=== PATIENT | male | born 1960 | race Caucasian/White ===

== ENCOUNTER 2017-10-10 16:02 | Outpatient (CLI) | payer MEDICAID ==
--- NOTE | 2017-10-11 11:36 | XRAY Report ---
CERVICAL SPINE: 10/10/2017. COMPARISON: No comparison. INDICATION: Cervicalgia. TECHNIQUE: Three views. FINDINGS: Normal alignment. No evidence of acute fracture. Prevertebral soft tissues appear unremarkable. The lateral masses are symmetric. There is moderate disk space narrowing at C4-C5. There is moderate to severe disk space narrowing at C5-C6 and C6-C7. There are moderate anterior osteophytes. There are mild to moderate degenerative changes of the lower cervical facets. IMPRESSION: MODERATE TO SEVERE CERVICAL SPONDYLOSIS. NO ACUTE FINDINGS. TD: 10/11/2017 11:34 MTDD
== END 2017-10-10 16:03 | disposition home or self-care (01) ==
LOC: DI.S 16:02
PROVIDERS: ATTEND Nurse Practitioner Family
DX: M47.892 Other spondylosis, cervical region (principal)
CPT/HCPCS: 72040

== ENCOUNTER 2021-07-31 18:04 | Outpatient (CLI) | payer MEDICAID | END 2021-07-31 18:05 | disposition critical access hospital (66) | LOC: EMS 18:04 | DX: R06.02 Shortness of breath (principal); R60.0 Localized edema; J44.9 Chronic obstructive pulmonary disease, unspecified | CPT/HCPCS: A0425; A0427; A0999 ==

== ENCOUNTER 2021-07-31 18:37 | Inpatient (IN) | payer MEDICAID ==
[2021-07-31] MEDS ORDERED: ALBUTEROL NEB 2.5 MG/3 ML INH STA (18:50)
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
[2021-07-31 19:06] LABS: BASOPHILS % (AUTO) 0.1 %; EOSINOPHILS # (AUTO) 0.1 10^3/uL (0.0-0.7); EOSINOPHILS % (AUTO) 0.5 %; HCT - HEMATOCRIT 50.8 % (42.0-52.0); HGB - HEMOGLOBIN 15.8 g/dL (14.0-18.0); LYMPHOCYTES # (AUTO) 1.1 10^3/uL (1.5-3.5); LYMPHOCYTES % (AUTO) 7.1 %; MEAN CORPUSCULAR HEMOGLOBIN 30.9 pg (27.0-31.0); MEAN CORPUSCULAR HGB CONC 31.1 g/dL (32.0-36.0); MEAN CORPUSCULAR VOLUME 99.4 fL (80.0-94.0); MEAN PLATELET VOLUME 10.8 fL (7.4-11.4); MONOCYTES # (AUTO) 1.4 10^3/uL (0.0-1.0); MONOCYTES % (AUTO) 9.4 %; NEUTROPHILS # (AUTO) 12.2 10^3/uL (1.5-6.6); NEUTROPHILS % (AUTO) 82.6 %; PLT - PLATELET COUNT 216 10^3/uL (130-450); RED BLOOD COUNT 5.11 10^6/uL (4.70-6.10); RED CELL DISTRIBUTION WIDTH 13.2 % (12.0-15.0); WHITE BLOOD COUNT 14.7 x10^3/uL (4.8-10.8)
[2021-07-31 19:08] LABS: VBG PH 7.287 (7.31-7.41)
[2021-07-31] MEDS ORDERED: NITROGLYCERIN 2% PASTE TOP STA (19:08)
[2021-07-31 19:09] LABS: VBG HCO3 34.9 mmol/L (23-28); VBG OXYGEN SATURATION 39.8 % (60-80); VBG PCO2 74.7 mmHg (41-51); VBG PO2 24.4 mmHg (25-47); VBG TOTAL CO2 37.2 mmol/L (24-29)
[2021-07-31 19:19] LABS: INR 1.2 (0.8-1.2); PT - PROTHROMBIN TIME 13.4 secs (9.9-12.6)
[2021-07-31 19:22] LABS: ALBUMIN 3.9 g/dL (3.2-5.5); ALBUMIN/GLOBULIN RATIO 1.1 (1.0-2.2); BILIRUBIN,TOTAL 1.6 mg/dL (0.2-1.0); CALCIUM 8.9 mg/dL (8.5-10.3); CREATININE 0.8 mg/dL (0.6-1.2); PHOSPHORUS 4.3 mg/dL (2.5-4.6); POTASSIUM 4.2 mmol/L (3.5-5.0); TOTAL PROTEIN 7.3 g/dL (6.7-8.2)
--- NOTE | 2021-07-31 19:28 | XRAY Report ---
PROCEDURE: Chest 1 View X-Ray INDICATIONS: dyspnea TECHNIQUE: One view of the chest was acquired. COMPARISON: None FINDINGS: Surgical changes and devices: None. Lungs and pleura: Increased pulmonary interstitial markings are present. Mild right effusion is prese nt. Mediastinum: Mediastinal contours appear normal. Heart size is enlarged. Bones and chest wall: No suspicious bony lesions. Overlying soft tissues appear unremarkable. IMPRESSION: Mild right effusion with increased vascularity most consistent with edema. Reviewed by: Serena Rey MD on 07/31/2021 7:27 PM PST Approved by: Serena Rey MD on 07/31/2021 7:27 PM PST Station ID: [id number]
[2021-07-31] MEDS ORDERED: FUROSEMIDE 40 MG/4 ML VIAL IVP STA (19:31)
[2021-07-31] MEDS ORDERED: ONDANSETRON 4 MG/2 ML VIAL IVP PRN (19:54)
[2021-07-31 20:02] LABS: B. PARAPERTUSSIS- RESP PCR PAN NOT DETECTED; B. PERTUSSIS- RESP PCR PANEL NOT DETECTED; C. PNEUMONIAE- RESP PCR PANEL NOT DETECTED; CORONAVIRUS 229E-RESP PCR NOT DETECTED; CORONAVIRUS HKU1-RESP PCR NOT DETECTED; CORONAVIRUS NL63-RESP PCR NOT DETECTED; CORONAVIRUS OC43-RESP PCR NOT DETECTED; HUMAN METAPNEUMOVIRUS NOT DETECTED; INFLUENZA A- RESP PCR PANEL NOT DETECTED; INFLUENZA B - RESP PCR PANEL NOT DETECTED; M. PNEUMONIAE- RESP PCR PANEL NOT DETECTED; PARAINFLUENZA VIRUS 1 NOT DETECTED; PARAINFLUENZA VIRUS 2 NOT DETECTED; PARAINFLUENZA VIRUS 3 NOT DETECTED; PARAINFLUENZA VIRUS 4 NOT DETECTED; RHINOVIRUS/ENTEROVIRUS NOT DETECTED; RSV- RESP PCR PANEL NOT DETECTED; SARS-CoV-2 -RESP PCR PANEL NOT DETECTED
[2021-07-31] MEDS ORDERED: FUROSEMIDE 20 MG/2 ML VIAL IVP STA (20:02)
--- NOTE | 2021-07-31 20:07 | HISTORY & PHYSICAL EXAMINATION ---
Chief Complaint - Chief Complaint Chief Complaint: dyspnea History of Present Illness - Admitted From Admitted From:: [facility] ED - History Obtained From Records Reviewed: yes History obtained from: patient - History of Present Illness HPI Comment/Other: Patient is a 61-year-old male with medical history significant for hypertension, asthma, depression, anxiety, PTSD, insomnia and presumed COPD who presented to the ED with complaint of dyspnea and anasarca. He also complained of leg pain and difficulty walking. The pain in his legs have been going on for the past 1 month. One of the renters at his house called EMS when he complained of difficulties walking. The pain is located in the plantar and dorsal aspects of his feet. However there is significant marbling/mottling in his lower extremities. The distal half of his lower extremities are dusky appearing and tender to palpation. The patient is a chronic smoker and has been smoking for about 54 years. His oxygen saturation was noted to be 85% on room air. He had 3+ lower extremity edema up to his thighs and JVD. Chest x-ray was consistent with pulmonary edema. Further work-up in the ED included a BNP which was 973. Initial troponin was 68 however the patient denied chest pain. As a result of this findings he was presented for admission for further management. He denies chest pain, abdominal pain, nausea, vomiting, fever or chills. He appears very disheveled. His toxicology was positive for cannabinoids and methamphetamine History - Past Medical History Cardiovascular: reports: Hypertension Respiratory: reports: Asthma Neuro: reports: None Endocrine/Autoimmune: reports: None GI: reports: None : reports: None HEENT: reports: None Psych: reports: Depression, Anxiety, Post traumatic stress disorder, Other (Insomnia) Musculoskeletal: reports: None Derm: reports: None MRSA Hx?: No - Past Surgical History HEENT: reports: Tonsil/Adenoidectomy Other past surgical history: Vasectomy - Family & Social History Family History Comment/Other: Patient denies any significant family history. Social History Notes: Patient smokes about 1 pack of cigarettes daily. He has been smoking for 54 years. He reports drinking a can of beer daily. He uses marijuana and methamphetamine. He reports living in his house with some renters. - POLST Patient has POLST: No POLST Status: Full Code Meds/Allgy - Home Medications Home Medications: Ambulatory Orders Medication Instructions Recorded Confirmed Albuterol Sulfate [Ventolin Hfa] 2 puffs IH QID PRN #1 hfa.aer.ad 04/01/16 Lisinopril 20 mg PO DAILY #30 tablet 04/01/16 - Allergies Allergies/Adverse Reactions: Allergies Allergy/AdvReac Type Severity Reaction Status Date / Time No Known Drug Allergies Allergy Verified 07/31/21 18:48 Review of Systems - Constitutional Constitutional: reports: Other (Dishevelled). denies: Fever, Chills - Eyes Eyes: denies: Pain, Vision loss - Ears, Nose & Throat Ears, Nose & Throat: denies: Ear pain, Sore throat - Cardiovascular Cariovascular: reports: Edema, Exertional dyspnea. denies: Irregular heart rate, Palpitations, Chest pain, Lightheadedness, Syncope - Respiratory Respiratory: reports: Wheezing, SOB at rest, SOB with exertion. denies: Cough, Sputum production - Gastrointestinal Gastrointestinal: denies: Abdominal pain, Abdominal distention, Constipation, Diarrhea, Nausea, Vomiting, Reflux/heartburn - Genitourinary Genitourinary: denies: Dysuria, Frequency, Urgency, Hematuria - Musculoskeletal Musculoskeletal: denies: Muscle pain, Back pain - Integumentary Integumentary: reports: Dryness, Other (mottling in lower extremities bilaterally. Dusky appearing lower extremities). denies: Rash, Pruritis, Lesions - Neurological Neurological: denies: General weakness, Headache, Dizziness - Psychiatric Psychiatric: denies: Depression, Anxiety - Endocrine Endocrine: denies: Polyuria, Polydypsia - Hematologic/Lymphatic Hematologic/Lymphatic: denies: Anemia, Bruising, Petechiae Prior Level of Functionality: Patient is independent of activities of daily living. Exam - Vital Signs Vital Signs: Vital Signs x48h Temp Pulse Resp BP Pulse Ox 07/31/21 19:48 111 H 22 114/95 H 97 07/31/21 19:22 126 H 24 171/132 H 99 07/31/21 19:00 119 H 28 H 97 07/31/21 18:57 124 H 29 H 87 L 07/31/21 18:48 36.1 C L 122 H 32 H 170/139 H 94 - Physical Exam General Appearance: positive: Alert, Moderate distress (respiratory), Other (Dishevelled) Eyes Bilateral: positive: PERRL, EOMI ENT: positive: No signs of dehydration Neck: positive: Trachea midline, Other (JVD noted) Respiratory: positive: Chest non-tender, Rhonchi Cardiovascular: positive: No murmur, Tachycardia Abdomen: positive: Non-tender, No organomegaly, Nml bowel sounds, No distention. negative: Guarding, Rebound Back: positive: Nml inspection Skin: positive: Warm, Dry, Other (mottling in lower extremities bilaterally. Dusky appearing lower extremities. Cat scratches on lower extremeties) Extremities: positive: Non-tender, Full ROM, Nml appearance, Pedal edema (3+) Neurologic/Psychiatric: positive: Oriented x3, Mood/affect nml Conclusion/Plan - Problem List (1) Congestive heart failure Conclusion/Plan: New onset. Patient's BNP was 973. Chest x-ray showed mild right effusion with increased vascularity most consistent with edema. Patient was given Lasix 40 mg IV x1 in the ED. An extra Lasix 20 mg IV x1 was ordered. We will continue Lasix 40 mg IV twice daily starting in the morning. Low-salt diet ordered. Metroprolol succinate 25 mg p.o. daily ordered. We will obtain a 2D echocardiogram when available. Qualifiers: Heart failure type: unspecified Heart failure chronicity: acute on chronic Qualified Code(s): I50.9 - Heart failure, unspecified (2) Elevated troponin I level Conclusion/Plan: Likely secondary to demand ischemia. Initial troponin was 68.2. Will trend x2 more. (3) COPD (chronic obstructive pulmonary disease) Conclusion/Plan: Presumed. This would need to be established with pulmonary function test. Venous pH was 7.287, PCO2 74.7. Patient smokes daily. DuoNeb, Perforomist and budesonide ordered. Supplemental oxygen as needed. (4) Respiratory failure Conclusion/Plan: Likely multifactorial secondary to CHF exacerbation and presumed COPD. Patient is on Lasix twice daily. DuoNeb breathing treatment, Perforomist and budesonide ordered. Supplemental oxygen as needed. Qualifiers: Chronicity: acute on chronic Respiratory failure complication: hypoxia and hypercapnia Qualified Code(s): J96.21 - Acute and chronic respiratory failure with hypoxia; J96.22 - Acute and chronic respiratory failure with hypercapnia (5) Hypertension Conclusion/Plan: On lisinopril 20 mg p.o. daily. Will continue. Metoprolol succinate 25 mg p.o. daily ordered to start in the morning. Qualifiers: Hypertension type: unspecified secondary hypertension Qualified Code(s): I15.9 - Secondary hypertension, unspecified (6) Peripheral vascular disease Conclusion/Plan: Suspected Will order arterial and venous dopplers of lower extremities bilaterally - Lab Results Fish Bones: 07/31/21 19:00 07/31/21 19:00 Core Measures - Anticipated LOS I expect patient to be DC'd or transferred within 96 hours.: Yes - DVT/VTE - Prophylaxis VTE/DVT Device ordered at admit?: Yes VTE/DVT Prophylaxis med ordered at admit?: Yes
[2021-07-31 20:25] LABS: MUDS CUTOFF CONCENTRATIONS CUTOFF CONC BELOW:
[2021-07-31 21:05] LABS: THC CANNABINOID SCREEN, URINE POSITIVE (NEGATIVE)
[2021-07-31 21:06] LABS: AMPHETAMINE SCREEN,URINE POSITIVE (NEGATIVE); BARBITURATE SCREEN,UR NEGATIVE (NEGATIVE); BENZODIAZEPINES SCREEN, URINE NEGATIVE (NEGATIVE); COCAINE SCREEN URINE NEGATIVE (NEGATIVE); METHADONE SCREEN, URINE NEGATIVE (NEGATIVE); METHAMPHETAMINES SCREEN, URINE POSITIVE (NEGATIVE); OPIATE SCREEN, URINE NEGATIVE (NEGATIVE); OXYCODONE SCREEN, URINE NEGATIVE (NEGATIVE); PROPOXYPHENE SCREEN, URINE NEGATIVE (NEGATIVE); TRICYCLIC ANTIDEPRESSANT,URINE NEGATIVE (NEGATIVE)
[2021-07-31] MEDS: SODIUM CHLORIDE FLUSH 0.9% 10 ML SYRINGE IVP SCH (21:49)
[2021-07-31] MEDS: ACETAMINOPHEN 325 MG TABLET PO PRN (22:29)
[2021-08-01 04:36] LABS: BASOPHILS % (AUTO) 0.1 %; EOSINOPHILS % (AUTO) 2.3 %; HCT - HEMATOCRIT 48.8 % (42.0-52.0); HGB - HEMOGLOBIN 15.5 g/dL (14.0-18.0); LYMPHOCYTES % (AUTO) 1.3 %; MEAN CORPUSCULAR HEMOGLOBIN 31.3 pg (27.0-31.0); MEAN CORPUSCULAR HGB CONC 31.8 g/dL (32.0-36.0); MEAN CORPUSCULAR VOLUME 98.4 fL (80.0-94.0); MEAN PLATELET VOLUME 10.8 fL (7.4-11.4); MONOCYTES % (AUTO) 2.6 %; NEUTROPHILS % (AUTO) 93.5 %; PLT - PLATELET COUNT 186 10^3/uL (130-450); RED BLOOD COUNT 4.96 10^6/uL (4.70-6.10); WHITE BLOOD COUNT 12.4 x10^3/uL (4.8-10.8)
[2021-08-01 04:39] LABS: CALCIUM 8.8 mg/dL (8.5-10.3); CREATININE 0.8 mg/dL (0.6-1.2); POTASSIUM 4.1 mmol/L (3.5-5.0)
[2021-08-01 04:45] LABS: ABNORMAL LYMPHS % (MANUAL) 0 %
[2021-08-01 04:57] LABS: BAND NEUTROPHILS % (MANUAL) 3 %; DIFFERENTIAL COMMENT MANUAL DIFFERENTIAL; LYMPHOCYTES # (MANUAL) 0.1 10^3/uL (1.5-3.5); LYMPHOCYTES % (MANUAL) 1 %; MONOCYTES # (MANUAL) 0.2 10^3/uL (0.0-1.0); PLATELET ESTIMATE, MANUAL NORMAL (130-450,000) (NORMAL); PLATELET MORPHOLOGY NORMAL APPEARANCE (NORMAL); RBC MORPHOLOGY (MULTIPLE) NORMAL APPEARANCE (NORMAL); WBC MORPHOLOGY (MULTIPLE) NORMAL APPEARANCE (NORMAL)
[2021-08-01] MEDS: SODIUM CHLORIDE FLUSH 0.9% 10 ML SYRINGE IVP PRN (05:29)
[2021-08-01] MEDS: SODIUM CHLORIDE FLUSH 0.9% 10 ML SYRINGE IVP SCH ×2 (05:29→18:21)
[2021-08-01] MEDS: FUROSEMIDE 40 MG/4 ML VIAL IVP SCH ×2 (05:29→14:44)
[2021-08-01] MEDS: BENZOCAINE/MENTHOL LOZENGE MM PRN (05:52)
[2021-08-01] MEDS: ACETAMINOPHEN 325 MG TABLET PO PRN ×2 (06:03→09:29)
[2021-08-01] MEDS: FORMOTEROL FUMARATE NEB 20 MCG/2 ML INH SCH ×2 (06:05→15:51)
[2021-08-01] MEDS: BUDESONIDE 0.5 MG/2 ML NEB INH SCH ×2 (06:05→15:52)
[2021-08-01] MEDS: IPRATROPIUM/ALBUTEROL 3 ML NEB INH PRN ×2 (06:05→15:52)
[2021-08-01] MEDS: METOPROLOL SUCCINATE 25 MG TABLET PO SCH (09:27)
--- NOTE | 2021-08-01 09:32 | Ultrasound Report ---
PROCEDURE: Ankle Brachial Index INDICATIONS: lower extremity pain, swelling, dusky TECHNIQUE: Ankle-brachial indices were obtained bilaterally and recorded. COMPARISONS: Correlation is made with arterial ultrasound and venous ultrasound, 08/01/2021. FINDINGS: Right ankle brachial index (ERIC): 0.8 Left ankle brachial index (ERIC): 0.9 Healing potential: Ankle pressures >55 mm Hg in non-diabetics and >80 mm Hg in diabetics are likely to achieve primary h ealing of ischemic foot ulcers. Toe pressures >30 mm Hg are likely to achieve primary healing of ischemic foot ulcers, toe or transme tatarsal amputations. IMPRESSION: Mildly reduced ankle-brachial indices, right worse than left. Reviewed by: Rob Glass MD on 08/01/2021 8:31 AM [facility] Approved by: Rob Glass MD on 08/01/2021 8:31 AM [facility] Station ID: [id number]
--- NOTE | 2021-08-01 09:39 | Ultrasound Report ---
PROCEDURE: Duplex Lwr Ext Arterial Bilat INDICATIONS: bilateral lower extremity pain, mottling, dusky TECHNIQUE: Color and pulse Doppler interrogation was performed of both lower extremity arterial systems, with im age documentation. COMPARISON: Correlation is made with the accompanying Juxtacortical brachial index study and venous ultrasound, 08/01/2021. FINDINGS: Right lower extremity: Common femoral artery: 208 cm/sec, with biphasic flow. Deep femoral artery: 182 cm/sec, with biphasic flow. Proximal superficial femoral artery: 281 cm/sec, with monophasic flow. Mid superficial femoral artery: 142 cm/sec, with monophasic flow. Distal superficial femoral artery: 142 cm/sec, with monophasic flow. Popliteal artery: 100 cm/sec, with monophasic flow. Posterior tibial artery: 79 cm/sec, with monophasic flow. Anterior tibial artery/dorsalis pedis: 104 cm/sec, with monophasic flow. Flores-scale imaging description: Atherosclerotic changes with calcification can be seen. Left lower extremity: Common femoral artery: 212 cm/sec, with biphasic flow. Deep femoral artery: 118 cm/sec, with biphasic flow. Proximal superficial femoral artery: 98 cm/sec, with biphasic flow. Mid superficial femoral artery: 228 cm/sec, with biphasic flow. Distal superficial femoral artery: 89 cm/sec, with biphasic flow. Popliteal artery: 90 cm/sec, with biphasic flow. Posterior tibial artery: 74 cm/sec, with biphasic flow. Anterior tibial artery/dorsalis pedis: 69 cm/sec, with biphasic flow. Flores-scale imaging description: Atherosclerotic calcification can be seen. IMPRESSION: Abnormal bilateral lower extremity examination. Hemodynamically significant stenosis can be seen within the right common femoral artery and the right proximal superficial femoral artery, greater than 50%. There is a borderline stenosis seen within th e right profunda femoris artery. Greater than 50% stenosis can also be seen on the left within the left common femoral artery and the left mid superficial femoral artery. Please consider interventional radiology consultation. Reviewed by: Rob Glass MD on 08/01/2021 8:38 AM [facility] Approved by: Rob Glass MD on 08/01/2021 8:38 AM [facility] Station ID: [id number]
--- NOTE | 2021-08-01 09:40 | Ultrasound Report ---
PROCEDURE: Duplex Ext Veins Bilateral INDICATIONS: Bilateral lower extremity pain and swelling. TECHNIQUE: Real-time imaging, as well as color and pulse Doppler interrogation, were performed of the deep veins of both legs from the inguinal ligament to the popliteal fossa. COMPARISON: Correlation is made with the accompanying lower extremity arterial examinations, 2. FINDINGS: The deep veins are normally compressible, and free of intraluminal thrombus. Color and pu lse Doppler demonstrate normal phasic intravascular flow. There is normal augmentation response to d istal compression maneuver. IMPRESSION: No findings of deep venous thrombosis are seen. Reviewed by: Rob Glass MD on 08/01/2021 8:39 AM [facility] Approved by: Rob Glass MD on 08/01/2021 8:39 AM [facility] Station ID: [id number]
[2021-08-01] MEDS ORDERED: LORazepam 2 MG/ML VIAL IVP PRN (11:57)
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
[2021-08-01] MEDS ORDERED: iohexoL-300 100 ML VIAL ONE (13:35)
[2021-08-01] MEDS ORDERED: IOPAMIDOL-300 50 ML VIAL ONE (13:36)
[2021-08-01] MEDS ORDERED: iohexoL-300 100 ML VIAL IVP ONE (14:08)
[2021-08-01] MEDS ORDERED: IOPAMIDOL-300 50 ML VIAL PO ONE (14:08)
--- NOTE | 2021-08-01 14:26 | CT Report ---
PROCEDURE: SOFT TISSUE NECK W INDICATIONS: Odynophagia and chronic hoarseness CONTRAST: IV CONTRAST: Isovue 300 ml: 100 PO CONTRAST: *NO PO CONTRAST TECHNIQUE: After the administration of intravenous contrast, 3.0 mm axial sections acquired from the sella to th e aortic arch. Additional oblique axial 3.0 mm sections acquired through the pharynx. 3 mm thick co kendall reformats were generated. For radiation dose reduction, the following was used: automated exp osure control, adjustment of mA and/or kV according to patient size. COMPARISON: None. FINDINGS: Image quality: Excellent. Lymph nodes: No enlarged lymph nodes seen throughout the neck. Vessels: Visualized vasculature appears patent. Neck spaces: The oropharynx, nasopharynx, and pharynx demonstrate no mucosal lesions. The trachea is narrowed at the level of the vocal cords. No distinct mass is identified. Extramucosal spaces appear unremarkable. Glands: The parotid and submandibular glands appear normal. Thyroid gland demonstrates a focus of l ow-attenuation within the left lobe measuring 6 mm. No priors are available for comparison. Miscellaneous: Visualized brain and orbits appear normal. Lung apices appear clear. Superficial so ft tissues appear normal. Bones: No suspicious bony lesions. Visualized sinuses and mastoids appear unremarkable. IMPRESSION: Narrowing of the trachea below the vocal cords without discrete mass. This could be secondary to phys iologic movement. If concern persists, direct visualization with ENT is recommended. 6 mm low-attenuation focus within the left thyroid lobe overall nonspecific but possibly related to a denoma. On a nonemergent basis, thyroid ultrasound may be obtained for further evaluation. CLINICAL RECOMMENDATION STATEMENTS: In patients <35 years with an ITN detected on CT, MRI, or extrathyroidal ultrasound, the Committee re commends further evaluation with dedicated thyroid ultrasound if the nodule is "e1 cm and has no susp icious imaging features, and if the patient has normal life expectancy. In patients "e35 years with an ITN detected on CT, MRI, or extrathyroidal ultrasound, the Committee r ecommends further evaluation with dedicated thyroid ultrasound if the nodule is "e1.5 cm and has no s uspicious imaging features, and if the patient has normal life expectancy. (ACR, 2014) Reviewed by: Serena Rey MD on 08/01/2021 2:25 PM PST Approved by: Serena Rey MD on 08/01/2021 2:25 PM [facility] Station ID: [id number]
[2021-08-01] MEDS: ASPIRIN EC 81 MG TABLET PO SCH (14:44)
[2021-08-01 17:55] LABS: MAGNESIUM 1.9 mg/dL (1.7-2.8); POTASSIUM 4.2 mmol/L (3.5-5.0)
[2021-08-01] MEDS ORDERED: traZODone 50 MG TABLET PO SCH (21:00)
[2021-08-01] MEDS: ATORVASTATIN 10 MG TABLET PO SCH (22:33)
[2021-08-02] MEDS: SODIUM CHLORIDE FLUSH 0.9% 10 ML SYRINGE IVP SCH ×4 (00:53→21:46)
[2021-08-02] MEDS: ACETAMINOPHEN 325 MG TABLET PO PRN (00:56)
[2021-08-02] MEDS: BENZOCAINE/MENTHOL LOZENGE MM PRN (01:18)
[2021-08-02] MEDS: SODIUM CHLORIDE FLUSH 0.9% 10 ML SYRINGE IVP PRN ×3 (01:18→06:59)
[2021-08-02] MEDS: IPRATROPIUM/ALBUTEROL 3 ML NEB INH PRN ×3 (01:29→16:48)
[2021-08-02] MEDS ORDERED: FUROSEMIDE 20 MG/2 ML VIAL IVP STA (01:36)
[2021-08-02 06:13] LABS: BASOPHILS % (AUTO) 0.2 %; EOSINOPHILS % (AUTO) 0.2 %; HCT - HEMATOCRIT 50.3 % (42.0-52.0); HGB - HEMOGLOBIN 15.2 g/dL (14.0-18.0); LYMPHOCYTES # (AUTO) 0.9 10^3/uL (1.5-3.5); LYMPHOCYTES % (AUTO) 5.7 %; MEAN CORPUSCULAR HGB CONC 30.2 g/dL (32.0-36.0); MEAN CORPUSCULAR VOLUME 102.4 fL (80.0-94.0); MEAN PLATELET VOLUME 11.2 fL (7.4-11.4); MONOCYTES # (AUTO) 1.5 10^3/uL (0.0-1.0); MONOCYTES % (AUTO) 9.5 %; NEUTROPHILS # (AUTO) 13.6 10^3/uL (1.5-6.6); NEUTROPHILS % (AUTO) 83.8 %; PLT - PLATELET COUNT 201 10^3/uL (130-450); RED BLOOD COUNT 4.91 10^6/uL (4.70-6.10); RED CELL DISTRIBUTION WIDTH 13.2 % (12.0-15.0); WHITE BLOOD COUNT 16.2 x10^3/uL (4.8-10.8)
[2021-08-02 06:35] LABS: CALCIUM 8.7 mg/dL (8.5-10.3); POTASSIUM 4.1 mmol/L (3.5-5.0)
[2021-08-02 06:53] LABS: CHOL/HDL RATIO 2.5 (<5.0); CHOLESTEROL 147 mg/dL; HDL CHOLESTEROL 59 mg/dL; TRIGLYCERIDES 33 mg/dL
[2021-08-02] MEDS: FUROSEMIDE 40 MG/4 ML VIAL IVP SCH (06:59)
[2021-08-02 07:27] LABS: DIFFERENTIAL COMMENT MANUAL=AUTO DIFF; PLATELET ESTIMATE, MANUAL NORMAL (130-450,000) (NORMAL); PLATELET MORPHOLOGY NORMAL APPEARANCE (NORMAL); RBC MORPHOLOGY (MULTIPLE) NORMAL APPEARANCE (NORMAL)
[2021-08-02 07:31] LABS: ABG BASE EXCESS 11.2 mmol/L (-2.0-3.0); ABG HCO3 42.9 mmol/L (22.0-26.0); ABG PH 7.28 (7.35-7.45); ALLEN TEST POSITIVE
[2021-08-02 07:37] LABS: ABG OXYGEN SATURATION 77 % (94-98); ABG PCO2 94 mmHg (34-45); ABG PO2 46 mmHg (80-100); ABG TCO2 45.8 MMOL/L (21.0-29.0)
[2021-08-02] MEDS: BUDESONIDE 0.5 MG/2 ML NEB INH SCH ×3 (07:56→19:25)
[2021-08-02] MEDS: FORMOTEROL FUMARATE NEB 20 MCG/2 ML INH SCH ×3 (07:57→19:25)
[2021-08-02] MEDS: ASPIRIN EC 81 MG TABLET PO SCH (08:21)
[2021-08-02] MEDS: LOSARTAN 50 MG TABLET PO SCH (08:21)
[2021-08-02] MEDS: METOPROLOL SUCCINATE 25 MG TABLET PO SCH (08:21)
--- NOTE | 2021-08-02 08:42 | PROVIDER PROGRESS NOTE ---
Assessment/Plan - Problem List (1) Acute respiratory failure with hypoxia and hypercapnia Assessment/Plan: He is requiring some supplemental oxygen to maintain saturations 88% or better. This morning he was somnolent and his ABG showed CO2 retention with mild respiratory acidosis. Continue with management of both his CHF and COPD. Continue with supplemental oxygen and consideration for BiPAP for ventilation. (2) Congestive heart failure Qualifiers: Heart failure type: unspecified Heart failure chronicity: acute on chronic Qualified Code(s): I50.9 - Heart failure, unspecified Assessment/Plan: I did a limited bedside 2D Echo which showed 4 chamber enlargement, depressed LV and RV function, LVEF estimated at 20%. We will continue with beta-candelaria, ARB and add spironolactone. Doses are very low because of his "soft" blood pressure. We will put holding parameters. Continue with Lasix unless his serum bicarb is a reflection of contraction alkalosis and not from his chronic CO2 retention. Follow I's and O's and daily weights Await full Echo report (Echo dept available tomorrow, Tuesday) (3) COPD (chronic obstructive pulmonary disease) Assessment/Plan: His morning ABG showed CO2 retention and mild acidosis. Will continue with his nebs scheduled and prn q4h. In the afternoon his lungs sounded more tight and O2 saturation was lower. Will transfer to the ICU, continue with nebs, add IV steroids, begin BiPAP in ICU. (4) CO2 retention Assessment/Plan: His BMP shows an elevated bicarb and this morning's ABG (was ordered due to somnolence) showed a pCO2 of 93, therefore a pH of 7.28 Likely this is from meth withdrawal; has been very somnolent the last 2 mornings, slightly more awake as the day goes on. Also with his underlying COPD, he may be a CO2 retainer. (5) Tracheal stenosis Assessment/Plan: CT of the neck showed stenosis of the trachea, right at the level of the vocal cords. This would explain his hoarseness and may also be adding to obstruction/ventilatory problems. ENT is necessary for management of this. I discussed this with the patient today, however he was quickly falling asleep, may not ernenber it. (6) Methamphetamine abuse Assessment/Plan: He has been very somnolent the last 2 mornings, nurse had to use a sternal rub and he only awoke during an ABG blood draw. Suspect he is in withdrawal phase of meth use, hypersomnolent. This is adding to his CO2 retention. His dentition and disheveled appearance are consistent with this. Shower has been ordered. SW to see for drug abuse. (7) Peripheral vascular disease Assessment/Plan: Arterial Doppler was done showing moderate to severe bilateral lower extremity atherosclerosis with stenosis. He did describe pain at rest and claudication, at admission. He has been started on statin and aspirin. All the above was reviewed with the patient today however he was somnolent and may not remember it. (8) Odynophagia Assessment/Plan: He reported a focal area in the left submandibular area that is painful when he swallows. It may also be explained by the findings of the CT scan that are causing the tracheal stenosis. ENT eval and follow-up is needed (9) History of hypertension Assessment/Plan: His blood pressure has been "soft" since admission, at 105-118 systolic. He was put on beta-candelaria which is new for him at admission for presumed systolic heart failure and also his tachycardia. His lisinopril was stopped, he was put on losartan, in case the BONNIE inhibitor was adding to a cough and his hoarseness however the losartan has not been administered because of hold parameters because blood pressure is actually low (10) Tobacco use Assessment/Plan: He turmed down a Nicotine patch and told me he had decreased his smoking down to 4 cigarettes a day. - Current Meds Current Meds: Current Medications Generic Name Dose Route Start Last Admin Trade Name Freq PRN Reason Stop Dose Admin Acetaminophen 650 mg 07/31/21 19:54 08/02/21 00:56 Acetaminophen 325 Mg Tablet PO 650 mg Q4HR PRN Administration Pain 1 to 4 Albuterol/Ipratropium 3 ml 07/31/21 20:03 08/02/21 07:59 Ipratropium/Albuterol 3 Ml Neb INH 3 ml Q4HR PRN Administration Wheezing Aspirin 81 mg 08/01/21 13:11 08/02/21 08:21 Aspirin Ec 81 Mg Tablet PO 81 mg DAILY ABENA Administration Atorvastatin Calcium 10 mg 08/01/21 21:00 08/01/21 22:33 Atorvastatin 10 Mg Tablet PO 10 mg QPM ABENA Administration Budesonide 0.5 mg 08/01/21 07:00 08/02/21 07:56 Budesonide 0.5 Mg/2 Ml Neb INH 0.5 mg RTBID ABENA Administration Formoterol Fumarate 20 mcg 08/01/21 07:00 08/02/21 07:57 Formoterol Fumarate Neb 20 Mcg/2 Ml INH 20 mcg RTBID ABENA Administration Furosemide 40 mg 08/01/21 06:00 08/02/21 06:59 Furosemide 40 Mg/4 Ml Vial IVP 40 mg BIDDIURETIC ABENA Administration Lorazepam 1 mg 08/01/21 11:57 08/02/21 01:18 Lorazepam 2 Mg/Ml Vial IVP 1 mg Q30M PRN Administration CIWA >8 Protocol Losartan Potassium 25 mg 08/02/21 09:00 08/02/21 08:21 Losartan 50 Mg Tablet PO 25 mg DAILY ABENA Administration Metoprolol Succinate 25 mg 08/01/21 09:00 08/02/21 08:21 Metoprolol Succinate 25 Mg Tablet PO 25 mg DAILY ABENA Administration Sodium Chloride 10 ml 07/31/21 19:54 08/02/21 06:59 Sodium Chloride Flush 0.9% 10 Ml Syringe IVP 10 ml PRN PRN Administration NEEDED PER PROVIDER ORDERS Sodium Chloride 10 ml 08/01/21 01:00 08/02/21 08:21 Sodium Chloride Flush 0.9% 10 Ml Syringe IVP 10 ml 0100,0900,1700 ABENA Administration Throat Lozenges 1 lozenge 08/01/21 05:37 08/02/21 01:18 Benzocaine/Menthol Lozenge MM 1 lozenge Q2HR PRN Administration Throat pain Trazodone HCl 50 mg 08/01/21 21:00 08/01/21 22:33 Trazodone 50 Mg Tablet PO 50 mg QPM ABENA Administration - Lab Result Fish Bone Diagrams: 08/02/21 05:15 08/02/21 05:15 - Additional Planning My Orders: My Active Orders 08/01/21 11:57 CIWA - AR Score Card [RC] Q4HR Straight Catheter Insertion [RC] PRN LORazepam INJ [Ativan Inj (Vial)] 1 mg IVP Q30M PRN 08/01/21 13:11 Aspirin EC [Ecotrin] 81 mg PO DAILY 08/01/21 21:00 Atorvastatin [Lipitor] 10 mg PO QPM 08/02/21 08:12 Shower [RC] PRN 08/02/21 09:00 Losartan [Cozaar] 25 mg PO DAILY Subjective - Subjective Patient Reports: Shortness of Breath, Other (Sleepy) Nursing Reports: Other (Somnolent (RN used sternal rub), ABG done and that awoke him) Objective Vital Signs: Vital Signs - 24 hr 08/01/21 08/01/21 08/01/21 15:53 15:59 20:44 Temperature 36.4 C L 36.3 C L Heart Rate 96 Heart Rate [ 94 96 Brachial] Respiratory 20 16 16 Rate Blood Pressure 116/75 101/70 [Right Brachial artery] O2 Saturation 96 95 08/01/21 08/02/21 08/02/21 23:52 01:30 04:59 Temperature 36.4 C L 36.4 C L Heart Rate 100 Heart Rate [ 95 90 Brachial] Respiratory 16 26 H 24 Rate Blood Pressure 128/83 H 104/80 [Right Brachial artery] O2 Saturation 94 97 08/02/21 08/02/21 08:00 08:13 Temperature 36.7 C Heart Rate 90 Heart Rate [ 98 Brachial] Respiratory 21 24 Rate Blood Pressure 116/86 H [Right Brachial artery] O2 Saturation 94 Oxygen O2 Source Nasal cannula Oxygen Flow Rate 2 I&O (Last 24 Hrs): Intake and Output Totals x24h 07/31/21 08/01/21 08/02/21 23:59 23:59 23:59 Intake Total 2120 Output Total 2260 3600 825 Balance -2260 -1480 -825 General: Other (Lethargic but awakens when spoken to, then falls asleep quickly) HEENT: Mucous membr. moist/pink, Other (Hoarse, cleaned (had a shower), wearing O2 per n.c.) Neck: Supple Neuro: Non Focal, Other (obtunded) Cardiovascular: Regular rate, No murmurs Respiratory: Wheezes, Other (Poor air movement, very tight, in all lung field) Abdomen: Soft Extremities: Other (trace edema of feet, Legs and feet are purple from thighs down, decr DP pulses) - Results Results: Laboratory Results WBC 16.2 x10^3/uL (4.8-10.8) H 08/02/21 05:15 RBC 4.91 10^6/uL (4.70-6.10) 08/02/21 05:15 Hgb 15.2 g/dL (14.0-18.0) 08/02/21 05:15 Hct 50.3 % (42.0-52.0) 08/02/21 05:15 MCV 102.4 fL (80.0-94.0) H 08/02/21 05:15 MCH 31.0 pg (27.0-31.0) 08/02/21 05:15 MCHC 30.2 g/dL (32.0-36.0) L 08/02/21 05:15 RDW 13.2 % (12.0-15.0) 08/02/21 05:15 Plt Count 201 10^3/uL (130-450) 08/02/21 05:15 MPV 11.2 fL (7.4-11.4) 08/02/21 05:15 Neut # (Auto) 13.6 10^3/uL (1.5-6.6) H 08/02/21 05:15 Lymph # (Auto) 0.9 10^3/uL (1.5-3.5) L 08/02/21 05:15 Riley # (Auto) 1.5 10^3/uL (0.0-1.0) H 08/02/21 05:15 Eos # (Auto) 0.0 10^3/uL (0.0-0.7) 08/02/21 05:15 Baso # (Auto) 0.0 10^3/uL (0.0-0.1) 08/02/21 05:15 Absolute Nucleated RBC 0.00 x10^3/uL 08/02/21 05:15 Total Counted 100 08/01/21 04:15 Band Neuts % (Manual) Not Reportable 08/02/21 05:15 Abnorm Lymph % (Manual) Not Reportable 08/02/21 05:15 Nucleated RBC % 0.0 /100WBC 08/02/21 05:15 Neutrophils # (Manual) Not Reportable 08/02/21 05:15 Lymphocytes # (Manual) Not Reportable 08/02/21 05:15 Monocytes # (Manual) Not Reportable 08/02/21 05:15 Eosinophils # (Manual) Not Reportable 08/02/21 05:15 Basophils # (Manual) Not Reportable 08/02/21 05:15 Differential Comment MANUAL=AUTO DIFF 08/02/21 05:15 WBC Morphology NORMAL APPEARANCE (NORMAL) 08/01/21 04:15 Platelet Estimate NORMAL (130-450,000) (NORMAL) 08/02/21 05:15 Platelet Morphology NORMAL APPEARANCE (NORMAL) 08/02/21 05:15 RBC Morph Micro Appear NORMAL APPEARANCE (NORMAL) 08/02/21 05:15 PT 13.4 secs (9.9-12.6) H 07/31/21 19:00 INR 1.2 (0.8-1.2) 07/31/21 19:00 Bld Gas Analysis Time 72708/02/21 07:20 Sample Site LEFT RADIAL 08/02/21 07:20 ABG pH 7.28 (7.35-7.45) L 08/02/21 07:20 ABG pCO2 94 mmHg (34-45) H* 08/02/21 07:20 ABG pO2 46 mmHg (80-100) L* 08/02/21 07:20 ABG HCO3 42.9 mmol/L (22.0-26.0) H 08/02/21 07:20 ABG Total CO2 45.8 MMOL/L (21.0-29.0) H* 08/02/21 07:20 ABG O2 Saturation 77 % (94-98) L* 08/02/21 07:20 ABG Base Excess 11.2 mmol/L (-2.0-3.0) H 08/02/21 07:20 Conner Test POSITIVE 08/02/21 07:20 VBG pH 7.287 (7.31-7.41) L 07/31/21 19:00 VBG pCO2 74.7 mmHg (41-51) H 07/31/21 19:00 VBG pO2 24.4 mmHg (25-47) L 07/31/21 19:00 VBG HCO3 34.9 mmol/L (23-28) H 07/31/21 19:00 VBG Total CO2 37.2 mmol/L (24-29) H 07/31/21 19:00 VBG O2 Saturation 39.8 % (60-80) L 07/31/21 19:00 VBG Base Excess 5.0 mmol/L (-2 - +2) H 07/31/21 19:00 O2 Delivery Device NASAL CANNULA 08/02/21 07:20 O2 Liters/Min 2.00 LPM 08/02/21 07:20 Sodium 140 mmol/L (135-145) 08/02/21 05:15 Potassium 4.1 mmol/L (3.5-5.0) 08/02/21 05:15 Chloride 90 mmol/L (101-111) L 08/02/21 05:15 Carbon Dioxide 40 mmol/L (21-32) H* 08/02/21 05:15 Anion Gap 10.0 (6-13) 08/02/21 05:15 BUN 30 mg/dL (6-20) H 08/02/21 05:15 Creatinine 1.0 mg/dL (0.6-1.2) 08/02/21 05:15 Estimated GFR (MDRD) 75 (>89) L 08/02/21 05:15 Glucose 105 mg/dL (70-100) H 08/02/21 05:15 Calcium 8.7 mg/dL (8.5-10.3) 08/02/21 05:15 Phosphorus 4.3 mg/dL (2.5-4.6) 07/31/21 19:00 Magnesium 2.0 mg/dL (1.7-2.8) 08/02/21 05:15 Total Bilirubin 1.6 mg/dL (0.2-1.0) H 07/31/21 19:00 AST 31 IU/L (10-42) 07/31/21 19:00 ALT 25 IU/L (10-60) 07/31/21 19:00 Alkaline Phosphatase 69 IU/L (42-121) 07/31/21 19:00 Troponin I High Sens 57.6 ng/L (2.3-19.7) H* 08/02/21 05:15 B-Natriuretic Peptide 762 pg/mL (5-100) H 08/02/21 05:15 Total Protein 7.3 g/dL (6.7-8.2) 07/31/21 19:00 Albumin 3.9 g/dL (3.2-5.5) 07/31/21 19:00 Globulin 3.4 g/dL (2.1-4.2) 07/31/21 19:00 Albumin/Globulin Ratio 1.1 (1.0-2.2) 07/31/21 19:00 Triglycerides 33 mg/dL (-149) 08/02/21 05:15 Cholesterol 147 mg/dL (-199) 08/02/21 05:15 LDL Cholesterol, Calc Not Reportable 08/02/21 05:15 VLDL Cholesterol Not Reportable 08/02/21 05:15 HDL Cholesterol 59 mg/dL (60-) L 08/02/21 05:15 LDL/HDL Ratio Not Reportable 08/02/21 05:15 Cholesterol/HDL Ratio 2.5 (<5.0) 08/02/21 05:15 Lipase 23 U/L (22-51) 07/31/21 19:00 Nasal Adenovirus (PCR) NOT DETECTED 07/31/21 19:05 Nasal B. parapertussis DNA (PCR) NOT DETECTED 07/31/21 19:05 Nasal Coronavir 229E PCR NOT DETECTED 07/31/21 19:05 Nasal Coronavir HKU1 PCR NOT DETECTED 07/31/21 19:05 Nasal Coronavir NL63 PCR NOT DETECTED 07/31/21 19:05 Nasal Coronavir OC43 PCR NOT DETECTED 07/31/21 19:05 Nasal Enterovir/Rhinovir PCR NOT DETECTED 07/31/21 19:05 Nasal Influenza B PCR NOT DETECTED 07/31/21 19:05 Nasal Influenza A PCR NOT DETECTED 07/31/21 19:05 Nasal Parainfluen 1 PCR NOT DETECTED 07/31/21 19:05 Nasal Parainfluen 2 PCR NOT DETECTED 07/31/21 19:05 Nasal Parainfluen 3 PCR NOT DETECTED 07/31/21 19:05 Nasal Parainfluen 4 PCR NOT DETECTED 07/31/21 19:05 Nasal RSV (PCR) NOT DETECTED 07/31/21 19:05 Nasal B.pertussis DNA PCR NOT DETECTED 07/31/21 19:05 Nasal C.pneumoniae (PCR) NOT DETECTED 07/31/21 19:05 Fredy Human Metapneumo PCR NOT DETECTED 07/31/21 19:05 Nasal M.pneumoniae (PCR) NOT DETECTED 07/31/21 19:05 Nasal SARS-CoV-2 (PCR) NOT DETECTED 07/31/21 19:05 Urine Opiates Screen NEGATIVE (NEGATIVE) 07/31/21 20:10 Ur Oxycodone Screen NEGATIVE (NEGATIVE) 07/31/21 20:10 Urine Methadone Screen NEGATIVE (NEGATIVE) 07/31/21 20:10 Ur Propoxyphene Screen NEGATIVE (NEGATIVE) 07/31/21 20:10 Ur Barbiturates Screen NEGATIVE (NEGATIVE) 07/31/21 20:10 Ur Tricyclics Screen NEGATIVE (NEGATIVE) 07/31/21 20:10 Ur Phencyclidine Scrn NEGATIVE (NEGATIVE) 07/31/21 20:10 Ur Amphetamine Screen POSITIVE (NEGATIVE) H 07/31/21 20:10 U Methamphetamines Scrn POSITIVE (NEGATIVE) H 07/31/21 20:10 U Benzodiazepines Scrn NEGATIVE (NEGATIVE) 07/31/21 20:10 Urine Cocaine Screen NEGATIVE (NEGATIVE) 07/31/21 20:10 U Cannabinoids Screen POSITIVE (NEGATIVE) H 07/31/21 20:10
[2021-08-02] MEDS ORDERED: lisinopriL 20 MG TABLET PO SCH (09:00)
[2021-08-02] MEDS ORDERED: FUROSEMIDE 20 MG/2 ML VIAL IVP SCH (14:00)
[2021-08-02] MEDS ORDERED: LIDOCAINE 2% URO-JET 5 ML SYRINGE UR ONE (16:29)
[2021-08-02 18:05] LABS: ABG PH 7.27 (7.35-7.45); ABG PO2 88 mmHg (80-100)
[2021-08-02 18:06] LABS: ABG BASE EXCESS 12.4 mmol/L (-2.0-3.0); ABG HCO3 44.6 mmol/L (22.0-26.0); ABG OXYGEN SATURATION 96 % (94-98)
[2021-08-02 18:09] LABS: ABG PCO2 100 mmHg (34-45); ABG TCO2 47.6 MMOL/L (21.0-29.0)
[2021-08-02] MEDS: ATORVASTATIN 10 MG TABLET PO SCH (20:40)
[2021-08-02] MEDS: methylPREDNISolone SUCCINATE 125 MG/2 ML VIAL IVP SCH (21:46)
[2021-08-03 04:42] LABS: BASOPHILS % (AUTO) 0.4 %; EOSINOPHILS % (AUTO) 0.5 %; HCT - HEMATOCRIT 52.1 % (42.0-52.0); HGB - HEMOGLOBIN 15.7 g/dL (14.0-18.0); LYMPHOCYTES % (AUTO) 1.2 %; MEAN CORPUSCULAR HEMOGLOBIN 31.5 pg (27.0-31.0); MEAN CORPUSCULAR HGB CONC 30.1 g/dL (32.0-36.0); MEAN CORPUSCULAR VOLUME 104.4 fL (80.0-94.0); MONOCYTES % (AUTO) 7.6 %; NEUTROPHILS % (AUTO) 90.1 %; PLT - PLATELET COUNT 200 10^3/uL (130-450); RED BLOOD COUNT 4.99 10^6/uL (4.70-6.10); RED CELL DISTRIBUTION WIDTH 13.1 % (12.0-15.0); WHITE BLOOD COUNT 13.2 x10^3/uL (4.8-10.8)
[2021-08-03 04:48] LABS: CALCIUM 8.6 mg/dL (8.5-10.3); CREATININE 1.2 mg/dL (0.6-1.2)
[2021-08-03 04:50] LABS: ABNORMAL LYMPHS % (MANUAL) 0 %
[2021-08-03 04:57] LABS: BAND NEUTROPHILS % (MANUAL) 14 %; EOSINOPHILS # (MANUAL) 0.1 10^3/uL (0-0.7); LYMPHOCYTES # (MANUAL) 0.3 10^3/uL (1.5-3.5); LYMPHOCYTES % (MANUAL) 2 %; METAMYELOCYTES % (MANUAL) 1 %; MONOCYTES # (MANUAL) 0.7 10^3/uL (0.0-1.0)
[2021-08-03 04:58] LABS: DIFFERENTIAL COMMENT MANUAL DIFFERENTIAL; PLATELET ESTIMATE, MANUAL NORMAL (130-450,000) (NORMAL); PLATELET MORPHOLOGY NORMAL APPEARANCE (NORMAL); RBC MORPHOLOGY (MULTIPLE) 1+ MACROCYTOSIS (NORMAL); WBC MORPHOLOGY (MULTIPLE) NORMAL APPEARANCE (NORMAL)
[2021-08-03] MEDS: methylPREDNISolone SUCCINATE 125 MG/2 ML VIAL IVP SCH ×3 (05:59→21:33)
[2021-08-03] MEDS: SODIUM CHLORIDE FLUSH 0.9% 10 ML SYRINGE IVP PRN ×2 (06:02→21:34)
[2021-08-03] MEDS: IPRATROPIUM/ALBUTEROL 3 ML NEB INH PRN (07:20)
[2021-08-03] MEDS: BUDESONIDE 0.5 MG/2 ML NEB INH SCH ×2 (07:20→19:04)
[2021-08-03] MEDS: FORMOTEROL FUMARATE NEB 20 MCG/2 ML INH SCH ×2 (07:20→19:04)
[2021-08-03] MEDS ORDERED: ROCURONIUM 50 MG/5 ML VIAL ONE ×2 (07:56→07:57)
[2021-08-03] MEDS ORDERED: SUGAMMADEX 200 MG/2 ML VIAL IVP ONE (07:56)
[2021-08-03] MEDS ORDERED: PROPOFOL 200 MG/20 ML VIAL IVP ONE ×2 (07:56)
[2021-08-03] MEDS ORDERED: PROPOFOL 1000 MG/100 ML 1,000 MG/100 ML BOTTLE IV ONE (07:57)
--- NOTE | 2021-08-03 08:16 | ANESTHESIA PROCEDURE NOTE ---
Anesthesia Intubation Template - Intubation Blade: positive: Glidescope Tube: Size-enter number (7.5), Cuffed, Marked at lips-enter cm (25) Route: Oral Placement Confirmation: End tidal CO2, Direct visualization, Bilateral breath sounds Complications: No complications
[2021-08-03] MEDS ORDERED: ePHEDrine 50 MG/ML VIAL IVP ONE (08:17)
--- NOTE | 2021-08-03 08:51 | XRAY Report ---
PROCEDURE: Chest for Line Placement INDICATIONS: Intubated on the vent TECHNIQUE: One view of the chest was acquired. COMPARISON: 07/31/2021 FINDINGS: Surgical changes and devices: Interval ET tube placement and NG tube placement, in satisfactory posit ion. Tip of NG tube proximally 6.9 cm above the will.. Lungs and pleura: Small right pleural effusion with subpulmonic component. Interstitial pulmonary marj ma. Mediastinum: Mediastinal contours appear normal. Heart size is normal. Bones and chest wall: No suspicious bony lesions. Overlying soft tissues appear unremarkable. IMPRESSION: 1. Lines and tubes in satisfactory position. 2. Congestive heart failure exacerbation. Reviewed by: Luís Rojas MD on 08/03/2021 8:50 AM PST Approved by: Luís Rojas MD on 08/03/2021 8:50 AM PST Station ID: [id number]
[2021-08-03] MEDS ORDERED: MIDAZOLAM DRIP 50 MG/50 ML 50 MG/50 ML BAG IV SCH (09:00)
[2021-08-03] MEDS: DEXMEDETOMIDINE 400 MCG in SODIUM CHLORIDE 0.9% 100ML 96 ML IV SCH ×3 (09:50→22:06)
[2021-08-03 10:23] LABS: ABG BASE EXCESS 12.6 mmol/L (-2.0-3.0); ABG HCO3 39.2 mmol/L (22.0-26.0); ABG OXYGEN SATURATION 92 % (94-98); ABG PCO2 57 mmHg (34-45); ABG PH 7.46 (7.35-7.45); ABG PO2 56 mmHg (80-100); ALLEN TEST POSITIVE
[2021-08-03 10:24] LABS: ABG MODE OF VENTILATION ASSIST/CONTROL; ABG RESPIRATORY RATE 22 b/min
[2021-08-03 10:30] LABS: ABG TCO2 40.9 MMOL/L (21.0-29.0)
[2021-08-03] MEDS: LOSARTAN 50 MG TABLET PO SCH (15:31)
[2021-08-03] MEDS: SODIUM CHLORIDE FLUSH 0.9% 10 ML SYRINGE IVP SCH ×2 (15:31→17:26)
[2021-08-03] MEDS: SPIRONOLACTONE 25 MG TABLET PO SCH (15:32)
[2021-08-03] MEDS: LEVALBUTEROL 1.25 MG/3 ML NEB INH SCH ×2 (15:32→19:05)
[2021-08-03] MEDS: NORepinephrine 8 MG in DEXTROSE 5% 250ML IV SCH (15:48)
[2021-08-03] MEDS: ASPIRIN CHEW 81 MG TABLET NG SCH (16:59)
[2021-08-03] MEDS ORDERED: ASPIRIN CHEW 81 MG TABLET ONE (17:03)
--- NOTE | 2021-08-03 18:57 | PROVIDER PROGRESS NOTE ---
Assessment/Plan - Problem List (1) Acute respiratory failure with hypoxia and hypercapnia Assessment/Plan: Yesterday's ABG showed CO2 retention with respiratory acidosis. He is now intubated on the vent. Continue with management of both his CHF and COPD. (2) Congestive heart failure Qualifiers: Heart failure type: unspecified Heart failure chronicity: acute on chronic Qualified Code(s): I50.9 - Heart failure, unspecified Assessment/Plan: I did a limited bedside 2D Echo yesterday (no Echo service is available over the weekend here) which showed 4 chamber enlargement, depressed LV and RV function, LVEF estimated at 20%. This is a new Dx for this patient. We will continue with beta-candelaria, ARB and Spironolactone. Will make them crushable, give per ng. Doses are very low because of his low blood pressure. We will use iv Levophed in ICU Continue with Lasix unless his serum bicarb is a reflection of contraction alkalosis and not from his chronic CO2 retention. Follow I's and O's and daily weights Await full Echo report (Echo dept Tech available this week, today is Tue) (3) COPD (chronic obstructive pulmonary disease) Assessment/Plan: He is now intubated on the vent Will continue with his nebs scheduled and prn q4h and continue with nebs, IV steroids (4) CO2 retention Assessment/Plan: His BMP shows an elevated bicarb and his ABGs showed a pCO2 of 93. With his underlying COPD, he may be a CO2 retainer. and also he has been very somnolent since admission possibly from Meth withdrawal. (5) Tracheal stenosis Assessment/Plan: This is a new Dx this admission. He had complained of hoarseness and odynophagia and a CT of the neck showed stenosis of the trachea, right at the level of the vocal cords. This could explain his hoarseness and may also be adding to obstruction/ventilatory problems. ENT is necessary for management of this. I discussed this with the patient yesterday, however he was quickly falling asleep, may not recall it (6) Peripheral vascular disease Assessment/Plan: This is also anw Dx this admission. He presented complaining of painful feet which were cool and purple. Arterial Doppler was done showing moderate to severe bilateral lower extremity atherosclerosis with stenosis. He was started on statin and aspirin. All the above was reviewed with the patient yesterday however he was somnolent and may not remember it. (7) Methamphetamine abuse Assessment/Plan: He has been very somnolent since admission, nurse had to use a sternal rub and he only awoke during an ABG blood draw yesterday. Suspect he was in withdrawal phase of meth use, being hypersomnolent. This is adding to his CO2 retention. His dentition and disheveled appearance are consistent with meth abuse. He presented disheveled. Shower was ordered and accomplished yesterday morning. SW to see for drug abuse. (8) Odynophagia Assessment/Plan: At admission, he reported a focal area in the left submandibular area that is painful when he swallows. Perhaps the tracheal stenosis may be causing this symptom as well. ENT eval and follow-up is needed (9) History of hypertension Assessment/Plan: His blood pressure was "soft" since admission, at 105-118 systolic. He was put on beta-candelaria which is new for him for systolic heart failure and for his tachycardia. His lisinopril was stopped, he was put on losartan, in case the BONNIE inhibitor was adding to a cough and hoarseness however the losartan had not yet been administered because of hold parameters because blood pressure is actually low (10) Tobacco use Assessment/Plan: He turmed down a Nicotine patch and told me he had decreased his smoking down to 4 cigarettes a day. - Current Meds Current Meds: Current Medications Generic Name Dose Route Start Last Admin Trade Name Freq PRN Reason Stop Dose Admin Albuterol/Ipratropium 3 ml 07/31/21 20:03 08/03/21 07:20 Ipratropium/Albuterol 3 Ml Neb INH 3 ml Q4HR PRN Administration Wheezing Aspirin 81 mg 08/03/21 16:00 08/03/21 16:59 Aspirin Chew 81 Mg Tablet NG 81 mg DAILY ABENA Administration Atorvastatin Calcium 10 mg 08/01/21 21:00 08/02/21 20:40 Atorvastatin 10 Mg Tablet PO 10 mg QPM ABENA Administration Budesonide 0.5 mg 08/01/21 07:00 08/03/21 07:20 Budesonide 0.5 Mg/2 Ml Neb INH 0.5 mg RTBID ABENA Administration Formoterol Fumarate 20 mcg 08/01/21 07:00 08/03/21 07:20 Formoterol Fumarate Neb 20 Mcg/2 Ml INH 20 mcg RTBID ABENA Administration Dexmedetomidine HCl 400 mcg/ 100 mls @ 3.675 mls/hr 08/03/21 09:00 08/03/21 17:56 Sodium Chloride IV 1.5 mcg/kg/hr .[id number] ABENA 27.563 mls/hr Administration Protocol 0.2 MCG/KG/HR Midazolam HCl 50 mg in 50 mls @ 2.94 mls/hr 08/03/21 09:00 08/03/21 13:30 Versed Drip 50 Mg/50 Ml IV 0 mg/kg/hr .[id number] ABENA 0 mls/hr Titration Protocol 0.04 MG/KG/HR Norepinephrine Bitartrate 8 mg 250 mls @ 15 mls/hr 08/03/21 16:00 08/03/21 18:31 / Dextrose IV 2 mcg/min .[id number] ABENA 3.75 mls/hr Titration Protocol 8 MCG/MIN Levalbuterol HCl 1.25 mg 08/03/21 10:00 08/03/21 15:32 Levalbuterol 1.25 Mg/3 Ml Neb INH Not Given Q6H ABENA Losartan Potassium 25 mg 08/02/21 09:00 08/03/21 15:31 Losartan 50 Mg Tablet PO Not Given DAILY ABENA Methylprednisolone Sodium Succinate 80 mg 08/02/21 22:00 08/03/21 14:05 Methylprednisolone Succinate 125 Mg/2 Ml Vial IVP 80 mg TID ABENA Administration Sodium Chloride 10 ml 07/31/21 19:54 08/03/21 06:02 Sodium Chloride Flush 0.9% 10 Ml Syringe IVP 10 ml PRN PRN Administration NEEDED PER PROVIDER ORDERS Sodium Chloride 10 ml 08/01/21 01:00 08/03/21 17:26 Sodium Chloride Flush 0.9% 10 Ml Syringe IVP 10 ml 0100,0900,1700 ABENA Administration Spironolactone 12.5 mg 08/03/21 09:00 08/03/21 15:32 Spironolactone 25 Mg Tablet PO Not Given DAILY ABENA Throat Lozenges 1 lozenge 08/01/21 05:37 08/02/21 01:18 Benzocaine/Menthol Lozenge MM 1 lozenge Q2HR PRN Administration Throat pain - Lab Result Fish Bone Diagrams: 08/03/21 04:32 08/03/21 04:32 - Additional Planning My Orders: My Active Orders 08/02/21 22:00 methylPREDNISolone SUCCINATE [SOLU-Medrol (125MG VIAL)] 80 mg IVP TID 08/03/21 07:38 ED Intubation ONCE 08/03/21 08:16 Initial Ventilator Settings [RC] .ONCE Ventilator Bundle Oral Care [RC] Q2H Ventilator Bundle [RC] Q8H Ventilator Care - ICU [RC] Q4HR 08/03/21 09:00 NG Tube Care [RC] Q4HR Midazolam Drip 50 mg/50 ml [Versed Drip 50 mg/50 ml] 50 mg in 50 ml IV 0.04 mg/kg/hr Sodium Chloride 0.9% 100Ml [Normal Saline 0.9% 100Ml] 96 ml Dexmedetomidine [Precedex] 400 mcg IV 0.2 mcg/kg/hr Spironolactone [Aldactone] 12.5 mg PO DAILY 08/03/21 09:16 Nebulizer/MDI Tx. [RC] QID Resp Teach Nebulizer/MDI [RC] .ONCE Echo Transthoracic Complete [ECHO] Routine 08/03/21 09:17 Acetaminophen [Tylenol] 650 mg PO Q4HR PRN 08/03/21 10:00 Levalbuterol [Xopenex] 1.25 mg INH Q6H 08/03/21 15:21 NPO [DIET] 08/03/21 16:00 Aspirin Chewable [St Bob Aspirin] 81 mg NG DAILY Dextrose 5% [D5w] 242 ml NORepinephrine [Levophed] 8 mg IV 8 mcg/min 08/03/21 16:15 NonViolent Restraint(s) Q24H 08/04/21 05:00 MAGNESIUM [CHEM] DAILYLAB Subjective - Subjective Patient Reports: Other (Agitated) Nursing Reports: Other (Patient refusing to wear his BIPAP and also removing even his nasal cannula) Objective Vital Signs: Vital Signs - 24 hr 08/02/21 08/02/21 08/02/21 19:00 19:01 19:05 Temperature Heart Rate 90 90 88 Heart Rate [ Brachial] Respiratory 33 H 33 H 33 H Rate Blood Pressure 106/78 Blood Pressure [Right Brachial artery] O2 Saturation 08/02/21 08/02/21 08/02/21 19:10 19:15 19:20 Temperature Heart Rate 89 90 88 Heart Rate [ Brachial] Respiratory 25 H 27 H 37 H Rate Blood Pressure Blood Pressure [Right Brachial artery] O2 Saturation 08/02/21 08/02/21 08/02/21 19:25 19:30 19:35 Temperature Heart Rate 85 86 90 Heart Rate [ Brachial] Respiratory 27 H 23 35 H Rate Blood Pressure Blood Pressure [Right Brachial artery] O2 Saturation 08/02/21 08/02/21 08/02/21 19:40 19:45 19:50 Temperature Heart Rate 87 88 86 Heart Rate [ Brachial] Respiratory 30 H 33 H 30 H Rate Blood Pressure Blood Pressure [Right Brachial artery] O2 Saturation 08/02/21 08/02/21 08/02/21 19:55 20:00 20:02 Temperature Heart Rate 87 89 88 Heart Rate [ 90 Brachial] Respiratory 21 27 H 36 H Rate Blood Pressure Blood Pressure 97/76 [Right Brachial artery] O2 Saturation 92 08/02/21 08/02/21 08/02/21 20:03 20:05 20:07 Temperature Heart Rate 88 90 Heart Rate [ 91 Brachial] Respiratory 36 H 31 H 20 Rate Blood Pressure 97/76 Blood Pressure 106/78 [Right Brachial artery] O2 Saturation 08/02/21 08/02/21 08/02/21 20:10 20:15 20:20 Temperature Heart Rate 90 86 90 Heart Rate [ Brachial] Respiratory 25 H 35 H 37 H Rate Blood Pressure Blood Pressure [Right Brachial artery] O2 Saturation 08/02/21 08/02/21 08/02/21 20:25 20:30 20:35 Temperature Heart Rate 89 93 92 Heart Rate [ Brachial] Respiratory 36 H 30 H 36 H Rate Blood Pressure Blood Pressure [Right Brachial artery] O2 Saturation 08/02/21 08/02/21 08/02/21 20:40 20:45 20:47 Temperature 36.8 C Heart Rate 92 92 Heart Rate [ 91 Brachial] Respiratory 26 H 34 H 35 H Rate Blood Pressure Blood Pressure [Right Brachial artery] O2 Saturation 90 L 08/02/21 08/02/21 08/02/21 20:50 20:55 21:00 Temperature Heart Rate 90 91 91 Heart Rate [ Brachial] Respiratory 39 H 18 34 H Rate Blood Pressure Blood Pressure [Right Brachial artery] O2 Saturation 08/02/21 08/02/21 08/02/21 21:01 21:05 21:10 Temperature Heart Rate 91 91 92 Heart Rate [ Brachial] Respiratory 32 H 28 H 35 H Rate Blood Pressure 114/77 Blood Pressure [Right Brachial artery] O2 Saturation 08/02/21 08/02/21 08/02/21 21:15 21:20 21:25 Temperature Heart Rate 93 92 91 Heart Rate [ Brachial] Respiratory 23 29 H 33 H Rate Blood Pressure Blood Pressure [Right Brachial artery] O2 Saturation 08/02/21 08/02/21 08/02/21 21:30 21:35 21:40 Temperature Heart Rate 89 93 92 Heart Rate [ Brachial] Respiratory 34 H 26 H 29 H Rate Blood Pressure Blood Pressure [Right Brachial artery] O2 Saturation 08/02/21 08/02/21 08/02/21 21:45 21:50 21:55 Temperature Heart Rate 93 85 85 Heart Rate [ Brachial] Respiratory 36 H 33 H 31 H Rate Blood Pressure Blood Pressure [Right Brachial artery] O2 Saturation 08/02/21 08/02/21 08/02/21 22:00 22:01 22:05 Temperature Heart Rate 85 85 82 Heart Rate [ Brachial] Respiratory 18 30 H 26 H Rate Blood Pressure 105/76 Blood Pressure [Right Brachial artery] O2 Saturation 08/02/21 08/02/21 08/02/21 22:10 22:12 22:15 Temperature Heart Rate 87 88 89 Heart Rate [ Brachial] Respiratory 35 H 35 H Rate Blood Pressure Blood Pressure [Right Brachial artery] O2 Saturation 08/02/21 08/02/21 08/02/21 22:20 22:25 22:30 Temperature Heart Rate 86 86 86 Heart Rate [ Brachial] Respiratory 21 26 H 33 H Rate Blood Pressure Blood Pressure [Right Brachial artery] O2 Saturation 08/02/21 08/02/21 08/02/21 22:35 22:40 22:45 Temperature Heart Rate 89 84 89 Heart Rate [ Brachial] Respiratory 30 H 31 H 34 H Rate Blood Pressure Blood Pressure [Right Brachial artery] O2 Saturation 08/02/21 08/02/21 08/02/21 22:50 22:55 23:00 Temperature Heart Rate 90 85 90 Heart Rate [ Brachial] Respiratory 35 H 26 H 39 H Rate Blood Pressure Blood Pressure [Right Brachial artery] O2 Saturation 08/02/21 08/02/21 08/02/21 23:01 23:05 23:10 Temperature Heart Rate 92 91 92 Heart Rate [ Brachial] Respiratory 26 H 30 H 33 H Rate Blood Pressure 119/83 H Blood Pressure [Right Brachial artery] O2 Saturation 08/02/21 08/02/21 08/02/21 23:15 23:20 23:25 Temperature Heart Rate 81 90 82 Heart Rate [ Brachial] Respiratory 31 H 33 H 29 H Rate Blood Pressure Blood Pressure [Right Brachial artery] O2 Saturation 08/02/21 08/02/21 08/02/21 23:30 23:35 23:40 Temperature Heart Rate 89 80 85 Heart Rate [ Brachial] Respiratory 29 H 19 26 H Rate Blood Pressure Blood Pressure [Right Brachial artery] O2 Saturation 08/02/21 08/02/21 08/02/21 23:45 23:50 23:55 Temperature Heart Rate 86 90 92 Heart Rate [ Brachial] Respiratory 21 32 H 26 H Rate Blood Pressure Blood Pressure [Right Brachial artery] O2 Saturation 08/02/21 08/03/21 08/03/21 23:57 00:00 00:01 Temperature Heart Rate 91 86 86 Heart Rate [ Brachial] Respiratory 31 H 32 H 30 H Rate Blood Pressure 121/98 H Blood Pressure [Right Brachial artery] O2 Saturation 08/03/21 08/03/21 08/03/21 00:05 00:10 00:15 Temperature Heart Rate 91 91 88 Heart Rate [ Brachial] Respiratory 24 28 H 27 H Rate Blood Pressure Blood Pressure [Right Brachial artery] O2 Saturation 08/03/21 08/03/21 08/03/21 00:20 00:25 00:30 Temperature Heart Rate 92 89 91 Heart Rate [ Brachial] Respiratory 24 29 H 25 H Rate Blood Pressure Blood Pressure [Right Brachial artery] O2 Saturation 08/03/21 08/03/21 08/03/21 00:35 00:40 00:45 Temperature Heart Rate 87 88 81 Heart Rate [ Brachial] Respiratory 22 27 H 21 Rate Blood Pressure Blood Pressure [Right Brachial artery] O2 Saturation 08/03/21 08/03/21 08/03/21 00:50 00:55 01:00 Temperature Heart Rate 88 85 89 Heart Rate [ 90 Brachial] Respiratory 29 H 27 H 28 H Rate Blood Pressure Blood Pressure 129/90 H [Right Brachial artery] O2 Saturation 91 L 08/03/21 08/03/21 08/03/21 01:01 01:05 01:10 Temperature Heart Rate 88 88 89 Heart Rate [ Brachial] Respiratory 21 28 H 34 H Rate Blood Pressure 129/90 H Blood Pressure [Right Brachial artery] O2 Saturation 08/03/21 08/03/21 08/03/21 01:15 01:20 01:25 Temperature Heart Rate 87 87 88 Heart Rate [ Brachial] Respiratory 17 28 H 24 Rate Blood Pressure Blood Pressure [Right Brachial artery] O2 Saturation 08/03/21 08/03/21 08/03/21 01:30 01:35 01:40 Temperature Heart Rate 89 89 86 Heart Rate [ Brachial] Respiratory 16 26 H 29 H Rate Blood Pressure Blood Pressure [Right Brachial artery] O2 Saturation 08/03/21 08/03/21 08/03/21 01:45 01:50 01:55 Temperature Heart Rate 85 85 86 Heart Rate [ Brachial] Respiratory 21 26 H 22 Rate Blood Pressure Blood Pressure [Right Brachial artery] O2 Saturation 08/03/21 08/03/21 08/03/21 02:00 02:01 02:02 Temperature Heart Rate 84 84 89 Heart Rate [ 89 Brachial] Respiratory 35 H 20 38 H Rate Blood Pressure 113/88 H Blood Pressure 113/88 H [Right Brachial artery] O2 Saturation 90 L 08/03/21 08/03/21 08/03/21 02:05 02:10 02:15 Temperature Heart Rate 84 88 86 Heart Rate [ Brachial] Respiratory 29 H 25 H Rate Blood Pressure Blood Pressure [Right Brachial artery] O2 Saturation 08/03/21 08/03/21 08/03/21 02:20 02:25 02:30 Temperature Heart Rate 92 90 82 Heart Rate [ Brachial] Respiratory Rate Blood Pressure Blood Pressure [Right Brachial artery] O2 Saturation 08/03/21 08/03/21 08/03/21 02:35 02:40 02:45 Temperature Heart Rate 89 89 84 Heart Rate [ Brachial] Respiratory 25 H 29 H 28 H Rate Blood Pressure Blood Pressure [Right Brachial artery] O2 Saturation 08/03/21 08/03/21 08/03/21 02:50 02:55 03:00 Temperature Heart Rate 87 83 90 Heart Rate [ 87 Brachial] Respiratory 18 30 H Rate Blood Pressure Blood Pressure 137/88 H [Right Brachial artery] O2 Saturation 94 08/03/21 08/03/21 08/03/21 03:01 03:05 03:10 Temperature Heart Rate 89 87 90 Heart Rate [ Brachial] Respiratory 23 Rate Blood Pressure 137/88 H Blood Pressure [Right Brachial artery] O2 Saturation 08/03/21 08/03/21 08/03/21 03:15 03:20 03:25 Temperature Heart Rate 90 86 89 Heart Rate [ Brachial] Respiratory 25 H 25 H 30 H Rate Blood Pressure Blood Pressure [Right Brachial artery] O2 Saturation 08/03/21 08/03/21 08/03/21 03:30 03:35 03:40 Temperature Heart Rate 88 87 82 Heart Rate [ Brachial] Respiratory 30 H 27 H 22 Rate Blood Pressure Blood Pressure [Right Brachial artery] O2 Saturation 08/03/21 08/03/21 08/03/21 03:45 03:50 03:55 Temperature Heart Rate 79 81 84 Heart Rate [ Brachial] Respiratory 19 20 23 Rate Blood Pressure Blood Pressure [Right Brachial artery] O2 Saturation 08/03/21 08/03/21 08/03/21 04:00 04:01 04:05 Temperature Heart Rate 78 79 79 Heart Rate [ 79 Brachial] Respiratory 24 22 Rate Blood Pressure 114/80 Blood Pressure 114/80 [Right Brachial artery] O2 Saturation 98 08/03/21 08/03/21 08/03/21 04:10 04:15 04:20 Temperature Heart Rate 78 77 77 Heart Rate [ Brachial] Respiratory 19 20 20 Rate Blood Pressure Blood Pressure [Right Brachial artery] O2 Saturation 08/03/21 08/03/21 08/03/21 04:25 04:30 04:36 Temperature Heart Rate 77 77 86 Heart Rate [ Brachial] Respiratory 19 19 25 H Rate Blood Pressure Blood Pressure [Right Brachial artery] O2 Saturation 08/03/21 08/03/21 08/03/21 04:40 04:45 04:50 Temperature Heart Rate 84 80 77 Heart Rate [ Brachial] Respiratory 21 24 22 Rate Blood Pressure Blood Pressure [Right Brachial artery] O2 Saturation 08/03/21 08/03/21 08/03/21 04:55 04:59 05:00 Temperature Heart Rate 75 79 79 Heart Rate [ 79 Brachial] Respiratory 28 H 26 H 21 Rate Blood Pressure 132/100 H Blood Pressure 141/96 H [Right Brachial artery] O2 Saturation 97 08/03/21 08/03/21 08/03/21 05:01 05:02 05:05 Temperature Heart Rate 79 79 79 Heart Rate [ Brachial] Respiratory 24 25 H 22 Rate Blood Pressure 141/96 H Blood Pressure [Right Brachial artery] O2 Saturation 08/03/21 08/03/21 08/03/21 05:10 05:15 05:20 Temperature Heart Rate 81 79 80 Heart Rate [ Brachial] Respiratory 26 H 20 23 Rate Blood Pressure Blood Pressure [Right Brachial artery] O2 Saturation 08/03/21 08/03/21 08/03/21 05:25 05:30 06:45 Temperature Heart Rate 72 96 84 Heart Rate [ Brachial] Respiratory 22 26 H Rate Blood Pressure Blood Pressure [Right Brachial artery] O2 Saturation 08/03/21 08/03/21 08/03/21 07:22 08:17 09:00 Temperature Heart Rate 84 72 Heart Rate [ 68 Brachial] Respiratory 16 22 Rate Blood Pressure Blood Pressure 75/55 L [Right Brachial artery] O2 Saturation 100 08/03/21 08/03/21 08/03/21 10:30 13:09 13:10 Temperature Heart Rate 70 65 64 Heart Rate [ Brachial] Respiratory 20 20 Rate Blood Pressure 51/41 L Blood Pressure [Right Brachial artery] O2 Saturation 08/03/21 08/03/21 08/03/21 13:15 13:16 13:20 Temperature Heart Rate 64 64 64 Heart Rate [ Brachial] Respiratory 20 20 20 Rate Blood Pressure 50/40 L Blood Pressure [Right Brachial artery] O2 Saturation 08/03/21 08/03/21 08/03/21 13:23 13:24 13:25 Temperature Heart Rate 65 64 64 Heart Rate [ Brachial] Respiratory 20 18 20 Rate Blood Pressure 51/40 L Blood Pressure [Right Brachial artery] O2 Saturation 08/03/21 08/03/21 08/03/21 13:30 13:31 13:35 Temperature Heart Rate 65 65 66 Heart Rate [ Brachial] Respiratory 20 20 20 Rate Blood Pressure 50/41 L Blood Pressure [Right Brachial artery] O2 Saturation 08/03/21 08/03/21 08/03/21 13:40 13:41 13:45 Temperature Heart Rate 69 69 69 Heart Rate [ Brachial] Respiratory 20 20 20 Rate Blood Pressure 94/74 Blood Pressure [Right Brachial artery] O2 Saturation 08/03/21 08/03/21 08/03/21 13:46 13:50 13:55 Temperature Heart Rate 69 69 70 Heart Rate [ Brachial] Respiratory 20 20 20 Rate Blood Pressure 93/76 Blood Pressure [Right Brachial artery] O2 Saturation 08/03/21 08/03/21 08/03/21 14:00 14:01 14:05 Temperature Heart Rate 70 70 70 Heart Rate [ Brachial] Respiratory 20 20 20 Rate Blood Pressure 100/77 Blood Pressure [Right Brachial artery] O2 Saturation 08/03/21 08/03/21 08/03/21 14:10 14:15 14:16 Temperature Heart Rate 71 70 70 Heart Rate [ Brachial] Respiratory 20 20 20 Rate Blood Pressure 102/72 Blood Pressure [Right Brachial artery] O2 Saturation 08/03/21 08/03/21 08/03/21 14:20 14:25 14:30 Temperature Heart Rate 71 70 70 Heart Rate [ Brachial] Respiratory 20 20 20 Rate Blood Pressure Blood Pressure [Right Brachial artery] O2 Saturation 08/03/21 08/03/21 08/03/21 14:31 14:33 14:34 Temperature Heart Rate 70 70 70 Heart Rate [ Brachial] Respiratory 20 20 20 Rate Blood Pressure 95/72 94/73 Blood Pressure [Right Brachial artery] O2 Saturation 08/03/21 08/03/21 08/03/21 14:35 14:40 14:45 Temperature Heart Rate 70 71 71 Heart Rate [ Brachial] Respiratory 20 20 20 Rate Blood Pressure Blood Pressure [Right Brachial artery] O2 Saturation 08/03/21 08/03/21 08/03/21 14:46 14:50 14:55 Temperature Heart Rate 71 71 71 Heart Rate [ Brachial] Respiratory 20 20 20 Rate Blood Pressure 99/75 Blood Pressure [Right Brachial artery] O2 Saturation 08/03/21 08/03/21 08/03/21 15:00 15:01 15:05 Temperature Heart Rate 70 71 70 Heart Rate [ Brachial] Respiratory 20 20 20 Rate Blood Pressure 91/70 Blood Pressure [Right Brachial artery] O2 Saturation 08/03/21 08/03/21 08/03/21 15:10 15:15 15:16 Temperature Heart Rate 69 71 72 Heart Rate [ Brachial] Respiratory 20 20 16 Rate Blood Pressure 92/68 Blood Pressure [Right Brachial artery] O2 Saturation 08/03/21 08/03/21 08/03/21 15:20 15:25 15:30 Temperature Heart Rate 70 71 70 Heart Rate [ Brachial] Respiratory 20 20 18 Rate Blood Pressure Blood Pressure [Right Brachial artery] O2 Saturation 08/03/21 08/03/21 08/03/21 15:31 15:35 15:40 Temperature Heart Rate 70 70 70 Heart Rate [ Brachial] Respiratory 20 20 20 Rate Blood Pressure 97/71 Blood Pressure [Right Brachial artery] O2 Saturation 08/03/21 08/03/21 08/03/21 15:45 15:46 15:50 Temperature Heart Rate 70 71 71 Heart Rate [ Brachial] Respiratory 20 20 20 Rate Blood Pressure 102/77 Blood Pressure [Right Brachial artery] O2 Saturation 08/03/21 08/03/21 08/03/21 15:51 15:55 16:00 Temperature Heart Rate 71 70 71 Heart Rate [ Brachial] Respiratory 20 20 Rate Blood Pressure Blood Pressure [Right Brachial artery] O2 Saturation 08/03/21 08/03/21 08/03/21 16:01 16:05 16:09 Temperature 37.4 C Heart Rate 71 71 Heart Rate [ 71 Brachial] Respiratory 20 20 20 Rate Blood Pressure 107/80 Blood Pressure 107/80 [Right Brachial artery] O2 Saturation 98 08/03/21 08/03/21 08/03/21 16:10 16:15 16:16 Temperature Heart Rate 71 71 71 Heart Rate [ Brachial] Respiratory 20 20 20 Rate Blood Pressure 109/79 Blood Pressure [Right Brachial artery] O2 Saturation 08/03/21 08/03/21 08/03/21 16:20 16:25 16:30 Temperature Heart Rate 71 70 70 Heart Rate [ Brachial] Respiratory 20 20 Rate Blood Pressure Blood Pressure [Right Brachial artery] O2 Saturation 08/03/21 08/03/21 08/03/21 16:31 16:35 16:40 Temperature Heart Rate 73 69 70 Heart Rate [ Brachial] Respiratory 21 20 20 Rate Blood Pressure 98/84 H Blood Pressure [Right Brachial artery] O2 Saturation 08/03/21 08/03/21 08/03/21 16:45 16:50 16:55 Temperature Heart Rate 70 70 70 Heart Rate [ Brachial] Respiratory 20 20 20 Rate Blood Pressure Blood Pressure [Right Brachial artery] O2 Saturation 08/03/21 08/03/21 08/03/21 17:00 17:01 17:05 Temperature 37.5 C Heart Rate 69 70 70 Heart Rate [ 69 Brachial] Respiratory 20 20 20 Rate Blood Pressure 111/80 Blood Pressure 111/80 [Right Brachial artery] O2 Saturation 99 08/03/21 08/03/21 17:10 18:53 Temperature Heart Rate 69 70 Heart Rate [ Brachial] Respiratory 20 Rate Blood Pressure Blood Pressure [Right Brachial artery] O2 Saturation Oxygen O2 Source Mechanical ventilator Oxygen Flow Rate 2 I&O (Last 24 Hrs): Intake and Output Totals x24h 08/01/21 08/02/21 08/03/21 23:59 23:59 23:59 Intake Total 2120 832 148.462 Output Total 3600 1300 645 Balance -9420 -468 -496.538 General: Other (Sedated (pt seen after he was intubated and sedated on drips)) HEENT: Mucous membr. moist/pink, Other (ET tube and ng tubes in place) Neuro: Other (sedated) Cardiovascular: Regular rate Respiratory: Other (on vent) Abdomen: Soft Extremities: No edema, Other (purple discoloration of feet up to thighs, decreased DP pulses) - Results Results: Laboratory Results WBC 13.2 x10^3/uL (4.8-10.8) H 08/03/21 04:32 RBC 4.99 10^6/uL (4.70-6.10) 08/03/21 04:32 Hgb 15.7 g/dL (14.0-18.0) 08/03/21 04:32 Hct 52.1 % (42.0-52.0) H 08/03/21 04:32 MCV 104.4 fL (80.0-94.0) H 08/03/21 04:32 MCH 31.5 pg (27.0-31.0) H 08/03/21 04:32 MCHC 30.1 g/dL (32.0-36.0) L 08/03/21 04:32 RDW 13.1 % (12.0-15.0) 08/03/21 04:32 Plt Count 200 10^3/uL (130-450) 08/03/21 04:32 MPV 11.0 fL (7.4-11.4) 08/03/21 04:32 Neut # (Auto) Not Reportable 08/03/21 04:32 Lymph # (Auto) Not Reportable 08/03/21 04:32 Otoe # (Auto) Not Reportable 08/03/21 04:32 Eos # (Auto) Not Reportable 08/03/21 04:32 Baso # (Auto) Not Reportable 08/03/21 04:32 Absolute Nucleated RBC Not Reportable 08/03/21 04:32 Total Counted 100 08/03/21 04:32 Band Neuts % (Manual) 14 % (0-10) H 08/03/21 04:32 Abnorm Lymph % (Manual) 0 % 08/03/21 04:32 Metamyelocytes % 1 % (-0) H 08/03/21 04:32 Nucleated RBC % Not Reportable 08/03/21 04:32 Neutrophils # (Manual) 12.0 10^3/uL (1.5-6.6) H 08/03/21 04:32 Lymphocytes # (Manual) 0.3 10^3/uL (1.5-3.5) L 08/03/21 04:32 Monocytes # (Manual) 0.7 10^3/uL (0.0-1.0) 08/03/21 04:32 Eosinophils # (Manual) 0.1 10^3/uL (0-0.7) 08/03/21 04:32 Basophils # (Manual) 0.0 10^3/uL (0-0.1) 08/03/21 04:32 Differential Comment MANUAL DIFFERENTIAL 08/03/21 04:32 WBC Morphology NORMAL APPEARANCE (NORMAL) 08/03/21 04:32 Platelet Estimate NORMAL (130-450,000) (NORMAL) 08/03/21 04:32 Platelet Morphology NORMAL APPEARANCE (NORMAL) 08/03/21 04:32 RBC Morph Micro Appear 1+ MACROCYTOSIS (NORMAL) 08/03/21 04:32 PT 13.4 secs (9.9-12.6) H 07/31/21 19:00 INR 1.2 (0.8-1.2) 07/31/21 19:00 Bld Gas Analysis Time 1016 08/03/21 10:16 Sample Site RIGHT RADIAL 08/03/21 10:16 ABG pH 7.46 (7.35-7.45) H 08/03/21 10:16 ABG pCO2 57 mmHg (34-45) H 08/03/21 10:16 ABG pO2 56 mmHg (80-100) L 08/03/21 10:16 ABG HCO3 39.2 mmol/L (22.0-26.0) H 08/03/21 10:16 ABG Total CO2 40.9 MMOL/L (21.0-29.0) H* 08/03/21 10:16 ABG O2 Saturation 92 % (94-98) L 08/03/21 10:16 ABG Base Excess 12.6 mmol/L (-2.0-3.0) H 08/03/21 10:16 Conner Test POSITIVE 08/03/21 10:16 VBG pH 7.287 (7.31-7.41) L 07/31/21 19:00 VBG pCO2 74.7 mmHg (41-51) H 07/31/21 19:00 VBG pO2 24.4 mmHg (25-47) L 07/31/21 19:00 VBG HCO3 34.9 mmol/L (23-28) H 07/31/21 19:00 VBG Total CO2 37.2 mmol/L (24-29) H 07/31/21 19:00 VBG O2 Saturation 39.8 % (60-80) L 07/31/21 19:00 VBG Base Excess 5.0 mmol/L (-2 - +2) H 07/31/21 19:00 Respiration Rate 22 b/min 08/03/21 10:16 O2 Delivery Device VENTILATOR 08/03/21 10:16 O2 Liters/Min 2.00 LPM 08/02/21 07:20 Vent Mode ASSIST/CONTROL 08/03/21 10:16 FiO2 35.00 08/03/21 10:16 Tidal Volume 420 mL 08/03/21 10:16 PEEP 5 cmH2O 08/03/21 10:16 EPAP 5 cmH2O 08/02/21 17:55 IPAP 10 cmH2O 08/02/21 17:55 Sodium 136 mmol/L (135-145) 08/03/21 04:32 Potassium 5.0 mmol/L (3.5-5.0) 08/03/21 04:32 Chloride 87 mmol/L (101-111) L 08/03/21 04:32 Carbon Dioxide 40 mmol/L (21-32) H* 08/03/21 04:32 Anion Gap 9.0 (6-13) 08/03/21 04:32 BUN 40 mg/dL (6-20) H 08/03/21 04:32 Creatinine 1.2 mg/dL (0.6-1.2) 08/03/21 04:32 Estimated GFR (MDRD) 61 (>89) L 08/03/21 04:32 Glucose 177 mg/dL (70-100) H 08/03/21 04:32 Calcium 8.6 mg/dL (8.5-10.3) 08/03/21 04:32 Phosphorus 4.3 mg/dL (2.5-4.6) 07/31/21 19:00 Magnesium 2.0 mg/dL (1.7-2.8) 08/03/21 04:32 Total Bilirubin 1.6 mg/dL (0.2-1.0) H 07/31/21 19:00 AST 31 IU/L (10-42) 07/31/21 19:00 ALT 25 IU/L (10-60) 07/31/21 19:00 Alkaline Phosphatase 69 IU/L (42-121) 07/31/21 19:00 Troponin I High Sens 57.6 ng/L (2.3-19.7) H* 08/02/21 05:15 B-Natriuretic Peptide 762 pg/mL (5-100) H 08/02/21 05:15 Total Protein 7.3 g/dL (6.7-8.2) 07/31/21 19:00 Albumin 3.9 g/dL (3.2-5.5) 07/31/21 19:00 Globulin 3.4 g/dL (2.1-4.2) 07/31/21 19:00 Albumin/Globulin Ratio 1.1 (1.0-2.2) 07/31/21 19:00 Triglycerides 33 mg/dL (-149) 08/02/21 05:15 Cholesterol 147 mg/dL (-199) 08/02/21 05:15 LDL Cholesterol, Calc Not Reportable 08/02/21 05:15 VLDL Cholesterol Not Reportable 08/02/21 05:15 HDL Cholesterol 59 mg/dL (60-) L 08/02/21 05:15 LDL/HDL Ratio Not Reportable 08/02/21 05:15 Cholesterol/HDL Ratio 2.5 (<5.0) 08/02/21 05:15 Lipase 23 U/L (22-51) 07/31/21 19:00 Nasal Adenovirus (PCR) NOT DETECTED 07/31/21 19:05 Nasal B. parapertussis DNA (PCR) NOT DETECTED 07/31/21 19:05 Nasal Coronavir 229E PCR NOT DETECTED 07/31/21 19:05 Nasal Coronavir HKU1 PCR NOT DETECTED 07/31/21 19:05 Nasal Coronavir NL63 PCR NOT DETECTED 07/31/21 19:05 Nasal Coronavir OC43 PCR NOT DETECTED 07/31/21 19:05 Nasal Enterovir/Rhinovir PCR NOT DETECTED 07/31/21 19:05 Nasal Influenza B PCR NOT DETECTED 07/31/21 19:05 Nasal Influenza A PCR NOT DETECTED 07/31/21 19:05 Nasal Parainfluen 1 PCR NOT DETECTED 07/31/21 19:05 Nasal Parainfluen 2 PCR NOT DETECTED 07/31/21 19:05 Nasal Parainfluen 3 PCR NOT DETECTED 07/31/21 19:05 Nasal Parainfluen 4 PCR NOT DETECTED 07/31/21 19:05 Nasal RSV (PCR) NOT DETECTED 07/31/21 19:05 Nasal Screen MRSA (PCR) NEGATIVE (NEGATIVE) 08/02/21 17:30 Nasal B.pertussis DNA PCR NOT DETECTED 07/31/21 19:05 Nasal C.pneumoniae (PCR) NOT DETECTED 07/31/21 19:05 Fredy Human Metapneumo PCR NOT DETECTED 07/31/21 19:05 Nasal M.pneumoniae (PCR) NOT DETECTED 07/31/21 19:05 Nasal SARS-CoV-2 (PCR) NOT DETECTED 07/31/21 19:05 Urine Opiates Screen NEGATIVE (NEGATIVE) 07/31/21 20:10 Ur Oxycodone Screen NEGATIVE (NEGATIVE) 07/31/21 20:10 Urine Methadone Screen NEGATIVE (NEGATIVE) 07/31/21 20:10 Ur Propoxyphene Screen NEGATIVE (NEGATIVE) 07/31/21 20:10 Ur Barbiturates Screen NEGATIVE (NEGATIVE) 07/31/21 20:10 Ur Tricyclics Screen NEGATIVE (NEGATIVE) 07/31/21 20:10 Ur Phencyclidine Scrn NEGATIVE (NEGATIVE) 07/31/21 20:10 Ur Amphetamine Screen POSITIVE (NEGATIVE) H 07/31/21 20:10 U Methamphetamines Scrn POSITIVE (NEGATIVE) H 07/31/21 20:10 U Benzodiazepines Scrn NEGATIVE (NEGATIVE) 07/31/21 20:10 Urine Cocaine Screen NEGATIVE (NEGATIVE) 07/31/21 20:10 U Cannabinoids Screen POSITIVE (NEGATIVE) H 07/31/21 20:10
[2021-08-03] MEDS: ATORVASTATIN 10 MG TABLET PO SCH (20:35)
[2021-08-03] MEDS: SODIUM CHLORIDE 0.9% 500 ML IV PRN (21:33)
[2021-08-04] MEDS: DEXMEDETOMIDINE 400 MCG in SODIUM CHLORIDE 0.9% 100ML 96 ML IV SCH (01:49)
[2021-08-04] MEDS: SODIUM CHLORIDE FLUSH 0.9% 10 ML SYRINGE IVP SCH ×4 (01:51→22:07)
[2021-08-04] MEDS: LEVALBUTEROL 1.25 MG/3 ML NEB INH SCH ×5 (01:58→22:36)
[2021-08-04 05:49] LABS: BASOPHILS % (AUTO) 0.2 %; EOSINOPHILS # (AUTO) 0.1 10^3/uL (0.0-0.7); EOSINOPHILS % (AUTO) 0.7 %; HCT - HEMATOCRIT 51.9 % (42.0-52.0); HGB - HEMOGLOBIN 16.5 g/dL (14.0-18.0); LYMPHOCYTES # (AUTO) 0.5 10^3/uL (1.5-3.5); LYMPHOCYTES % (AUTO) 4.3 %; MEAN CORPUSCULAR HEMOGLOBIN 30.7 pg (27.0-31.0); MEAN CORPUSCULAR HGB CONC 31.8 g/dL (32.0-36.0); MEAN CORPUSCULAR VOLUME 96.6 fL (80.0-94.0); MEAN PLATELET VOLUME 11.4 fL (7.4-11.4); MONOCYTES # (AUTO) 0.9 10^3/uL (0.0-1.0); MONOCYTES % (AUTO) 8.2 %; NEUTROPHILS # (AUTO) 9.5 10^3/uL (1.5-6.6); NEUTROPHILS % (AUTO) 86.2 %; PLT - PLATELET COUNT 230 10^3/uL (130-450); RED BLOOD COUNT 5.37 10^6/uL (4.70-6.10); RED CELL DISTRIBUTION WIDTH 12.8 % (12.0-15.0); WHITE BLOOD COUNT 11.1 x10^3/uL (4.8-10.8)
[2021-08-04 05:56] LABS: CALCIUM 8.6 mg/dL (8.5-10.3); CREATININE 1.1 mg/dL (0.6-1.2); POTASSIUM 4.1 mmol/L (3.5-5.0)
[2021-08-04] MEDS: SODIUM CHLORIDE FLUSH 0.9% 10 ML SYRINGE IVP PRN (06:03)
[2021-08-04] MEDS: methylPREDNISolone SUCCINATE 125 MG/2 ML VIAL IVP SCH ×3 (06:03→22:06)
[2021-08-04] MEDS: FORMOTEROL FUMARATE NEB 20 MCG/2 ML INH SCH ×2 (06:19→19:24)
[2021-08-04] MEDS: BUDESONIDE 0.5 MG/2 ML NEB INH SCH ×2 (06:19→19:24)
[2021-08-04] MEDS: DEXMEDETOMIDINE 1,000 MCG in SODIUM CHLORIDE 0.9% 240 ML IV SCH ×2 (08:05→17:06)
[2021-08-04] MEDS: LOSARTAN 50 MG TABLET PO SCH (08:38)
[2021-08-04] MEDS: ASPIRIN CHEW 81 MG TABLET NG SCH (08:47)
[2021-08-04] MEDS: SPIRONOLACTONE 25 MG TABLET PO SCH (08:47)
[2021-08-04] MEDS ORDERED: FUROSEMIDE 40 MG/4 ML VIAL IVP STA (09:03)
--- NOTE | 2021-08-04 10:13 | XRAY Report ---
PROCEDURE: Chest 1 View X-Ray INDICATIONS: intubated copd TECHNIQUE: One view of the chest was acquired. COMPARISON: 08/03/2021. FINDINGS: Surgical changes and devices: ET tube tip is now approximately 2.8 cm above the will. NG tube tip i s below the left hemidiaphragm and is in the expected location of stomach lumen.. Lungs and pleura: Hyperinflation and chronic edematous changes are again seen. Pulmonary vascular co ngestion is again noted. Trace right pleural effusion is likely present with blunting of right costop hrenic angle. No pneumothorax. Mediastinum: Mediastinal contours appear normal. Heart size is normal. Bones and chest wall: No suspicious bony lesions. Overlying soft tissues appear unremarkable. IMPRESSION: ET tube and NG tube are in satisfactory position. 2. COPD and pulmonary vascular congestion. Trace right pleural effusion. No gross pneumothorax. Reviewed by: Oskar Ramos MD on 08/04/2021 10:11 AM PST Approved by: Oskar Ramos MD on 08/04/2021 10:11 AM PST Station ID: [id number]
[2021-08-04] MEDS: CHLORHEXIDINE GLUCONATE 15 ML UDC PO SCH ×2 (11:34→20:56)
[2021-08-04] MEDS: PANTOPRAZOLE 40 MG VIAL IVP SCH (11:34)
[2021-08-04] MEDS: ENOXAPARIN 40 MG/0.4 ML SYRINGE SUBQ SCH (11:34)
[2021-08-04] MEDS: polyethylene glycoL 3350 17 GM PACKET PO SCH (14:37)
[2021-08-04] MEDS: NORepinephrine 8 MG in DEXTROSE 5% 250ML IV SCH (14:42)
--- NOTE | 2021-08-04 16:41 | PROVIDER PROGRESS NOTE ---
Subjective - Prog Note Date Prog Note Date: 08/04/21 Prog Note Time: 16:38 - Subjective Subjective: This gentleman has had acute respiratory failure with hypercapnia and hypoxia. There was an attempt to treat him a COPD exacerbation, CHF exacerbation, but he was angry and not happy with BiPAP. He kept on removing the mask. He became more a more obtunded and finally, yesterday, was intubated for hypercapnia. He received Lasix yesterday but none until this morning when I ordered it. He has had a brisk urine output with that. This morning's labs show carbon dioxide to have come down to 37 from 40. Chloride was 87 and is come back up to 90. Blood gas yesterday, before intubation, had a pH of 7.27, PCO2 100, PO2 88, bicarb 44.6. He was on BiPAP with an FiO2 of 40, 5/10. After intubation, had a pH of 7.46, PCO2 57, PO2 56 with a respiratory rate of 22, assist control, FiO2 35%, tidal volume 420, PEEP of 5. Today's chest x-ray shows COPD, continued pulmonary vascular congestion. No pneumothorax.He is still on 40% FiO2 with the vent, 97% saturated. Current Medications - Current Medications Current Medications: Active Medications Acetaminophen (Acetaminophen 325 Mg Tablet) 650 mg PO Q4HR PRN PRN Reason: Pain or Fever > 38C (100.4F) Albuterol/Ipratropium (Ipratropium/Albuterol 3 Ml Neb) 3 ml INH Q4HR PRN PRN Reason: Wheezing Last Admin: 08/03/21 07:20 Dose: 3 ml Documented by: Aspirin (Aspirin Chew 81 Mg Tablet) 81 mg NG DAILY [facility] Last Admin: 08/04/21 08:47 Dose: 81 mg Documented by: Atorvastatin Calcium (Atorvastatin 10 Mg Tablet) 10 mg PO QPM [facility] Last Admin: 08/03/21 20:35 Dose: 10 mg Documented by: Budesonide (Budesonide 0.5 Mg/2 Ml Neb) 0.5 mg INH RTBID [facility] Last Admin: 08/04/21 06:19 Dose: 0.5 mg Documented by: Chlorhexidine Gluconate (Chlorhexidine Gluconate 15 Ml Udc) 15 ml PO BID [facility] Last Admin: 08/04/21 11:34 Dose: 15 ml Documented by: Cholecalciferol (Cholecalciferol 25 Mcg Tablet) 50 mcg PO DAILY [facility] Enoxaparin Sodium (Enoxaparin 40 Mg/0.4 Ml Syringe) 40 mg SUBQ DAILY [facility] Last Admin: 08/04/21 11:34 Dose: 40 mg Documented by: Formoterol Fumarate (Formoterol Fumarate Neb 20 Mcg/2 Ml) 20 mcg INH RTBID [facility] Last Admin: 08/04/21 06:19 Dose: 20 mcg Documented by: Midazolam HCl (Versed Drip 50 Mg/50 Ml) 50 mg in 50 mls @ 2.94 mls/hr IV .Q17H1M [facility]; Protocol Last Titration: 08/03/21 13:30 Dose: 0 mg/kg/hr, 0 mls/hr Documented by: Norepinephrine Bitartrate 8 mg (/ Dextrose) 250 mls @ 15 mls/hr IV .[id number] [facility]; Protocol Last Admin: 08/04/21 14:42 Dose: 2 mcg/min, 3.75 mls/hr Documented by: Sodium Chloride (Normal Saline 0.9%) 500 mls @ 20 mls/hr IV Q24H PRN PRN Reason: TKO RATE Last Admin: 08/03/21 21:33 Dose: 20 mls/hr Documented by: Dexmedetomidine HCl 1,000 mcg/ (Sodium Chloride) 250 mls @ 18.375 mls/hr IV .[id number] [facility]; Protocol Last Admin: 08/04/21 17:06 Dose: 1.5 mcg/kg/hr, 27.563 mls/hr Documented by: Levalbuterol HCl (Levalbuterol 1.25 Mg/3 Ml Neb) 1.25 mg INH Q6H [facility] Last Admin: 08/04/21 10:31 Dose: 1.25 mg Documented by: Losartan Potassium (Losartan 50 Mg Tablet) 25 mg PO DAILY [facility] Last Admin: 08/04/21 08:38 Dose: Not Given Documented by: Methylprednisolone Sodium Succinate (Methylprednisolone Succinate 125 Mg/2 Ml Vial) 80 mg IVP TID [facility] Last Admin: 08/04/21 14:37 Dose: 80 mg Documented by: Multi-Ingredient Ointment (Zinc Oxide 20% Oint 30 Gm Tube) 1 applic TOP PRN PRN PRN Reason: Skin Care Multivitamins/Minerals (Multivitamin W/Minerals Tablet) 1 tab PO DAILYWM [facility] Ondansetron HCl (Ondansetron 4 Mg/2 Ml Vial) 4 mg IVP Q6HR PRN PRN Reason: Nausea / Vomiting Pantoprazole Sodium (Pantoprazole 40 Mg Vial) 40 mg IVP QDAC [facility] Last Admin: 08/04/21 11:34 Dose: 40 mg Documented by: Polyethylene Glycol (Polyethylene Glycol 3350 17 Gm Packet) 17 gm PO DAILY [facility] Last Admin: 08/04/21 14:37 Dose: 17 gm Documented by: Sodium Chloride (Sodium Chloride Flush 0.9% 10 Ml Syringe) 10 ml IVP PRN PRN PRN Reason: NEEDED PER PROVIDER ORDERS Last Admin: 08/04/21 06:03 Dose: 10 ml Documented by: Sodium Chloride (Sodium Chloride Flush 0.9% 10 Ml Syringe) 10 ml IVP 0100,0900,1700 [facility] Last Admin: 08/04/21 10:36 Dose: 10 ml Documented by: Spironolactone (Spironolactone 25 Mg Tablet) 12.5 mg PO DAILY [facility] Last Admin: 08/04/21 08:47 Dose: 12.5 mg Documented by: Throat Lozenges (Benzocaine/Menthol Lozenge) 1 lozenge MM Q2HR PRN PRN Reason: Throat pain Last Admin: 08/02/21 01:18 Dose: 1 lozenge Documented by: No Known Home Medications 08/02/21 Objective - Vital Signs/Intake & Output Reviewed Vital Signs: Yes Vital Signs: Vital Signs x48h Temp Pulse Pulse Resp BP BP Pulse Ox 08/04/21 15:00 68 20 118/101 H 98 08/04/21 14:00 65 20 106/76 97 08/04/21 13:20 65 20 08/04/21 13:15 65 20 08/04/21 13:10 67 20 08/04/21 13:05 65 20 08/04/21 13:01 67 20 104/86 H 08/04/21 13:00 65 66 20 104/86 H 98 08/04/21 12:55 64 20 08/04/21 12:50 65 20 08/04/21 12:45 70 20 08/04/21 12:40 65 20 08/04/21 12:35 70 20 08/04/21 12:30 65 20 08/04/21 12:25 67 20 08/04/21 12:20 66 20 08/04/21 12:15 70 20 08/04/21 12:10 64 20 08/04/21 12:05 66 20 08/04/21 12:01 66 20 104/83 H 08/04/21 12:00 37.1 C 75 66 20 104/83 H 97 08/04/21 11:55 66 20 08/04/21 11:50 65 20 08/04/21 11:45 64 20 08/04/21 11:40 66 20 08/04/21 11:35 67 20 08/04/21 11:30 70 20 08/04/21 11:25 67 20 08/04/21 11:24 67 20 110/74 08/04/21 11:23 69 20 08/04/21 11:20 70 20 08/04/21 11:15 69 20 08/04/21 11:10 68 20 08/04/21 11:05 68 20 08/04/21 11:02 70 20 138/83 H 08/04/21 11:01 71 20 08/04/21 11:00 37 C 70 65 20 110/74 96 08/04/21 10:55 70 20 08/04/21 10:50 68 20 08/04/21 10:45 71 20 08/04/21 10:40 69 20 08/04/21 10:35 72 20 08/04/21 10:30 69 20 08/04/21 10:25 70 20 08/04/21 10:20 69 20 08/04/21 10:15 70 20 08/04/21 10:10 66 20 08/04/21 10:07 70 20 108/88 H 08/04/21 10:06 74 20 08/04/21 10:05 71 11 L 08/04/21 10:01 70 20 108/88 H 08/04/21 10:00 67 67 20 108/88 H 93 08/04/21 09:55 67 20 08/04/21 09:50 68 20 08/04/21 09:45 67 20 08/04/21 09:40 68 20 08/04/21 09:35 65 20 08/04/21 09:30 67 20 08/04/21 09:25 67 20 08/04/21 09:20 66 20 08/04/21 09:15 65 20 08/04/21 09:10 69 20 08/04/21 09:05 68 20 08/04/21 09:01 72 20 105/68 08/04/21 09:00 67 67 20 105/68 98 08/04/21 08:55 68 20 08/04/21 08:50 71 20 08/04/21 08:45 66 20 08/04/21 08:40 65 20 Intake & Output: Intake & Output 08/01/21 08/02/21 08/03/21 08/04/21 23:59 23:59 23:59 23:59 Intake Total 2120 832 348.462 271.730 Output Total 3600 0382 362 9839 Balance -1480 -468 -582.538 -1458.270 - Objective General Appearance: positive: No acute distress, Other (Intubated, sedated, OG tube is draining and almost fluorescent green fluid. Thin, lanky male looks much older than stated age teardrop tattoo underneath his eye, and homemade tattoos on his legs) Eyes Bilateral: positive: PERRL, EOMI ENT: positive: Pharynx nml, No signs of dehydration Neck: positive: No JVD. negative: Stiff neck Respiratory: positive: No respiratory distress. negative: Wheezes, Rales, Rhonchi Cardiovascular: positive: Regular rate & rhythm, Systolic murmur. negative: Gallop/S4, Friction rub Abdomen: positive: No organomegaly, Nml bowel sounds, No distention Skin: positive: Pallor, Other (He was described as mottled and cyanotic on August 02. Knees, elbows, sternum, hands and feet were purple. Today all of that has resolved.) Extremities: positive: Full ROM, No pedal edema Neurologic/Psychiatric: positive: Other (Intubated and sedated) - Lab Results Fish Bones: 08/04/21 04:55 08/04/21 04:55 Other Labs: Lab Results x24hrs 08/04/21 08/04/21 Range/Units 04:55 04:55 WBC 11.1 H (4.8-10.8) x10^3/uL RBC 5.37 (4.70-6.10) 10^6/uL Hgb 16.5 (14.0-18.0) g/dL Hct 51.9 (42.0-52.0) % MCV 96.6 H (80.0-94.0) fL MCH 30.7 (27.0-31.0) pg MCHC 31.8 L (32.0-36.0) g/dL RDW 12.8 (12.0-15.0) % Plt Count 230 (130-450) 10^3/uL MPV 11.4 (7.4-11.4) fL Neut # (Auto) 9.5 H (1.5-6.6) 10^3/uL Lymph # (Auto) 0.5 L (1.5-3.5) 10^3/uL Holt # (Auto) 0.9 (0.0-1.0) 10^3/uL Eos # (Auto) 0.1 (0.0-0.7) 10^3/uL Baso # (Auto) 0.0 (0.0-0.1) 10^3/uL Absolute Nucleated RBC 0.00 x10^3/uL Nucleated RBC % 0.0 /100WBC Sodium 138 (135-145) mmol/L Potassium 4.1 (3.5-5.0) mmol/L Chloride 90 L (101-111) mmol/L Carbon Dioxide 37 H (21-32) mmol/L Anion Gap 11.0 (6-13) BUN 51 H (6-20) mg/dL Creatinine 1.1 (0.6-1.2) mg/dL Estimated GFR (MDRD) 68 L (>89) Glucose 187 H (70-100) mg/dL Calcium 8.6 (8.5-10.3) mg/dL Magnesium 2.0 (1.7-2.8) mg/dL ABX Reporting Has patient been on IV antibiotics over the past 48 hours?: No Assessment/Plan - Problem List (1) Acute respiratory failure with hypoxia and hypercapnia Impression: due to COPD exacerbation and acute chf. Yesterday's ABG showed CO2 retention with respiratory acidosis. He is now intubated on the vent. Continue with management of both his CHF and COPD. I anticipate brisk diuresis today and then I can start to wean in the morning. (2) Congestive heart failure Qualifiers: Heart failure type: unspecified Heart failure chronicity: acute on chronic Qualified Code(s): I50.9 - systolic heart failure Assessment/Plan: Hospitalist did a limited bedside 2D Echo 08/02 (no Echo service is available over the weekend here) which showed 4 chamber enlargement, depressed LV and RV function, LVEF estimated at 20%. This is a new Dx for this patient. We will continue with beta-candelaria, ARB and Spironolactone. Will make them crushable, give per ng. Doses are very low because of his low blood pressure. We will use iv Levophed in ICU Give a dose of lasix this morning. Follow I's and O's and daily weights and emphasize that. Await full Echo report but now there will be no Echo until 08/11 due to staffing issues. (3) COPD (chronic obstructive pulmonary disease) Assessment/Plan: He is now intubated on the vent Will continue with his nebs scheduled and prn q4h and continue with nebs, IV steroids (4) CO2 retention Assessment/Plan: His BMP shows an elevated bicarb and his ABGs showed a pCO2 of 93. With his underlying COPD, he may be a CO2 retainer. and also he has been very somnolent since admission possibly from Meth withdrawal. (5) Tracheal stenosis Assessment/Plan: This is a new Dx this admission. He had complained of hoarseness and odynophagia and a CT of the neck showed stenosis of the trachea, right at the level of the vocal cords. This could explain his hoarseness and may also be adding to obstruction/ventilatory problems. ENT is necessary for management of this but will need to be done in outpatient setting (6) Peripheral vascular disease Assessment/Plan: This is also anw Dx this admission. He presented complaining of painful feet which were cool and purple. Arterial Doppler was done showing moderate to severe bilateral lower extremity atherosclerosis with stenosis. He was started on statin and aspirin. All the above was reviewed with the patient before intubation. Will review again once extubated. (7) Methamphetamine abuse Assessment/Plan: He has been very somnolent since admission, nurse had to use a sternal rub and he only awoke during an ABG blood draw yesterday. Suspect he was in withdrawal phase of meth use, being hypersomnolent. This is adding to his CO2 retention. His dentition and disheveled appearance are consistent with meth abuse. He presented disheveled. Shower was ordered and accomplished 1/. SW to see for drug abuse. (8) Odynophagia Assessment/Plan: At admission, he reported a focal area in the left submandibular area that is painful when he swallows. Perhaps the tracheal stenosis may be causing this symptom as well. ENT eval and follow-up is needed (9) History of hypertension Assessment/Plan: His blood pressure was "soft" since admission, at 105-118 systolic. He was put on beta-candelaria which is new for him for systolic heart failure and for his tachycardia. His lisinopril was stopped, he was put on losartan, in case the BONNIE inhibitor was adding to a cough and hoarseness however the losartan had not yet been administered because of hold parameters because blood pressure is actually low On levophed at this time and BP med is still ongoing w spironolactone. (10) Tobacco use Assessment/Plan: He turmed down a Nicotine patch and told me he had decreased his smoking down to 4 cigarettes a day.
[2021-08-04] MEDS: ZINC OXIDE 20% OINT 30 GM TUBE TOP PRN (20:00)
[2021-08-04] MEDS: ATORVASTATIN 10 MG TABLET PO SCH (20:48)
[2021-08-04] MEDS: MIDAZOLAM 2 MG/2 ML VIAL IVP PRN (23:36)
[2021-08-05] MEDS: SODIUM CHLORIDE 0.9% 500 ML IV PRN (00:31)
[2021-08-05] MEDS: MIDAZOLAM 2 MG/2 ML VIAL IVP PRN (02:50)
[2021-08-05] MEDS: DEXMEDETOMIDINE 1,000 MCG in SODIUM CHLORIDE 0.9% 240 ML IV SCH (02:52)
[2021-08-05] MEDS: NORepinephrine 8 MG in DEXTROSE 5% 250ML IV SCH ×2 (03:04→20:53)
[2021-08-05] MEDS: LEVALBUTEROL 1.25 MG/3 ML NEB INH SCH ×2 (05:15→17:56)
[2021-08-05 05:53] LABS: CALCIUM 8.6 mg/dL (8.5-10.3); CREATININE 0.9 mg/dL (0.6-1.2)
[2021-08-05] MEDS: FORMOTEROL FUMARATE NEB 20 MCG/2 ML INH SCH ×2 (06:09→17:54)
[2021-08-05] MEDS: BUDESONIDE 0.5 MG/2 ML NEB INH SCH ×2 (06:09→18:03)
[2021-08-05] MEDS: PANTOPRAZOLE 40 MG VIAL IVP SCH (06:09)
[2021-08-05] MEDS: methylPREDNISolone SUCCINATE 125 MG/2 ML VIAL IVP SCH ×3 (06:09→21:07)
[2021-08-05 06:21] LABS: BASOPHILS % (AUTO) 0.3 %; EOSINOPHILS % (AUTO) 0.1 %; HCT - HEMATOCRIT 51.7 % (42.0-52.0); HGB - HEMOGLOBIN 16.8 g/dL (14.0-18.0); LYMPHOCYTES % (AUTO) 1.4 %; MEAN CORPUSCULAR HEMOGLOBIN 30.7 pg (27.0-31.0); MEAN CORPUSCULAR HGB CONC 32.5 g/dL (32.0-36.0); MEAN CORPUSCULAR VOLUME 94.5 fL (80.0-94.0); MEAN PLATELET VOLUME 11.2 fL (7.4-11.4); MONOCYTES % (AUTO) 14.7 %; NEUTROPHILS % (AUTO) 83.3 %; PLT - PLATELET COUNT 219 10^3/uL (130-450); RED BLOOD COUNT 5.47 10^6/uL (4.70-6.10); RED CELL DISTRIBUTION WIDTH 12.6 % (12.0-15.0); WHITE BLOOD COUNT 12.8 x10^3/uL (4.8-10.8)
[2021-08-05 06:28] LABS: ABNORMAL LYMPHS % (MANUAL) 0 %
[2021-08-05 07:02] LABS: BAND NEUTROPHILS % (MANUAL) 23 %; DIFFERENTIAL COMMENT MANUAL DIFFERENTIAL; LYMPHOCYTES # (MANUAL) 0.3 10^3/uL (1.5-3.5); LYMPHOCYTES % (MANUAL) 2 %; MONOCYTES # (MANUAL) 1.4 10^3/uL (0.0-1.0); NEUTROPHILS # (MANUAL) 11.1 10^3/uL (1.5-6.6); PLATELET ESTIMATE, MANUAL NORMAL (130-450,000) (NORMAL); RBC MORPHOLOGY (MULTIPLE) NORMAL APPEARANCE (NORMAL)
[2021-08-05] MEDS: SODIUM CHLORIDE FLUSH 0.9% 10 ML SYRINGE IVP SCH ×3 (11:45→23:18)
[2021-08-05] MEDS: SPIRONOLACTONE 25 MG TABLET PO SCH (11:45)
[2021-08-05] MEDS: polyethylene glycoL 3350 17 GM PACKET PO SCH (11:46)
[2021-08-05] MEDS: ENOXAPARIN 40 MG/0.4 ML SYRINGE SUBQ SCH (11:46)
[2021-08-05] MEDS: ASPIRIN CHEW 81 MG TABLET NG SCH (11:46)
[2021-08-05] MEDS: CHLORHEXIDINE GLUCONATE 15 ML UDC PO SCH ×2 (11:46→21:13)
[2021-08-05] MEDS: MULTIVITAMIN W/MINERALS TABLET PO SCH (11:46)
[2021-08-05] MEDS: LOSARTAN 50 MG TABLET PO SCH (11:46)
[2021-08-05] MEDS: CHOLECALCIFEROL 25 MCG TABLET PO SCH (11:46)
--- NOTE | 2021-08-05 13:55 | XRAY Report ---
PROCEDURE: Chest 1 View X-Ray INDICATIONS: intubated copd TECHNIQUE: One view of the chest was acquired. COMPARISON: 08/04/2021 FINDINGS: Surgical changes and devices: There is interval extubation and removal of NG tube.. Lungs and pleura: No significant pleural effusions or pneumothorax. Emphysematous changes are seen i n bilateral lung howard. Mild pulmonary vascular congestion is again seen. No definite focal infiltra te. Mediastinum: Mediastinal contours appear normal. Heart size is normal. Bones and chest wall: No suspicious bony lesions. Overlying soft tissues appear unremarkable. IMPRESSION: Interval extubation and removal of NG tube. COPD and mild congestion. No gross pneumothorax. No defin ite focal infiltrate. Reviewed by: Oskar Ramos MD on 08/05/2021 1:54 PM PST Approved by: Oskar Ramos MD on 08/05/2021 1:54 PM PST Station ID: [id number]
[2021-08-05] MEDS: FUROSEMIDE 20 MG/2 ML VIAL IVP SCH (15:12)
[2021-08-05] MEDS: CEFEPIME 2 GM in SODIUM CHLORIDE 0.9% MINIBAG 100 ML IV SCH ×2 (17:27→23:17)
--- NOTE | 2021-08-05 18:12 | PROVIDER PROGRESS NOTE ---
Subjective - Prog Note Date Prog Note Date: 08/05/21 Prog Note Time: 18:09 - Subjective Subjective: Plan was to extubate him this morning. Around 6:30 in the morning we started decreasing sedation and by 7 AM he was following commands. Opening his eyes as requested. As we were in the midst of doing weaning parameters, checking ABGs, checking a chest x-ray, the patient suddenly bolted upright and (in spite of restraints on his upper extremities) he pulled out his ET tube. It was only partially out, but we felt it would be prudent to just completely extubate him. Since extubation he has been very impatient. If the nurse does not respond to his request for a glass of water immediately, he then threatens to kill the nurse. He threatens to kill all of us if we do not take care of him right away. He had spiked a temperature this morning but only allowed one blood culture be drawn. Chest x-ray is unchanged. There is no new infiltrate. I started him on empiric cefepime. Current Medications - Current Medications Current Medications: Active Medications Acetaminophen (Acetaminophen 325 Mg Tablet) 650 mg PO Q4HR PRN PRN Reason: Pain or Fever > 38C (100.4F) Albuterol/Ipratropium (Ipratropium/Albuterol 3 Ml Neb) 3 ml INH Q4HR PRN PRN Reason: Wheezing Last Admin: 08/03/21 07:20 Dose: 3 ml Documented by: Aspirin (Aspirin Chew 81 Mg Tablet) 81 mg NG DAILY [facility] Last Admin: 08/05/21 11:46 Dose: Not Given Documented by: Atorvastatin Calcium (Atorvastatin 10 Mg Tablet) 10 mg PO QPM [facility] Last Admin: 08/04/21 20:48 Dose: 10 mg Documented by: Budesonide (Budesonide 0.5 Mg/2 Ml Neb) 0.5 mg INH RTBID [facility] Last Admin: 08/05/21 18:03 Dose: 0.5 mg Documented by: Chlorhexidine Gluconate (Chlorhexidine Gluconate 15 Ml Udc) 15 ml PO BID [facility] Last Admin: 08/05/21 11:46 Dose: Not Given Documented by: Cholecalciferol (Cholecalciferol 25 Mcg Tablet) 50 mcg PO DAILY [facility] Last Admin: 08/05/21 11:46 Dose: Not Given Documented by: Enoxaparin Sodium (Enoxaparin 40 Mg/0.4 Ml Syringe) 40 mg SUBQ DAILY [facility] Last Admin: 08/05/21 11:46 Dose: Not Given Documented by: Formoterol Fumarate (Formoterol Fumarate Neb 20 Mcg/2 Ml) 20 mcg INH RTBID [facility] Last Admin: 08/05/21 17:54 Dose: 20 mcg Documented by: Furosemide (Furosemide 20 Mg/2 Ml Vial) 20 mg IVP BIDDIURETIC [facility] Last Admin: 08/05/21 15:12 Dose: 20 mg Documented by: Midazolam HCl (Versed Drip 50 Mg/50 Ml) 50 mg in 50 mls @ 2.94 mls/hr IV .Q17H1M [facility]; Protocol Last Titration: 08/03/21 13:30 Dose: 0 mg/kg/hr, 0 mls/hr Documented by: Norepinephrine Bitartrate 8 mg (/ Dextrose) 250 mls @ 15 mls/hr IV .[id number] [facility]; Protocol Last Admin: 08/05/21 03:04 Dose: Not Given Documented by: Sodium Chloride (Normal Saline 0.9%) 500 mls @ 20 mls/hr IV Q24H PRN PRN Reason: TKO RATE Last Admin: 08/05/21 00:31 Dose: 20 mls/hr Documented by: Cefepime HCl 2 gm/ Sodium (Chloride) 100 mls @ 200 mls/hr IV TID [facility] Last Admin: 08/05/21 17:27 Dose: 200 mls/hr Documented by: Levalbuterol HCl (Levalbuterol 1.25 Mg/3 Ml Neb) 1.25 mg INH Q6H [facility] Last Admin: 08/05/21 17:56 Dose: 1.25 mg Documented by: Losartan Potassium (Losartan 50 Mg Tablet) 25 mg PO DAILY [facility] Last Admin: 08/05/21 11:46 Dose: Not Given Documented by: Methylprednisolone Sodium Succinate (Methylprednisolone Succinate 125 Mg/2 Ml Vial) 80 mg IVP TID [facility] Last Admin: 08/05/21 14:47 Dose: 80 mg Documented by: Midazolam HCl (Midazolam 2 Mg/2 Ml Vial) 2 mg IVP Q2H PRN PRN Reason: Agitation Last Admin: 08/05/21 02:50 Dose: 2 mg Documented by: Multi-Ingredient Ointment (Zinc Oxide 20% Oint 30 Gm Tube) 1 applic TOP PRN PRN PRN Reason: Skin Care Last Admin: 08/04/21 20:00 Dose: 1 applic Documented by: Multivitamins/Minerals (Multivitamin W/Minerals Tablet) 1 tab PO DAILYWM [facility] Last Admin: 08/05/21 11:46 Dose: Not Given Documented by: Ondansetron HCl (Ondansetron 4 Mg/2 Ml Vial) 4 mg IVP Q6HR PRN PRN Reason: Nausea / Vomiting Pantoprazole Sodium (Pantoprazole 40 Mg Vial) 40 mg IVP QDAC [facility] Last Admin: 08/05/21 06:09 Dose: 40 mg Documented by: Polyethylene Glycol (Polyethylene Glycol 3350 17 Gm Packet) 17 gm PO DAILY [facility] Last Admin: 08/05/21 11:46 Dose: Not Given Documented by: Sodium Chloride (Sodium Chloride Flush 0.9% 10 Ml Syringe) 10 ml IVP PRN PRN PRN Reason: NEEDED PER PROVIDER ORDERS Last Admin: 08/04/21 06:03 Dose: 10 ml Documented by: Sodium Chloride (Sodium Chloride Flush 0.9% 10 Ml Syringe) 10 ml IVP 0100,0900,1700 [facility] Last Admin: 08/05/21 11:45 Dose: Not Given Documented by: Spironolactone (Spironolactone 25 Mg Tablet) 12.5 mg PO DAILY [facility] Last Admin: 08/05/21 11:45 Dose: Not Given Documented by: Throat Lozenges (Benzocaine/Menthol Lozenge) 1 lozenge MM Q2HR PRN PRN Reason: Throat pain Last Admin: 08/02/21 01:18 Dose: 1 lozenge Documented by: No Known Home Medications 08/02/21 Objective - Vital Signs/Intake & Output Reviewed Vital Signs: Yes Vital Signs: Vital Signs x48h Temp Pulse Pulse Resp BP Pulse Ox 08/05/21 18:04 100 32 H 08/05/21 17:00 95 30 H 98/66 90 L 08/05/21 16:00 36.8 C 90 27 H 103/82 H 91 L 08/05/21 15:00 89 33 H 111/71 90 L 08/05/21 14:00 37.0 C 85 29 H 84/69 L 95 08/05/21 13:00 37.0 C 86 25 H 93/64 91 L 08/05/21 12:00 37.0 C 80 28 H 99/67 93 08/05/21 11:00 37.0 C 79 28 H 90/71 93 Intake & Output: Intake & Output 08/02/21 08/03/21 08/04/21 08/05/21 23:59 23:59 23:59 23:59 Intake Total 832 880.190 4237.588 2147.709 Output Total 2268 435 7635 919 Balance -468 -582.538 -9277.287 3906.709 - Objective General Appearance: positive: Alert, Other (threatens nurse and aid and me "I'm going to fucking kill you if you don't help me right now." Gaunt, cachectic , pursed lips at time with sob at rest.) Eyes Bilateral: positive: PERRL, EOMI ENT: positive: No signs of dehydration Neck: positive: No JVD. negative: Stiff neck Respiratory: positive: Wheezes, Other (resp rate high 20s and low 30s and occ scant wheezing but very quiet lungs in this cachectic chest.) Cardiovascular: positive: Regular rate & rhythm, Tachycardia (at times), Systolic murmur. 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 Was in restraints w vent but w self extubation, taken off restraints to feed himself and drink water.) - Lab Results Fish Bones: 08/05/21 04:28 08/05/21 04:28 Other Labs: Lab Results x24hrs 08/05/21 08/05/21 Range/Units 04:28 04:28 WBC 12.8 H (4.8-10.8) x10^3/uL RBC 5.47 (4.70-6.10) 10^6/uL Hgb 16.8 (14.0-18.0) g/dL Hct 51.7 (42.0-52.0) % MCV 94.5 H (80.0-94.0) fL MCH 30.7 (27.0-31.0) pg MCHC 32.5 (32.0-36.0) g/dL RDW 12.6 (12.0-15.0) % Plt Count 219 (130-450) 10^3/uL MPV 11.2 (7.4-11.4) fL Neut # (Auto) Not Reportable Lymph # (Auto) Not Reportable Bent # (Auto) Not Reportable Eos # (Auto) Not Reportable Baso # (Auto) Not Reportable Absolute Nucleated RBC Not Reportable Total Counted 100 Band Neuts % (Manual) 23 H (0 - 10) % Abnorm Lymph % (Manual) 0 % Nucleated RBC % Not Reportable Neutrophils # (Manual) 11.1 H (1.5-6.6) 10^3/uL Lymphocytes # (Manual) 0.3 L (1.5-3.5) 10^3/uL Monocytes # (Manual) 1.4 H (0.0-1.0) 10^3/uL Eosinophils # (Manual) 0.0 (0-0.7) 10^3/uL Basophils # (Manual) 0.0 (0-0.1) 10^3/uL Differential Comment MANUAL DIFFERENTIAL Platelet Estimate NORMAL (130-450,000) (NORMAL) RBC Morph Micro Appear NORMAL APPEARANCE (NORMAL) Sodium 141 (135-145) mmol/L Potassium 4.0 (3.5-5.0) mmol/L Chloride 92 L (101-111) mmol/L Carbon Dioxide 36 H (21-32) mmol/L Anion Gap 13.0 (6-13) BUN 51 H (6-20) mg/dL Creatinine 0.9 (0.6-1.2) mg/dL Estimated GFR (MDRD) 85 L (>89) Glucose 160 H (70-100) mg/dL Calcium 8.6 (8.5-10.3) mg/dL ABX Reporting Has patient been on IV antibiotics over the past 48 hours?: No Assessment/Plan - Problem List (1) Acute respiratory failure with hypoxia and hypercapnia Impression: due to COPD exacerbation and acute chf. He had severe CO2 retention and was refusing to use BiPAP. Tearing off his mask. This resulted in him being emergently intubated. He was immediately stabilized and blood gases were quite good. We diuresed him briskly to try and get rid of some of the excess fluid from CHF. We continued steroids and nebulizers. This morning, we attempted to lessen sedation slowly to then allow him to follow orders and be extubated. He took matters into his own hand, in spite of nursing trying to prompt him, he partially extubated himself. Due to safety reasons we went ahead and fully extubated him. Since extubation he has been mildly tachypneic, complaining of shortness of breath. He reluctantly agrees to use BiPAP. However his agreement to therapy alternates between ou tburst where he is threatening the nurses, myself. He has kicked with his legs. Right now he is calm but I have warned him that we cannot put up with that behavior. He does agree to BiPAP. However he is very clear and states that he never wants to be intubated again. He is reiterated to nursing, and myself, and to respiratory therapy that he is a DO NOT INTUBATE. In addition to his shortness of breath, he spiked a temperature immediately after extubation. He was 38 degrees. A repeat chest x-ray does not show new infiltrates. He only allowed one blood culture and refused the second 1. Plan: Continue Pulmicort, Perforomist, Xopenex, Solu-Medrol. Add cefepime for the fever Use BiPAP as needed if he lets us. Document DO NOT INTUBATE status. Order will be written. I do not know this patient's baseline mental health. But I did tell him that if he continues to threaten the staff, I will have to call police. I have also explained to him that he is ill enough and would need specialty care to warrant transfer to another facility. To a higher level of care. However at this time, there are no beds available on the [facility]. (2) Congestive heart failure Qualifiers: Heart failure type: unspecified Heart failure chronicity: acute on chronic Qualified Code(s): I50.9 - systolic heart failure Assessment/Plan: Hospitalist did a limited bedside 2D Echo 1/2 (no Echo service is available over the weekend here) which showed 4 chamber enlargement, depressed LV and RV function, LVEF estimated at 20%. This is a new Dx for this patient. We will continue with beta-candelaria, ARB and Spironolactone. Will make them crushable, give per ng. Doses are very low because of his low blood pressure. We will use iv Levophed in ICU Follow I's and O's and daily weights and emphasize that. Await full Echo report but now there will be no Echo until 08/11 due to staffing issue Plan: Today I have added a fixed schedule dose of Lasix 20 mg IV push twice daily to avoid fluid overload. He is on beta-candelaria, (3) COPD (chronic obstructive pulmonary disease) with exacerbation Assessment/Plan: Extubated as of this morning. Will continue with his nebs scheduled and prn q4h and continue with nebs, IV steroids (4) CO2 retention Assessment/Plan: With his underlying COPD, he may be a CO2 retainer. and also he has been very somnolent since admission possibly from Meth withdrawal. (5) Tracheal stenosis Assessment/Plan: This is a new Dx this admission. He had complained of hoarseness and odynophagia and a CT of the neck showed stenosis of the trachea, right at the level of the vocal cords. This could explain his hoarseness and may also be adding to ob struction/ventilatory problems. ENT is necessary for management of this but will need to be done in outpatient setting (6) Peripheral vascular disease Assessment/Plan: This is also anw Dx this admission. He presented complaining of painful feet which were cool and purple. Arterial Doppler was done showing moderate to severe bilateral lower extremity atherosclerosis with stenosis. He was started on statin and aspirin. All the above was reviewed with the patient before intubation. Will review again once extubated. Today is not the day. He is vacillating between cooperativeness, and anger. It is been difficult enough to get through to him about the severity of his respiratory failure and to get him to agree to BiPAP. Once he is through this respiratory episode, will sit down and discuss peripheral vascular disease. (7) Methamphetamine abuse Assessment/Plan: He had been very somnolent for the first few days of admission, nurse had to use a sternal rub and he only awoke during an ABG blood draw. Suspect he was in withdrawal phase of meth use, being hypersomnolent. This is adding to his CO2 retention. His dentition and disheveled appearance are consistent with meth abuse. He presented disheveled. Shower was ordered and accomplished 1/2. He is much more awake and alert today. But emotionally labiile. SW to see for drug abuse. (8) Odynophagia Assessment/Plan: At admission, he reported a focal area in the left submandibular area that is painful when he swallows. Perhaps the tracheal stenosis may be causing this symptom as well. ENT eval and follow-up is needed (9) History of hypertension Assessment/Plan: His blood pressure was "soft" since admission, at 105-118 systolic. He was put on beta-candelaria which is new for him for systolic heart failure and for his tachycardia. His lisinopril was stopped, he was put on losartan, in case the BONNIE inhibitor was adding to a cough and hoarseness however the losartan had not yet been administered because of hold parameters because blood pressure is actually low I am continuing levophed at this time and BP med is still ongoing w spironolactone and lasix. Will monitor electrolytes to make sure. (10) Tobacco use Assessment/Plan: He turmed down a Nicotine patch and told me he had decreased his smoking down to 4 cigarettes a day.
[2021-08-05] MEDS ORDERED: BENZOCAINE/MENTHOL LOZENGE MM PRN (19:55)
[2021-08-05] MEDS: BENZOCAINE/MENTHOL LOZENGE MM PRN (21:06)
[2021-08-05] MEDS: ATORVASTATIN 10 MG TABLET PO SCH (21:06)
[2021-08-05] MEDS: ACETAMINOPHEN 325 MG TABLET PO PRN (23:29)
[2021-08-06] MEDS: LEVALBUTEROL 1.25 MG/3 ML NEB INH SCH ×4 (03:31→17:32)
[2021-08-06] MEDS: ZINC OXIDE 20% OINT 30 GM TUBE TOP PRN (05:06)
[2021-08-06 05:19] LABS: BASOPHILS # (AUTO) 0.1 10^3/uL (0.0-0.1); BASOPHILS % (AUTO) 0.4 %; EOSINOPHILS % (AUTO) 0.2 %; HCT - HEMATOCRIT 49.9 % (42.0-52.0); HGB - HEMOGLOBIN 15.4 g/dL (14.0-18.0); LYMPHOCYTES # (AUTO) 0.2 10^3/uL (1.5-3.5); LYMPHOCYTES % (AUTO) 1.6 %; MEAN CORPUSCULAR HEMOGLOBIN 30.7 pg (27.0-31.0); MEAN CORPUSCULAR HGB CONC 30.9 g/dL (32.0-36.0); MEAN CORPUSCULAR VOLUME 99.4 fL (80.0-94.0); MEAN PLATELET VOLUME 10.6 fL (7.4-11.4); MONOCYTES # (AUTO) 1.2 10^3/uL (0.0-1.0); MONOCYTES % (AUTO) 8.4 %; NEUTROPHILS # (AUTO) 12.2 10^3/uL (1.5-6.6); NEUTROPHILS % (AUTO) 88.6 %; PLT - PLATELET COUNT 202 10^3/uL (130-450); RED BLOOD COUNT 5.02 10^6/uL (4.70-6.10); RED CELL DISTRIBUTION WIDTH 12.8 % (12.0-15.0); WHITE BLOOD COUNT 13.8 x10^3/uL (4.8-10.8)
[2021-08-06 05:28] LABS: CALCIUM 8.4 mg/dL (8.5-10.3); CREATININE 0.8 mg/dL (0.6-1.2); POTASSIUM 3.5 mmol/L (3.5-5.0)
[2021-08-06] MEDS: FORMOTEROL FUMARATE NEB 20 MCG/2 ML INH SCH ×2 (06:07→17:32)
[2021-08-06] MEDS: PANTOPRAZOLE 40 MG VIAL IVP SCH (06:23)
[2021-08-06] MEDS: FUROSEMIDE 20 MG/2 ML VIAL IVP SCH ×2 (06:23→14:24)
[2021-08-06] MEDS: methylPREDNISolone SUCCINATE 125 MG/2 ML VIAL IVP SCH ×2 (06:23→14:19)
[2021-08-06] MEDS: CEFEPIME 2 GM in SODIUM CHLORIDE 0.9% MINIBAG 100 ML IV SCH ×3 (06:23→21:12)
[2021-08-06] MEDS: SODIUM CHLORIDE FLUSH 0.9% 10 ML SYRINGE IVP SCH ×3 (06:23→21:14)
[2021-08-06] MEDS: IPRATROPIUM/ALBUTEROL 3 ML NEB INH PRN (07:23)
[2021-08-06] MEDS: BUDESONIDE 0.5 MG/2 ML NEB INH SCH ×2 (07:23→17:31)
--- NOTE | 2021-08-06 07:43 | PROVIDER PROGRESS NOTE ---
Subjective - Prog Note Date Prog Note Date: 08/06/21 Prog Note Time: 15:23 - Subjective Subjective: Week. Easily tachypneic. Holding his own. When I extubated him yesterday, I was fearful of dysphagia, inattention, and aspiration so I had him on clear liquids. This morning he says he is starving and he has to eat. Denies any new complaints other than shortness of breath at rest, worse with exertion. Since the addition of antibiotics, he has not had any fever. The blood culture in his hand grew out staph epi. Before we knew the PCR identity, he was started on vancomycin. He would be at risk for MRSA because he has a line in place, is a previous senior living history, and uses meth Current Medications - Current Medications Current Medications: Active Medications Acetaminophen (Acetaminophen 325 Mg Tablet) 650 mg PO Q4HR PRN PRN Reason: Pain or Fever > 38C (100.4F) Last Admin: 08/05/21 23:29 Dose: 650 mg Albuterol/Ipratropium (Ipratropium/Albuterol 3 Ml Neb) 3 ml INH Q4HR PRN PRN Reason: Wheezing Last Admin: 08/06/21 07:23 Dose: 3 ml Aspirin (Aspirin Chew 81 Mg Tablet) 81 mg PO DAILY [facility] Atorvastatin Calcium (Atorvastatin 10 Mg Tablet) 10 mg PO QPM [facility] Last Admin: 08/05/21 21:06 Dose: 10 mg Budesonide (Budesonide 0.5 Mg/2 Ml Neb) 0.5 mg INH RTBID [facility] Last Admin: 08/06/21 07:23 Dose: 0.5 mg Chlorhexidine Gluconate (Chlorhexidine Gluconate 15 Ml Udc) 15 ml PO BID [facility] Last Admin: 08/06/21 09:59 Dose: 15 ml Cholecalciferol (Cholecalciferol 25 Mcg Tablet) 50 mcg PO DAILY [facility] Last Admin: 08/06/21 09:56 Dose: 50 mcg Enoxaparin Sodium (Enoxaparin 40 Mg/0.4 Ml Syringe) 40 mg SUBQ DAILY [facility] Last Admin: 08/06/21 09:59 Dose: 40 mg Formoterol Fumarate (Formoterol Fumarate Neb 20 Mcg/2 Ml) 20 mcg INH RTBID [facility] Last Admin: 08/06/21 06:07 Dose: 20 mcg Furosemide (Furosemide 20 Mg/2 Ml Vial) 20 mg IVP BIDDIURETIC [facility] Last Admin: 08/06/21 14:24 Dose: 20 mg Midazolam HCl (Versed Drip 50 Mg/50 Ml) 50 mg in 50 mls @ 2.94 mls/hr IV .Q17H1M [facility]; Protocol Last Titration: 08/06/21 06:51 Dose: Infused Norepinephrine Bitartrate 8 mg (/ Dextrose) 250 mls @ 15 mls/hr IV .[id number] [facility]; Protocol Last Admin: 08/05/21 20:53 Dose: Not Given Sodium Chloride (Normal Saline 0.9%) 500 mls @ 20 mls/hr IV Q24H PRN PRN Reason: TKO RATE Last Infusion: 08/06/21 06:50 Dose: Infused Cefepime HCl 2 gm/ Sodium (Chloride) 100 mls @ 200 mls/hr IV TID [facility] Last Admin: 08/06/21 14:27 Dose: 200 mls/hr Vancomycin HCl 1 gm/Vancomycin HCl 500 mg/ Sodium Chloride 500 mls @ 250 mls/hr IV Q12H [facility] Levalbuterol HCl (Levalbuterol 1.25 Mg/3 Ml Neb) 1.25 mg INH Q6H [facility] Last Admin: 08/06/21 14:02 Dose: 1.25 mg Losartan Potassium (Losartan 50 Mg Tablet) 25 mg PO DAILY [facility] Last Admin: 08/06/21 11:04 Dose: 25 mg Methylprednisolone Sodium Succinate (Methylprednisolone Succinate 125 Mg/2 Ml Vial) 80 mg IVP TID [facility] Last Admin: 08/06/21 14:19 Dose: 80 mg Midazolam HCl (Midazolam 2 Mg/2 Ml Vial) 2 mg IVP Q2H PRN PRN Reason: Agitation Last Admin: 08/05/21 02:50 Dose: 2 mg Multi-Ingredient Ointment (Zinc Oxide 20% Oint 30 Gm Tube) 1 applic TOP PRN PRN PRN Reason: Skin Care Last Admin: 08/06/21 05:06 Dose: 1 applic Multivitamins/Minerals (Multivitamin W/Minerals Tablet) 1 tab PO DAILYWM [facility] Last Admin: 08/06/21 08:35 Dose: 1 tab Nicotine (Nicotine 14 Mg Patch) 1 patch TOP DAILY [facility] Last Admin: 08/06/21 11:07 Dose: 1 patch Ondansetron HCl (Ondansetron 4 Mg/2 Ml Vial) 4 mg IVP Q6HR PRN PRN Reason: Nausea / Vomiting Pantoprazole Sodium (Pantoprazole 40 Mg Vial) 40 mg IVP QDAC [facility] Last Admin: 08/06/21 06:23 Dose: 40 mg Polyethylene Glycol (Polyethylene Glycol 3350 17 Gm Packet) 17 gm PO DAILY [facility] Last Admin: 08/06/21 14:18 Dose: Not Given Sodium Chloride (Sodium Chloride Flush 0.9% 10 Ml Syringe) 10 ml IVP PRN PRN PRN Reason: NEEDED PER PROVIDER ORDERS Last Admin: 08/04/21 06:03 Dose: 10 ml Sodium Chloride (Sodium Chloride Flush 0.9% 10 Ml Syringe) 10 ml IVP 0100,0900,1700 [facility] Last Admin: 08/06/21 06:23 Dose: 10 ml Spironolactone (Spironolactone 25 Mg Tablet) 12.5 mg PO DAILY [facility] Last Admin: 08/06/21 11:01 Dose: 12.5 mg Throat Lozenges (Benzocaine/Menthol Lozenge) 1 lozenge MM Q2HR PRN PRN Reason: Throat pain No Known Home Medications 08/02/21 Objective - Vital Signs/Intake & Output Reviewed Vital Signs: Yes Vital Signs: Vital Signs x48h Temp Pulse Pulse Resp BP Pulse Ox 08/06/21 07:27 83 24 95 08/06/21 07:25 84 24 08/06/21 07:00 87 24 134/77 H 08/06/21 06:08 84 18 08/06/21 06:00 86 21 116/77 08/06/21 05:00 36.5 C 83 26 H 120/77 08/06/21 04:00 36.4 C L 86 28 H 131/61 H 93 08/06/21 03:27 21 92 08/06/21 03:00 83 21 110/63 96 08/06/21 02:25 84 26 H 109/60 08/06/21 01:00 81 20 112/74 95 08/06/21 00:00 36.6 C 90 25 H 119/65 94 Intake & Output: Intake & Output 08/03/21 08/04/21 08/05/21 08/06/21 23:59 23:59 23:59 23:59 Intake Total 288.389 7699.588 2573.043 934.666 Output Total 935 7130 1514 487 Balance -582.538 -2572.355 2878.043 447.666 - Objective General Appearance: positive: Alert, Mild distress, Other (Much calmer affect today. Calm, cooperative, and requesting things politely) Eyes Bilateral: positive: EOMI ENT: positive: No signs of dehydration Neck: positive: No JVD. negative: Stiff neck Respiratory: positive: Wheezes, Rhonchi, Other (Mild tachypnea of shallow respiration. Speaking to me causes him to be short of breath). negative: Rales Cardiovascular: positive: Regular rate & rhythm, Tachycardia (occasionally) Abdomen: positive: Nml bowel sounds, No distention. negative: Guarding, Rebound Skin: positive: Warm, Dry Extremities: positive: Full ROM Neurologic/Psychiatric: positive: Oriented x3, CN's nml (2-12), Motor nml (but vry weak) - Lab Results Fish Bones: 08/06/21 05:08 08/06/21 05:08 Other Labs: Lab Results x24hrs 08/06/21 08/06/21 Range/Units 05:08 05:08 WBC 13.8 H (4.8-10.8) x10^3/uL RBC 5.02 (4.70-6.10) 10^6/uL Hgb 15.4 (14.0-18.0) g/dL Hct 49.9 (42.0-52.0) % MCV 99.4 H (80.0-94.0) fL MCH 30.7 (27.0-31.0) pg MCHC 30.9 L (32.0-36.0) g/dL RDW 12.8 (12.0-15.0) % Plt Count 202 (130-450) 10^3/uL MPV 10.6 (7.4-11.4) fL Neut # (Auto) 12.2 H (1.5-6.6) 10^3/uL Lymph # (Auto) 0.2 L (1.5-3.5) 10^3/uL Sevier # (Auto) 1.2 H (0.0-1.0) 10^3/uL Eos # (Auto) 0.0 (0.0-0.7) 10^3/uL Baso # (Auto) 0.1 (0.0-0.1) 10^3/uL Absolute Nucleated RBC 0.00 x10^3/uL Nucleated RBC % 0.0 /100WBC Sodium 141 (135-145) mmol/L Potassium 3.5 (3.5-5.0) mmol/L Chloride 90 L (101-111) mmol/L Carbon Dioxide 40 H* (21-32) mmol/L Anion Gap 11.0 (6-13) BUN 43 H (6-20) mg/dL Creatinine 0.8 (0.6-1.2) mg/dL Estimated GFR (MDRD) 98 (>89) Glucose 155 H (70-100) mg/dL Calcium 8.4 L (8.5-10.3) mg/dL ABX Reporting Has patient been on IV antibiotics over the past 48 hours?: Yes Assessment/Plan - Problem List (1) Bacteremia Impression: Yesterday morning, in the midst of extubation he spiked a temperature. He was 38 degrees for most of the morning. Blood cultures were done at 5:45 AM. He only allowed us to do 1 set and then refused the next. That blood culture became positive at 7:02 AM this morning. So has been 24 hours and its positive for staph. White cell count is mildly elevated. Chest x-ray shows no infiltra te. This may be contamination. Nevertheless vancomycin was added this morning. Plan: Continue to monitor white cell count response. If his white cell count goes down sharply with the addition of vancomycin it may be a true infection. Source may be one of his lines, not likely to be pneumonia. (2) Acute respiratory failure with hypoxia and hypercapnia Impression: due to COPD exacerbation and acute chf. He had severe CO2 retention and was refusing to use BiPAP. Tearing off his mask. This resulted in him being emergently intubated. He was immediately stabilized and blood gases were quite good. We diuresed him briskly to try and get rid of some of the excess fluid from CHF. We continued steroids and nebulizers. Self extubated in the midst of weaning on am. After extubation made clear to us that reintubation was not an option. Wants to be DNI but willing to use BiPAP. In addition to his shortness of breath, he spiked a temperature immediately after extubation. He was 38 degrees. A repeat chest x-ray does not show new infiltrates. He only allowed one blood culture and refused the second 1. That blood culture (+) for staph epi Plan: Continue Pulmicort, Perforomist, Xopenex, Solu-Medrol. cefepime Day #2 for the fever. Vancomycin added this am. Use BiPAP as needed if he lets us. Document DO NOT INTUBATE status. (2) Congestive heart failure Qualifiers: Heart failure type: unspecified Heart failure chronicity: acute on chronic Qualified Code(s): I50.9 - systolic heart failure Assessment/Plan: Hospitalist did a limited bedside 2D Echo 08/02 (no Echo service is available over the weekend here) which showed 4 chamber enlargement, depressed LV and RV function, LVEF estimated at 20%. This is a new Dx for this patient. We will continue with beta-candelaria, ARB and Spironolactone. Will make them crushable, give per ng. Doses are very low because of his low blood pressure. We will use iv Levophed in ICU Follow I's and O's and daily weights and emphasize that. Await full Echo report but now there will be no Echo until 08/11 due to staffing issue A fixed schedule dose of Lasix 20 mg IV push twice daily added 08/05 to avoid fluid overload. He is on beta-candelaria, (3) COPD (chronic obstructive pulmonary disease) with exacerbation Assessment/Plan: Extubated 08/05/21 Will continue with his nebs scheduled and prn q4h and continue with nebs, IV steroids (4) CO2 retention Assessment/Plan: With his underlying COPD, he may be a CO2 retainer. and also he has been very somnolent since admission possibly from Meth withdrawal. (5) Tracheal stenosis Assessment/Plan: This is a new Dx this admission. He had complained of hoarseness and odynophagia and a CT of the neck showed stenosis of the trachea, right at the level of the vocal cords. This could explain his hoarseness and may also be adding to obstruction/ventilatory problems. ENT is necessary for management of this but will need to be done in outpatient setting (6) Peripheral vascular disease Assessment/Plan: This is also new Dx this admission. He presented complaining of painful feet which were cool and purple. Arterial Doppler was done showing moderate to severe bilateral lower extremity atherosclerosis with stenosis. He was started on statin and aspirin. All the above was reviewed with the patient before intubation. Will review again once extubated. Today is not the day. He is vacillating between cooperativeness, and anger. It is been difficult enough to get through to him about the severity of his respiratory failure and to get him to agree to BiPAP. Once he is through this respiratory episode, will sit down and discuss peripheral vascular disease. (7) Methamphetamine abuse Assessment/Plan: He had been very somnolent for the first few days of admission, nurse had to use a sternal rub and he only awoke during an ABG blood draw. Suspect he was in withdrawal phase of meth use, being hypersomnolent. This is adding to his CO2 retention. His dentition and disheveled appearance are consistent with meth abuse. He presented disheveled. Shower was ordered and accomplished 1/2. He is much more awake and alert today. But emotionally labiile. SW to see for drug abuse. (8) Odynophagia Assessment/Plan: At admission, he reported a focal area in the left submandibular area that is painful when he swallows. Perhaps the tracheal stenosis may be causing this symptom as well. ENT eval and follow-up is needed (9) History of hypertension Assessment/Plan: His blood pressure was "soft" since admission, at 105-118 systolic. He was put on beta-candelaria which is new for him for systolic heart failure and for his tachycardia. His lisinopril was stopped, he was put on losartan, in case the BONNIE inhibitor was adding to a cough and hoarseness however the losartan had not yet been administered because of hold parameters because blood pressure is actually low I am still continuing levophed at this time and BP med is still ongoing w spironolactone and lasix. Will monitor electrolytes to make sure. (10) Tobacco use Assessment/Plan: He turned down a Nicotine patch and told me he had decreased his smoking down to 4 cigarettes a day.
[2021-08-06] MEDS ORDERED: VANCOMYCIN INJ 2 GM in SODIUM CHLORIDE 0.9% 500 ML IV ONE (08:00)
[2021-08-06] MEDS: MULTIVITAMIN W/MINERALS TABLET PO SCH (08:35)
[2021-08-06] MEDS: CHOLECALCIFEROL 25 MCG TABLET PO SCH (09:56)
[2021-08-06] MEDS: ASPIRIN CHEW 81 MG TABLET NG SCH (09:56)
[2021-08-06] MEDS: ENOXAPARIN 40 MG/0.4 ML SYRINGE SUBQ SCH (09:59)
[2021-08-06] MEDS: CHLORHEXIDINE GLUCONATE 15 ML UDC PO SCH ×2 (09:59→21:06)
[2021-08-06] MEDS: SPIRONOLACTONE 25 MG TABLET PO SCH (11:01)
[2021-08-06] MEDS: LOSARTAN 50 MG TABLET PO SCH (11:04)
[2021-08-06] MEDS: NICOTINE 14 MG PATCH TOP SCH (11:07)
[2021-08-06] MEDS: polyethylene glycoL 3350 17 GM PACKET PO SCH (14:18)
[2021-08-06] MEDS ORDERED: LEVALBUTEROL 1.25 MG/3 ML NEB INH ONE (17:36)
[2021-08-06] MEDS: NORepinephrine 8 MG in DEXTROSE 5% 250ML IV SCH (19:32)
[2021-08-06] MEDS ORDERED: GABAPENTIN 300 MG CAPSULE PO SCH (21:00)
[2021-08-06] MEDS: INSULIN ASPART 300 UNIT/3 ML PEN SUBQ SCH (21:06)
[2021-08-06] MEDS: INSULIN GLARGINE 300 UNIT/3 ML PEN SUBQ SCH (21:06)
[2021-08-06] MEDS: ATORVASTATIN 10 MG TABLET PO SCH (21:06)
[2021-08-06] MEDS: VANCOMYCIN INJ 1 GM, VANCOMYCIN INJ 500 MG in SODIUM CHLORIDE 0.9% 500 ML IV SCH (21:36)
[2021-08-06] MEDS: methylPREDNISolone SUCCINATE 40 MG/ML VIAL IVP SCH (21:49)
[2021-08-07] MEDS: NORepinephrine 8 MG in DEXTROSE 5% 250ML IV SCH (04:18)
[2021-08-07] MEDS ORDERED: METOPROLOL 5 MG/5 ML VIAL IVP ONE (04:28)
[2021-08-07] MEDS ORDERED: METOPROLOL 5 MG/5 ML VIAL IVP SCH (05:00)
[2021-08-07] MEDS: LEVALBUTEROL 1.25 MG/3 ML NEB INH SCH ×3 (05:34→17:31)
[2021-08-07] MEDS: BUDESONIDE 0.5 MG/2 ML NEB INH SCH ×2 (05:34→17:32)
[2021-08-07] MEDS: FORMOTEROL FUMARATE NEB 20 MCG/2 ML INH SCH ×2 (05:34→17:32)
[2021-08-07] MEDS: FUROSEMIDE 20 MG/2 ML VIAL IVP SCH ×2 (05:46→13:49)
[2021-08-07] MEDS: CEFEPIME 2 GM in SODIUM CHLORIDE 0.9% MINIBAG 100 ML IV SCH ×3 (05:46→21:09)
[2021-08-07] MEDS: methylPREDNISolone SUCCINATE 40 MG/ML VIAL IVP SCH ×3 (05:47→21:09)
[2021-08-07] MEDS: SODIUM CHLORIDE FLUSH 0.9% 10 ML SYRINGE IVP SCH ×4 (05:47→23:15)
[2021-08-07] MEDS: ACETAMINOPHEN 325 MG TABLET PO PRN (05:47)
[2021-08-07] MEDS: SODIUM CHLORIDE FLUSH 0.9% 10 ML SYRINGE IVP PRN (05:47)
[2021-08-07 05:51] LABS: BASOPHILS % (AUTO) 0.4 %; EOSINOPHILS % (AUTO) 0.7 %; HCT - HEMATOCRIT 50.9 % (42.0-52.0); HGB - HEMOGLOBIN 15.7 g/dL (14.0-18.0); LYMPHOCYTES % (AUTO) 2.3 %; MEAN CORPUSCULAR HEMOGLOBIN 30.9 pg (27.0-31.0); MEAN CORPUSCULAR HGB CONC 30.8 g/dL (32.0-36.0); MEAN CORPUSCULAR VOLUME 100.2 fL (80.0-94.0); MEAN PLATELET VOLUME 10.6 fL (7.4-11.4); MONOCYTES % (AUTO) 8.3 %; NEUTROPHILS % (AUTO) 86.7 %; PLT - PLATELET COUNT 220 10^3/uL (130-450); RED BLOOD COUNT 5.08 10^6/uL (4.70-6.10); RED CELL DISTRIBUTION WIDTH 12.5 % (12.0-15.0); WHITE BLOOD COUNT 19.6 x10^3/uL (4.8-10.8)
[2021-08-07 05:59] LABS: ABNORMAL LYMPHS % (MANUAL) 0 %
[2021-08-07 06:01] LABS: CALCIUM 8.6 mg/dL (8.5-10.3); CREATININE 0.7 mg/dL (0.6-1.2); POTASSIUM 3.5 mmol/L (3.5-5.0)
[2021-08-07] MEDS: PANTOPRAZOLE 40 MG VIAL IVP SCH (06:01)
[2021-08-07 06:42] LABS: BAND NEUTROPHILS % (MANUAL) 11 %; DIFFERENTIAL COMMENT MANUAL DIFFERENTIAL; LYMPHOCYTES # (MANUAL) 1.6 10^3/uL (1.5-3.5); LYMPHOCYTES % (MANUAL) 8 %; MONOCYTES # (MANUAL) 1.2 10^3/uL (0.0-1.0); NEUTROPHILS # (MANUAL) 16.9 10^3/uL (1.5-6.6); PLATELET ESTIMATE, MANUAL NORMAL (130-450,000) (NORMAL); RBC MORPHOLOGY (MULTIPLE) NORMAL APPEARANCE (NORMAL)
--- NOTE | 2021-08-07 08:31 | PHARMACY PROGRESS NOTE ---
- Therapy Status Vancomycin regimen day #: 2 Therapy status: Awaiting steady state Basis for treatment: Empirical Treatment indication: Increase WBC, Hypotension, possible MDRO Trough goal: 15-20 Concurrent antibiotics: Cefepime - KEI Risk Risk level for Acute Kidney Injury: Moderate Acute Kidney Injury risk factors: Goal trough >15, Admission to ICU - Monitoring and Recommendation Clinical response to treatment: I&O Previous 24 hours 08/05/21 08/06/21 08/07/21 23:59 23:59 23:59 Intake Total 2573.043 4974.666 750 Output Total 1514 2782 1490 Balance 2501.321 4586.666 -740 Lab Results 08/07/21 08/06/21 08/05/21 05:30 05:08 04:28 BUN 31 H 43 H 51 H Creatinine 0.7 0.8 0.9 Estimated GFR (MDRD) 114 98 85 L 08/04/21 08/03/21 08/02/21 04:55 04:32 05:15 BUN 51 H 40 H 30 H Creatinine 1.1 1.2 1.0 Estimated GFR (MDRD) 68 L 61 L 75 L 08/01/21 07/31/21 04:15 19:00 BUN 19 17 Creatinine 0.8 0.8 Estimated GFR (MDRD) 98 98 Cultures 08/05/21 08:48 Blood Blood Culture - Preliminary 08/05/21 23:00 Urine,Catheterized Urine Culture - Preliminary CULTURE IN PROGRESS. RESULTS TO FOLLOW. 08/05/21 08:48 Blood Blood Culture (PCR) - Final Monitoring plan: Daily serum creatinine, Suggest ongoing fluid replacement Next trough due prior to maintenance dose #: 4 Next trough due (date/time): 08/08/21 @ 0830 Areas for additional monitoring: IV to PO when appropriate, Therapy de- escalation based on culture results
[2021-08-07] MEDS: SPIRONOLACTONE 25 MG TABLET PO SCH (08:45)
[2021-08-07] MEDS: MULTIVITAMIN W/MINERALS TABLET PO SCH (08:47)
[2021-08-07] MEDS: LOSARTAN 50 MG TABLET PO SCH (08:47)
[2021-08-07] MEDS: ASPIRIN CHEW 81 MG TABLET PO SCH (08:49)
[2021-08-07] MEDS: CHOLECALCIFEROL 25 MCG TABLET PO SCH (08:49)
[2021-08-07] MEDS: polyethylene glycoL 3350 17 GM PACKET PO SCH (08:51)
[2021-08-07] MEDS: ENOXAPARIN 40 MG/0.4 ML SYRINGE SUBQ SCH (08:57)
[2021-08-07] MEDS: NICOTINE 14 MG PATCH TOP SCH (09:00)
[2021-08-07] MEDS: CHLORHEXIDINE GLUCONATE 15 ML UDC PO SCH ×2 (09:00→21:09)
[2021-08-07] MEDS: INSULIN ASPART 300 UNIT/3 ML PEN SUBQ SCH ×4 (11:59→21:14)
[2021-08-07 13:16] LABS: ESTIMATED AVERAGE GLUCOSE 151 mg/dL (70-100); HEMOGLOBIN A1c% 6.9 % (4.27-6.07)
[2021-08-07] MEDS: VANCOMYCIN INJ 1 GM, VANCOMYCIN INJ 500 MG in SODIUM CHLORIDE 0.9% 500 ML IV SCH (16:52)
--- NOTE | 2021-08-07 17:58 | PROVIDER PROGRESS NOTE ---
Subjective - Prog Note Date Prog Note Date: 08/07/21 Prog Note Time: 17:56 - Subjective Pt reports feeling: No change Subjective: Tired. Cannot believe how little energy he has. Just repositioning himself in the bed makes him exhausted. His feet just ache. Intermittently purple when they are dependent. But then he also has cyanosis. When I explained to him that he has peripheral vascular disease he wants to know when he got that. And why did not anybody tell him he had peripheral vascular disease. I pointed out that we were most likely worried that he was going to from his lungs. While it is important that he has peripheral vascular disease, our focus was in his lungs. He seems to accept that. In the outpatient setting he is going to extensive follow-up for multiple medical problems. He is not happy about that. He would really like to sleep better at night. Gabapentin, single dose last night helped. He says he is taken that in the past. Current Medications - Current Medications Current Medications: Active Medications Acetaminophen (Acetaminophen 325 Mg Tablet) 650 mg PO Q4HR PRN PRN Reason: Pain or Fever > 38C (100.4F) Last Admin: 08/07/21 05:47 Dose: 650 mg Albuterol/Ipratropium (Ipratropium/Albuterol 3 Ml Neb) 3 ml INH Q4HR PRN PRN Reason: Wheezing Last Admin: 08/06/21 07:23 Dose: 3 ml Aspirin (Aspirin Chew 81 Mg Tablet) 81 mg PO DAILY [facility] Last Admin: 08/07/21 08:49 Dose: 81 mg Atorvastatin Calcium (Atorvastatin 10 Mg Tablet) 10 mg PO QPM [facility] Last Admin: 08/06/21 21:06 Dose: 10 mg Budesonide (Budesonide 0.5 Mg/2 Ml Neb) 0.5 mg INH RTBID [facility] Last Admin: 08/07/21 17:32 Dose: 0.5 mg Chlorhexidine Gluconate (Chlorhexidine Gluconate 15 Ml Udc) 15 ml PO BID [facility] Last Admin: 08/06/21 21:06 Dose: 15 ml Cholecalciferol (Cholecalciferol 25 Mcg Tablet) 50 mcg PO DAILY [facility] Last Admin: 08/07/21 08:49 Dose: 50 mcg Enoxaparin Sodium (Enoxaparin 40 Mg/0.4 Ml Syringe) 40 mg SUBQ DAILY [facility] Last Admin: 08/07/21 08:57 Dose: 40 mg Formoterol Fumarate (Formoterol Fumarate Neb 20 Mcg/2 Ml) 20 mcg INH RTBID [facility] Last Admin: 08/07/21 17:32 Dose: 20 mcg Furosemide (Furosemide 20 Mg/2 Ml Vial) 20 mg IVP BIDDIURETIC [facility] Last Admin: 08/07/21 13:49 Dose: 20 mg Gabapentin (Gabapentin 300 Mg Capsule) 300 mg PO BID [facility] Midazolam HCl (Versed Drip 50 Mg/50 Ml) 50 mg in 50 mls @ 2.94 mls/hr IV .Q17H1M [facility]; Protocol Last Titration: 08/06/21 06:51 Dose: Infused Sodium Chloride (Normal Saline 0.9%) 500 mls @ 20 mls/hr IV Q24H PRN PRN Reason: TKO RATE Last Infusion: 08/06/21 06:50 Dose: Infused Cefepime HCl 2 gm/ Sodium (Chloride) 100 mls @ 200 mls/hr IV TID [facility] Last Admin: 08/07/21 13:49 Dose: 200 mls/hr Vancomycin HCl 1 gm/Vancomycin HCl 500 mg/ Sodium Chloride 500 mls @ 250 mls/hr IV Q12H [facility] Last Admin: 08/07/21 16:52 Dose: 250 mls/hr Insulin Aspart (Insulin Aspart 300 Unit/3 Ml Pen) 1 - 9 unit SUBQ 0800,1200,1700,2100 [facility]; Protocol Last Admin: 08/07/21 17:06 Dose: Not Given Insulin Glargine (Insulin Glargine 300 Unit/3 Ml Pen) 10 unit SUBQ QPM [facility] Last Admin: 08/06/21 21:06 Dose: 10 unit Levalbuterol HCl (Levalbuterol 1.25 Mg/3 Ml Neb) 1.25 mg INH RTTID [facility] Last Admin: 08/07/21 17:31 Dose: 1.25 mg Losartan Potassium (Losartan 50 Mg Tablet) 25 mg PO DAILY [facility] Last Admin: 08/07/21 08:47 Dose: 25 mg Methylprednisolone (Methylprednisolone Succinate 40 Mg/Ml Vial) 40 mg IVP TID [facility] Last Admin: 08/07/21 13:48 Dose: 40 mg Multi-Ingredient Ointment (Zinc Oxide 20% Oint 30 Gm Tube) 1 applic TOP PRN PRN PRN Reason: Skin Care Last Admin: 08/06/21 05:06 Dose: 1 applic Multivitamins/Minerals (Multivitamin W/Minerals Tablet) 1 tab PO DAILYWM [facility] Last Admin: 08/07/21 08:47 Dose: 1 tab Nicotine (Nicotine 14 Mg Patch) 1 patch TOP DAILY [facility] Last Admin: 08/06/21 11:07 Dose: 1 patch Ondansetron HCl (Ondansetron 4 Mg/2 Ml Vial) 4 mg IVP Q6HR PRN PRN Reason: Nausea / Vomiting Pantoprazole Sodium (Pantoprazole 40 Mg Vial) 40 mg IVP QDAC [facility] Last Admin: 08/07/21 06:01 Dose: 40 mg Polyethylene Glycol (Polyethylene Glycol 3350 17 Gm Packet) 17 gm PO DAILY [facility] Last Admin: 08/07/21 08:51 Dose: 17 gm Sodium Chloride (Sodium Chloride Flush 0.9% 10 Ml Syringe) 10 ml IVP PRN PRN PRN Reason: NEEDED PER PROVIDER ORDERS Last Admin: 08/07/21 05:47 Dose: 10 ml Sodium Chloride (Sodium Chloride Flush 0.9% 10 Ml Syringe) 10 ml IVP 0100,0900,1700 [facility] Last Admin: 08/07/21 05:47 Dose: 10 ml Spironolactone (Spironolactone 25 Mg Tablet) 12.5 mg PO DAILY [facility] Last Admin: 08/07/21 08:45 Dose: 12.5 mg Throat Lozenges (Benzocaine/Menthol Lozenge) 1 lozenge MM Q2HR PRN PRN Reason: Throat pain Trazodone HCl (Trazodone 50 Mg Tablet) 50 mg PO QPM [facility] No Known Home Medications 08/02/21 Objective - Vital Signs/Intake & Output Reviewed Vital Signs: Yes Vital Signs: Vital Signs x48h Pulse Pulse Resp BP Pulse Ox 08/07/21 17:32 96 18 08/07/21 16:00 94 126/91 H 88 L 08/07/21 15:00 93 30 H 125/79 88 L 08/07/21 14:00 90 30 H 143/81 H 91 L 08/07/21 13:00 97 22 126/83 H 87 L 08/07/21 12:00 98 16 146/92 H 89 L 08/07/21 11:38 94 21 08/07/21 11:00 96 24 164/105 H 90 L 08/07/21 10:00 98 24 154/95 H 93 Intake & Output: Intake & Output 08/04/21 08/05/21 08/06/21 08/07/21 23:59 23:59 23:59 23:59 Intake Total 8902.453 7591.043 4974.666 1190 Output Total 2103 1514 2392 2810 Balance -0575.966 7321.043 2582.666 -1620 - Objective General Appearance: positive: Alert, Other (Thin cachectic white male who looks much older than stated age, disheveled, bearded, long hair. Fatigued appearing. Voice is very low, weak, and he gets exhausted speaking to us) Eyes Bilateral: positive: PERRL, EOMI ENT: positive: No signs of dehydration, Other (Poor dentition) Neck: positive: No JVD. negative: Stiff neck Respiratory: positive: No respiratory distress, Other (Very quiet lung sounds.. Moderately reduced lung excursion). negative: Wheezes, Rales, Rhonchi Cardiovascular: positive: Regular rate & rhythm. negative: JVD present, Gallop/S4, Friction rub Abdomen: positive: Non-tender, No organomegaly, Nml bowel sounds, No distention Skin: positive: Dry, Other (Legs from mid calves down get intermittent cyanosis or dependent rubor. So to his knees. I really do think he has severe peripheral vascular disease. But no open wounds at this time.) Extremities: positive: No pedal edema, Other (Tender feet that really bother him. Gabapentin at night helped.) - Lab Results Fish Bones: 08/07/21 05:30 08/07/21 05:30 Other Labs: Lab Results x24hrs 08/07/21 08/07/21 08/07/21 Range/Units 05:30 05:30 05:30 WBC (4.8-10.8) x10^3/uL RBC (4.70-6.10) 10^6/uL Hgb (14.0-18.0) g/dL Hct (42.0-52.0) % MCV (80.0-94.0) fL MCH (27.0-31.0) pg MCHC (32.0-36.0) g/dL RDW (12.0-15.0) % Plt Count (130-450) 10^3/uL MPV (7.4-11.4) fL Neut # (Auto) Lymph # (Auto) [place] # (Auto) Eos # (Auto) Baso # (Auto) Absolute Nucleated RBC Total Counted Band Neuts % (Manual) (0 - 10) % Abnorm Lymph % (Manual) % Nucleated RBC % Neutrophils # (Manual) (1.5-6.6) 10^3/uL Lymphocytes # (Manual) (1.5-3.5) 10^3/uL Monocytes # (Manual) (0.0-1.0) 10^3/uL Eosinophils # (Manual) (0-0.7) 10^3/uL Basophils # (Manual) (0-0.1) 10^3/uL Differential Comment Platelet Estimate (NORMAL) RBC Morph Micro Appear (NORMAL) Sodium 143 (135-145) mmol/L Potassium 3.5 (3.5-5.0) mmol/L Chloride 93 L (101-111) mmol/L Carbon Dioxide 42 H* (21-32) mmol/L Anion Gap 8.0 (6-13) BUN 31 H (6-20) mg/dL Creatinine 0.7 (0.6-1.2) mg/dL Estimated GFR (MDRD) 114 (>89) Glucose 119 H (70-100) mg/dL Estimat Average Glucose 151 H (70-100) mg/dL Hemoglobin A1c % 6.9 H (4.27-6.07) % Calcium 8.6 (8.5-10.3) mg/dL Magnesium 2.1 (1.7-2.8) mg/dL 08/07/21 Range/Units 05:30 WBC 19.6 H (4.8-10.8) x10^3/uL RBC 5.08 (4.70-6.10) 10^6/uL Hgb 15.7 (14.0-18.0) g/dL Hct 50.9 (42.0-52.0) % MCV 100.2 H (80.0-94.0) fL MCH 30.9 (27.0-31.0) pg MCHC 30.8 L (32.0-36.0) g/dL RDW 12.5 (12.0-15.0) % Plt Count 220 (130-450) 10^3/uL MPV 10.6 (7.4-11.4) fL Neut # (Auto) Not Reportable Lymph # (Auto) Not Reportable [place] # (Auto) Not Reportable Eos # (Auto) Not Reportable Baso # (Auto) Not Reportable Absolute Nucleated RBC Not Reportable Total Counted 100 Band Neuts % (Manual) 11 H (0 - 10) % Abnorm Lymph % (Manual) 0 % Nucleated RBC % Not Reportable Neutrophils # (Manual) 16.9 H (1.5-6.6) 10^3/uL Lymphocytes # (Manual) 1.6 (1.5-3.5) 10^3/uL Monocytes # (Manual) 1.2 H (0.0-1.0) 10^3/uL Eosinophils # (Manual) 0.0 (0-0.7) 10^3/uL Basophils # (Manual) 0.0 (0-0.1) 10^3/uL Differential Comment MANUAL DIFFERENTIAL Platelet Estimate NORMAL (130-450,000) (NORMAL) RBC Morph Micro Appear NORMAL APPEARANCE (NORMAL) Sodium (135-145) mmol/L Potassium (3.5-5.0) mmol/L Chloride (101-111) mmol/L Carbon Dioxide (21-32) mmol/L Anion Gap (6-13) BUN (6-20) mg/dL Creatinine (0.6-1.2) mg/dL Estimated GFR (MDRD) (>89) Glucose (70-100) mg/dL Estimat Average Glucose (70-100) mg/dL Hemoglobin A1c % (4.27-6.07) % Calcium (8.5-10.3) mg/dL Magnesium (1.7-2.8) mg/dL ABX Reporting Has patient been on IV antibiotics over the past 48 hours?: Yes Assessment/Plan - Problem List (1) Bacteremia Impression: 08/05/21, in the midst of extubation, he spiked a temperature. He was 38 degrees for most of the morning. Blood cultures were done at 5:45 AM. He only allowed us to do 1 set and then refused the next. That blood culture became positive at 7:02 AM 08/06/21. So has been 24 hours and its positive for staph epi. White cell count is mildly elevated and continues to rise on steroids. Chest x-ray shows w/o infiltrate. The culture may be contamination. Nevertheless vancomycin was added 08/06/21. Plan: He is on empiric cefepime, vancomycin. Continue that. Continue to closely monitor considering his white cell count is coming up. But could that be steroid effect? No fever, new skin findings, or new abdominal findings. (2) Acute respiratory failure with hypoxia and hypercapnia Impression: due to COPD exacerbation and acute chf. He had severe CO2 retention and was refusing to use BiPAP. Tearing off his mask. This resulted in him being emergently intubated. He was immediately stabilized and blood gases were quite good. We diuresed him briskly to try and get rid of some of the excess fluid from CHF. We continued steroids and nebulizers. Self extubated in the midst of weaning on 08/05/ am. After extubation made clear to us that reintubation was not an option. Wants to be DNI but willing to use BiPAP. In addition to his shortness of breath, he spiked a temperature immediately after extubation. He was 38 degrees. A repeat chest x-ray does not show new infiltrates. He only allowed one blood culture and refused the second 1. That blood culture (+) for staph epi. He is very weak. Has severe deconditioning. Was able to get up to a chair today and it wiped him out. Plan: Continue Pulmicort, Perforomist, Xopenex, Solu-Medrol. cefepime Day #3 for the fever. Vancomycin added and Day #2. Use BiPAP as needed if he lets us. Document DO NOT INTUBATE status. Work with physical therapy as needed. He may need to be placed in a jail facility. However his drug abuse may preclude him from being able to be placed. (2) Congestive heart failure Qualifiers: Heart failure type: unspecified Heart failure chronicity: acute on chronic Qualified Code(s): I50.9 - systolic heart failure Assessment/Plan: Hospitalist did a limited bedside 2D Echo 08/02 (no Echo service is available over the weekend here) which showed 4 chamber enlargement, depressed LV and RV function, LVEF estimated at 20%. This is a new Dx for this patient. We will continue with beta-candelaria, ARB and Spironolactone. Will make them crushable, give per ng. Doses are very low because of his low blood pressure. We will use iv Levophed in ICU Follow I's and O's and daily weights and emphasize that. Await full Echo report but now there will be no Echo until 08/11 due to staffing issue A fixed schedule dose of Lasix 20 mg IV push twice daily added 08/05 to avoid fluid overload. He is on beta-candelaria, (3) COPD (chronic obstructive pulmonary disease) with exacerbation Assessment/Plan: Extubated 08/05/21 Will continue with his nebs scheduled and prn q4h and continue with nebs, IV steroids (4) CO2 retention Assessment/Plan: With his underlying COPD, he may be a CO2 retainer. and also he has been very somnolent since admission possibly from Meth withdrawal. (5) Tracheal stenosis Assessment/Plan: This is a new Dx this admission. He had complained of hoarseness and odynophagia and a CT of the neck showed stenosis of the trachea, right at the level of the vocal cords. This could explain his hoarseness with weak phonation and may also be adding to obstruction/ventilatory problems. ENT is necessary for management of this but will need to be done in outpatient setting (6) Peripheral vascular disease Assessment/Plan: This is also new Dx this admission. He presented complaining of painful feet which were cool and purple. Arterial Doppler was done showing moderate to severe bilateral lower extremity atherosclerosis with stenosis. He was started on statin and aspirin. All the above was reviewed with the patient before intubationbut he doesn't remember. Discussed again today. (7) Methamphetamine abuse Assessment/Plan: He had been very somnolent for the first few days of admission, nurse had to use a sternal rub and he only awoke during an ABG blood draw. Suspect he was in withdrawal phase of meth use, being hypersomnolent. This is adding to his CO2 retention. His dentition and disheveled appearance are consistent with meth abuse. He presented disheveled. Shower was ordered and accomplished 1/. He is much more awake and alert today. But emotionally labiile. SW to see for drug abuse. He denies drug abuse. He says that it is his roommates who smoke at all the time. It is his inhalation of their methamphetamines that made him positive. (8) Odynophagia Assessment/Plan: At admission, he reported a focal area in the left submandibular area that is painful when he swallows. Perhaps the tracheal stenosis may be causing this symptom as well. ENT eval and follow-up is needed (9) History of hypertension Assessment/Plan: His blood pressure was "soft" since admission, at 105-118 systolic. He was put on beta-candelaria which is new for him for systolic heart failure and for his tachycardia. His lisinopril was stopped, he was put on losartan, in case the BONNIE inhibitor was adding to a cough and hoarseness however the losartan had not yet been administered because of hold parameters because blood pressure is actually low I was continuing levophed. His last use was August 05 by 9 PM. Blood pressure has been relatively low but stable since then. (10) Tobacco use Assessment/Plan: He turned down a Nicotine patch and told me he had decreased his smoking down to 4 cigarettes a day.
[2021-08-07] MEDS: GABAPENTIN 300 MG CAPSULE PO SCH (21:09)
[2021-08-07] MEDS: traZODone 50 MG TABLET PO SCH (21:09)
[2021-08-07] MEDS: ATORVASTATIN 10 MG TABLET PO SCH (21:09)
[2021-08-07] MEDS: INSULIN GLARGINE 300 UNIT/3 ML PEN SUBQ SCH (21:14)
[2021-08-08] MEDS: VANCOMYCIN INJ 1 GM, VANCOMYCIN INJ 500 MG in SODIUM CHLORIDE 0.9% 500 ML IV SCH ×2 (03:23→12:02)
[2021-08-08] MEDS ORDERED: ACETAMINOPHEN 1,000 MG/100 ML 100 ML IV PRN (04:53)
[2021-08-08 05:21] LABS: CALCIUM, IONIZED 1.13 mmol/L (1.15-1.33); VBG PH 7.396 (7.31-7.41)
[2021-08-08 05:32] LABS: MAGNESIUM 2.1 mg/dL (1.7-2.8); PHOSPHORUS 1.6 mg/dL (2.5-4.6)
[2021-08-08] MEDS: FUROSEMIDE 20 MG/2 ML VIAL IVP SCH ×2 (05:36→14:07)
[2021-08-08] MEDS: CEFEPIME 2 GM in SODIUM CHLORIDE 0.9% MINIBAG 100 ML IV SCH ×3 (05:36→21:56)
[2021-08-08] MEDS: methylPREDNISolone SUCCINATE 40 MG/ML VIAL IVP SCH ×2 (05:36→22:37)
[2021-08-08] MEDS: FORMOTEROL FUMARATE NEB 20 MCG/2 ML INH SCH ×2 (06:15→19:30)
[2021-08-08] MEDS: LEVALBUTEROL 1.25 MG/3 ML NEB INH SCH ×3 (06:15→19:30)
[2021-08-08] MEDS: BUDESONIDE 0.5 MG/2 ML NEB INH SCH ×2 (06:15→19:30)
[2021-08-08] MEDS: PANTOPRAZOLE 40 MG VIAL IVP SCH (06:23)
[2021-08-08] MEDS ORDERED: SODIUM PHOSPHATE 15 MMOL in SODIUM CHLORIDE 0.9% 250 ML IV ONE (08:00)
[2021-08-08] MEDS: NICOTINE 14 MG PATCH TOP SCH (08:21)
[2021-08-08] MEDS: MULTIVITAMIN W/MINERALS TABLET PO SCH (08:24)
[2021-08-08] MEDS: ASPIRIN CHEW 81 MG TABLET PO SCH (08:24)
[2021-08-08] MEDS: INSULIN ASPART 300 UNIT/3 ML PEN SUBQ SCH ×4 (08:24→21:57)
[2021-08-08] MEDS: CHOLECALCIFEROL 25 MCG TABLET PO SCH (08:24)
[2021-08-08] MEDS: LOSARTAN 50 MG TABLET PO SCH (08:24)
[2021-08-08] MEDS: polyethylene glycoL 3350 17 GM PACKET PO SCH (08:28)
[2021-08-08] MEDS: ENOXAPARIN 40 MG/0.4 ML SYRINGE SUBQ SCH (08:28)
[2021-08-08] MEDS: CHLORHEXIDINE GLUCONATE 15 ML UDC PO SCH ×2 (08:29→22:10)
[2021-08-08] MEDS: GABAPENTIN 300 MG CAPSULE PO SCH ×2 (08:33→21:56)
[2021-08-08] MEDS: SODIUM CHLORIDE FLUSH 0.9% 10 ML SYRINGE IVP SCH ×2 (08:33→19:55)
[2021-08-08] MEDS: SPIRONOLACTONE 25 MG TABLET PO SCH (08:33)
[2021-08-08 08:39] LABS: BASOPHILS # (AUTO) 0.1 10^3/uL (0.0-0.1); BASOPHILS % (AUTO) 0.4 %; HCT - HEMATOCRIT 53.3 % (42.0-52.0); HGB - HEMOGLOBIN 16.1 g/dL (14.0-18.0); LYMPHOCYTES # (AUTO) 0.5 10^3/uL (1.5-3.5); LYMPHOCYTES % (AUTO) 2.2 %; MEAN CORPUSCULAR HEMOGLOBIN 30.8 pg (27.0-31.0); MEAN CORPUSCULAR HGB CONC 30.2 g/dL (32.0-36.0); MEAN CORPUSCULAR VOLUME 102.1 fL (80.0-94.0); MEAN PLATELET VOLUME 10.4 fL (7.4-11.4); MONOCYTES # (AUTO) 1.2 10^3/uL (0.0-1.0); MONOCYTES % (AUTO) 5.4 %; NEUTROPHILS # (AUTO) 18.9 10^3/uL (1.5-6.6); NEUTROPHILS % (AUTO) 89.1 %; PLT - PLATELET COUNT 258 10^3/uL (130-450); RED BLOOD COUNT 5.22 10^6/uL (4.70-6.10); RED CELL DISTRIBUTION WIDTH 12.6 % (12.0-15.0); WHITE BLOOD COUNT 21.2 x10^3/uL (4.8-10.8)
[2021-08-08 08:47] LABS: CALCIUM 8.3 mg/dL (8.5-10.3); CREATININE 0.7 mg/dL (0.6-1.2)
[2021-08-08 08:52] LABS: SLIDE REVIEW? Indicated
[2021-08-08 09:10] LABS: RBC MORPHOLOGY (MULTIPLE) 1+ ANISOCYTOSIS (NORMAL)
[2021-08-08] MEDS: NEUTRA-PHOS 250 MG TABLET PO SCH ×2 (09:52→11:57)
--- NOTE | 2021-08-08 14:50 | PROVIDER PROGRESS NOTE ---
Subjective - Prog Note Date Prog Note Date: 08/08/21 Prog Note Time: 14:48 - Subjective Subjective: he walked 300 feet but tired, exhausted. Can't remember conversations and wonders about his legs and his COPD and his CHF. It's all news to him. Current Medications - Current Medications Current Medications: Active Medications Acetaminophen (Acetaminophen 325 Mg Tablet) 650 mg PO Q4HR PRN PRN Reason: Pain or Fever > 38C (100.4F) Last Admin: 08/07/21 05:47 Dose: 650 mg Albuterol/Ipratropium (Ipratropium/Albuterol 3 Ml Neb) 3 ml INH Q4HR PRN PRN Reason: Wheezing Last Admin: 08/06/21 07:23 Dose: 3 ml Aspirin (Aspirin Chew 81 Mg Tablet) 81 mg PO DAILY [facility] Last Admin: 08/08/21 08:24 Dose: 81 mg Atorvastatin Calcium (Atorvastatin 10 Mg Tablet) 10 mg PO QPM [facility] Last Admin: 08/07/21 21:09 Dose: 10 mg Budesonide (Budesonide 0.5 Mg/2 Ml Neb) 0.5 mg INH RTBID [facility] Last Admin: 08/08/21 06:15 Dose: 0.5 mg Chlorhexidine Gluconate (Chlorhexidine Gluconate 15 Ml Udc) 15 ml PO BID [facility] Last Admin: 08/08/21 08:29 Dose: 15 ml Cholecalciferol (Cholecalciferol 25 Mcg Tablet) 50 mcg PO DAILY [facility] Last Admin: 08/08/21 08:24 Dose: 50 mcg Enoxaparin Sodium (Enoxaparin 40 Mg/0.4 Ml Syringe) 40 mg SUBQ DAILY [facility] Last Admin: 08/08/21 08:28 Dose: 40 mg Formoterol Fumarate (Formoterol Fumarate Neb 20 Mcg/2 Ml) 20 mcg INH RTBID [facility] Last Admin: 08/08/21 06:15 Dose: 20 mcg Furosemide (Furosemide 20 Mg/2 Ml Vial) 20 mg IVP BIDDIURETIC [facility] Last Admin: 08/08/21 14:07 Dose: 20 mg Gabapentin (Gabapentin 300 Mg Capsule) 300 mg PO BID [facility] Last Admin: 08/08/21 08:33 Dose: 300 mg Midazolam HCl (Versed Drip 50 Mg/50 Ml) 50 mg in 50 mls @ 2.94 mls/hr IV .Q17H1M [facility]; Protocol Last Titration: 08/06/21 06:51 Dose: Infused Sodium Chloride (Normal Saline 0.9%) 500 mls @ 20 mls/hr IV Q24H PRN PRN Reason: TKO RATE Last Infusion: 08/06/21 06:50 Dose: Infused Cefepime HCl 2 gm/ Sodium (Chloride) 100 mls @ 200 mls/hr IV TID [facility] Last Infusion: 08/08/21 14:43 Dose: Infused Vancomycin HCl 1 gm/Vancomycin HCl 500 mg/ Sodium Chloride 500 mls @ 250 mls/hr IV Q12H [facility] Last Infusion: 08/08/21 14:08 Dose: Infused Insulin Aspart (Insulin Aspart 300 Unit/3 Ml Pen) 1 - 9 unit SUBQ 0800,1200,1700,2100 [facility]; Protocol Last Admin: 08/08/21 11:53 Dose: 7 unit Insulin Glargine (Insulin Glargine 300 Unit/3 Ml Pen) 10 unit SUBQ QPM [facility] Last Admin: 08/07/21 21:14 Dose: 10 unit Levalbuterol HCl (Levalbuterol 1.25 Mg/3 Ml Neb) 1.25 mg INH RTTID [facility] Last Admin: 08/08/21 11:53 Dose: 1.25 mg Losartan Potassium (Losartan 50 Mg Tablet) 25 mg PO DAILY [facility] Last Admin: 08/08/21 08:24 Dose: 25 mg Methylprednisolone (Methylprednisolone Succinate 40 Mg/Ml Vial) 40 mg IVP BID [facility] Multi-Ingredient Ointment (Zinc Oxide 20% Oint 30 Gm Tube) 1 applic TOP PRN PRN PRN Reason: Skin Care Last Admin: 08/06/21 05:06 Dose: 1 applic Multivitamins/Minerals (Multivitamin W/Minerals Tablet) 1 tab PO DAILYWM [facility] Last Admin: 08/08/21 08:24 Dose: 1 tab Nicotine (Nicotine 14 Mg Patch) 1 patch TOP DAILY [facility] Last Admin: 08/08/21 08:21 Dose: 1 patch Ondansetron HCl (Ondansetron 4 Mg/2 Ml Vial) 4 mg IVP Q6HR PRN PRN Reason: Nausea / Vomiting Pantoprazole Sodium (Pantoprazole 40 Mg Tablet) 40 mg PO QDAC [facility] Polyethylene Glycol (Polyethylene Glycol 3350 17 Gm Packet) 17 gm PO DAILY [facility] Last Admin: 08/08/21 08:28 Dose: 17 gm Sodium Chloride (Sodium Chloride Flush 0.9% 10 Ml Syringe) 10 ml IVP PRN PRN PRN Reason: NEEDED PER PROVIDER ORDERS Last Admin: 08/07/21 05:47 Dose: 10 ml Sodium Chloride (Sodium Chloride Flush 0.9% 10 Ml Syringe) 10 ml IVP 0100,0900,1700 [facility] Last Admin: 08/08/21 08:33 Dose: 10 ml Spironolactone (Spironolactone 25 Mg Tablet) 12.5 mg PO DAILY [facility] Last Admin: 08/08/21 08:33 Dose: 12.5 mg Thiamine HCl (Thiamine 100 Mg Tablet) 100 mg PO DAILY [facility] Throat Lozenges (Benzocaine/Menthol Lozenge) 1 lozenge MM Q2HR PRN PRN Reason: Throat pain Trazodone HCl (Trazodone 50 Mg Tablet) 50 mg PO QPM [facility] Last Admin: 08/07/21 21:09 Dose: 50 mg No Known Home Medications 08/02/21 Objective - Vital Signs/Intake & Output Reviewed Vital Signs: Yes Vital Signs: Vital Signs x48h Temp Pulse Pulse Resp BP Pulse Ox 08/08/21 13:00 36.4 C L 99 25 H 127/82 H 89 L 08/08/21 11:53 88 20 08/08/21 11:50 103 H 26 H 109/89 H 95 08/08/21 09:00 100 28 H 107/71 95 08/08/21 08:00 110 H 22 100/66 95 08/08/21 07:00 99 19 126/109 H 96 Intake & Output: Intake & Output 08/05/21 08/06/21 08/07/21 08/08/21 23:59 23:59 23:59 23:59 Intake Total 2573.043 4974.666 2410 2100 Output Total 0541 9822 3260 1890 Balance 2502.325 2308.666 -850 210 - Objective General Appearance: positive: Alert, Other (gaunt, cachectic, fatigued appearing w weak/hoarse voice) Eyes Bilateral: positive: PERRL, EOMI ENT: positive: No signs of dehydration Neck: positive: Other (no submanidibular pain) Respiratory: positive: No respiratory distress, Wheezes (faint and scattered but really quiet, almost no sounds w inhalation). negative: Rales, Rhonchi Cardiovascular: positive: Regular rate & rhythm. negative: Gallop/S4, Friction rub Abdomen: positive: Non-tender, No organomegaly, Nml bowel sounds, No distention Skin: positive: Warm, Dry, Other (easy rubor of knees, shins, calves, feet. ?dependent stasis or ischemia. Legs and feet do hurt but not more than usual. Gabapentin helping) Extremities: positive: Full ROM, No pedal edema Neurologic/Psychiatric: positive: Oriented x3, CN's nml (2-12), Motor nml (but gen weakness.) - Lab Results Fish Bones: 08/08/21 08:20 08/08/21 08:20 Other Labs: Lab Results x24hrs 08/08/21 08/08/21 08/08/21 Range/Units 08:20 08:20 04:21 WBC 21.2 H (4.8-10.8) x10^3/uL RBC 5.22 (4.70-6.10) 10^6/uL Hgb 16.1 (14.0-18.0) g/dL Hct 53.3 H (42.0-52.0) % MCV 102.1 H (80.0-94.0) fL MCH 30.8 (27.0-31.0) pg MCHC 30.2 L (32.0-36.0) g/dL RDW 12.6 (12.0-15.0) % Plt Count 258 (130-450) 10^3/uL MPV 10.4 (7.4-11.4) fL Neut # (Auto) 18.9 H (1.5-6.6) 10^3/uL Lymph # (Auto) 0.5 L (1.5-3.5) 10^3/uL [place] # (Auto) 1.2 H (0.0-1.0) 10^3/uL Eos # (Auto) 0.0 (0.0-0.7) 10^3/uL Baso # (Auto) 0.1 (0.0-0.1) 10^3/uL Absolute Nucleated RBC 0.00 x10^3/uL Nucleated RBC % 0.0 /100WBC Manual Slide Review Indicated RBC Morph Micro Appear 1+ ANISOCYTOSIS (NORMAL) VBG pH 7.396 (7.31-7.41) Ionized Calcium 1.13 L (1.15-1.33) mmol/L Sodium 141 (135-145) mmol/L Potassium 4.0 (3.5-5.0) mmol/L Chloride 88 L (101-111) mmol/L Carbon Dioxide 42 H* (21-32) mmol/L Anion Gap 11.0 (6-13) BUN 33 H (6-20) mg/dL Creatinine 0.7 (0.6-1.2) mg/dL Estimated GFR (MDRD) 114 (>89) Glucose 205 H (70-100) mg/dL Calcium 8.3 L (8.5-10.3) mg/dL Phosphorus (2.5-4.6) mg/dL Magnesium (1.7-2.8) mg/dL 08/08/21 Range/Units 04:21 WBC (4.8-10.8) x10^3/uL RBC (4.70-6.10) 10^6/uL Hgb (14.0-18.0) g/dL Hct (42.0-52.0) % MCV (80.0-94.0) fL MCH (27.0-31.0) pg MCHC (32.0-36.0) g/dL RDW (12.0-15.0) % Plt Count (130-450) 10^3/uL MPV (7.4-11.4) fL Neut # (Auto) (1.5-6.6) 10^3/uL Lymph # (Auto) (1.5-3.5) 10^3/uL [place] # (Auto) (0.0-1.0) 10^3/uL Eos # (Auto) (0.0-0.7) 10^3/uL Baso # (Auto) (0.0-0.1) 10^3/uL Absolute Nucleated RBC x10^3/uL Nucleated RBC % /100WBC Manual Slide Review RBC Morph Micro Appear (NORMAL) VBG pH (7.31-7.41) Ionized Calcium (1.15-1.33) mmol/L Sodium (135-145) mmol/L Potassium 4.0 (3.5-5.0) mmol/L Chloride (101-111) mmol/L Carbon Dioxide (21-32) mmol/L Anion Gap (6-13) BUN (6-20) mg/dL Creatinine (0.6-1.2) mg/dL Estimated GFR (MDRD) (>89) Glucose (70-100) mg/dL Calcium (8.5-10.3) mg/dL Phosphorus 1.6 L (2.5-4.6) mg/dL Magnesium 2.1 (1.7-2.8) mg/dL ABX Reporting Has patient been on IV antibiotics over the past 48 hours?: Yes Assessment/Plan - Problem List (1) Bacteremia Impression: 08/05/21, in the midst of extubation, he spiked a temperature. He was 38 degrees for most of the morning. Blood cultures were done at 5:45 AM. He only allowed us to do 1 set and then refused the next. That blood culture became positive at 7:02 AM 08/06/21. So has been 24 hours and its positive for staph epi. White cell count continues to rise on steroids even w steroids being tapered. On ROS there is no c/o peritoneal/abd infection, no UTI symptoms. No new cough. No chest congestion. Chest x-ray shows w/o infiltrate. The culture may be contamination. Nevertheless vancomycin was added 08/06/21. In spite of no fever, and several days of abx, his WBC continues to rise. I am worried about occult infection somewhere. Line infection? Sinusitis in a patient who had NG and ET? Plan: He is on empiric cefepime, vancomycin. Continue that. Continue to closely monitor considering his white cell count is coming up. I will evaluated sinus w maxillofacial CT. Repeat blood cultures. If those are (+) again, needs [place] and change in line. (2) Acute respiratory failure with hypoxia and hypercapnia Impression: due to COPD exacerbation and acute chf. He had severe CO2 retention and was refusing to use BiPAP. Tearing off his mask. This resulted in him being emergently intubated. He was immediately stabilized and blood gases were quite good. We diuresed him briskly to try and get rid of some of the excess fluid from CHF. We continued steroids and nebulizers. Self extubated in the midst of weaning on 1/5/ am. After extubation made clear to us that reintubation was not an option. Wants to be DNI but willing to use BiPAP. In addition to his shortness of breath, he spiked a temperature immediately after extubation. He was 38 degrees. A repeat chest x-ray does not show new infiltrates. He only allowed one blood culture and refused the second 1. That blood culture (+) for staph epi. He is very weak. Has severe deconditioning. Was able to get up to a chair today and it wiped him out. Plan: Continue Pulmicort, Perforomist, Xopenex, Solu-Medrol. cefepime Day #4 for the fever. Vancomycin added and Day #3. Use BiPAP as needed if he lets us. Document DO NOT INTUBATE status. Work with physical therapy as needed. He may need to be placed in a senior care facility. However his drug abuse may preclude him from being able to be placed. He is doing well if he walked 300 feet. (2) Congestive heart failure Qualifiers: Heart failure type: unspecified Heart failure chronicity: acute on chronic Qualified Code(s): I50.9 - systolic heart failure Assessment/Plan: Hospitalist did a limited bedside 2D Echo 08/02 (no Echo service is available over the weekend here) which showed 4 chamber enlargement, depressed LV and RV function, LVEF estimated at 20%. This is a new Dx for this patient. We was continued on beta-candelaria for two days but stopped w hypotension and levophed need. ARB and Spironolactone were started and held then resumed. A fixed schedule dose of Lasix 20 mg IV push twice daily added 08/05 to avoid fluid overload. He is NOT on beta-candelaria. If his BP tolerates that tomorrow I will add that. Follow I's and O's and daily weights and emphasize that. There are still no daily weights and I have reordered again. Await full Echo report but now there will be no Echo until 08/10 due to staffing issue (3) COPD (chronic obstructive pulmonary disease) with exacerbation Assessment/Plan: Extubated 08/05/21 Will continue with his nebs scheduled and prn q4h and continue with nebs, IV steroids (4) CO2 retention Assessment/Plan: With his underlying COPD, he may be a CO2 retainer. and also he had been very somnolent since admission possibly from Meth withdrawal. He denies meth use. (5) Tracheal stenosis Assessment/Plan: This is a new Dx this admission. He had complained of hoarseness and odynophagia and a CT of the neck showed stenosis of the trachea, right at the level of the vocal cords. This could explain his hoarseness with weak phonation and may also be adding to obstruction/ventilatory problems. The hoarseness continues w a weak voice. ENT is necessary for management of this but will need to be done in outpatient setting (6) Peripheral vascular disease Assessment/Plan: This is also new Dx this admission. He presented complaining of painful feet which were cool and purple. Arterial Doppler was done showing moderate to severe bilateral lower extremity atherosclerosis with stenosis. He was started on statin and aspirin. All the above was reviewed with the patient before intubation and yesterday but he doesn't remember. I will type up his list of problems and give Krames so see if helps. (7) Methamphetamine abuse Assessment/Plan: He had been very somnolent for the first few days of admission, nurse had to use a sternal rub and he only awoke during an ABG blood draw. Suspect he was in withdrawal phase of meth use, being hypersomnolent. This is adding to his CO2 retention. His dentition and disheveled appearance are consistent with meth abuse. He presented disheveled. Shower was ordered and accomplished 1/2. He is much more awake and alert today. But emotionally labiile. SW to see for drug abuse. He denies drug abuse. He says that it is his roommates who smoke at all the ti me. It is his inhalation of their methamphetamines that made him positive. (8) Odynophagia Assessment/Plan: At admission, he reported a focal area in the left submandibular area that is painful when he swallows. Perhaps the tracheal stenosis may be causing this symptom as well. ENT eval and follow-up is needed (9) History of hypertension Assessment/Plan: His blood pressure was "soft" since admission, at 105-118 systolic. He was put on beta-candelaria which is new for him for systolic heart failure and for his tachycardia. His lisinopril was stopped, he was put on losartan, in case the BONNIE inhibitor was adding to a cough and hoarseness however the losartan had not yet been administered because of hold parameters because blood pressure was actually low but BP stable enough that dose given last 3 days. I was continuing levophed until BP came up. His last use was August 05 by 9 PM. Blood pressure has been relatively low but stable since then. (10) Tobacco use Assessment/Plan: He turned down a Nicotine patch and told me he had decreased his smoking down to 4 cigarettes a day.
--- NOTE | 2021-08-08 18:13 | CT Report ---
PROCEDURE: MAXILLOFACIAL WO INDICATIONS: fever, wbc, s/p intub and NG TECHNIQUE: Noncontrast 1.5 mm thick axial images acquired from the mandible through the frontal sinuses, with co kendall and sagittal reformatting. For radiation dose reduction, the following was used: automated ex posure control, adjustment of mA and/or kV according to patient size. COMPARISON: Limited comparison is CT neck dated 08/01/2021 FINDINGS: Image quality: Excellent. Bones and teeth: There is diffuse dental caries and periapical lucencies. There is irregularity of t he anterior aspect anterior maxilla just to the right of midline associated with the periapical lucen cy. Orbital herr are intact. Sinus herr show no fracture or deformity. Nasal bones and septum are intact. Visualized portions of the mandible demonstrate no fractures or subluxation. Zygomatic arc hes are intact. Pterygoid plates are intact. Visualized portions of the skull base and auditory can als are intact. Sinuses: There is mild paranasal sinus mucosal thickening of the maxillary sinuses is normal of hypop lasia of the left sphenoid sinus with enlargement of the right sphenoid sinus. There is mild frothy a ttenuation with multiple ethmoid air cells. Mild mucosal thickening of the left frontal sinus. Nasal passages are clear. No significant periosteal reaction or air-fluid levels. Mastoid air cells are bry ar. Soft tissues: No edema, masses, or fluid collections. No enlarged lymph nodes. No soft tissue lace rations or debris. Imaged salivary glands are unremarkable. Punctate calcification noted adjacent to the right submandibular gland not definitely visualized on prior examination may represent a small s ialolith versus vascular calcification. Vascular: Vascular calcifications are noted within the proximal intracranial carotid arteries. No add itional abnormality.. Bony vascular foramina and canals are intact. IMPRESSION: Diffuse odontogenic disease. Recommend correlation for odontogenic infection. There is diffuse osseou s cortical abnormality of the anterior maxilla just to the right of midline associated with periapica l lucency. This may represent odontogenic abscess/osteomyelitis in the correct clinical setting. Mild paranasal sinus disease without air-fluid levels to suggest an acute infection. Punctate calcification noted adjacent to the right submandibular gland not definitely visualized on p rior examination may represent a small sialolith versus vascular calcification. Reviewed by: Jesse Chang DO on 08/08/2021 5:11 PM [place] Approved by: Jesse Chang DO on 08/08/2021 5:11 PM [facility] Station ID: [id number]
[2021-08-08] MEDS ORDERED: methylPREDNISolone SUCCINATE 40 MG/ML VIAL IVP SCH (21:00)
[2021-08-08] MEDS: ATORVASTATIN 10 MG TABLET PO SCH (21:56)
[2021-08-08] MEDS: SODIUM CHLORIDE FLUSH 0.9% 10 ML SYRINGE IVP PRN (21:57)
[2021-08-08] MEDS: INSULIN GLARGINE 300 UNIT/3 ML PEN SUBQ SCH (21:58)
[2021-08-08] MEDS: ACETAMINOPHEN 325 MG TABLET PO PRN (22:09)
[2021-08-08] MEDS: traZODone 50 MG TABLET PO SCH (22:36)
[2021-08-09] MEDS: VANCOMYCIN INJ 1 GM, VANCOMYCIN INJ 500 MG in SODIUM CHLORIDE 0.9% 500 ML IV SCH (01:04)
[2021-08-09] MEDS: SODIUM CHLORIDE FLUSH 0.9% 10 ML SYRINGE IVP SCH ×3 (01:04→16:33)
[2021-08-09] MEDS: ACETAMINOPHEN 325 MG TABLET PO PRN ×3 (03:25→22:47)
[2021-08-09] MEDS: CEFEPIME 2 GM in SODIUM CHLORIDE 0.9% MINIBAG 100 ML IV SCH ×3 (05:44→22:04)
[2021-08-09] MEDS: FUROSEMIDE 20 MG/2 ML VIAL IVP SCH (05:44)
[2021-08-09 06:11] LABS: BASOPHILS % (AUTO) 0.6 %; HCT - HEMATOCRIT 48.3 % (42.0-52.0); HGB - HEMOGLOBIN 14.5 g/dL (14.0-18.0); LYMPHOCYTES % (AUTO) 2.7 %; MEAN CORPUSCULAR HEMOGLOBIN 30.5 pg (27.0-31.0); MEAN CORPUSCULAR VOLUME 101.5 fL (80.0-94.0); MEAN PLATELET VOLUME 10.1 fL (7.4-11.4); MONOCYTES % (AUTO) 6.6 %; NEUTROPHILS % (AUTO) 84.9 %; PLT - PLATELET COUNT 258 10^3/uL (130-450); RED BLOOD COUNT 4.76 10^6/uL (4.70-6.10); RED CELL DISTRIBUTION WIDTH 12.5 % (12.0-15.0); WHITE BLOOD COUNT 20.6 x10^3/uL (4.8-10.8)
[2021-08-09] MEDS: PANTOPRAZOLE 40 MG TABLET PO SCH (06:13)
[2021-08-09 06:23] LABS: ABNORMAL LYMPHS % (MANUAL) 0 %
[2021-08-09 06:29] LABS: CALCIUM 8.1 mg/dL (8.5-10.3); CREATININE 0.6 mg/dL (0.6-1.2); POTASSIUM 4.3 mmol/L (3.5-5.0)
[2021-08-09 06:52] LABS: BAND NEUTROPHILS % (MANUAL) 1 %; LYMPHOCYTES # (MANUAL) 0.6 10^3/uL (1.5-3.5); LYMPHOCYTES % (MANUAL) 3 %; MONOCYTES # (MANUAL) 1.2 10^3/uL (0.0-1.0); NEUTROPHILS # (MANUAL) 18.7 10^3/uL (1.5-6.6); PLATELET ESTIMATE, MANUAL NORMAL (130-450,000) (NORMAL); PLATELET MORPHOLOGY NORMAL APPEARANCE (NORMAL); RBC MORPHOLOGY (MULTIPLE) NORMAL APPEARANCE (NORMAL); WBC MORPHOLOGY (MULTIPLE) NORMAL APPEARANCE (NORMAL)
[2021-08-09 06:53] LABS: DIFFERENTIAL COMMENT MANUAL DIFFERENTIAL
[2021-08-09] MEDS: BUDESONIDE 0.5 MG/2 ML NEB INH SCH ×2 (07:37→20:52)
[2021-08-09] MEDS: LEVALBUTEROL 1.25 MG/3 ML NEB INH SCH ×3 (07:37→20:52)
[2021-08-09] MEDS: FORMOTEROL FUMARATE NEB 20 MCG/2 ML INH SCH ×2 (07:37→20:52)
[2021-08-09] MEDS: ASPIRIN CHEW 81 MG TABLET PO SCH (08:31)
[2021-08-09] MEDS: MULTIVITAMIN W/MINERALS TABLET PO SCH (08:31)
[2021-08-09] MEDS: CHOLECALCIFEROL 25 MCG TABLET PO SCH (08:31)
[2021-08-09] MEDS: polyethylene glycoL 3350 17 GM PACKET PO SCH (08:31)
[2021-08-09] MEDS: methylPREDNISolone SUCCINATE 40 MG/ML VIAL IVP SCH (08:32)
[2021-08-09] MEDS: GABAPENTIN 300 MG CAPSULE PO SCH ×2 (08:33→20:56)
[2021-08-09] MEDS: ENOXAPARIN 40 MG/0.4 ML SYRINGE SUBQ SCH (08:33)
[2021-08-09] MEDS: LOSARTAN 50 MG TABLET PO SCH (08:33)
[2021-08-09] MEDS: SPIRONOLACTONE 25 MG TABLET PO SCH (08:34)
[2021-08-09] MEDS: NICOTINE 14 MG PATCH TOP SCH (08:34)
[2021-08-09] MEDS: THIAMINE 100 MG TABLET PO SCH (08:35)
[2021-08-09 08:40] LABS: ABG HCO3 41.7 mmol/L (22.0-26.0); ABG PO2 59 mmHg (80-100)
[2021-08-09 08:41] LABS: ABG OXYGEN SATURATION 91 % (94-98); ALLEN TEST POSITIVE
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
[2021-08-09 08:45] LABS: ABG PCO2 70 mmHg (34-45); ABG TCO2 43.8 MMOL/L (21.0-29.0)
[2021-08-09] MEDS: INSULIN ASPART 300 UNIT/3 ML PEN SUBQ SCH ×4 (09:01→20:58)
[2021-08-09] MEDS: CHLORHEXIDINE GLUCONATE 15 ML UDC PO SCH ×2 (09:07→20:56)
[2021-08-09] MEDS ORDERED: FUROSEMIDE 40 MG TABLET PO SCH (12:00)
[2021-08-09] MEDS: carvediloL 3.125 MG TABLET PO SCH ×2 (13:36→20:56)
[2021-08-09] MEDS ORDERED: methylPREDNISolone 4 MG TABLET PO SCH (14:00)
[2021-08-09] MEDS: INSULIN GLARGINE 300 UNIT/3 ML PEN SUBQ SCH (20:56)
[2021-08-09] MEDS: ATORVASTATIN 10 MG TABLET PO SCH (20:56)
[2021-08-09] MEDS: SODIUM CHLORIDE FLUSH 0.9% 10 ML SYRINGE IVP PRN (22:05)
[2021-08-09] MEDS: traZODone 50 MG TABLET PO SCH (22:43)
[2021-08-10] MEDS: SODIUM CHLORIDE FLUSH 0.9% 10 ML SYRINGE IVP SCH ×2 (02:45→09:13)
[2021-08-10] MEDS: ACETAMINOPHEN 325 MG TABLET PO PRN (03:40)
[2021-08-10] MEDS: LEVALBUTEROL 1.25 MG/3 ML NEB INH SCH ×2 (04:42→13:21)
[2021-08-10 06:04] LABS: BASOPHILS % (AUTO) 0.6 %; HCT - HEMATOCRIT 46.3 % (42.0-52.0); HGB - HEMOGLOBIN 14.2 g/dL (14.0-18.0); LYMPHOCYTES % (AUTO) 4.4 %; MEAN CORPUSCULAR HEMOGLOBIN 30.8 pg (27.0-31.0); MEAN CORPUSCULAR HGB CONC 30.7 g/dL (32.0-36.0); MEAN CORPUSCULAR VOLUME 100.4 fL (80.0-94.0); MEAN PLATELET VOLUME 9.9 fL (7.4-11.4); MONOCYTES % (AUTO) 9.3 %; NEUTROPHILS % (AUTO) 80.9 %; PLT - PLATELET COUNT 250 10^3/uL (130-450); RED BLOOD COUNT 4.61 10^6/uL (4.70-6.10); RED CELL DISTRIBUTION WIDTH 12.3 % (12.0-15.0); WHITE BLOOD COUNT 23.2 x10^3/uL (4.8-10.8)
[2021-08-10 06:09] LABS: CALCIUM 8.5 mg/dL (8.5-10.3); CREATININE 0.6 mg/dL (0.6-1.2); POTASSIUM 4.6 mmol/L (3.5-5.0)
[2021-08-10 06:19] LABS: ABNORMAL LYMPHS % (MANUAL) 0 %
[2021-08-10 06:39] LABS: BAND NEUTROPHILS % (MANUAL) 6 %; DIFFERENTIAL COMMENT MANUAL DIFFERENTIAL; LYMPHOCYTES # (MANUAL) 0.7 10^3/uL (1.5-3.5); LYMPHOCYTES % (MANUAL) 3 %; NEUTROPHILS # (MANUAL) 19.5 10^3/uL (1.5-6.6); PLATELET ESTIMATE, MANUAL NORMAL (130-450,000) (NORMAL); RBC MORPHOLOGY (MULTIPLE) NORMAL APPEARANCE (NORMAL)
[2021-08-10] MEDS: PANTOPRAZOLE 40 MG TABLET PO SCH (06:48)
[2021-08-10] MEDS: CEFEPIME 2 GM in SODIUM CHLORIDE 0.9% MINIBAG 100 ML IV SCH ×2 (06:48→14:41)
[2021-08-10] MEDS ORDERED: methylPREDNISolone 4 MG TABLET PO ONE (08:00)
[2021-08-10] MEDS: BUDESONIDE 0.5 MG/2 ML NEB INH SCH (08:16)
[2021-08-10] MEDS: FORMOTEROL FUMARATE NEB 20 MCG/2 ML INH SCH (08:17)
[2021-08-10] MEDS ORDERED: FUROSEMIDE 40 MG TABLET PO SCH (09:00)
[2021-08-10] MEDS: INSULIN ASPART 300 UNIT/3 ML PEN SUBQ SCH ×2 (09:10→13:07)
[2021-08-10] MEDS: ENOXAPARIN 40 MG/0.4 ML SYRINGE SUBQ SCH (09:10)
[2021-08-10] MEDS: polyethylene glycoL 3350 17 GM PACKET PO SCH (09:10)
[2021-08-10] MEDS: NICOTINE 14 MG PATCH TOP SCH (09:11)
[2021-08-10] MEDS: carvediloL 3.125 MG TABLET PO SCH (09:11)
[2021-08-10] MEDS: ASPIRIN CHEW 81 MG TABLET PO SCH (09:11)
[2021-08-10] MEDS: CHLORHEXIDINE GLUCONATE 15 ML UDC PO SCH (09:11)
[2021-08-10] MEDS: CHOLECALCIFEROL 25 MCG TABLET PO SCH (09:11)
[2021-08-10] MEDS: SPIRONOLACTONE 25 MG TABLET PO SCH (09:12)
[2021-08-10] MEDS: LOSARTAN 50 MG TABLET PO SCH (09:12)
[2021-08-10] MEDS: GABAPENTIN 300 MG CAPSULE PO SCH (09:12)
[2021-08-10] MEDS: MULTIVITAMIN W/MINERALS TABLET PO SCH (09:12)
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
[2021-08-10] MEDS: THIAMINE 100 MG TABLET PO SCH (09:13)
[2021-08-10 14:13] VITALS: BP 138/78
--- NOTE | 2021-08-10 15:24 | DISCHARGE SUMMARY ---
"Discharge Summary Admit Date: 08/31/21 Discharge Date: 08/10/21 Discharging Provider: Jennifer Morris MD Primary Care Provider: No PCP. Hopes to see [facility] Code Status: Attempt Resuscitation (but he is DO NOT INTUBATE) Condition at Discharge: Fair Discharge Disposition: 01 Home, Self Care - DIAGNOSES Discharge Diagnoses with Status of Each Condition: 1. Acute on chronic respiratory failure with hypoxia and hypercapnia 2. Acute exacerbation of COPD 3. Acute on chronic systolic heart failure 4. Tracheal stenosis 5. Severe peripheral vascular disease 6. Methamphetamine abuse With withdrawal 7. Tooth abscess 8. Odynophagia 9. Hypertension 10. Tobacco abuse 11. Glucose intolerance 12. Bacteremia - HPI History of Present Illness: Patient is a 61-year-old male with medical history significant for hypertension, asthma, depression, anxiety, PTSD, insomnia and presumed COPD who presented to [facility] ED with complaint of dyspnea and anasarca. He also complained of leg pain and difficulty walking. The pain in his legs have been going on for the past 1 month. One of the renters at his house called EMS when he complained of difficulties walking. The pain is located in the plantar and dorsal aspects of his feet. However there is significant marbling/mottling in his lower extremities. The distal half of his lower extremities are dusky appearing and tender to palpation. The patient is a chronic smoker and has been smoking for about 54 years. His oxygen saturation was noted to be 85% on room air. He had 3+ lower extremity edema up to his thighs and JVD. Chest x-ray was consistent with pulmonary edema. Further work-up in the ED included a BNP which was 973. Initial troponin was 68 however the patient denied chest pain. As a result of this findings he was presented for admission for further management. He denies chest pain, abdominal pain, nausea, vomiting, fever or chills. He appears very disheveled. His toxicology was positive for cannabinoids and methamphetamine - Past Medical History Cardiovascular: reports: Hypertension Respiratory: reports: Asthma Neuro: reports: None Endocrine/Autoimmune: reports: None GI: reports: None : reports: None HEENT: reports: None Psych: reports: Depression, Anxiety, Post traumatic stress disorder, Other (Insomnia) Musculoskeletal: reports: None Derm: reports: None MRSA Hx?: No - Past Surgical History HEENT: reports: Tonsil/Adenoidectomy Other past surgical history: Vasectomy - CONSULTS | PROCEDURES Procedures: Admission chest x-ray with mild right pleural effusion and increased vascularity consistent with congestive heart failure. 3 subsequent chest x-rays continue to show congestive heart failure, COPD but no pneumothorax or pneumonia. Ankle-brachial index with mildly reduced ankle-brachial indices, right worse than left. Duplex lower extremity arterial, bilateral showing abnormal bilateral lower extremity examination. Hemodynamically significant stenosis can be seen within the right common femoral artery and the right proximal superficial femoral artery, greater than 50%. There is borderline stenosis seen within the right profunda femoris artery. There is greater than 50% stenosis seen in the left within the left common femoral artery and the left mid superficial femoral artery. Venous duplex of the legs did not show DVT Soft tissue neck CAT scan had narrowing of the trachea below the vocal cords without a mass. 6 mm low-attenuation within the left thyroid nodule. Facial bone CT showed diffuse odontogenic disease. Diffuse osseous cortical abnormality in the anterior maxilla just to the right of midline associated with periapical lucency representing odontogenic abscess/osteomyelitis. Bedside echocardiogram done by hospitalist shows a preliminary ejection fraction of 20% that needs to be confirmed by full echocardiogram. Blood culture August 05 positive in 1 out of 4 bottles with Staph epidermidis that is felt to be contamination. Repeat blood cultures August 08 are negative. A1c is 6.9%. Triglycerides 33, LDL not reportable. Total cholesterol 147. HDL 59. - HOSPITAL COURSE Hospital Course: The patient was placed on MedSurg with acute exacerbation of COPD and acute congestive heart failure. He was started on steroids, antibiotics empirically, nebulizers. The bedside echocardiogram confirmed the preliminary ejection fraction of 20% and he was started on beta-candelaria, diuretic, and ARB.We also evaluated him for frankly cyanotic and cold legs and found to have severe peripheral vascular disease and he was started on Lipitor, aspirin. Severely hoarse voice, problems swallowing, pain underneath his left mandible and we evaluated that. He seems to have severe tracheal stenosis.We do feel he went through some form of methamphetamine withdrawal. The patient also required BiPAP. However he was claustrophobic, combative, refused to keep the mask on. Went into ryan respiratory failure with hypercarbia and obtundation and was intubated and placed in the ICU. Blood pressure drop with this and we assume t his is recruitment and auto PEEP in a COPD patient who is intubated. He required Levophed to maintain his pressures. We use that opportunity to diurese him aggressively. He was finally able to be stabilized enough to be extubated. On the morning that we were weaning him, lowering sedation, trying to get him to follow commands, he extubated himself. He spiked a temperature that morning and we repeated blood cultures, repeated a chest x-ray and there is no pneumonia. As we attempted to find out why he was still having white cell count and fever we repeat we did a CT of the sinuses and found him to have possible tooth abscess. We consulted with Dr. Forest Ray of oral maxillofacial surgery. Dr. Ray was unable to see the patient during his stay but has asked us to send the patient to his office and he will see the patient in his office expeditiously. After extubation the patient continues to have hypoxia in relation to his COPD. At rest on room air he is 86%. On 2 L nasal cannula at rest his sats improved to 92%. On exertion with room air his sats are 86% as well. On 2 L, his exertion saturations are 92%. As such I am ordering 2 L/min continuous oxygen delivery and a home nebulizer system (machine, tubes, meds) to treat the patient's COPD, CHF and hypoxia. Patient has cognitive deficits. Poor insight into his illness. Denies his methamphetamine abuse and states that it is roommates' fault for him inhaling the substance. Nevertheless I gave him a detailed list of all of his medical problems, and all the things he needed to do to follow through to take care of them. First of which is to establish himself with a primary care provider since he does not have 1. Over the course of his stay we called the [facility] (which is close to where he lives) but were unable to get anybody to call us back. Messages were left. We ended up calling the walk-in clinic in [place] and asked them to please see this patient in follow-up in the next week. The follo w-ups that this patient will need: 1. A new PCP 2. Urgent referral for echocardiogram and Turbinated Bone Grinder 3. Follow-up labs for a BMP and a BNP and a CBC to follow-up his potassium, congestive heart failure, and white cell count for infection 4. Referral to a vascular surgeon for his legs 5. Continue to educate him with regards to his med use and why is important to take them. 6. A program to help him stop smoking and that would help his legs. 7. A program to help him stop using methamphetamines 8. Urgent referral to Dr. Ray for evaluation of infection. While he was here he received a total of 11 days of antibiotics. He will be discharged on Augmentin for 3-4 more days because of the tooth abscess. 9. Referral to ENT for tracheal stenosis He is discharged in stable condition. Overall not a good prognosis due to his multiple comorbidities. He is a thin lanky male who weighs 81 kg and is 6 foot tall. Low hoarse voice that is almost an audible. Disheveled, bearded, long baird ir. Multiple tattoos. Teardrop tattoo underneath his eye, and initials with homemade tattoo in his right anterior thigh. Temperature 36.5. Heart rate 81. Blood pressure 138/78. Respirations 23 and on 2 L he is 93% saturated. Shotty anterior neck adenopathy. Lungs have coarse airway sounds, prolonged and exhalation but no ryan wheezing at this time. I am not able to seat a tooth abscess but he is tender over the area identified on CT. He has a regular rate and rhythm with a soft systolic ejection murmur. Low muscle mass rib cage. Abdomen is soft, nontender, hypoactive bowel sounds, no masses. No rebound or guarding. Extremities have trace edema. What they are remarkable for is dependent rubor. The rubor does resolve when his legs go up. However, in times of stress, COPD exacerbation and hypoxia, he has hands, elbows, knees, and legs below the knees turn cyanotic. Right now he has mildly ruborous discoloration, with cold hands and feet but not ryan cyanosis. He is ambulating in the room slowly, shuffling gait, to go to the bathroom to get back in bed. He has a wal ker at home that he uses. He is discharged to follow-up with the above providers. I have given him the number for the oral maxillofacial surgeon for him to call and make an appointment as soon as possible. Greater than 30 minutes was spent coordinating discharge. - ALLERGIES Allergies/Adverse Reactions: Allergies Allergy/AdvReac Type Severity Reaction Status Date / Time No Known Drug Allergies Allergy Verified 07/31/21 18:48 - MEDICATIONS Home Medications: Ambulatory Orders Medication Instructions Recorded Confirmed Amox/Clav 500/125 [Augmentin 1 tablet PO Q12H #8 tablet 08/10/21 500/125] Aspirin Chewable [St Bob 81 mg PO DAILY tablet 08/10/21 Aspirin] Atorvastatin [Lipitor] 10 mg PO QPM #30 tablet 08/10/21 Budesonide [Pulmicort] 0.5 mg INH RTBID #60 neb 08/10/21 Formoterol Fumarate [Perforomist] 20 mcg INH RTBID #60 neb 08/10/21 Furosemide [Lasix] 40 mg PO DAILY #30 tablet 08/10/21 Gabapentin [Neurontin] 300 mg PO BID #60 08/10/21 Ipratropium/Albuterol [Duoneb] 3 ml INH Q4HR PRN #120 neb 08/10/21 Losartan [Cozaar] 25 mg PO DAILY #30 tablet 08/10/21 Multivitamin W/Minerals [Theragran 1 tab PO DAILYWM tablet 08/10/21 M] Spironolactone [Aldactone] 12.5 mg PO DAILY #30 tablet 08/10/21 Thiamine [Vitamin B-1] 100 mg PO DAILY tablet 08/10/21 Zinc Oxide 20% Oint [Zinc Oxide] 1 applic TOP PRN PRN #1 tu 08/10/21 carvediloL [Coreg] 3.125 mg PO BID #60 tablet 08/10/21 traZODone [Desyrel] 50 mg PO QPM #30 tablet 08/10/21 - LABS Result Diagrams: 08/10/21 05:51 08/10/21 05:51"
[2021-08-11] MEDS ORDERED: methylPREDNISolone 4 MG TABLET PO ONE (08:00)
[2021-08-12] MEDS ORDERED: methylPREDNISolone 4 MG TABLET PO ONE (08:00)
[2021-08-13] MEDS ORDERED: methylPREDNISolone 4 MG TABLET PO ONE (08:00)
[2021-08-14] MEDS ORDERED: methylPREDNISolone 4 MG TABLET PO ONE (08:00)
== END 2021-08-10 14:40 | disposition home or self-care (01) | DRG 208 ==
LOC: ED 18:37 → MS3 19:54 → MS2 08-01 14:20 → ICU 08-02 17:22 → MS2 08-08 19:14
PROVIDERS: ADMIT Internal Medicine; ATTEND Specialist
PROC: 0BH17EZ Insertion of Endotracheal Airway into Trachea, Via Natural or Artificial Opening (ICD-10-PCS; principal; 2021-08-03)
PROC: 5A1945Z Respiratory Ventilation, 24-96 Consecutive Hours (ICD-10-PCS; 2021-08-03)
DX: J96.02 Acute respiratory failure with hypercapnia (principal); I50.23 Acute on chronic systolic (congestive) heart failure; F15.13 Other stimulant abuse with withdrawal; I24.8 Other forms of acute ischemic heart disease; E46 Unspecified protein-calorie malnutrition; J96.01 Acute respiratory failure with hypoxia; F17.210 Nicotine dependence, cigarettes, uncomplicated; J43.9 Emphysema, unspecified; I11.0 Hypertensive heart disease with heart failure; J39.8 Other specified diseases of upper respiratory tract; I73.9 Peripheral vascular disease, unspecified; K04.7 Periapical abscess without sinus; R13.10 Dysphagia, unspecified; E74.39 Other disorders of intestinal carbohydrate absorption; J45.909 Unspecified asthma, uncomplicated; F32.A Depression, unspecified; F41.9 Anxiety disorder, unspecified; F43.10 Post-traumatic stress disorder, unspecified; G47.00 Insomnia, unspecified; Z78.1 Physical restraint status; Z79.899 Other long term (current) drug therapy; F09 Unspecified mental disorder due to known physiological condition; R77.8 Other specified abnormalities of plasma proteins; R00.0 Tachycardia, unspecified; R45.1 Restlessness and agitation; Z68.24 Body mass index [BMI] 24.0-24.9, adult
CPT/HCPCS: 0202U; 36415; 36600; 70486; 70491; 71045; 80048; 80053; 80061; 80306; 82330; 82803; 83036; 83690; 83735; 83880; 84100; 84132; 84484; 85025; 85610; 87040; 87086; 87150; 87181; 93005; 93922; 93925; 93970; 94002; 94003; 94640; 94660; 94761; 96374; 97116; 97161; 97530; 99285; 99291; A9270; J1650; J1815; J2060; J3370; J7509; J7626; Q9967; 80202; 83721; 94770

== ENCOUNTER 2021-08-23 22:36 | Outpatient (CLI) | payer MEDICAID | END 2021-08-23 22:37 | disposition left against medical advice (07) | LOC: EMS 22:36 | DX: R06.02 Shortness of breath (principal); Z99.81 Dependence on supplemental oxygen; F17.210 Nicotine dependence, cigarettes, uncomplicated ==

== ENCOUNTER 2021-09-03 08:00 | Outpatient (CLI) | payer MEDICAID ==
--- NOTE | 2021-09-04 08:07 | XRAY Report ---
PROCEDURE: Chest 2 View X-Ray INDICATIONS: ACUTE ON CHRONIC RIGHT HEART FAILURE TECHNIQUE: 2 view(s) of the chest. COMPARISON: CXR 08/05/2021, 08/04/2021, 07/31/2021 FINDINGS: Surgical changes and devices: None. Lungs and pleura: No pleural effusions or pneumothorax. There is a pulmonary nodule in the right lo wer lobe measuring 0.7 cm. This has a rounded appearance and most likely represents a calcified granu lilo. Pulmonary vasculature engorgement in the upper lobes. Emphysematous change. Mediastinum: Mediastinal contours are normal. Heart size is normal. Bones and chest wall: No suspicious bony abnormalities. Soft tissues appear unremarkable. IMPRESSION: Pulmonary vasculature engorgement. Right lower lobe pulmonary nodule measuring 0.7 cm. This most likely represents a calcified granuloma . Neoplasm cannot be excluded. There is emphysematous change at the lung apices on the prior CT neck. Recommend low-dose CT of the chest for further evaluation. Reviewed by: Shemar Paige MD on 09/04/2021 8:05 AM [facility] Approved by: Shemar Paige MD on 09/04/2021 8:05 AM [facility] Station ID: [id number]
== END 2021-09-03 23:59 | disposition home or self-care (01) ==
LOC: DI.S 08:00
PROVIDERS: ATTEND Registered Nurse
DX: I50.813 Acute on chronic right heart failure (principal); I50.1 Left ventricular failure, unspecified; R91.1 Solitary pulmonary nodule; J43.9 Emphysema, unspecified

== ENCOUNTER 2022-01-18 13:41 | Outpatient (CLI) | payer MEDICAID | END 2022-01-18 13:42 | disposition critical access hospital (66) | LOC: EMS 13:41 | DX: R06.02 Shortness of breath (principal); R60.0 Localized edema | CPT/HCPCS: A0425; A0427; A0999 ==

== ENCOUNTER 2022-01-18 14:11 | Inpatient (IN) | payer MEDICAID ==
--- NOTE | 2022-01-18 14:17 | ED Physician Documentation ---
PD HPI DYSPNEA - Stated complaint Stated Complaint: SOA - Chief complaint Chief Complaint: Resp - History obtained from History obtained from: Patient - History of Present Illness Timing - onset: Today - Additional information Additional information: 61-year-old male with history of COPD, CHF, amphetamine use disorder, medication noncompliance presents by EMS from home for shortness of breath of uncertain duration. EMS states that the people who appeared to be living with the patient did not know anything about his medical history and seemed unconcerned with the patient's presentation. They did however state that the patient had not been taking his medication for the last 2 weeks. EMS reports that room oxygen saturations were 70s on room air. He was placed on nonrebreather with improvement in saturation to upper 90s. On arrival patient was grossly volume overloaded, somnolent, however responsive to voice and painful stimuli. Review of Systems Unable to obtain: Confused Respiratory: reports: Dyspnea PD PAST MEDICAL HISTORY - Past Medical History Cardiovascular: Hypertension Respiratory: Asthma Neuro: None Endocrine/Autoimmune: None GI: None : None HEENT: None Psych: Depression, Anxiety, Post traumatic stress disorder, Other Musculoskeletal: None Derm: None - Past Surgical History Past Surgical History: No HEENT: Tonsil/Adenoidectomy - Present Medications Home Medications: Ambulatory Orders Medication Instructions Recorded Confirmed Amox/Clav 500/125 [Augmentin 1 tablet PO Q12H #8 tablet 08/10/21 500/125] Aspirin Chewable [St Bob 81 mg PO DAILY tablet 08/10/21 Aspirin] Atorvastatin [Lipitor] 10 mg PO QPM #30 tablet 08/10/21 Budesonide [Pulmicort] 0.5 mg INH RTBID #60 neb 08/10/21 Formoterol Fumarate [Perforomist] 20 mcg INH RTBID #60 neb 08/10/21 Furosemide [Lasix] 40 mg PO DAILY #30 tablet 08/10/21 Gabapentin [Neurontin] 300 mg PO BID #60 08/10/21 Ipratropium/Albuterol [Duoneb] 3 ml INH Q4HR PRN #120 neb 08/10/21 Losartan [Cozaar] 25 mg PO DAILY #30 tablet 08/10/21 Multivitamin W/Minerals [Theragran 1 tab PO DAILYWM tablet 08/10/21 M] Spironolactone [Aldactone] 12.5 mg PO DAILY #30 tablet 08/10/21 Thiamine [Vitamin B-1] 100 mg PO DAILY tablet 08/10/21 Zinc Oxide 20% Oint [Zinc Oxide] 1 applic TOP PRN PRN #1 tu 08/10/21 carvediloL [Coreg] 3.125 mg PO BID #60 tablet 08/10/21 traZODone [Desyrel] 50 mg PO QPM #30 tablet 08/10/21 - Allergies Allergies/Adverse Reactions: Allergies Allergy/AdvReac Type Severity Reaction Status Date / Time No Known Drug Allergies Allergy Verified 07/31/21 18:48 - Social History Does the pt smoke?: Yes Smoking Status: Current some day smoker Does the pt have substance abuse?: No - Immunizations Immunizations are current?: No - POLST Patient has POLST: No POLST Status: Full Code PD ED PE NORMAL - Vitals Vital signs reviewed: Yes - General General: Other (Toxic appearing) - HEENT HEENT: Atraumatic, PERRL, Other (Periorbital swelling) - Neck Neck: Supple, no meningeal sign, No bony TTP, No adenopathy - Cardiac Cardiac: No murmur, Other (tachycardia) - Respiratory Respiratory: Other (Coarse inspiratory and expiratory crackles). No: No respir atory distress, Clear bilaterally - Back Back: No CVA TTP, No spinal TTP - Derm Derm: Warm and dry, No rash, Other (3+ PITTING EDEMA TO THIGHS) - Extremities Extremities: No deformity, Other (3+ edema) - Neuro Eye Opening: None Motor: Localizes to Pain Verbal: Confused GCS Score: 10 - Psych Psych: No: Normal mood, Normal affect Results - Vitals Vitals: Vital Signs - 24 hr 01/18/22 01/18/22 01/18/22 14:20 15:02 16:13 Temperature 37.0 C Heart Rate 101 H 102 H 103 H Respiratory 28 H 28 H 27 H Rate Blood Pressure 135/100 H 140/105 H 145/103 H O2 Saturation 96 94 97 01/18/22 17:19 Temperature Heart Rate 105 H Respiratory 28 H Rate Blood Pressure 166/140 H O2 Saturation 95 Oxygen O2 Source Oxymask Oxygen Flow Rate 10 - Labs Labs: Laboratory Tests 01/18/22 01/18/22 01/18/22 14:10 14:35 14:35 WBC 9.1 RBC 5.25 Hgb 15.9 Hct 52.2 H MCV 99.4 H MCH 30.3 MCHC 30.5 L RDW 14.3 Plt Count 224 MPV 11.3 Neut # (Auto) 7.3 H Lymph # (Auto) 0.8 L [place] # (Auto) 1.0 Eos # (Auto) 0.0 Baso # (Auto) 0.0 Absolute Nucleated RBC 0.00 Nucleated RBC % 0.0 PT 14.0 H INR 1.3 H Bld Gas Analysis Time 1427 Sample Site RIGHT RADIAL ABG pH 7.26 L ABG pCO2 91 H* ABG pO2 194 H* ABG HCO3 40.1 H ABG Total CO2 42.9 H* ABG O2 Saturation 99 H ABG Base Excess 8.6 H Conner Test POSITIVE O2 Delivery Device OXYMASK O2 Liters/Min 9.00 FiO2 50.00 Sodium Potassium Chloride Carbon Dioxide Anion Gap BUN Creatinine Estimated GFR (MDRD) Glucose Lactic Acid Calcium Total Bilirubin AST ALT Alkaline Phosphatase Ammonia Troponin I High Sens B-Natriuretic Peptide Total Protein Albumin Globulin Albumin/Globulin Ratio Urine Color Urine Clarity Urine pH Ur Specific [place] Urine Protein Urine Glucose (UA) Urine Ketones Urine Occult Blood Urine Nitrite Urine Bilirubin Urine Urobilinogen Ur Leukocyte Esterase Urine RBC Urine WBC Ur Squamous Epith Cells Urine Bacteria Ur Microscopic Review Urine Culture Comments Nasal Adenovirus (PCR) Nasal B. parapertussis DNA (PCR) Nasal Coronavir 229E PCR Nasal Coronavir HKU1 PCR Nasal Coronavir NL63 PCR Nasal Coronavir OC43 PCR Nasal Enterovir/Rhinovir PCR Nasal Influenza B PCR Nasal Influenza A PCR Nasal Parainfluen 1 PCR Nasal Parainfluen 2 PCR Nasal Parainfluen 3 PCR Nasal Parainfluen 4 PCR Nasal RSV (PCR) Nasal B.pertussis DNA PCR Nasal C.pneumoniae (PCR) Fredy Human Metapneumo PCR Nasal M.pneumoniae (PCR) Nasal SARS-CoV-2 (PCR) Ethyl Alcohol 01/18/22 01/18/22 01/18/22 14:35 14:35 14:35 WBC RBC Hgb Hct MCV MCH MCHC RDW Plt Count MPV Neut # (Auto) Lymph # (Auto) [place] # (Auto) Eos # (Auto) Baso # (Auto) Absolute Nucleated RBC Nucleated RBC % PT INR Bld Gas Analysis Time Sample Site ABG pH ABG pCO2 ABG pO2 ABG HCO3 ABG Total CO2 ABG O2 Saturation ABG Base Excess Conner Test O2 Delivery Device O2 Liters/Min FiO2 Sodium 140 Potassium 4.8 Chloride 94 L Carbon Dioxide 39 H* Anion Gap 7.0 BUN 23 H Creatinine 0.8 Estimated GFR (MDRD) 98 Glucose 191 H Lactic Acid Calcium 9.0 Total Bilirubin 1.2 H AST 38 ALT 30 Alkaline Phosphatase 76 Ammonia Troponin I High Sens 177.6 H* B-Natriuretic Peptide 2294 H Total Protein 6.8 Albumin 3.6 Globulin 3.2 Albumin/Globulin Ratio 1.1 Urine Color Urine Clarity Urine pH Ur Specific [place] Urine Protein Urine Glucose (UA) Urine Ketones Urine Occult Blood Urine Nitrite Urine Bilirubin Urine Urobilinogen Ur Leukocyte Esterase Urine RBC Urine WBC Ur Squamous Epith Cells Urine Bacteria Ur Microscopic Review Urine Culture Comments Nasal Adenovirus (PCR) Nasal B. parapertussis DNA (PCR) Nasal Coronavir 229E PCR Nasal Coronavir HKU1 PCR Nasal Coronavir NL63 PCR Nasal Coronavir OC43 PCR Nasal Enterovir/Rhinovir PCR Nasal Influenza B PCR Nasal Influenza A PCR Nasal Parainfluen 1 PCR Nasal Parainfluen 2 PCR Nasal Parainfluen 3 PCR Nasal Parainfluen 4 PCR Nasal RSV (PCR) Nasal B.pertussis DNA PCR Nasal C.pneumoniae (PCR) Fredy Human Metapneumo PCR Nasal M.pneumoniae (PCR) Nasal SARS-CoV-2 (PCR) Ethyl Alcohol < 5.0 01/18/22 01/18/22 01/18/22 14:35 14:40 14:40 WBC RBC Hgb Hct MCV MCH MCHC RDW Plt Count MPV Neut # (Auto) Lymph # (Auto) [place] # (Auto) Eos # (Auto) Baso # (Auto) Absolute Nucleated RBC Nucleated RBC % PT INR Bld Gas Analysis Time Sample Site ABG pH ABG pCO2 ABG pO2 ABG HCO3 ABG Total CO2 ABG O2 Saturation ABG Base Excess Conner Test O2 Delivery Device O2 Liters/Min FiO2 Sodium Potassium Chloride Carbon Dioxide Anion Gap BUN Creatinine Estimated GFR (MDRD) Glucose Lactic Acid 1.2 Calcium Total Bilirubin AST ALT Alkaline Phosphatase Ammonia 52.8 H Troponin I High Sens B-Natriuretic Peptide Total Protein Albumin Globulin Albumin/Globulin Ratio Urine Color Urine Clarity Urine pH Ur Specific [place] Urine Protein Urine Glucose (UA) Urine Ketones Urine Occult Blood Urine Nitrite Urine Bilirubin Urine Urobilinogen Ur Leukocyte Esterase Urine RBC Urine WBC Ur Squamous Epith Cells Urine Bacteria Ur Microscopic Review Urine Culture Comments Nasal Adenovirus (PCR) NOT DETECTED Nasal B. parapertussis DNA (PCR) NOT DETECTED Nasal Coronavir 229E PCR NOT DETECTED Nasal Coronavir HKU1 PCR NOT DETECTED Nasal Coronavir NL63 PCR NOT DETECTED Nasal Coronavir OC43 PCR NOT DETECTED Nasal Enterovir/Rhinovir PCR NOT DETECTED Nasal Influenza B PCR NOT DETECTED Nasal Influenza A PCR NOT DETECTED Nasal Parainfluen 1 PCR NOT DETECTED Nasal Parainfluen 2 PCR NOT DETECTED Nasal Parainfluen 3 PCR NOT DETECTED Nasal Parainfluen 4 PCR NOT DETECTED Nasal RSV (PCR) NOT DETECTED Nasal B.pertussis DNA PCR NOT DETECTED Nasal C.pneumoniae (PCR) NOT DETECTED Fredy Human Metapneumo PCR NOT DETECTED Nasal M.pneumoniae (PCR) NOT DETECTED Nasal SARS-CoV-2 (PCR) NOT DETECTED Ethyl Alcohol 01/18/22 01/18/22 14:50 16:40 WBC RBC Hgb Hct MCV MCH MCHC RDW Plt Count MPV Neut # (Auto) Lymph # (Auto) [place] # (Auto) Eos # (Auto) Baso # (Auto) Absolute Nucleated RBC Nucleated RBC % PT INR Bld Gas Analysis Time 1651 Sample Site RIGHT RADIAL ABG pH 7.25 L ABG pCO2 81 H* ABG pO2 101 H ABG HCO3 34.6 H ABG Total CO2 37.1 H ABG O2 Saturation 97 ABG Base Excess 3.8 H Conner Test POSITIVE O2 Delivery Device OXYMASK O2 Liters/Min 3.00 FiO2 Sodium Potassium Chloride Carbon Dioxide Anion Gap BUN Creatinine Estimated GFR (MDRD) Glucose Lactic Acid Calcium Total Bilirubin AST ALT Alkaline Phosphatase Ammonia Troponin I High Sens B-Natriuretic Peptide Total Protein Albumin Globulin Albumin/Globulin Ratio Urine Color DARK YELLOW Urine Clarity CLEAR Urine pH 6.0 Ur Specific [place] >=1.030 H Urine Protein 100 H Urine Glucose (UA) NEGATIVE Urine Ketones NEGATIVE Urine Occult Blood SMALL H Urine Nitrite NEGATIVE Urine Bilirubin NEGATIVE Urine Urobilinogen 1 (NORMAL) Ur Leukocyte Esterase NEGATIVE Urine RBC 6-10 H Urine WBC 0-3 Ur Squamous Epith Cells RARE Squamous Urine Bacteria Rare Ur Microscopic Review INDICATED Urine Culture Comments NOT INDICATED Nasal Adenovirus (PCR) Nasal B. parapertussis DNA (PCR) Nasal Coronavir 229E PCR Nasal Coronavir HKU1 PCR Nasal Coronavir NL63 PCR Nasal Coronavir OC43 PCR Nasal Enterovir/Rhinovir PCR Nasal Influenza B PCR Nasal Influenza A PCR Nasal Parainfluen 1 PCR Nasal Parainfluen 2 PCR Nasal Parainfluen 3 PCR Nasal Parainfluen 4 PCR Nasal RSV (PCR) Nasal B.pertussis DNA PCR Nasal C.pneumoniae (PCR) Fredy Human Metapneumo PCR Nasal M.pneumoniae (PCR) Nasal SARS-CoV-2 (PCR) Ethyl Alcohol PD MEDICAL DECISION MAKING - ED course ED course: Toxic-appearing patient with respiratory distress, Appears grossly volume overloaded. Patient is attempting to remove facemask. Assume medical noncomp liance given patient's previous history and reports from EMS. EMS administered 40 mg of IV Lasix in route. Will empirically treat as sepsis with IV abx, however will not give fluids due to patient's grossly edematous appearance. Patient continues to desaturate to the 80s when he removes his nasal cannula, however his mental status appears to be improving. ABG shows hypercapnic respiratory failure with acidosis. Patient still has not independently voided despite Lasix, will give additional Lasix. Patient attempted BiPAP, however could not tolerate it. Repeat ABG shows improvement in the CO2 retention and patient's mental status continues to improve. Ammonia elevated, will give PO lactulose. Patient still has not independently voided. Walton placed for urinary output. - Critical Care Time Includes: Direct patient care, Review records, Reassess patient, Document care, Coordinate care, Medical consult, Family consult for tx dec, See progress note Data interpretation: Labs, Pulse ox, ABG, CXR, Prior EKG, Cardiac output, See progress note Procedures included in critical care time: See progress note Departure - Departure Disposition: 66 [facility] DC/Xfer Clinical Impression: CO2 retention, Nonadherence to medication Dyspnea Qualifiers: Dyspnea type: acute respiratory distress Qualified Code(s): R06.03 - Acute respiratory distress CHF exacerbation Qualifiers: Heart failure type: unspecified Qualified Code(s): I50.9 - Heart failure, unspecified Condition: Serious
[2022-01-18] MEDS ORDERED: cefTRIAXone 1 GM in SODIUM CHLORIDE 0.9% MINIBAG 100 ML IV STA (14:28)
[2022-01-18 14:29] LABS: ABG PH 7.26 (7.35-7.45)
[2022-01-18 14:30] LABS: ABG BASE EXCESS 8.6 mmol/L (-2.0-3.0); ABG HCO3 40.1 mmol/L (22.0-26.0); ABG OXYGEN SATURATION 99 % (94-98); ALLEN TEST POSITIVE
[2022-01-18 14:34] LABS: ABG PCO2 91 mmHg (34-45)
[2022-01-18 14:35] LABS: ABG PO2 194 mmHg (80-100); ABG TCO2 42.9 MMOL/L (21.0-29.0)
[2022-01-18] MEDS ORDERED: NALOXONE 0.4 MG/ML VIAL IVP STA (14:41)
[2022-01-18 14:46] LABS: BASOPHILS % (AUTO) 0.2 %; EOSINOPHILS % (AUTO) 0.3 %; HCT - HEMATOCRIT 52.2 % (42.0-52.0); HGB - HEMOGLOBIN 15.9 g/dL (14.0-18.0); LYMPHOCYTES # (AUTO) 0.8 10^3/uL (1.5-3.5); LYMPHOCYTES % (AUTO) 8.8 %; MEAN CORPUSCULAR HEMOGLOBIN 30.3 pg (27.0-31.0); MEAN CORPUSCULAR HGB CONC 30.5 g/dL (32.0-36.0); MEAN CORPUSCULAR VOLUME 99.4 fL (80.0-94.0); MEAN PLATELET VOLUME 11.3 fL (7.4-11.4); MONOCYTES % (AUTO) 10.4 %; NEUTROPHILS # (AUTO) 7.3 10^3/uL (1.5-6.6); PLT - PLATELET COUNT 224 10^3/uL (130-450); RED BLOOD COUNT 5.25 10^6/uL (4.70-6.10); RED CELL DISTRIBUTION WIDTH 14.3 % (12.0-15.0); WHITE BLOOD COUNT 9.1 x10^3/uL (4.8-10.8)
[2022-01-18 14:53] LABS: INR 1.3 (0.8-1.2)
[2022-01-18 15:03] LABS: ALBUMIN 3.6 g/dL (3.2-5.5); ALBUMIN/GLOBULIN RATIO 1.1 (1.0-2.2); ALKALINE PHOSPHATASE 76 IU/L (42-121); ALT ALANINE AMINOTRANSFERASE 30 IU/L (10-60); AST ASPARTATE AMINOTRANSFERASE 38 IU/L (10-42); BILIRUBIN,TOTAL 1.2 mg/dL (0.2-1.0); BUN - BLOOD UREA NITROGEN 23 mg/dL (6-20); CHLORIDE 94 mmol/L (101-111); CREATININE 0.8 mg/dL (0.6-1.2); ETOH - ETHANOL < 5.0 mg/dL; GFR - MDRD 98 (>89); GLUCOSE 191 mg/dL (70-100); POTASSIUM 4.8 mmol/L (3.5-5.0); SODIUM 140 mmol/L (135-145); TOTAL PROTEIN 6.8 g/dL (6.7-8.2)
[2022-01-18 15:04] LABS: CARBON DIOXIDE - CO2 39 mmol/L (21-32)
[2022-01-18 15:11] LABS: BILIRUBIN,URINE NEGATIVE (NEGATIVE); GLUCOSE, URINE (UA) NEGATIVE (NEGATIVE); KETONES,URINE (UA) NEGATIVE (NEGATIVE); LEUKOCYTE ESTERASE, URINE NEGATIVE (NEGATIVE); NITRITE,URINE NEGATIVE (NEGATIVE); OCCULT BLOOD,URINE SMALL (NEGATIVE); PROTEIN,URINE 100 mg/dL (NEGATIVE); UROBILINOGEN,URINE 1 (NORMAL) E.U./dL (NORMAL)
[2022-01-18] MEDS ORDERED: LACTULOSE 10 GM /15 ML UDC PO STA (15:11)
--- NOTE | 2022-01-18 15:12 | XRAY Report ---
PROCEDURE: Chest 1 View X-Ray INDICATIONS: DYSPNEA TECHNIQUE: One view of the chest was acquired. COMPARISON: Chest x-ray 09/03/2021 FINDINGS: Surgical changes and devices: None. Lungs and pleura: There is a mild left effusion. Increased pulmonary vascularity is present. There is a triangle shaped focus of decreased density within the left base less prominent with additional vie ws. Mediastinum: Mediastinal contours appear normal. Heart size is markedly enlarged. Bones and chest wall: No suspicious bony lesions. Overlying soft tissues appear unremarkable. IMPRESSION: Cardiomegaly with effusion increased vascularity suggestive of edema. Underlying areas of atelectasis and/or pneumonia within the right base cannot be coated. Trimalar focus of decreased density within the left base as described above. Given decreased in promi nence with additional views, this is felt to be artifactual rather than true pathology such as pneumo thorax. If concern for pneumothorax persists, decubitus views are recommended. Reviewed by: Serena Rey MD on 01/18/2022 3:10 PM PDT Approved by: Serena Rey MD on 01/18/2022 3:10 PM PDT Station ID: [id number]
[2022-01-18 15:22] LABS: CLARITY,URINE CLEAR (CLEAR)
[2022-01-18 15:23] LABS: WBC,URINE 0-3 /HPF (0-3)
[2022-01-18 15:24] LABS: BACTERIA,URINE Rare /HPF (None Seen); SQUAMOUS EPITHELIAL CELL,UR RARE Squamous (<= Few)
[2022-01-18 15:47] LABS: B. PARAPERTUSSIS- RESP PCR PAN NOT DETECTED; B. PERTUSSIS- RESP PCR PANEL NOT DETECTED; C. PNEUMONIAE- RESP PCR PANEL NOT DETECTED; CORONAVIRUS 229E-RESP PCR NOT DETECTED; CORONAVIRUS HKU1-RESP PCR NOT DETECTED; CORONAVIRUS NL63-RESP PCR NOT DETECTED; CORONAVIRUS OC43-RESP PCR NOT DETECTED; HUMAN METAPNEUMOVIRUS NOT DETECTED; INFLUENZA A- RESP PCR PANEL NOT DETECTED; INFLUENZA B - RESP PCR PANEL NOT DETECTED; M. PNEUMONIAE- RESP PCR PANEL NOT DETECTED; PARAINFLUENZA VIRUS 1 NOT DETECTED; PARAINFLUENZA VIRUS 2 NOT DETECTED; PARAINFLUENZA VIRUS 3 NOT DETECTED; PARAINFLUENZA VIRUS 4 NOT DETECTED; RHINOVIRUS/ENTEROVIRUS NOT DETECTED; RSV- RESP PCR PANEL NOT DETECTED; SARS-CoV-2 -RESP PCR PANEL NOT DETECTED
[2022-01-18] MEDS ORDERED: FUROSEMIDE 40 MG/4 ML VIAL IVP STA (15:49)
[2022-01-18] MEDS ORDERED: FUROSEMIDE 40 MG/4 ML VIAL ONE (16:20)
[2022-01-18 16:54] LABS: ABG PH 7.25 (7.35-7.45)
[2022-01-18 16:55] LABS: ABG BASE EXCESS 3.8 mmol/L (-2.0-3.0); ABG HCO3 34.6 mmol/L (22.0-26.0); ABG OXYGEN SATURATION 97 % (94-98); ABG PO2 101 mmHg (80-100); ABG TCO2 37.1 MMOL/L (21.0-29.0); ALLEN TEST POSITIVE
[2022-01-18 16:57] LABS: ABG PCO2 81 mmHg (34-45)
[2022-01-18] MEDS ORDERED: methylPREDNISolone SUCCINATE 125 MG/2 ML VIAL IVP STA (17:39)
[2022-01-18] MEDS ORDERED: IPRATROPIUM/ALBUTEROL 3 ML NEB INH STA (17:39)
[2022-01-18] MEDS ORDERED: NITROGLYCERIN 2% PASTE TOP STA (17:40)
[2022-01-18] MEDS ORDERED: ONDANSETRON 4 MG/2 ML VIAL IVP PRN (19:20)
[2022-01-18] MEDS ORDERED: ACETAMINOPHEN 325 MG TABLET PO PRN (19:20)
--- NOTE | 2022-01-18 19:28 | HISTORY & PHYSICAL EXAMINATION ---
Chief Complaint - Chief Complaint Chief Complaint: dyspnea, lower extremity edema, confusion History of Present Illness - Admitted From Admitted From:: [facility] ED - History Obtained From Records Reviewed: yes History obtained from: ED provider Exam Limitations: somnolent - History of Present Illness HPI Comment/Other: Patient is a 61-year-old male with medical history significant for COPD, CHF, amphetamine use, medical noncompliance who was brought to the ED via EMS with shortness of breath. The history is mostly obtained from the ED providers note because the patient is currently very somnolent likely due to elevated CO2 levels and is not able to provide a very reliable history. It is reported that he has not taken his medications for 2 weeks. When EMS arrived his oxygen saturation was in the 70s on room air. He was placed on a nonrebreather which improved his oxygen saturation to the 90s. The patient has lower extremity edema 3+ on the left and +1 on the right. Further work-up in the ED included an ABG which showed a pH of 7.26 and PCO2 of 91. He also had a BNP of 2294. Chest x-ray showed cardiomegaly with effusion increased vascularity suggestive of edema. He sounds mildly rhonchorous on auscultation. He is a very frail/cachectic appearing man. 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 His lower extremities appear somewhat mottled. Though very somnolent he is is arousable but readily drifts back to sleep. As a result of his presentation and laboratory findings he was presented for admission for further treatment. History - Past Medical History Cardiovascular: reports: Hypertension Respiratory: reports: Asthma Neuro: reports: None Endocrine/Autoimmune: reports: None GI: reports: None : reports: None HEENT: reports: None Psych: reports: Depression, Anxiety, Post traumatic stress disorder, Other Musculoskeletal: reports: None Derm: reports: None MRSA Hx?: No - Past Surgical History HEENT: reports: Tonsil/Adenoidectomy - Family & Social History Family History Comment/Other: Patient denies any significant family history. Social History Notes: Patient smokes about 1 pack of cigarettes daily. He has been smoking for 54 years. He reports drinking a can of beer daily. He uses marijuana and methamphetamine. He reports living in his house with some renters. - POLST Patient has POLST: No POLST Status: Full Code Meds/Allgy - Home Medications Home Medications: Ambulatory Orders Medication Instructions Recorded Confirmed Amox/Clav 500/125 [Augmentin 1 tablet PO Q12H #8 tablet 08/10/21 500/125] Aspirin Chewable [St Bob 81 mg PO DAILY tablet 08/10/21 Aspirin] Atorvastatin [Lipitor] 10 mg PO QPM #30 tablet 08/10/21 Budesonide [Pulmicort] 0.5 mg INH RTBID #60 neb 08/10/21 Formoterol Fumarate [Perforomist] 20 mcg INH RTBID #60 neb 08/10/21 Furosemide [Lasix] 40 mg PO DAILY #30 tablet 08/10/21 Gabapentin [Neurontin] 300 mg PO BID #60 08/10/21 Ipratropium/Albuterol [Duoneb] 3 ml INH Q4HR PRN #120 neb 08/10/21 Losartan [Cozaar] 25 mg PO DAILY #30 tablet 08/10/21 Multivitamin W/Minerals [Theragran 1 tab PO DAILYWM tablet 08/10/21 M] Spironolactone [Aldactone] 12.5 mg PO DAILY #30 tablet 08/10/21 Thiamine [Vitamin B-1] 100 mg PO DAILY tablet 08/10/21 Zinc Oxide 20% Oint [Zinc Oxide] 1 applic TOP PRN PRN #1 tu 08/10/21 carvediloL [Coreg] 3.125 mg PO BID #60 tablet 08/10/21 traZODone [Desyrel] 50 mg PO QPM #30 tablet 08/10/21 - Allergies Allergies/Adverse Reactions: Allergies Allergy/AdvReac Type Severity Reaction Status Date / Time No Known Drug Allergies Allergy Verified 07/31/21 18:48 Review of Systems - Other Findings Other Findings: A 12 point review of system is currently limited due to the patient's si gnificant somnolence. Prior Level of Functionality: He is normally independent of activities of daily living. He lives in his house with renters. He is very frail/cachectic and has presented disheveled in the past Exam - Vital Signs Vital Signs: Vital Signs x48h Temp Pulse Resp BP Pulse Ox 01/18/22 19:00 109 H 25 H 121/101 H 90 L 01/18/22 18:08 101 H 16 150/97 H 96 01/18/22 17:49 104 H 26 H 01/18/22 17:19 105 H 28 H 166/140 H 95 01/18/22 16:13 103 H 27 H 145/103 H 97 01/18/22 15:02 102 H 28 H 140/105 H 94 01/18/22 14:20 37.0 C 101 H 28 H 135/100 H 96 - Physical Exam General Appearance: positive: Moderate distress (respiratory distress), Other (Somnolent, Frail/ cachexic, Disheveled) Eyes Bilateral: positive: PERRL, EOMI ENT: positive: No signs of dehydration Neck: positive: No JVD, Trachea midline Respiratory: positive: Rhonchi Cardiovascular: positive: Tachycardia Abdomen: positive: Non-tender, No organomegaly, Nml bowel sounds, No distention. negative: Guarding, Rebound Back: positive: Nml inspection Skin: positive: Dry, Skin rash (psoariatic plaques. mottled appearing lower extremities) Extremities: positive: Pedal edema (3+ on left, 1+ on right) Neurologic/Psychiatric: positive: Other (somnolent, no focal deficits) Conclusion/Plan - Problem List (1) CHF exacerbation Conclusion/Plan: BNP was 2294. Patient was given a total of Lasix 100 mg IV today. Will continue Lasix 40 mg IV twice daily starting tomorrow morning. Coreg 3.125 mg p.o. twice daily, losartan 25 mg p.o. daily, spironolactone 12.5 mg p.o. daily. Low-sodium diet. 2D echocardiogram ordered for the morning. Patient admitted to the ICU where he will be on BiPAP intermittently. Qualifiers: Heart failure type: unspecified Qualified Code(s): I50.9 - Heart failure, unspecified (2) COPD (chronic obstructive pulmonary disease) Conclusion/Plan: ABG showed pH 7.26 and PCO2 91. Patient will be on BiPAP intermittently in the ICU with ABG recheck. Solu-Medrol 125 mg IV x1 given. Will continue Solu-Medrol 80 mg IV 3 times daily. Budesonide inhalation twice daily. Perforomist inhalation twice daily. (3) Acute respiratory failure with hypoxia and hypercapnia Conclusion/Plan: Secondary to CHF exacerbation and COPD. This in turn is due to medical noncompliance. Treatment as stated above endpoints 1 and 2 (4) Elevated troponin I level Conclusion/Plan: Likely related to CHF exacerbation. Initial troponin was 177.6. Will trend x2 more. On Coreg, baby aspirin, losartan and atorvastatin. Treating CHF with Lasix and spironolactone. (5) Methamphetamine abuse Conclusion/Plan: MUDDS Screen pending (6) Hypertension Conclusion/Plan: On Lasix, spironolactone, Coreg and losartan. - Lab Results Fish Bones: 01/18/22 14:35 01/18/22 14:35 Core Measures - Anticipated LOS I expect patient to be DC'd or transferred within 96 hours.: Yes - DVT/VTE - Prophylaxis VTE/DVT Device ordered at admit?: Yes
[2022-01-18 20:41] LABS: MUDS CUTOFF CONCENTRATIONS CUTOFF CONC BELOW:
[2022-01-18 20:50] LABS: ABG BASE EXCESS 41.4 mmol/L (-2.0-3.0); ABG HCO3 41.4 mmol/L (22.0-26.0); ABG OXYGEN SATURATION 97 % (94-98); ABG PH 7.24 (7.35-7.45); ABG PO2 111 mmHg (80-100); ALLEN TEST POSITIVE
[2022-01-18 20:53] LABS: ABG PCO2 99 mmHg (34-45); ABG TCO2 44.4 MMOL/L (21.0-29.0)
[2022-01-18 20:54] LABS: THC CANNABINOID SCREEN, URINE POSITIVE (NEGATIVE)
[2022-01-18] MEDS: carvediloL 3.125 MG TABLET PO SCH (20:54)
[2022-01-18] MEDS: ATORVASTATIN 10 MG TABLET PO SCH (20:54)
[2022-01-18 20:55] LABS: AMPHETAMINE SCREEN,URINE POSITIVE (NEGATIVE); BARBITURATE SCREEN,UR NEGATIVE (NEGATIVE); BENZODIAZEPINES SCREEN, URINE NEGATIVE (NEGATIVE); COCAINE SCREEN URINE NEGATIVE (NEGATIVE); METHADONE SCREEN, URINE NEGATIVE (NEGATIVE); METHAMPHETAMINES SCREEN, URINE POSITIVE (NEGATIVE); OPIATE SCREEN, URINE NEGATIVE (NEGATIVE); OXYCODONE SCREEN, URINE NEGATIVE (NEGATIVE); PROPOXYPHENE SCREEN, URINE NEGATIVE (NEGATIVE); TRICYCLIC ANTIDEPRESSANT,URINE POSITIVE (NEGATIVE)
[2022-01-19 00:20] LABS: ABG BASE EXCESS 9.7 mmol/L (-2.0-3.0); ABG HCO3 41.6 mmol/L (22.0-26.0); ABG PH 7.27 (7.35-7.45); ABG PO2 105 mmHg (80-100)
[2022-01-19 00:21] LABS: ABG OXYGEN SATURATION 97 % (94-98); ALLEN TEST POSITIVE
[2022-01-19 00:22] LABS: ABG PCO2 92 mmHg (34-45); ABG RESPIRATORY RATE 16 b/min; ABG TCO2 44.4 MMOL/L (21.0-29.0)
[2022-01-19] MEDS: methylPREDNISolone SUCCINATE 40 MG/ML VIAL IVP SCH ×4 (01:54→21:55)
[2022-01-19] MEDS: SODIUM CHLORIDE FLUSH 0.9% 10 ML SYRINGE IVP SCH ×4 (01:55→21:55)
[2022-01-19 04:34] LABS: HCT - HEMATOCRIT 54.8 % (42.0-52.0); HGB - HEMOGLOBIN 16.1 g/dL (14.0-18.0); LYMPHOCYTES # (AUTO) 0.2 10^3/uL (1.5-3.5); LYMPHOCYTES % (AUTO) 2.9 %; MEAN CORPUSCULAR HEMOGLOBIN 29.7 pg (27.0-31.0); MEAN CORPUSCULAR HGB CONC 29.4 g/dL (32.0-36.0); MEAN CORPUSCULAR VOLUME 101.1 fL (80.0-94.0); MEAN PLATELET VOLUME 11.2 fL (7.4-11.4); MONOCYTES # (AUTO) 0.1 10^3/uL (0.0-1.0); MONOCYTES % (AUTO) 0.8 %; NEUTROPHILS # (AUTO) 8.1 10^3/uL (1.5-6.6); NEUTROPHILS % (AUTO) 96.1 %; PLT - PLATELET COUNT 198 10^3/uL (130-450); RED BLOOD COUNT 5.42 10^6/uL (4.70-6.10); RED CELL DISTRIBUTION WIDTH 14.1 % (12.0-15.0); WHITE BLOOD COUNT 8.4 x10^3/uL (4.8-10.8)
[2022-01-19 04:35] LABS: CALCIUM, IONIZED 1.09 mmol/L (1.15-1.33); VBG PH 7.301 (7.31-7.41)
[2022-01-19] MEDS ORDERED: LORazepam 2 MG/ML VIAL IVP STA (04:37)
[2022-01-19 04:49] LABS: CALCIUM 8.6 mg/dL (8.5-10.3); CREATININE 0.7 mg/dL (0.6-1.2); MAGNESIUM 1.8 mg/dL (1.7-2.8); POTASSIUM 4.6 mmol/L (3.5-5.0)
[2022-01-19 06:25] LABS: ABG BASE EXCESS 12.2 mmol/L (-2.0-3.0); ABG HCO3 43.3 mmol/L (22.0-26.0); ABG PH 7.32 (7.35-7.45); ABG PO2 108 mmHg (80-100)
[2022-01-19 06:26] LABS: ABG OXYGEN SATURATION 98 % (94-98); ABG PCO2 85 mmHg (34-45); ALLEN TEST POSITIVE
[2022-01-19 06:27] LABS: ABG TCO2 45.9 MMOL/L (21.0-29.0)
[2022-01-19] MEDS: PANTOPRAZOLE 40 MG VIAL IVP SCH (06:34)
[2022-01-19] MEDS: FUROSEMIDE 40 MG/4 ML VIAL IVP SCH ×2 (06:34→13:05)
[2022-01-19] MEDS ORDERED: CALCIUM GLUC 1,000MG/50ML-NACL 1,000 MG/50 ML BAG IV ONE (07:00)
[2022-01-19] MEDS: FORMOTEROL FUMARATE NEB 20 MCG/2 ML INH SCH (07:51)
[2022-01-19] MEDS: BUDESONIDE 0.5 MG/2 ML NEB INH SCH ×2 (07:51→19:00)
[2022-01-19] MEDS ORDERED: MAGNESIUM SULFATE 2 GRAM 2 GM/50 ML BAG IV ONE (08:00)
[2022-01-19] MEDS: GABAPENTIN 300 MG CAPSULE PO SCH ×2 (08:52→20:25)
[2022-01-19] MEDS: ASPIRIN EC 81 MG TABLET PO SCH (08:52)
[2022-01-19] MEDS: carvediloL 3.125 MG TABLET PO SCH ×2 (08:52→20:25)
[2022-01-19] MEDS: SPIRONOLACTONE 25 MG TABLET PO SCH (08:53)
[2022-01-19] MEDS ORDERED: LOSARTAN 50 MG TABLET PO SCH (09:00)
[2022-01-19 10:52] LABS: CALCIUM, IONIZED 1.11 mmol/L (1.15-1.33); VBG PH 7.304 (7.31-7.41)
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
[2022-01-19] MEDS ORDERED: PERFLUTREN LIPID MICROSPHERES 1.65 MG/1.5 ML VIAL IVP ONE (15:47)
[2022-01-19 16:16] LABS: ABG PH 7.32 (7.35-7.45)
[2022-01-19 16:17] LABS: ABG BASE EXCESS 14.7 mmol/L (-2.0-3.0); ABG HCO3 46.8 mmol/L (22.0-26.0); ABG PO2 81 mmHg (80-100)
[2022-01-19 16:18] LABS: ABG OXYGEN SATURATION 95 % (94-98); ABG RESPIRATORY RATE 16 b/min; ALLEN TEST POSITIVE
[2022-01-19 16:21] LABS: ABG PCO2 94 mmHg (34-45); ABG TCO2 48.6 MMOL/L (21.0-29.0)
[2022-01-19] MEDS: ENOXAPARIN 80 MG/0.8 ML SYRINGE SUBQ SCH (20:25)
[2022-01-19] MEDS: ATORVASTATIN 10 MG TABLET PO SCH (20:25)
[2022-01-20 00:50] LABS: ALBUMIN 3.1 g/dL (3.2-5.5); BILIRUBIN,DIRECT 0.3 mg/dL (0.1-0.5); BILIRUBIN,TOTAL 0.9 mg/dL (0.2-1.0); CALCIUM 8.5 mg/dL (8.5-10.3); CREATININE 1.2 mg/dL (0.6-1.2); POTASSIUM 4.4 mmol/L (3.5-5.0); TOTAL PROTEIN 5.8 g/dL (6.7-8.2)
[2022-01-20 04:47] LABS: BASOPHILS % (AUTO) 0.1 %; HCT - HEMATOCRIT 54.8 % (42.0-52.0); HGB - HEMOGLOBIN 16.3 g/dL (14.0-18.0); LYMPHOCYTES # (AUTO) 0.5 10^3/uL (1.5-3.5); LYMPHOCYTES % (AUTO) 3.5 %; MEAN CORPUSCULAR HGB CONC 29.7 g/dL (32.0-36.0); MEAN CORPUSCULAR VOLUME 100.9 fL (80.0-94.0); MEAN PLATELET VOLUME 11.5 fL (7.4-11.4); MONOCYTES # (AUTO) 1.1 10^3/uL (0.0-1.0); MONOCYTES % (AUTO) 7.9 %; NEUTROPHILS # (AUTO) 12.6 10^3/uL (1.5-6.6); NEUTROPHILS % (AUTO) 88.1 %; PLT - PLATELET COUNT 233 10^3/uL (130-450); RED BLOOD COUNT 5.43 10^6/uL (4.70-6.10); RED CELL DISTRIBUTION WIDTH 13.9 % (12.0-15.0); WHITE BLOOD COUNT 14.2 x10^3/uL (4.8-10.8)
[2022-01-20 04:59] LABS: ALBUMIN 2.9 g/dL (3.2-5.5); BILIRUBIN,DIRECT 0.2 mg/dL (0.1-0.5); BILIRUBIN,TOTAL 0.8 mg/dL (0.2-1.0); CALCIUM 8.5 mg/dL (8.5-10.3); CALCIUM, IONIZED 1.03 mmol/L (1.15-1.33); CREATININE 1.1 mg/dL (0.6-1.2); MAGNESIUM 2.1 mg/dL (1.7-2.8); POTASSIUM 4.5 mmol/L (3.5-5.0); TOTAL PROTEIN 5.7 g/dL (6.7-8.2); VBG PH 7.369 (7.31-7.41)
[2022-01-20] MEDS ORDERED: CALCIUM GLUC 1,000MG/50ML-NACL 1,000 MG/50 ML BAG IV ONE (06:00)
[2022-01-20] MEDS: FUROSEMIDE 40 MG/4 ML VIAL IVP SCH (06:19)
[2022-01-20] MEDS: SODIUM CHLORIDE FLUSH 0.9% 10 ML SYRINGE IVP PRN (06:27)
[2022-01-20] MEDS: PANTOPRAZOLE 40 MG VIAL IVP SCH (06:27)
[2022-01-20] MEDS: methylPREDNISolone SUCCINATE 40 MG/ML VIAL IVP SCH ×3 (06:27→21:34)
[2022-01-20] MEDS: BUDESONIDE 0.5 MG/2 ML NEB INH SCH ×2 (06:52→19:15)
[2022-01-20] MEDS: FORMOTEROL FUMARATE NEB 20 MCG/2 ML INH SCH ×3 (06:52→19:15)
[2022-01-20] MEDS: polyethylene glycoL 3350 17 GM PACKET PO SCH (08:45)
[2022-01-20] MEDS: ENOXAPARIN 80 MG/0.8 ML SYRINGE SUBQ SCH ×2 (08:47→21:33)
[2022-01-20] MEDS: SPIRONOLACTONE 25 MG TABLET PO SCH (08:50)
[2022-01-20] MEDS: GABAPENTIN 300 MG CAPSULE PO SCH ×2 (08:50→21:33)
[2022-01-20] MEDS: ASPIRIN EC 81 MG TABLET PO SCH (08:50)
[2022-01-20] MEDS: SODIUM CHLORIDE 0.9% 1,000 ML IV SCH (08:54)
[2022-01-20] MEDS: SODIUM CHLORIDE FLUSH 0.9% 10 ML SYRINGE IVP SCH ×3 (08:57→21:34)
[2022-01-20 09:55] LABS: VBG PH 7.234 (7.31-7.41)
[2022-01-20 09:56] LABS: CALCIUM, IONIZED 1.09 mmol/L (1.15-1.33); VBG BASE EXCESS 16.1 mmol/L (-2 - +2); VBG HCO3 50.9 mmol/L (23-28); VBG PCO2 123.2 mmHg (41-51); VBG PH 7.234 (7.31-7.41); VBG PO2 30.4 mmHg (25-47); VBG TOTAL CO2 54.7 mmol/L (24-29)
[2022-01-20 09:57] LABS: VBG OXYGEN SATURATION 53.3 % (60-80)
--- NOTE | 2022-01-20 12:33 | CT Report ---
PROCEDURE: CHEST WO INDICATIONS: EVAL FOR PE TECHNIQUE: Noncontrast 1mm axial images were acquired from the pulmonary apices to the posterior costophrenic an gles. Axial 5 mm soft tissue kernel reconstructions were performed as well as 8 mm axial MIP and cor onal and sagittal 5 mm reformations. For radiation dose reduction, the following was used: automate d exposure control, adjustment of mA and/or kV according to patient size. COMPARISON: Chest radiograph dated 01/18/2022, 09/03/2021 FINDINGS: Image quality: Excellent. Lungs and pleura: Moderate size right pleural effusion is seen with adjacent compressive atelectasis in posterior aspect of right upper and lower lobes. Biapical scarring is seen. Mild bullous disease i n bilateral lung apices are seen more prominent on the right side. Scattered atelectasis in bilateral aerated lung howard are seen. No pneumothorax. Central and left peripheral airways are patent and no rmal in caliber. Right mainstem bronchus is patent. Right upper lobe bronchi are patent. There is ab rupt narrowing of right bronchus intermedius with occlusion of the right middle and lower lobe bronch i. Mediastinum: Heart size is enlarged. No pericardial effusion. No mediastinal adenopathy by size cr iteria. Thoracic aorta and central pulmonary arteries are normal in size. Esophagus is normal in ca liber. No hiatal hernia. Bones and chest wall: There is generalized anasarca. No suspicious bony lesions. No vertebral body c ompression fractures. No axillary or supraclavicular adenopathy by size criteria. The thyroid is no rmal in size and there are no incidental findings. Abdomen: Visualized upper abdominal solid organs and bowel loops appear normal in the absence of con trast. Small amount of ascites fluid in upper abdomen adjacent to liver and spleen is seen. IMPRESSION: 1. Moderate-sized right pleural effusion with atelectasis of adjacent posterior aspect of right upper and lower lobes. No left-sided pleural effusion. No pneumothorax. 2. There is suggestion of filling defects within distal right bronchus intermedius occluding distal r ight bronchus intermedius and right middle and lower lobe bronchi. Left-sided airway is patent. 3. Cardiomegaly, no pericardial effusion. No mediastinal or hilar lymphadenopathy by size criteria. 4. Generalized anasarca. Small amount of ascites fluid in visualized upper abdomen. CLINICAL RECOMMENDATION STATEMENTS: In patients <35 years with an ITN detected on CT, MRI, or extrathyroidal ultrasound, the Committee re commends further evaluation with dedicated thyroid ultrasound if the nodule is "e1 cm and has no susp icious imaging features, and if the patient has normal life expectancy. In patients "e35 years with an ITN detected on CT, MRI, or extrathyroidal ultrasound, the Committee r ecommends further evaluation with dedicated thyroid ultrasound if the nodule is "e1.5 cm and has no s uspicious imaging features, and if the patient has normal life expectancy. (ACR, 2014) Reviewed by: Oskar Ramos MD on 01/20/2022 12:32 PM PDT Approved by: Oskar Ramos MD on 01/20/2022 12:32 PM PDT Station ID: [id number]
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
[2022-01-20] MEDS: CALCIUM CARBONATE CHEW 500 MG TABLET PO SCH ×3 (13:12→18:52)
--- NOTE | 2022-01-20 13:22 | PHARMACY PROGRESS NOTE ---
- Therapy Status Therapy status: Awaiting steady state Basis for treatment: Empirical Treatment indication: SEPSIS Trough goal: 15-20 Concurrent antibiotics: ZOSYN 4.5 GM Q8H - KEI Risk Risk level for Acute Kidney Injury: High Acute Kidney Injury risk factors: Piperacillin/Tozobactam, Baseline BUN:SCr >20:1, Goal trough >15, Admission to ICU, Sepsis - Monitoring and Recommendation Clinical response to treatment: I&O Previous 24 hours 01/18/22 01/19/22 01/20/22 23:59 23:59 23:59 Intake Total 916 670 4872 Output Total 647 2993 618 Balance -535 -9433 0661 Lab Results 01/20/22 01/20/22 01/19/22 04:34 00:06 04:26 BUN 39 H 36 H 26 H Creatinine 1.1 1.2 0.7 Estimated GFR (MDRD) 68 L 61 L 114 01/18/22 14:35 BUN 23 H Creatinine 0.8 Estimated GFR (MDRD) 98 Cultures 01/18/22 14:40 Blood - Right Arm Blood Culture - Preliminary NO GROWTH AFTER 1 DAY 01/18/22 14:40 Blood - Left Hand Blood Culture - Preliminary NO GROWTH AFTER 1 DAY Monitoring plan: Daily serum creatinine, Suggest ongoing fluid replacement Next trough due (date/time): 01/22 @ 1400 Areas for additional monitoring: Therapy de-escalation based on culture results, Acute Kidney Injury Pharmacy recommendation: Continue current regime (Initiate vancomycin therapy with loading dose of 1.75 gm (25.7 mg/kg) x 1, followed by maintenance dose of 1 gm (14.7 mg/kg) q12h for estimated trough of ~15 mcg/mL and AUC/TALHA 515 mcg*hr/mL)
[2022-01-20] MEDS ORDERED: PIPERACILLIN/TAZOBACTAM 4.5 GM in SODIUM CHLORIDE 0.9% MINIBAG 100 ML IV ONE (13:30)
[2022-01-20] MEDS ORDERED: VANCOMYCIN INJ 1.75 GM in SODIUM CHLORIDE 0.9% 500 ML IV ONE (14:00)
[2022-01-20] MEDS: PIPERACILLIN/TAZOBACTAM 4.5 GM in SODIUM CHLORIDE 0.9% MINIBAG 100 ML IV SCH (17:15)
[2022-01-20] MEDS: IPRATROPIUM/ALBUTEROL 3 ML NEB INH PRN (19:15)
[2022-01-20] MEDS: ATORVASTATIN 10 MG TABLET PO SCH (21:33)
[2022-01-20 21:58] LABS: VBG BASE EXCESS 10.9 mmol/L (-2 - +2); VBG HCO3 43.2 mmol/L (23-28); VBG OXYGEN SATURATION 68.8 % (60-80); VBG PCO2 100.4 mmHg (41-51); VBG PH 7.252 (7.31-7.41); VBG PO2 38.5 mmHg (25-47); VBG TOTAL CO2 46.3 mmol/L (24-29)
[2022-01-21] MEDS: SODIUM CHLORIDE 0.9% 1,000 ML IV SCH ×2 (00:20→14:05)
[2022-01-21] MEDS: PIPERACILLIN/TAZOBACTAM 4.5 GM in SODIUM CHLORIDE 0.9% MINIBAG 100 ML IV SCH ×3 (01:02→17:45)
[2022-01-21] MEDS: VANCOMYCIN INJ 1 GM in SODIUM CHLORIDE 0.9% 250 ML IV SCH ×2 (03:13→15:12)
[2022-01-21 05:40] LABS: BASOPHILS % (AUTO) 0.1 %; HCT - HEMATOCRIT 51.4 % (42.0-52.0); HGB - HEMOGLOBIN 14.7 g/dL (14.0-18.0); LYMPHOCYTES # (AUTO) 0.2 10^3/uL (1.5-3.5); LYMPHOCYTES % (AUTO) 1.1 %; MEAN CORPUSCULAR HEMOGLOBIN 30.1 pg (27.0-31.0); MEAN CORPUSCULAR HGB CONC 28.6 g/dL (32.0-36.0); MEAN CORPUSCULAR VOLUME 105.3 fL (80.0-94.0); MEAN PLATELET VOLUME 11.5 fL (7.4-11.4); MONOCYTES # (AUTO) 0.9 10^3/uL (0.0-1.0); MONOCYTES % (AUTO) 4.9 %; NEUTROPHILS # (AUTO) 16.7 10^3/uL (1.5-6.6); NEUTROPHILS % (AUTO) 93.3 %; PLT - PLATELET COUNT 222 10^3/uL (130-450); RED BLOOD COUNT 4.88 10^6/uL (4.70-6.10); RED CELL DISTRIBUTION WIDTH 13.9 % (12.0-15.0); WHITE BLOOD COUNT 17.9 x10^3/uL (4.8-10.8)
[2022-01-21 05:41] LABS: CALCIUM, IONIZED 1.12 mmol/L (1.15-1.33); VBG PH 7.246 (7.31-7.41)
[2022-01-21 05:56] LABS: CALCIUM 8.1 mg/dL (8.5-10.3); MAGNESIUM 2.3 mg/dL (1.7-2.8); PHOSPHORUS 2.4 mg/dL (2.5-4.6); POTASSIUM 3.7 mmol/L (3.5-5.0)
[2022-01-21] MEDS: PANTOPRAZOLE 40 MG VIAL IVP SCH (06:13)
[2022-01-21] MEDS: methylPREDNISolone SUCCINATE 40 MG/ML VIAL IVP SCH (06:13)
[2022-01-21] MEDS: FORMOTEROL FUMARATE NEB 20 MCG/2 ML INH SCH ×2 (06:53→18:46)
[2022-01-21] MEDS: BUDESONIDE 0.5 MG/2 ML NEB INH SCH ×2 (06:53→18:46)
[2022-01-21] MEDS ORDERED: predniSONE 20 MG TABLET PO SCH (08:00)
[2022-01-21] MEDS: polyethylene glycoL 3350 17 GM PACKET PO SCH (08:04)
[2022-01-21] MEDS: ASPIRIN EC 81 MG TABLET PO SCH (08:04)
[2022-01-21] MEDS: NEUTRA-PHOS 250 MG TABLET PO SCH ×2 (08:04→10:05)
[2022-01-21] MEDS: GABAPENTIN 300 MG CAPSULE PO SCH ×2 (08:04→21:16)
[2022-01-21] MEDS: ENOXAPARIN 80 MG/0.8 ML SYRINGE SUBQ SCH (08:26)
[2022-01-21 08:33] LABS: FOLATE 12.29 ng/mL (5.90 - >24.8)
[2022-01-21] MEDS ORDERED: FUROSEMIDE 40 MG/4 ML VIAL IVP SCH (09:00)
[2022-01-21] MEDS: SODIUM CHLORIDE FLUSH 0.9% 10 ML SYRINGE IVP SCH ×3 (10:05→18:34)
[2022-01-21] MEDS: SPIRONOLACTONE 25 MG TABLET PO SCH (12:05)
[2022-01-21] MEDS ORDERED: VALPROATE INJ 500 MG in SODIUM CHLORIDE 0.9% 100ML 100 ML IV PRN (15:29)
[2022-01-21] MEDS ORDERED: OLANZapine 10 MG VIAL IM PRN (15:30)
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
[2022-01-21] MEDS: CYANOCOBALAMIN 500 MCG TABLET PO SCH (18:10)
[2022-01-21] MEDS: MULTIVITAMIN W/MINERALS TABLET PO SCH (18:10)
[2022-01-21] MEDS ORDERED: KETOROLAC 15 MG/ML VIAL IVP ONE (18:17)
[2022-01-21] MEDS: ATORVASTATIN 10 MG TABLET PO SCH (21:16)
[2022-01-22] MEDS: PIPERACILLIN/TAZOBACTAM 4.5 GM in SODIUM CHLORIDE 0.9% MINIBAG 100 ML IV SCH ×3 (00:40→17:14)
[2022-01-22] MEDS: VANCOMYCIN INJ 1 GM in SODIUM CHLORIDE 0.9% 250 ML IV SCH ×2 (02:18→15:05)
[2022-01-22] MEDS ORDERED: FUROSEMIDE 20 MG/2 ML VIAL IVP STA (04:13)
[2022-01-22] MEDS: IPRATROPIUM/ALBUTEROL 3 ML NEB INH PRN ×2 (04:41→10:45)
[2022-01-22 05:16] LABS: VBG BASE EXCESS 1.5 mmol/L (-2 - +2); VBG HCO3 29.5 mmol/L (23-28); VBG PCO2 60.7 mmHg (41-51); VBG PH 7.305 (7.31-7.41); VBG TOTAL CO2 31.4 mmol/L (24-29)
[2022-01-22 05:17] LABS: CALCIUM, IONIZED 1.14 mmol/L (1.15-1.33); VBG OXYGEN SATURATION 91.3 % (60-80); VBG PH 7.031 (7.31-7.41)
[2022-01-22 05:25] LABS: CALCIUM 8.4 mg/dL (8.5-10.3); CREATININE 0.8 mg/dL (0.6-1.2); POTASSIUM 3.9 mmol/L (3.5-5.0)
[2022-01-22 05:29] LABS: MAGNESIUM 2.2 mg/dL (1.7-2.8); PHOSPHORUS 2.3 mg/dL (2.5-4.6)
[2022-01-22 05:31] LABS: BASOPHILS % (AUTO) 0.1 %; EOSINOPHILS % (AUTO) 0.3 %; HCT - HEMATOCRIT 52.8 % (42.0-52.0); LYMPHOCYTES # (AUTO) 0.7 10^3/uL (1.5-3.5); LYMPHOCYTES % (AUTO) 4.6 %; MEAN CORPUSCULAR HEMOGLOBIN 29.8 pg (27.0-31.0); MEAN CORPUSCULAR HGB CONC 28.4 g/dL (32.0-36.0); MEAN CORPUSCULAR VOLUME 104.8 fL (80.0-94.0); MEAN PLATELET VOLUME 11.2 fL (7.4-11.4); MONOCYTES # (AUTO) 1.5 10^3/uL (0.0-1.0); NEUTROPHILS # (AUTO) 12.2 10^3/uL (1.5-6.6); NEUTROPHILS % (AUTO) 84.4 %; PLT - PLATELET COUNT 172 10^3/uL (130-450); RED BLOOD COUNT 5.04 10^6/uL (4.70-6.10); RED CELL DISTRIBUTION WIDTH 14.3 % (12.0-15.0); WHITE BLOOD COUNT 14.5 x10^3/uL (4.8-10.8)
[2022-01-22 05:46] LABS: PT - PROTHROMBIN TIME 11.7 secs (9.9-12.6)
[2022-01-22] MEDS: PANTOPRAZOLE 40 MG VIAL IVP SCH (06:00)
[2022-01-22] MEDS: FORMOTEROL FUMARATE NEB 20 MCG/2 ML INH SCH ×2 (07:11→21:32)
[2022-01-22] MEDS: BUDESONIDE 0.5 MG/2 ML NEB INH SCH ×2 (07:11→21:32)
[2022-01-22] MEDS ORDERED: POTASSIUM PHOSPHATE 15 MMOL in SODIUM CHLORIDE 0.9% 250 ML IV ONE (07:30)
[2022-01-22] MEDS ORDERED: lidocaine 1% 20 ML MDV ONE (08:49)
[2022-01-22] MEDS: SODIUM CHLORIDE FLUSH 0.9% 10 ML SYRINGE IVP SCH ×2 (09:23→21:44)
[2022-01-22] MEDS: MULTIVITAMIN W/MINERALS TABLET PO SCH (09:58)
[2022-01-22] MEDS: predniSONE 20 MG TABLET PO SCH (09:59)
[2022-01-22] MEDS: SPIRONOLACTONE 25 MG TABLET PO SCH (09:59)
[2022-01-22] MEDS: CYANOCOBALAMIN 500 MCG TABLET PO SCH (10:01)
[2022-01-22] MEDS: GABAPENTIN 300 MG CAPSULE PO SCH ×3 (10:01→21:51)
[2022-01-22] MEDS: polyethylene glycoL 3350 17 GM PACKET PO SCH ×2 (10:02→12:35)
[2022-01-22] MEDS: ASPIRIN EC 81 MG TABLET PO SCH (10:02)
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
[2022-01-22] MEDS: carvediloL 3.125 MG TABLET PO SCH ×3 (12:35→21:51)
[2022-01-22] MEDS: SODIUM CHLORIDE FLUSH 0.9% 10 ML SYRINGE IVP PRN (13:30)
[2022-01-22] MEDS ORDERED: APIXABAN 5 MG TABLET PO STA (14:43)
--- NOTE | 2022-01-22 15:17 | PHARMACY PROGRESS NOTE ---
- Therapy Status Vancomycin regimen day #: 3 Therapy status: Awaiting steady state Basis for treatment: Empirical Trough goal: 15-20 - KEI Risk Risk level for Acute Kidney Injury: High Acute Kidney Injury risk factors: Piperacillin/Tozobactam, Baseline BUN:SCr >20:1, Goal trough >15, Admission to ICU, Sepsis - Monitoring and Recommendation Clinical response to treatment: I&O Previous 24 hours 01/20/22 01/21/22 01/22/22 23:59 23:59 23:59 Intake Total 4850.000 4375.450 2409.55 Output Total 1358 1390 1325 Balance 3492.000 2985.450 1084.55 Lab Results 01/22/22 01/21/22 01/20/22 04:23 04:16 04:34 BUN 33 H 37 H 39 H Creatinine 0.8 1.0 1.1 Estimated GFR (MDRD) 98 75 L 68 L 01/20/22 01/19/22 01/18/22 00:06 04:26 14:35 BUN 36 H 26 H 23 H Creatinine 1.2 0.7 0.8 Estimated GFR (MDRD) 61 L 114 98 Cultures 01/18/22 14:40 Blood - Right Arm Blood Culture - Preliminary NO GROWTH AFTER 2 DAYS 01/18/22 14:40 Blood - Left Hand Blood Culture - Preliminary NO GROWTH AFTER 2 DAYS Monitoring plan: Daily serum creatinine, Suggest ongoing fluid replacement Next trough due prior to maintenance dose #: 6 Next trough due (date/time): 01/23 AT 1400 Areas for additional monitoring: Therapy de-escalation based on culture results, Acute Kidney Injury Pharmacy recommendation: Continue current regime (Pt has refused trough draw scheduled for 01/22 at 1400. Kidney function is stable. Continue at current dose and attempt to obtain trough 01/23 at 1400 if pt allows draw.)
[2022-01-22] MEDS ORDERED: ENOXAPARIN 60 MG/0.6 ML SYRINGE SUBQ SCH (16:06)
--- NOTE | 2022-01-22 16:15 | Ultrasound Report ---
PROCEDURE: Ankle Brachial Index INDICATIONS: Poor dorsalis pedis pulses bilaterally with cyanos TECHNIQUE: Ankle-brachial indices were obtained bilaterally and recorded. COMPARISONS: 08/01/2021 FINDINGS: Right ankle brachial index (ERIC): 1.10, right posterior tibial artery has a biphasic waveform, and r ight dorsalis pedis triphasic waveform. Left ankle brachial index (ERIC): 1.01, left posterior tibial and dorsalis pedis arteries have tripha sic waveforms. IMPRESSION: 1. Normal ABIs bilaterally. 2. Triphasic waveforms in both dorsalis pedis arteries, normal. Reviewed by: Tanesha Marqius MD on 01/22/2022 4:13 PM PDT Approved by: Tanesha Marquis MD on 01/22/2022 4:13 PM PDT Station ID: [id number]
[2022-01-22 16:18] LABS: BILIRUBIN,URINE NEGATIVE (NEGATIVE); GLUCOSE, URINE (UA) NEGATIVE (NEGATIVE); KETONES,URINE (UA) NEGATIVE (NEGATIVE); LEUKOCYTE ESTERASE, URINE NEGATIVE (NEGATIVE); NITRITE,URINE NEGATIVE (NEGATIVE); OCCULT BLOOD,URINE TRACE-INTA (NEGATIVE); PROTEIN,URINE NEGATIVE (NEGATIVE); UROBILINOGEN,URINE 4 E.U./dL (NORMAL)
[2022-01-22 16:24] LABS: CLARITY,URINE CLEAR (CLEAR)
[2022-01-22 16:37] LABS: BACTERIA,URINE Few /HPF (None Seen); RBC,URINE None Seen /HPF (0-5); SQUAMOUS EPITHELIAL CELL,UR RARE Squamous (<= Few)
[2022-01-22] MEDS ORDERED: APIXABAN 5 MG TABLET PO ONE (21:00)
[2022-01-22] MEDS: LOSARTAN 50 MG TABLET PO SCH ×2 (21:43→21:51)
[2022-01-22] MEDS: ATORVASTATIN 10 MG TABLET PO SCH ×2 (21:43→21:50)
[2022-01-22] MEDS: APIXABAN 5 MG TABLET PO SCH ×2 (21:44→21:50)
[2022-01-23] MEDS: SODIUM CHLORIDE FLUSH 0.9% 10 ML SYRINGE IVP SCH ×3 (00:49→16:09)
[2022-01-23] MEDS: PIPERACILLIN/TAZOBACTAM 4.5 GM in SODIUM CHLORIDE 0.9% MINIBAG 100 ML IV SCH (00:49)
[2022-01-23] MEDS ORDERED: OLANZapine 10 MG VIAL IM ONE (02:01)
[2022-01-23] MEDS ORDERED: WATER FOR INJECTION,STERILE 10 ML MC ONE ×2 (02:02)
[2022-01-23] MEDS ORDERED: LORazepam 2 MG/ML VIAL IVP STA (03:08)
[2022-01-23] MEDS: VANCOMYCIN INJ 1 GM in SODIUM CHLORIDE 0.9% 250 ML IV SCH (03:35)
[2022-01-23] MEDS ORDERED: LORazepam 2 MG/ML VIAL IVP SCH (04:04)
[2022-01-23 05:11] LABS: BASOPHILS % (AUTO) 0.1 %; EOSINOPHILS % (AUTO) 0.3 %; HCT - HEMATOCRIT 51.2 % (42.0-52.0); HGB - HEMOGLOBIN 14.8 g/dL (14.0-18.0); LYMPHOCYTES # (AUTO) 0.5 10^3/uL (1.5-3.5); MEAN CORPUSCULAR HGB CONC 28.9 g/dL (32.0-36.0); MEAN CORPUSCULAR VOLUME 103.9 fL (80.0-94.0); MONOCYTES # (AUTO) 0.9 10^3/uL (0.0-1.0); MONOCYTES % (AUTO) 9.7 %; NEUTROPHILS # (AUTO) 8.1 10^3/uL (1.5-6.6); NEUTROPHILS % (AUTO) 84.6 %; PLT - PLATELET COUNT 167 10^3/uL (130-450); RED BLOOD COUNT 4.93 10^6/uL (4.70-6.10); RED CELL DISTRIBUTION WIDTH 14.3 % (12.0-15.0); WHITE BLOOD COUNT 9.6 x10^3/uL (4.8-10.8)
[2022-01-23 05:14] LABS: CALCIUM, IONIZED 1.16 mmol/L (1.15-1.33); VBG PH 7.246 (7.31-7.41)
[2022-01-23 05:16] LABS: CALCIUM 8.4 mg/dL (8.5-10.3); CREATININE 0.8 mg/dL (0.6-1.2); POTASSIUM 4.1 mmol/L (3.5-5.0)
[2022-01-23] MEDS ORDERED: SODIUM PHOSPHATE 15 MMOL in SODIUM CHLORIDE 0.9% 250 ML IV ONE (05:22)
[2022-01-23 05:35] LABS: MAGNESIUM 2.1 mg/dL (1.7-2.8); PHOSPHORUS 2.9 mg/dL (2.5-4.6)
[2022-01-23] MEDS: PANTOPRAZOLE 40 MG VIAL IVP SCH (06:04)
[2022-01-23] MEDS: BUDESONIDE 0.5 MG/2 ML NEB INH SCH ×2 (07:33→19:59)
[2022-01-23] MEDS: FORMOTEROL FUMARATE NEB 20 MCG/2 ML INH SCH ×2 (07:33→19:59)
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
--- NOTE | 2022-01-23 10:05 | XRAY Report ---
PROCEDURE: Chest 1 View X-Ray INDICATIONS: Pleural effusion TECHNIQUE: One view of the chest was acquired. COMPARISON: 01/20/[address] FINDINGS: Increased size of right pleural effusion when compared with the prior study. Overlying atelectasis is also worsened. There is superimposed airspace opacity in the aerated right mid lung which is also wo rsened. Mild cardiomegaly is similar. Left lung and pleural space are clear. IMPRESSION: Right pleural effusion and right airspace opacity have worsened. Findings are presumably infectious and the change represents worsening disease. Reviewed by: Delvin Gilman MD on 01/23/2022 10:03 AM PDT Approved by: Delvin Gilman MD on 01/23/2022 10:03 AM PDT Station ID: [id number]
[2022-01-23] MEDS: CYANOCOBALAMIN 500 MCG TABLET PO SCH (10:25)
[2022-01-23] MEDS: GABAPENTIN 300 MG CAPSULE PO SCH ×2 (10:25→21:14)
[2022-01-23] MEDS: ASPIRIN EC 81 MG TABLET PO SCH (10:26)
[2022-01-23] MEDS: APIXABAN 5 MG TABLET PO SCH ×3 (10:27→21:23)
[2022-01-23] MEDS: ARIPiprazole 5 MG TABLET PO SCH (10:27)
[2022-01-23] MEDS: LOSARTAN 50 MG TABLET PO SCH ×2 (10:27→21:14)
[2022-01-23] MEDS: predniSONE 20 MG TABLET PO SCH (10:28)
[2022-01-23] MEDS: SPIRONOLACTONE 25 MG TABLET PO SCH (10:28)
[2022-01-23] MEDS: carvediloL 3.125 MG TABLET PO SCH ×2 (10:29→21:14)
[2022-01-23] MEDS: polyethylene glycoL 3350 17 GM PACKET PO SCH (10:36)
[2022-01-23] MEDS ORDERED: GI COCKTAIL 120 ML BOTTLE PO PRN (11:35)
[2022-01-23] MEDS ORDERED: PANTOPRAZOLE 40 MG VIAL IV ONE (11:44)
[2022-01-23] MEDS ORDERED: APIXABAN 5 MG TABLET PO SCH (21:00)
[2022-01-23] MEDS: AMOX/CLAV 875 MG/125 MG TABLET PO SCH ×2 (21:14→21:22)
[2022-01-23] MEDS: DOXYCYCLINE 100 MG TABLET PO SCH (21:14)
[2022-01-23] MEDS: ATORVASTATIN 10 MG TABLET PO SCH (21:14)
[2022-01-24] MEDS: SODIUM CHLORIDE FLUSH 0.9% 10 ML SYRINGE IVP SCH ×4 (02:30→23:50)
[2022-01-24 05:37] LABS: BASOPHILS % (AUTO) 0.1 %; EOSINOPHILS # (AUTO) 0.1 10^3/uL (0.0-0.7); EOSINOPHILS % (AUTO) 0.6 %; HGB - HEMOGLOBIN 15.8 g/dL (14.0-18.0); LYMPHOCYTES # (AUTO) 0.7 10^3/uL (1.5-3.5); LYMPHOCYTES % (AUTO) 7.3 %; MEAN CORPUSCULAR HEMOGLOBIN 30.5 pg (27.0-31.0); MEAN CORPUSCULAR HGB CONC 29.8 g/dL (32.0-36.0); MEAN CORPUSCULAR VOLUME 102.3 fL (80.0-94.0); MEAN PLATELET VOLUME 11.1 fL (7.4-11.4); MONOCYTES # (AUTO) 1.1 10^3/uL (0.0-1.0); MONOCYTES % (AUTO) 11.6 %; NEUTROPHILS # (AUTO) 7.7 10^3/uL (1.5-6.6); NEUTROPHILS % (AUTO) 80.1 %; PLT - PLATELET COUNT 179 10^3/uL (130-450); RED BLOOD COUNT 5.18 10^6/uL (4.70-6.10); RED CELL DISTRIBUTION WIDTH 14.2 % (12.0-15.0); WHITE BLOOD COUNT 9.6 x10^3/uL (4.8-10.8)
[2022-01-24 05:50] LABS: VBG BASE EXCESS 0.9 mmol/L (-2 - +2); VBG OXYGEN SATURATION 77.1 % (60-80); VBG PCO2 91.7 mmHg (41-51); VBG PH 7.174 (7.31-7.41); VBG PO2 44.7 mmHg (25-47); VBG TOTAL CO2 35.8 mmol/L (24-29)
[2022-01-24 05:52] LABS: ALBUMIN 2.7 g/dL (3.2-5.5); CALCIUM 8.3 mg/dL (8.5-10.3); CREATININE 0.6 mg/dL (0.6-1.2); PHOSPHORUS 3.7 mg/dL (2.5-4.6); POTASSIUM 4.2 mmol/L (3.5-5.0)
[2022-01-24] MEDS ORDERED: PANTOPRAZOLE 40 MG TABLET PO SCH (07:00)
[2022-01-24] MEDS: BUDESONIDE 0.5 MG/2 ML NEB INH SCH ×2 (07:17→22:10)
[2022-01-24] MEDS: FORMOTEROL FUMARATE NEB 20 MCG/2 ML INH SCH ×2 (07:17→22:10)
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
[2022-01-24] MEDS: CYANOCOBALAMIN 500 MCG TABLET PO SCH (08:30)
[2022-01-24] MEDS: ASPIRIN EC 81 MG TABLET PO SCH (08:30)
[2022-01-24] MEDS: APIXABAN 5 MG TABLET PO SCH (08:31)
[2022-01-24] MEDS: predniSONE 20 MG TABLET PO SCH (08:31)
[2022-01-24] MEDS: SPIRONOLACTONE 25 MG TABLET PO SCH (08:31)
[2022-01-24] MEDS: ARIPiprazole 5 MG TABLET PO SCH (08:32)
[2022-01-24] MEDS: AMOX/CLAV 875 MG/125 MG TABLET PO SCH (08:32)
[2022-01-24] MEDS: polyethylene glycoL 3350 17 GM PACKET PO SCH (08:33)
[2022-01-24] MEDS: DOXYCYCLINE 100 MG TABLET PO SCH (08:34)
[2022-01-24] MEDS: carvediloL 3.125 MG TABLET PO SCH ×2 (08:37→21:40)
[2022-01-24] MEDS: LOSARTAN 50 MG TABLET PO SCH (08:38)
[2022-01-24 09:01] LABS: ALBUMIN 2.8 g/dL (3.2-5.5); BILIRUBIN,DIRECT 0.1 mg/dL (0.1-0.5); BILIRUBIN,TOTAL 0.6 mg/dL (0.2-1.0); TOTAL PROTEIN 5.2 g/dL (6.7-8.2)
[2022-01-24] MEDS ORDERED: HALOPERIDOL 5 MG/ML VIAL IVP ONE ×2 (11:42→13:57)
[2022-01-24] MEDS ORDERED: HALOPERIDOL 5 MG/ML VIAL ONE (11:57)
[2022-01-24] MEDS: MULTIVITAMIN W/MINERALS TABLET PO SCH (12:42)
[2022-01-24 12:55] LABS: ABG BASE EXCESS 1.7 mmol/L (-2.0-3.0); ABG HCO3 29.7 mmol/L (22.0-26.0); ABG OXYGEN SATURATION 94 % (94-98); ABG PH 7.31 (7.35-7.45); ABG PO2 69 mmHg (80-100); ABG TCO2 31.6 MMOL/L (21.0-29.0); ALLEN TEST POSITIVE
[2022-01-24 12:56] LABS: ABG RESPIRATORY RATE 20 b/min
[2022-01-24 12:58] LABS: ABG PCO2 60 mmHg (34-45)
[2022-01-24 13:30] LABS: VBG BASE EXCESS 4.6 mmol/L (-2 - +2); VBG HCO3 33.2 mmol/L (23-28); VBG OXYGEN SATURATION 86.4 % (60-80); VBG PH 7.319 (7.31-7.41); VBG PO2 47.7 mmHg (25-47); VBG TOTAL CO2 35.2 mmol/L (24-29)
[2022-01-24] MEDS: VALPROATE INJ 500 MG in SODIUM CHLORIDE 0.9% 100ML 100 ML IV SCH (16:20)
[2022-01-24] MEDS ORDERED: OLANZapine 10 MG VIAL IM PRN (17:00)
[2022-01-24] MEDS: AMPICILLIN/SULBACTAM 1.5 GM in SODIUM CHLORIDE 0.9% MINIBAG 100 ML IV SCH ×2 (18:13→23:50)
[2022-01-24] MEDS ORDERED: LORazepam 2 MG/ML VIAL IVP PRN (19:38)
[2022-01-24] MEDS: LORazepam 2 MG/ML VIAL IVP PRN ×3 (19:48→23:50)
[2022-01-24] MEDS ORDERED: LORazepam 2 MG/ML VIAL ONE (19:56)
[2022-01-24] MEDS: ATORVASTATIN 10 MG TABLET PO SCH (21:41)
[2022-01-24] MEDS: FUROSEMIDE 20 MG/2 ML VIAL IVP SCH (21:51)
[2022-01-24] MEDS: DOXYCYCLINE INJ 100 MG in SODIUM CHLORIDE 0.9% MINIBAG 100 ML IV SCH (21:51)
[2022-01-24] MEDS: ENOXAPARIN 80 MG/0.8 ML SYRINGE SUBQ SCH (21:59)
[2022-01-25] MEDS: VALPROATE INJ 500 MG in SODIUM CHLORIDE 0.9% 100ML 100 ML IV SCH ×2 (03:27→16:00)
[2022-01-25] MEDS: AMPICILLIN/SULBACTAM 1.5 GM in SODIUM CHLORIDE 0.9% MINIBAG 100 ML IV SCH ×3 (05:24→18:13)
[2022-01-25 05:44] LABS: CALCIUM, IONIZED 1.14 mmol/L (1.15-1.33); VBG BASE EXCESS 7.3 mmol/L (-2 - +2); VBG HCO3 36.2 mmol/L (23-28); VBG OXYGEN SATURATION 80.8 % (60-80); VBG PCO2 69.6 mmHg (41-51); VBG PH 7.334 (7.31-7.41); VBG PO2 43.6 mmHg (25-47); VBG TOTAL CO2 38.3 mmol/L (24-29)
[2022-01-25 05:58] LABS: ALBUMIN 2.8 g/dL (3.2-5.5); CALCIUM 8.5 mg/dL (8.5-10.3); CREATININE 0.6 mg/dL (0.6-1.2); PHOSPHORUS 1.5 mg/dL (2.5-4.6); POTASSIUM 3.8 mmol/L (3.5-5.0)
[2022-01-25 07:16] LABS: ABG PCO2 58 mmHg (34-45); ABG PH 7.39 (7.35-7.45)
[2022-01-25 07:17] LABS: ABG BASE EXCESS 7.1 mmol/L (-2.0-3.0); ABG HCO3 34.3 mmol/L (22.0-26.0); ABG OXYGEN SATURATION 93 % (94-98); ABG PO2 63 mmHg (80-100)
[2022-01-25] MEDS: FORMOTEROL FUMARATE NEB 20 MCG/2 ML INH SCH ×2 (07:28→19:30)
[2022-01-25] MEDS: BUDESONIDE 0.5 MG/2 ML NEB INH SCH ×3 (07:28→19:56)
[2022-01-25] MEDS ORDERED: POTASSIUM PHOSPHATE 21 MMOL in SODIUM CHLORIDE 0.9% 250 ML IV ONE (07:30)
[2022-01-25] MEDS: PANTOPRAZOLE 40 MG VIAL IV SCH (08:57)
[2022-01-25] MEDS: DOXYCYCLINE INJ 100 MG in SODIUM CHLORIDE 0.9% MINIBAG 100 ML IV SCH ×2 (08:57→21:20)
[2022-01-25] MEDS: CYANOCOBALAMIN 500 MCG TABLET PO SCH (08:59)
[2022-01-25] MEDS: SPIRONOLACTONE 25 MG TABLET PO SCH (08:59)
[2022-01-25] MEDS: LOSARTAN 50 MG TABLET PO SCH (08:59)
[2022-01-25] MEDS: polyethylene glycoL 3350 17 GM PACKET PO SCH (08:59)
[2022-01-25] MEDS: carvediloL 3.125 MG TABLET PO SCH ×2 (09:01→21:20)
[2022-01-25] MEDS: ASPIRIN EC 81 MG TABLET PO SCH (09:01)
[2022-01-25] MEDS: SODIUM CHLORIDE FLUSH 0.9% 10 ML SYRINGE IVP SCH ×2 (09:01→18:13)
[2022-01-25] MEDS: FUROSEMIDE 20 MG/2 ML VIAL IVP SCH ×2 (09:55→21:21)
[2022-01-25] MEDS: ENOXAPARIN 80 MG/0.8 ML SYRINGE SUBQ SCH ×2 (09:55→21:20)
[2022-01-25] MEDS: LORazepam 2 MG/ML VIAL IVP PRN (10:44)
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
[2022-01-25] MEDS: MULTIVITAMIN W/MINERALS TABLET PO SCH (12:33)
[2022-01-25] MEDS ORDERED: MIN OIL/DIMETHICON/COCONUT OIL 92 GM TUBE TOP PRN (15:36)
[2022-01-25] MEDS: LACTULOSE 10 GM /15 ML UDC NG SCH ×3 (21:19→22:29)
[2022-01-25] MEDS: ATORVASTATIN 10 MG TABLET PO SCH (21:20)
[2022-01-25] MEDS: rifAXIMin 550 MG TABLET PO SCH (21:21)
[2022-01-26] MEDS: AMPICILLIN/SULBACTAM 1.5 GM in SODIUM CHLORIDE 0.9% MINIBAG 100 ML IV SCH ×3 (00:38→12:00)
[2022-01-26] MEDS: SODIUM CHLORIDE FLUSH 0.9% 10 ML SYRINGE IVP SCH ×3 (01:10→21:09)
[2022-01-26] MEDS: VALPROATE INJ 500 MG in SODIUM CHLORIDE 0.9% 100ML 100 ML IV SCH (04:02)
[2022-01-26] MEDS: LACTULOSE 10 GM /15 ML UDC NG SCH ×3 (05:44→21:30)
[2022-01-26 06:11] LABS: BASOPHILS % (AUTO) 0.1 %; EOSINOPHILS # (AUTO) 0.1 10^3/uL (0.0-0.7); EOSINOPHILS % (AUTO) 2.1 %; HCT - HEMATOCRIT 51.3 % (42.0-52.0); HGB - HEMOGLOBIN 15.5 g/dL (14.0-18.0); LYMPHOCYTES # (AUTO) 0.8 10^3/uL (1.5-3.5); LYMPHOCYTES % (AUTO) 12.3 %; MEAN CORPUSCULAR HEMOGLOBIN 29.6 pg (27.0-31.0); MEAN CORPUSCULAR HGB CONC 30.2 g/dL (32.0-36.0); MEAN CORPUSCULAR VOLUME 98.1 fL (80.0-94.0); MEAN PLATELET VOLUME 11.1 fL (7.4-11.4); MONOCYTES # (AUTO) 0.8 10^3/uL (0.0-1.0); MONOCYTES % (AUTO) 11.3 %; NEUTROPHILS % (AUTO) 73.8 %; PLT - PLATELET COUNT 176 10^3/uL (130-450); RED BLOOD COUNT 5.23 10^6/uL (4.70-6.10); RED CELL DISTRIBUTION WIDTH 14.1 % (12.0-15.0); WHITE BLOOD COUNT 6.8 x10^3/uL (4.8-10.8)
[2022-01-26 06:26] LABS: CALCIUM, IONIZED 1.09 mmol/L (1.15-1.33); VBG PH 7.336 (7.31-7.41)
[2022-01-26 06:27] LABS: ALBUMIN 2.9 g/dL (3.2-5.5); CALCIUM 8.1 mg/dL (8.5-10.3); CREATININE 0.6 mg/dL (0.6-1.2); PHOSPHORUS 2.9 mg/dL (2.5-4.6); POTASSIUM 3.8 mmol/L (3.5-5.0); VBG OXYGEN SATURATION 91.7 % (60-80); VBG PCO2 61.2 mmHg (41-51); VBG PH 7.336 (7.31-7.41); VBG TOTAL CO2 33.9 mmol/L (24-29)
[2022-01-26] MEDS ORDERED: DEXTROSE 50% ABBOJECT 25 GM/50 ML SYRINGE IVP ONE (06:35)
[2022-01-26] MEDS: SODIUM CHLORIDE FLUSH 0.9% 10 ML SYRINGE IVP PRN (06:46)
--- NOTE | 2022-01-26 07:49 | PROVIDER PROGRESS NOTE ---
Assessment/Plan - Problem List (1) Acute respiratory failure with hypoxia and hypercapnia Assessment/Plan: Likely multifactorial. Secondary to CHF exacerbation with reduced EF, COPD exacerbation with CO2 ret ention and possibly pneumonia. Currently on BiPAP intermittently with 2 L of oxygen via nasal cannula when needed. Doxycycline and Unasyn discontinued today 01/26/22. On Lasix 20 mg IV twice daily. (2) CHF exacerbation Qualifiers: Heart failure type: unspecified Qualified Code(s): I50.9 - Heart failure, unspecified Assessment/Plan: Lasix 20 mg IV twice daily Losartan 50 mg p.o. daily Carvedilol 3.125 mg p.o. twice daily Acetazolamide 500 mg p.o. 3 times daily. Spironolactone 12.5 mg p.o. daily. Echocardiogram shows an EF of approximately 20%. There is a small RV thrombus without evidence of LV thrombus. Lovenox 70 mg subcu twice daily. (3) COPD (chronic obstructive pulmonary disease) Assessment/Plan: ABG done on 01/26/2022 showed pH 7.37, PCO2 61, PO2 73.9, HCO3 34.6. He is a chronic retainer with appropriate compensation. Patient is on 2 L of oxygen via nasal cannula with oxygen saturation 92-98% BiPAP intermittently and as needed. Budesonide 0.5 mg inhalation twice daily. Perforomist 20 mcg inhalation twice daily (4) Elevated troponin I level Assessment/Plan: Resolved. Likely related to type II demand ischemia with troponin now down trended to 152.8. 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 Is on guideline directed medical therapy with Coreg, aspirin, losartan, Lipitor, along with diamox and Aldactone. Due to patient's noncompliance he is not a candidate for an AICD and will continue with medical management at this point. (5) Methamphetamine abuse Assessment/Plan: Urine drug screen during this admission was positive for methamphetamine/amphetamine. (8) Lethargy Assessment/Plan: Suspected to be secondary to medication use. Patient received several doses of Ativan for agitation which was interfering with bipap. Ativan, Zyprexa have been discontinued. If patient continues to be lethargic we will also decrease or discontinue valproic acid. (9) Malnourished Assessment/Plan: Patient's blood glucose this morning was 56. Albumin 2.9 Patient is very frail/cachectic appearing. NG tube placed last night. Tube feedings initiated today. Nutrition following. - Current Meds Current Meds: Current Medications Generic Name Dose Route Start Last Admin Trade Name Freq PRN Reason Stop Dose Admin Acetazolamide 500 mg 01/24/22 14:00 01/26/22 05:43 Acetazolamide Er 500 Mg Capsule PO 500 mg TID ABENA Administration Albuterol/Ipratropium 3 ml 01/18/22 19:31 01/22/22 10:45 Ipratropium/Albuterol 3 Ml Neb INH 3 ml Q4HR PRN Administration Wheezing Aspirin 81 mg 01/19/22 09:00 01/25/22 09:01 Aspirin Ec 81 Mg Tablet PO Not Given DAILY ABENA Atorvastatin Calcium 10 mg 01/18/22 21:00 01/25/22 21:20 Atorvastatin 10 Mg Tablet PO 10 mg QPM ABENA Administration Budesonide 0.5 mg 01/19/22 07:00 01/25/22 19:56 Budesonide 0.5 Mg/2 Ml Neb INH 0.5 mg RTBID ABENA Administration Carvedilol 3.125 mg 01/24/22 08:27 01/25/22 21:20 Carvedilol 3.125 Mg Tablet PO 3.125 mg BID ABENA Administration Cyanocobalamin 500 mcg 01/21/22 13:00 01/25/22 08:59 Cyanocobalamin 500 Mcg Tablet PO Not Given DAILY ABENA Enoxaparin Sodium 70 mg 01/24/22 21:00 01/25/22 21:20 Enoxaparin 80 Mg/0.8 Ml Syringe SUBQ 70 mg BID ABENA Administration Formoterol Fumarate 20 mcg 01/19/22 07:00 01/25/22 07:28 Formoterol Fumarate Neb 20 Mcg/2 Ml INH 20 mcg RTBID ABENA Administration Furosemide 20 mg 01/24/22 21:00 01/25/22 21:21 Furosemide 20 Mg/2 Ml Vial IVP 20 mg BID AEBNA Administration Valproic Acid 500 mg/ Sodium 105 mls @ 100 mls/hr 01/24/22 16:00 01/26/22 05:10 Chloride IV Infused Q12H ABENA Infusion Ampicillin Sodium/Sulbactam 100 mls @ 200 mls/hr 01/24/22 18:00 01/26/22 06:27 Sodium 1.5 gm/ Sodium Chloride IV Infused Q6HR ABENA Infusion Doxycycline Hyclate 100 mg/ 100 mls @ 100 mls/hr 01/24/22 21:00 01/25/22 22:43 Sodium Chloride IV Infused BID ABENA Infusion Lactulose 10 gm 01/25/22 18:00 01/26/22 05:44 Lactulose 10 Gm /15 Ml Udc NG 10 gm TID ABENA Administration Losartan Potassium 50 mg 01/24/22 09:00 01/25/22 08:59 Losartan 50 Mg Tablet PO Not Given DAILY ABENA Multivitamins/Minerals 1 tab 01/24/22 12:00 01/25/22 12:33 Multivitamin W/Minerals Tablet PO Not Given QDLUNCH ABENA Pantoprazole Sodium 40 mg 01/25/22 09:00 01/25/22 08:57 Pantoprazole 40 Mg Vial IV 40 mg DAILY ABENA Administration Polyethylene Glycol 17 gm 01/20/22 09:00 01/25/22 08:59 Polyethylene Glycol 3350 17 Gm Packet PO Not Given DAILY ABENA Rifaximin 550 mg 01/25/22 21:00 01/25/22 21:21 Rifaximin 550 Mg Tablet PO 550 mg BID ABENA Administration Sodium Chloride 10 ml 01/19/22 01:00 01/26/22 01:10 Sodium Chloride Flush 0.9% 10 Ml Syringe IVP Not Given 0100,0900,1700 ABENA Sodium Chloride 10 ml 01/18/22 19:20 01/26/22 06:46 Sodium Chloride Flush 0.9% 10 Ml Syringe IVP 10 ml PRN PRN Administration NEEDED PER PROVIDER ORDERS Spironolactone 12.5 mg 01/19/22 09:00 01/25/22 08:59 Spironolactone 25 Mg Tablet PO Not Given DAILY ABENA - Lab Result Fish Bone Diagrams: 01/26/22 04:30 01/26/22 04:30 - Additional Planning My Orders: My Active Orders 01/25/22 15:36 Min Oil/Dimeth/Coconut Oil Crm [Cavilon] 1 applic TOP PRN PRN 01/26/22 07:43 Nasogastric [Insert NG Tube] [RC] ONCE 01/26/22 08:00 Dextrose 5%-0.45% NaCl [D5.45ns] 1,000 ml IV 100 mls/hr Subjective - Subjective Patient Reports: Other (He is very somnolent this morning but responds appropriately to question of where he is. Oxygen saturation is in the high 90s on 2 L of oxygen. He does not appear to be any distress. P.o. intake has been poor. Was hypoglycemic this morning.) Objective Vital Signs: Vital Signs - 24 hr 01/25/22 01/25/22 01/25/22 08:00 09:00 10:00 Temperature 37.1 C Heart Rate Heart Rate [ 76 74 75 Monitoring electrodes] Respiratory 20 20 20 Rate Blood Pressure 137/65 H 127/62 150/82 H [Left Femoral artery] O2 Saturation 100 100 94 01/25/22 01/25/22 01/25/22 11:00 11:27 12:00 Temperature 36.6 C Heart Rate 90 Heart Rate [ 76 71 Monitoring electrodes] Respiratory 19 20 Rate Blood Pressure 96/62 101/62 [Left Femoral artery] O2 Saturation 95 95 01/25/22 01/25/22 01/25/22 13:00 14:00 15:00 Temperature Heart Rate Heart Rate [ 77 80 Monitoring electrodes] Respiratory 30 H 17 16 Rate Blood Pressure 123/49 L 134/58 H 139/62 H [Left Femoral artery] O2 Saturation 93 97 97 01/25/22 01/25/22 01/25/22 16:00 17:00 18:00 Temperature Heart Rate Heart Rate [ 80 81 84 Monitoring electrodes] Respiratory 16 16 Rate Blood Pressure 107/84 H 150/56 H 131/106 H [Left Femoral artery] O2 Saturation 94 94 19 L 01/25/22 01/25/22 01/25/22 19:00 19:53 20:00 Temperature Heart Rate 78 Heart Rate [ 85 85 Monitoring electrodes] Respiratory 15 20 17 Rate Blood Pressure 158/73 H 119/80 [Left Femoral artery] O2 Saturation 94 94 01/25/22 01/25/22 01/25/22 21:00 22:00 23:00 Temperature 36.3 C L Heart Rate Heart Rate [ 88 90 91 Monitoring electrodes] Respiratory 23 18 25 H Rate Blood Pressure 133/75 H 131/88 H 114/70 [Left Femoral artery] O2 Saturation 92 90 L 98 01/26/22 01/26/22 01/26/22 00:00 01:00 02:00 Temperature 36.3 C L Heart Rate Heart Rate [ 78 80 79 Monitoring electrodes] Respiratory 14 14 15 Rate Blood Pressure 125/79 131/63 H 141/71 H [Left Femoral artery] O2 Saturation 97 95 95 01/26/22 01/26/22 01/26/22 03:00 04:00 05:00 Temperature Heart Rate Heart Rate [ 84 80 93 Monitoring electrodes] Respiratory 16 16 18 Rate Blood Pressure 131/63 H 144/68 H 118/78 [Left Femoral artery] O2 Saturation 94 97 95 01/26/22 01/26/22 06:00 07:00 Temperature Heart Rate Heart Rate [ 79 84 Monitoring electrodes] Respiratory 16 17 Rate Blood Pressure 121/67 136/64 H [Left Femoral artery] O2 Saturation 94 94 Oxygen O2 Source HHFNC Oxygen Flow Rate 10 I&O (Last 24 Hrs): Intake and Output Totals x24h 01/24/22 01/25/22 01/26/22 23:59 23:59 23:59 Intake Total 405 1267 305 Output Total 2 0 1300 Balance 403 1267 -995 General: No acute distress, Other (Somnolent, frail.) HEENT: Atraumatic, PERRLA, EOMI Neck: Supple, No JVD Neuro: Alert, Non Focal, Oriented Times 3 Cardiovascular: Regular rate, No murmurs Respiratory: Chest non-tender, No respiratory distress, Other (Coarse breath sounds) Abdomen: Normal bowel sounds, Soft, No tenderness, No masses Extremities: No clubbing, No cyanosis, No edema, No tenderness/swelling - Results Results: Laboratory Results WBC 6.8 x10^3/uL (4.8-10.8) 01/26/22 04:30 RBC 5.23 10^6/uL (4.70-6.10) 01/26/22 04:30 Hgb 15.5 g/dL (14.0-18.0) 01/26/22 04:30 Hct 51.3 % (42.0-52.0) 01/26/22 04:30 MCV 98.1 fL (80.0-94.0) H 01/26/22 04:30 MCH 29.6 pg (27.0-31.0) 01/26/22 04:30 MCHC 30.2 g/dL (32.0-36.0) L 01/26/22 04:30 RDW 14.1 % (12.0-15.0) 01/26/22 04:30 Plt Count 176 10^3/uL (130-450) 01/26/22 04:30 MPV 11.1 fL (7.4-11.4) 01/26/22 04:30 Neut # (Auto) 5.0 10^3/uL (1.5-6.6) 01/26/22 04:30 Lymph # (Auto) 0.8 10^3/uL (1.5-3.5) L 01/26/22 04:30 [place] # (Auto) 0.8 10^3/uL (0.0-1.0) 01/26/22 04:30 Eos # (Auto) 0.1 10^3/uL (0.0-0.7) 01/26/22 04:30 Baso # (Auto) 0.0 10^3/uL (0.0-0.1) 01/26/22 04:30 Absolute Nucleated RBC 0.00 x10^3/uL 01/26/22 04:30 Nucleated RBC % 0.0 /100WBC 01/26/22 04:30 PT 11.7 secs (9.9-12.6) 01/22/22 05:35 INR 1.0 (0.8-1.2) 01/22/22 05:35 Bld Gas Analysis Time 0711 01/25/22 07:05 Sample Site RIGHT BRACHIAL 01/25/22 07:05 ABG pH 7.39 (7.35-7.45) 01/25/22 07:05 ABG pCO2 58 mmHg (34-45) H 01/25/22 07:05 ABG pO2 63 mmHg (80-100) L 01/25/22 07:05 ABG HCO3 34.3 mmol/L (22.0-26.0) H 01/25/22 07:05 ABG Total CO2 36.0 MMOL/L (21.0-29.0) H 01/25/22 07:05 ABG O2 Saturation 93 % (94-98) L 01/25/22 07:05 ABG Base Excess 7.1 mmol/L (-2.0-3.0) H 01/25/22 07:05 Conner Test NOT APPLICABLE 01/25/22 07:05 VBG pH 7.336 (7.31-7.41) 01/26/22 04:30 VBG pH 7.336 (7.31-7.41) 01/26/22 04:30 VBG pCO2 61.2 mmHg (41-51) H 01/26/22 04:30 VBG pO2 62.0 mmHg (25-47) H 01/26/22 04:30 VBG HCO3 32.0 mmol/L (23-28) H 01/26/22 04:30 VBG Total CO2 33.9 mmol/L (24-29) H 01/26/22 04:30 VBG O2 Saturation 91.7 % (60-80) H 01/26/22 04:30 VBG Base Excess 4.0 mmol/L (-2 - +2) H 01/26/22 04:30 Ionized Calcium 1.09 mmol/L (1.15-1.33) L 01/26/22 04:30 Respiration Rate 20 b/min 01/24/22 12:45 O2 Delivery Device BiPAP 01/25/22 07:05 O2 Liters/Min 3.00 LPM 01/18/22 16:40 FiO2 30.00 01/25/22 07:05 EPAP 6 cmH2O 01/25/22 07:05 IPAP 16 cmH2O 01/25/22 07:05 Sodium 140 mmol/L (135-145) 01/26/22 04:30 Potassium 3.8 mmol/L (3.5-5.0) 01/26/22 04:30 Chloride 98 mmol/L (101-111) L 01/26/22 04:30 Carbon Dioxide 33 mmol/L (21-32) H 01/26/22 04:30 Anion Gap 9.0 (6-13) 01/26/22 04:30 BUN 26 mg/dL (6-20) H 01/26/22 04:30 Creatinine 0.6 mg/dL (0.6-1.2) 01/26/22 04:30 Estimated GFR (MDRD) 136 (>89) 01/26/22 04:30 Glucose 56 mg/dL (70-100) L* 01/26/22 04:30 Lactic Acid 1.5 mmol/L (0.5-2.2) 01/20/22 16:58 Calcium 8.1 mg/dL (8.5-10.3) L 01/26/22 04:30 Phosphorus 2.9 mg/dL (2.5-4.6) 01/26/22 04:30 Magnesium 1.9 mg/dL (1.7-2.8) 01/26/22 04:30 Total Bilirubin 0.6 mg/dL (0.2-1.0) 01/24/22 04:54 Direct Bilirubin 0.1 mg/dL (0.1-0.5) 01/24/22 04:54 AST 25 IU/L (10-42) 01/24/22 04:54 ALT 23 IU/L (10-60) 01/24/22 04:54 Alkaline Phosphatase 37 IU/L (42-121) L 01/24/22 04:54 Ammonia 37.8 umol/L (7-35) H 01/24/22 13:19 Lactate Dehydrogenase 134 IU/L (91-225) 01/21/22 04:16 Troponin I High Sens 152.8 ng/L (2.3-19.7) H* 01/19/22 04:26 B-Natriuretic Peptide 877 pg/mL (5-100) H 01/20/22 04:34 Total Protein 5.2 g/dL (6.7-8.2) L 01/24/22 04:54 Albumin 2.9 g/dL (3.2-5.5) L 01/26/22 04:30 Globulin 2.4 g/dL (2.1-4.2) 01/24/22 04:54 Albumin/Globulin Ratio 1.1 (1.0-2.2) 01/18/22 14:35 Vitamin B12 275 pg/mL (180-914) 01/21/22 04:16 Folate 12.29 ng/mL (5.90 - >24.8) 01/21/22 04:16 Procalcitonin < 0.05 ng/mL (<0.5) 01/24/22 04:54 Urine Color YELLOW 01/22/22 15:53 Urine Clarity CLEAR (CLEAR) 01/22/22 15:53 Urine pH 8.0 PH (5.0-7.5) H 01/22/22 15:53 Ur Specific [place] 1.015 (1.002-1.030) 01/22/22 15:53 Urine Protein NEGATIVE mg/dL (NEGATIVE) 01/22/22 15:53 Urine Glucose (UA) NEGATIVE mg/dL (NEGATIVE) 01/22/22 15:53 Urine Ketones NEGATIVE mg/dL (NEGATIVE) 01/22/22 15:53 Urine Occult Blood TRACE-INTA (NEGATIVE) 01/22/22 15:53 Urine Nitrite NEGATIVE (NEGATIVE) 01/22/22 15:53 Urine Bilirubin NEGATIVE (NEGATIVE) 01/22/22 15:53 Urine Urobilinogen 4 E.U./dL (NORMAL) H 01/22/22 15:53 Ur Leukocyte Esterase NEGATIVE (NEGATIVE) 01/22/22 15:53 Urine RBC None Seen /HPF (0-5) 01/22/22 15:53 Urine WBC 4-5 /HPF (0-3) 01/22/22 15:53 Ur Squamous Epith Cells RARE Squamous (<= Few) 01/22/22 15:53 Urine Bacteria Few /HPF (None Seen) 01/22/22 15:53 Ur Microscopic Review INDICATED 01/18/22 14:50 Urine Culture Comments NOT INDICATED 01/22/22 15:53 Nasal Adenovirus (PCR) NOT DETECTED 01/18/22 14:35 Nasal B. parapertussis DNA (PCR) NOT DETECTED 01/18/22 14:35 Nasal Coronavir 229E PCR NOT DETECTED 01/18/22 14:35 Nasal Coronavir HKU1 PCR NOT DETECTED 01/18/22 14:35 Nasal Coronavir NL63 PCR NOT DETECTED 01/18/22 14:35 Nasal Coronavir OC43 PCR NOT DETECTED 01/18/22 14:35 Nasal Enterovir/Rhinovir PCR NOT DETECTED 01/18/22 14:35 Nasal Influenza B PCR NOT DETECTED 01/18/22 14:35 Nasal Influenza A PCR NOT DETECTED 01/18/22 14:35 Nasal Parainfluen 1 PCR NOT DETECTED 01/18/22 14:35 Nasal Parainfluen 2 PCR NOT DETECTED 01/18/22 14:35 Nasal Parainfluen 3 PCR NOT DETECTED 01/18/22 14:35 Nasal Parainfluen 4 PCR NOT DETECTED 01/18/22 14:35 Nasal RSV (PCR) NOT DETECTED 01/18/22 14:35 Nasal Screen MRSA (PCR) NEGATIVE (NEGATIVE) 01/18/22 20:15 Nasal B.pertussis DNA PCR NOT DETECTED 01/18/22 14:35 Nasal C.pneumoniae (PCR) NOT DETECTED 01/18/22 14:35 Fredy Human Metapneumo PCR NOT DETECTED 01/18/22 14:35 Nasal M.pneumoniae (PCR) NOT DETECTED 01/18/22 14:35 Nasal SARS-CoV-2 (PCR) NOT DETECTED 01/18/22 14:35 Urine Opiates Screen NEGATIVE (NEGATIVE) 01/18/22 14:50 Ur Oxycodone Screen NEGATIVE (NEGATIVE) 01/18/22 14:50 Urine Methadone Screen NEGATIVE (NEGATIVE) 01/18/22 14:50 Ur Propoxyphene Screen NEGATIVE (NEGATIVE) 01/18/22 14:50 Ur Barbiturates Screen NEGATIVE (NEGATIVE) 01/18/22 14:50 Ur Tricyclics Screen POSITIVE (NEGATIVE) H 01/18/22 14:50 Ur Phencyclidine Scrn NEGATIVE (NEGATIVE) 01/18/22 14:50 Ur Amphetamine Screen POSITIVE (NEGATIVE) H 01/18/22 14:50 U Methamphetamines Scrn POSITIVE (NEGATIVE) H 01/18/22 14:50 U Benzodiazepines Scrn NEGATIVE (NEGATIVE) 01/18/22 14:50 Urine Cocaine Screen NEGATIVE (NEGATIVE) 01/18/22 14:50 U Cannabinoids Screen POSITIVE (NEGATIVE) H 01/18/22 14:50 Ethyl Alcohol < 5.0 mg/dL 01/18/22 14:35 - Procedures Procedures: Procedures INSERTION OF ENDOTRACHEAL AIRWAY INTO TRACHEA, VIA OPENING (07/31/21) RESPIRATORY VENTILATION, 24-96 CONSECUTIVE HOURS (07/31/21) ABX Reporting Has patient been on IV antibiotics over the past 48 hours?: Yes
[2022-01-26] MEDS: FORMOTEROL FUMARATE NEB 20 MCG/2 ML INH SCH ×2 (08:18→08:19)
[2022-01-26] MEDS: BUDESONIDE 0.5 MG/2 ML NEB INH SCH (08:19)
[2022-01-26 08:26] LABS: ABG BASE EXCESS 6.9 mmol/L (-2.0-3.0); ABG HCO3 34.6 mmol/L (22.0-26.0); ABG OXYGEN SATURATION 95 % (94-98); ABG PH 7.37 (7.35-7.45); ABG PO2 74 mmHg (80-100); ABG TCO2 36.4 MMOL/L (21.0-29.0); ALLEN TEST POSITIVE
[2022-01-26 08:30] LABS: ABG PCO2 61 mmHg (34-45)
[2022-01-26] MEDS: SPIRONOLACTONE 25 MG TABLET PO SCH (09:19)
[2022-01-26] MEDS: ASPIRIN EC 81 MG TABLET PO SCH (09:20)
[2022-01-26] MEDS: carvediloL 3.125 MG TABLET PO SCH ×2 (09:20→21:08)
[2022-01-26] MEDS: CYANOCOBALAMIN 500 MCG TABLET PO SCH (09:22)
[2022-01-26] MEDS: LOSARTAN 50 MG TABLET PO SCH (09:22)
[2022-01-26] MEDS: DOXYCYCLINE INJ 100 MG in SODIUM CHLORIDE 0.9% MINIBAG 100 ML IV SCH (09:28)
[2022-01-26] MEDS: PANTOPRAZOLE 40 MG VIAL IV SCH (09:30)
[2022-01-26] MEDS: FUROSEMIDE 20 MG/2 ML VIAL IVP SCH ×2 (09:30→21:08)
[2022-01-26] MEDS: ENOXAPARIN 80 MG/0.8 ML SYRINGE SUBQ SCH ×2 (09:32→21:07)
[2022-01-26] MEDS: polyethylene glycoL 3350 17 GM PACKET PO SCH (09:34)
[2022-01-26] MEDS: DEXTROSE 5%-0.45% NACL 1,000 ML IV SCH ×2 (09:39→21:08)
[2022-01-26] MEDS: rifAXIMin 550 MG TABLET PO SCH ×2 (10:21→21:08)
--- NOTE | 2022-01-26 12:06 | XRAY Report ---
PROCEDURE: Chest for Line Placement INDICATIONS: NG TUBE PLACEMENT TECHNIQUE: One view of the chest was acquired. COMPARISON: Chest radiograph 01/23/2022. FINDINGS: Surgical changes and devices: An NG/OG tube is in place with the distal tip and side-port projecting over the proximal stomach. Lungs and pleura: Moderate right pleural effusion as before. Multangular/platelike right perihilar op acity probably represents atelectasis. Redemonstrated hazy opacities at the right mid and lower lung, potentially also atelectasis. Mediastinum: Cardiac silhouette is partially obscured, likely mildly enlarged. Mediastinal and hilar contours are similar to before. Bones and chest wall: Overlying soft tissues appear unremarkable. IMPRESSION: Distal end of the NG/OG tube projects over the proximal stomach. Reviewed by: Tod Sams MD on 01/25/2022 6:58 PM PDT Approved by: Tod Sams MD on 01/25/2022 6:58 PM PDT Station ID: [id number]
[2022-01-26] MEDS: MULTIVITAMIN W/MINERALS TABLET PO SCH (12:07)
[2022-01-26] MEDS: ATORVASTATIN 10 MG TABLET PO SCH (21:08)
[2022-01-27] MEDS: SODIUM CHLORIDE FLUSH 0.9% 10 ML SYRINGE IVP SCH ×3 (00:25→17:14)
[2022-01-27 06:04] LABS: BASOPHILS % (AUTO) 0.2 %; EOSINOPHILS # (AUTO) 0.2 10^3/uL (0.0-0.7); EOSINOPHILS % (AUTO) 2.7 %; HCT - HEMATOCRIT 51.1 % (42.0-52.0); HGB - HEMOGLOBIN 15.7 g/dL (14.0-18.0); LYMPHOCYTES # (AUTO) 0.5 10^3/uL (1.5-3.5); LYMPHOCYTES % (AUTO) 8.6 %; MEAN CORPUSCULAR HEMOGLOBIN 29.9 pg (27.0-31.0); MEAN CORPUSCULAR HGB CONC 30.7 g/dL (32.0-36.0); MEAN CORPUSCULAR VOLUME 97.3 fL (80.0-94.0); MEAN PLATELET VOLUME 11.3 fL (7.4-11.4); MONOCYTES # (AUTO) 0.8 10^3/uL (0.0-1.0); MONOCYTES % (AUTO) 13.3 %; NEUTROPHILS # (AUTO) 4.7 10^3/uL (1.5-6.6); NEUTROPHILS % (AUTO) 74.7 %; PLT - PLATELET COUNT 155 10^3/uL (130-450); RED BLOOD COUNT 5.25 10^6/uL (4.70-6.10); WHITE BLOOD COUNT 6.3 x10^3/uL (4.8-10.8)
[2022-01-27] MEDS: LACTULOSE 10 GM /15 ML UDC NG SCH ×3 (06:13→21:40)
[2022-01-27 06:19] LABS: CALCIUM, IONIZED 1.14 mmol/L (1.15-1.33); MAGNESIUM 1.9 mg/dL (1.7-2.8); PHOSPHORUS 3.6 mg/dL (2.5-4.6); VBG PH 7.265 (7.31-7.41)
[2022-01-27 06:20] LABS: ALBUMIN 2.9 g/dL (3.2-5.5); ALBUMIN/GLOBULIN RATIO 1.1 (1.0-2.2); CALCIUM 8.2 mg/dL (8.5-10.3); CREATININE 0.5 mg/dL (0.6-1.2); POTASSIUM 3.7 mmol/L (3.5-5.0); TOTAL PROTEIN 5.5 g/dL (6.7-8.2)
[2022-01-27] MEDS ORDERED: POTASSIUM CHLORIDE 20 MEQ/15 ML UDC PO ONE (07:00)
[2022-01-27] MEDS: DEXTROSE 5%-0.45% NACL 1,000 ML IV SCH (07:03)
[2022-01-27] MEDS: BUDESONIDE 0.5 MG/2 ML NEB INH SCH ×4 (07:21→19:06)
[2022-01-27] MEDS: FORMOTEROL FUMARATE NEB 20 MCG/2 ML INH SCH ×3 (07:21→19:07)
--- NOTE | 2022-01-27 08:50 | PROVIDER PROGRESS NOTE ---
Assessment/Plan - Problem List (1) Acute respiratory failure with hypoxia and hypercapnia Assessment/Plan: Likely multifactorial. Secondary to CHF exacerbation with reduced EF, COPD exacerbation with CO2 ret ention and possibly pneumonia. Currently on high flow nasal canula with BiPAP intermittently O2Sat 99% Doxycycline and Unasyn discontinued today 01/26/22. On Lasix 20 mg IV twice daily. (2) CHF exacerbation Qualifiers: Heart failure type: unspecified Qualified Code(s): I50.9 - Heart failure, unspecified Assessment/Plan: Lasix 20 mg IV twice daily Losartan 50 mg p.o. daily Carvedilol 3.125 mg p.o. twice daily Acetazolamide 500 mg p.o. 3 times daily. Spironolactone 12.5 mg p.o. daily. Echocardiogram shows an EF of approximately 20%. There is a small RV thrombus without evidence of LV thrombus. Lovenox 70 mg subcu twice daily. (3) COPD (chronic obstructive pulmonary disease) Assessment/Plan: ABG done on 01/26/2022 showed pH 7.37, PCO2 61, PO2 73.9, HCO3 34.6. He is a chronic retainer with appropriate compensation. Currently on high flow nasal canula with BiPAP intermittently O2Sat 99% Budesonide 0.5 mg inhalation twice daily. Perforomist 20 mcg inhalation twice daily (4) Elevated troponin I level Assessment/Plan: Resolved. Likely related to type II demand ischemia with troponin now down trended to 152.8. 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 Is on guideline directed medical therapy with Coreg, aspirin, losartan, Lipitor, along with diamox and Aldactone. Due to patient's noncompliance he is not a candidate for an AICD and will continue with medical management at this point. (5) Methamphetamine abuse Assessment/Plan: Urine drug screen during this admission was positive for methamphetamine/amphetamine. (8) Lethargy Assessment/Plan: Suspected to be secondary to medication use. Patient received several doses of Ativan for agitation which was interfering with bipap. Ativan, Zyprexa have been discontinued. Valproic acid discontinued. He is more active/ interactive but still somnolent (9) Malnourished Assessment/Plan: Patient is very frail/cachectic appearing. NG tube placed last night. Tube feedings initiated today. Nutrition following. (2) CHF exacerbation Qualifiers: Heart failure type: unspecified Qualified Code(s): I50.9 - Heart failure, unspecified - Current Meds Current Meds: Current Medications Generic Name Dose Route Start Last Admin Trade Name Freq PRN Reason Stop Dose Admin Acetazolamide 500 mg 01/24/22 14:00 01/27/22 06:13 Acetazolamide Er 500 Mg Capsule PO 500 mg TID ABENA Administration Albuterol/Ipratropium 3 ml 01/18/22 19:31 01/22/22 10:45 Ipratropium/Albuterol 3 Ml Neb INH 3 ml Q4HR PRN Administration Wheezing Aspirin 81 mg 01/19/22 09:00 01/26/22 09:20 Aspirin Ec 81 Mg Tablet PO 81 mg DAILY ABENA Administration Atorvastatin Calcium 10 mg 01/18/22 21:00 01/26/22 21:08 Atorvastatin 10 Mg Tablet PO 10 mg QPM ABENA Administration Budesonide 0.5 mg 01/19/22 07:00 01/27/22 07:21 Budesonide 0.5 Mg/2 Ml Neb INH Not Given RTBID ABENA Carvedilol 3.125 mg 01/24/22 08:27 01/26/22 21:08 Carvedilol 3.125 Mg Tablet PO 3.125 mg BID ABENA Administration Cyanocobalamin 500 mcg 01/21/22 13:00 01/26/22 09:22 Cyanocobalamin 500 Mcg Tablet PO 500 mcg DAILY ABENA Administration Enoxaparin Sodium 70 mg 01/24/22 21:00 01/26/22 21:07 Enoxaparin 80 Mg/0.8 Ml Syringe SUBQ 70 mg BID ABENA Administration Formoterol Fumarate 20 mcg 01/19/22 07:00 01/27/22 07:21 Formoterol Fumarate Neb 20 Mcg/2 Ml INH Not Given RTBID ABENA Furosemide 20 mg 01/24/22 21:00 01/26/22 21:08 Furosemide 20 Mg/2 Ml Vial IVP 20 mg BID ABENA Administration Dextrose/Sodium Chloride 1,000 mls @ 100 mls/hr 01/26/22 08:00 01/27/22 07:03 D5.45ns IV 100 mls/hr .Q10H ABENA Administration Lactulose 10 gm 01/25/22 18:00 01/27/22 06:13 Lactulose 10 Gm /15 Ml Udc NG 10 gm TID ABENA Administration Losartan Potassium 50 mg 01/24/22 09:00 01/26/22 09:22 Losartan 50 Mg Tablet PO 50 mg DAILY ABENA Administration Multivitamins/Minerals 1 tab 01/24/22 12:00 01/26/22 12:07 Multivitamin W/Minerals Tablet PO 1 tab QDLUNCH ABENA Administration Pantoprazole Sodium 40 mg 01/25/22 09:00 01/26/22 09:30 Pantoprazole 40 Mg Vial IV 40 mg DAILY ABENA Administration Polyethylene Glycol 17 gm 01/20/22 09:00 01/26/22 09:34 Polyethylene Glycol 3350 17 Gm Packet PO 17 gm DAILY ABENA Administration Rifaximin 550 mg 01/25/22 21:00 01/26/22 21:08 Rifaximin 550 Mg Tablet PO 550 mg BID ABENA Administration Sodium Chloride 10 ml 01/19/22 01:00 01/27/22 00:25 Sodium Chloride Flush 0.9% 10 Ml Syringe IVP Not Given 0100,0900,1700 ABENA Sodium Chloride 10 ml 01/18/22 19:20 01/26/22 06:46 Sodium Chloride Flush 0.9% 10 Ml Syringe IVP 10 ml PRN PRN Administration NEEDED PER PROVIDER ORDERS Spironolactone 12.5 mg 01/19/22 09:00 01/26/22 09:19 Spironolactone 25 Mg Tablet PO 12.5 mg DAILY ABENA Administration - Lab Result Fish Bone Diagrams: 01/27/22 04:04 01/27/22 04:04 - Additional Planning My Orders: My Active Orders 01/26/22 08:00 Daily Weight [RC] DAILY IO [RC] Q1HR Tube Feeding [RC] QSHIFT Dextrose 5%-0.45% NaCl [D5.45ns] 1,000 ml IV 100 mls/hr 01/26/22 08:06 Initiate ICU Electrolyte Prot. [RC] QSHIFT 01/26/22 08:08 RT - Obtain Arterial Specimen [RC] .ONCE 01/29/22 05:00 COMPREHENSIVE METABOLIC PANEL [CHEM] Timed MAGNESIUM [CHEM] Timed PHOSPHORUS [CHEM] Timed PREALBUMIN [CHEM] Timed 02/01/22 05:00 COMPREHENSIVE METABOLIC PANEL [CHEM] Timed MAGNESIUM [CHEM] Timed PHOSPHORUS [CHEM] Timed PREALBUMIN [CHEM] Timed Subjective - Subjective Patient Reports: Other (Patient was more alert today yet still has somnolent. He was actively trying to pull out the NG tube despite restraints.) Objective Vital Signs: Vital Signs - 24 hr 01/26/22 01/26/22 01/26/22 09:00 10:00 11:00 Temperature Heart Rate Heart Rate [ 76 80 70 Monitoring electrodes] Respiratory 15 15 17 Rate Blood Pressure Blood Pressure 120/97 H 121/57 L 94/54 L [Left Femoral artery] O2 Saturation 95 98 95 01/26/22 01/26/22 01/26/22 12:00 13:00 14:00 Temperature Heart Rate Heart Rate [ 69 68 67 Monitoring electrodes] Respiratory 18 16 14 Rate Blood Pressure Blood Pressure 98/51 L 102/62 93/70 [Left Femoral artery] O2 Saturation 97 93 94 01/26/22 01/26/22 01/26/22 15:00 16:00 17:00 Temperature Heart Rate Heart Rate [ 71 70 86 Monitoring electrodes] Respiratory 20 15 14 Rate Blood Pressure Blood Pressure 113/66 105/57 L 148/74 H [Left Femoral artery] O2 Saturation 96 96 95 01/26/22 01/26/22 01/26/22 18:00 19:00 20:00 Temperature 36.3 C L Heart Rate Heart Rate [ 69 67 83 Monitoring electrodes] Respiratory 14 15 20 Rate Blood Pressure Blood Pressure 99/50 L 114/71 105/55 L [Left Femoral artery] O2 Saturation 92 93 92 01/26/22 01/26/22 01/26/22 21:00 22:00 23:00 Temperature Heart Rate Heart Rate [ 81 81 76 Monitoring electrodes] Respiratory 15 16 15 Rate Blood Pressure Blood Pressure 114/67 113/65 97/58 L [Left Femoral artery] O2 Saturation 88 L 90 L 88 L 01/27/22 01/27/22 01/27/22 00:00 01:00 02:00 Temperature 36.4 C L Heart Rate 78 Heart Rate [ 76 83 78 Monitoring electrodes] Respiratory 15 16 12 Rate Blood Pressure 101/48 L Blood Pressure 140/69 H 118/75 101/48 L [Left Femoral artery] O2 Saturation 96 95 96 01/27/22 01/27/22 01/27/22 03:00 04:00 05:00 Temperature Heart Rate Heart Rate [ 92 81 86 Monitoring electrodes] Respiratory 25 H 22 24 Rate Blood Pressure Blood Pressure 129/72 106/85 H 139/74 H [Left Femoral artery] O2 Saturation 95 98 97 01/27/22 01/27/22 06:00 07:00 Temperature Heart Rate Heart Rate [ 80 81 Monitoring electrodes] Respiratory 15 15 Rate Blood Pressure Blood Pressure 119/62 116/59 L [Left Femoral artery] O2 Saturation 97 98 Oxygen O2 Source HHFNC Oxygen Flow Rate 10 I&O (Last 24 Hrs): Intake and Output Totals x24h 01/25/22 01/26/22 01/27/22 23:59 23:59 23:59 Intake Total 1267 2625 2109.667 Output Total 0 2155 2320 Balance 1267 470 -210.333 Comments/Notes: General: No acute distress, Other (Somnolent, frail.) HEENT: Atraumatic, PERRLA, EOMI Neck: Supple, No JVD Neuro: Alert, Non Focal, Oriented Times 3 Cardiovascular: Regular rate, No murmurs Respiratory: Chest non-tender, No respiratory distress, Other (Coarse breath sounds) Abdomen: Normal bowel sounds, Soft, No tenderness, No masses Extremities: No clubbing, No cyanosis, No edema, No tenderness/swelling - Results Results: Laboratory Results WBC 6.3 x10^3/uL (4.8-10.8) 01/27/22 04:04 RBC 5.25 10^6/uL (4.70-6.10) 01/27/22 04:04 Hgb 15.7 g/dL (14.0-18.0) 01/27/22 04:04 Hct 51.1 % (42.0-52.0) 01/27/22 04:04 MCV 97.3 fL (80.0-94.0) H 01/27/22 04:04 MCH 29.9 pg (27.0-31.0) 01/27/22 04:04 MCHC 30.7 g/dL (32.0-36.0) L 01/27/22 04:04 RDW 14.0 % (12.0-15.0) 01/27/22 04:04 Plt Count 155 10^3/uL (130-450) 01/27/22 04:04 MPV 11.3 fL (7.4-11.4) 01/27/22 04:04 Neut # (Auto) 4.7 10^3/uL (1.5-6.6) 01/27/22 04:04 Lymph # (Auto) 0.5 10^3/uL (1.5-3.5) L 01/27/22 04:04 [place] # (Auto) 0.8 10^3/uL (0.0-1.0) 01/27/22 04:04 Eos # (Auto) 0.2 10^3/uL (0.0-0.7) 01/27/22 04:04 Baso # (Auto) 0.0 10^3/uL (0.0-0.1) 01/27/22 04:04 Absolute Nucleated RBC 0.00 x10^3/uL 01/27/22 04:04 Nucleated RBC % 0.0 /100WBC 01/27/22 04:04 PT 11.7 secs (9.9-12.6) 01/22/22 05:35 INR 1.0 (0.8-1.2) 01/22/22 05:35 Bld Gas Analysis Time 81401/26/22 08:15 Sample Site RIGHT RADIAL 01/26/22 08:15 ABG pH 7.37 (7.35-7.45) 01/26/22 08:15 ABG pCO2 61 mmHg (34-45) H* 01/26/22 08:15 ABG pO2 74 mmHg (80-100) L 01/26/22 08:15 ABG HCO3 34.6 mmol/L (22.0-26.0) H 01/26/22 08:15 ABG Total CO2 36.4 MMOL/L (21.0-29.0) H 01/26/22 08:15 ABG O2 Saturation 95 % (94-98) 01/26/22 08:15 ABG Base Excess 6.9 mmol/L (-2.0-3.0) H 01/26/22 08:15 Conner Test POSITIVE 01/26/22 08:15 VBG pH 7.265 (7.31-7.41) L 01/27/22 04:04 VBG pCO2 61.2 mmHg (41-51) H 01/26/22 04:30 VBG pO2 62.0 mmHg (25-47) H 01/26/22 04:30 VBG HCO3 32.0 mmol/L (23-28) H 01/26/22 04:30 VBG Total CO2 33.9 mmol/L (24-29) H 01/26/22 04:30 VBG O2 Saturation 91.7 % (60-80) H 01/26/22 04:30 VBG Base Excess 4.0 mmol/L (-2 - +2) H 01/26/22 04:30 Ionized Calcium 1.14 mmol/L (1.15-1.33) L 01/27/22 04:04 Respiration Rate 20 b/min 01/24/22 12:45 O2 Delivery Device NASAL CANNULA 01/26/22 08:15 O2 Liters/Min 3.00 LPM 01/18/22 16:40 FiO2 35.00 01/26/22 08:15 EPAP 6 cmH2O 01/25/22 07:05 IPAP 16 cmH2O 01/25/22 07:05 Sodium 140 mmol/L (135-145) 01/27/22 04:04 Potassium 3.7 mmol/L (3.5-5.0) 01/27/22 04:04 Chloride 98 mmol/L (101-111) L 01/27/22 04:04 Carbon Dioxide 35 mmol/L (21-32) H 01/27/22 04:04 Anion Gap 7.0 (6-13) 01/27/22 04:04 BUN 17 mg/dL (6-20) 01/27/22 04:04 Creatinine 0.5 mg/dL (0.6-1.2) L 01/27/22 04:04 Estimated GFR (MDRD) 167 (>89) 01/27/22 04:04 Glucose 143 mg/dL (70-100) H 01/27/22 04:04 POC Whole Bld Glucose 129 mg/dL (70 - 100) H 01/27/22 05:51 Lactic Acid 1.5 mmol/L (0.5-2.2) 01/20/22 16:58 Calcium 8.2 mg/dL (8.5-10.3) L 01/27/22 04:04 Phosphorus 3.6 mg/dL (2.5-4.6) 01/27/22 04:04 Magnesium 1.9 mg/dL (1.7-2.8) 01/27/22 04:04 Total Bilirubin 1.0 mg/dL (0.2-1.0) 01/27/22 04:04 Direct Bilirubin 0.1 mg/dL (0.1-0.5) 01/24/22 04:54 AST 52 IU/L (10-42) H 01/27/22 04:04 ALT 41 IU/L (10-60) 01/27/22 04:04 Alkaline Phosphatase 42 IU/L (42-121) 01/27/22 04:04 Ammonia 37.8 umol/L (7-35) H 01/24/22 13:19 Lactate Dehydrogenase 134 IU/L (91-225) 01/21/22 04:16 Troponin I High Sens 152.8 ng/L (2.3-19.7) H* 01/19/22 04:26 B-Natriuretic Peptide 877 pg/mL (5-100) H 01/20/22 04:34 Total Protein 5.5 g/dL (6.7-8.2) L 01/27/22 04:04 Albumin 2.9 g/dL (3.2-5.5) L 01/27/22 04:04 Globulin 2.6 g/dL (2.1-4.2) 01/27/22 04:04 Albumin/Globulin Ratio 1.1 (1.0-2.2) 01/27/22 04:04 Prealbumin 16 mg/dL (18-45) L 01/27/22 04:04 Vitamin B12 275 pg/mL (180-914) 01/21/22 04:16 Folate 12.29 ng/mL (5.90 - >24.8) 01/21/22 04:16 Procalcitonin < 0.05 ng/mL (<0.5) 01/24/22 04:54 Urine Color YELLOW 01/22/22 15:53 Urine Clarity CLEAR (CLEAR) 01/22/22 15:53 Urine pH 8.0 PH (5.0-7.5) H 01/22/22 15:53 Ur Specific [place] 1.015 (1.002-1.030) 01/22/22 15:53 Urine Protein NEGATIVE mg/dL (NEGATIVE) 01/22/22 15:53 Urine Glucose (UA) NEGATIVE mg/dL (NEGATIVE) 01/22/22 15:53 Urine Ketones NEGATIVE mg/dL (NEGATIVE) 01/22/22 15:53 Urine Occult Blood TRACE-INTA (NEGATIVE) 01/22/22 15:53 Urine Nitrite NEGATIVE (NEGATIVE) 01/22/22 15:53 Urine Bilirubin NEGATIVE (NEGATIVE) 01/22/22 15:53 Urine Urobilinogen 4 E.U./dL (NORMAL) H 01/22/22 15:53 Ur Leukocyte Esterase NEGATIVE (NEGATIVE) 01/22/22 15:53 Urine RBC None Seen /HPF (0-5) 01/22/22 15:53 Urine WBC 4-5 /HPF (0-3) 01/22/22 15:53 Ur Squamous Epith Cells RARE Squamous (<= Few) 01/22/22 15:53 Urine Bacteria Few /HPF (None Seen) 01/22/22 15:53 Ur Microscopic Review INDICATED 01/18/22 14:50 Urine Culture Comments NOT INDICATED 01/22/22 15:53 Nasal Adenovirus (PCR) NOT DETECTED 01/18/22 14:35 Nasal B. parapertussis DNA (PCR) NOT DETECTED 01/18/22 14:35 Nasal Coronavir 229E PCR NOT DETECTED 01/18/22 14:35 Nasal Coronavir HKU1 PCR NOT DETECTED 01/18/22 14:35 Nasal Coronavir NL63 PCR NOT DETECTED 01/18/22 14:35 Nasal Coronavir OC43 PCR NOT DETECTED 01/18/22 14:35 Nasal Enterovir/Rhinovir PCR NOT DETECTED 01/18/22 14:35 Nasal Influenza B PCR NOT DETECTED 01/18/22 14:35 Nasal Influenza A PCR NOT DETECTED 01/18/22 14:35 Nasal Parainfluen 1 PCR NOT DETECTED 01/18/22 14:35 Nasal Parainfluen 2 PCR NOT DETECTED 01/18/22 14:35 Nasal Parainfluen 3 PCR NOT DETECTED 01/18/22 14:35 Nasal Parainfluen 4 PCR NOT DETECTED 01/18/22 14:35 Nasal RSV (PCR) NOT DETECTED 01/18/22 14:35 Nasal Screen MRSA (PCR) NEGATIVE (NEGATIVE) 01/18/22 20:15 Nasal B.pertussis DNA PCR NOT DETECTED 01/18/22 14:35 Nasal C.pneumoniae (PCR) NOT DETECTED 01/18/22 14:35 Fredy Human Metapneumo PCR NOT DETECTED 01/18/22 14:35 Nasal M.pneumoniae (PCR) NOT DETECTED 01/18/22 14:35 Nasal SARS-CoV-2 (PCR) NOT DETECTED 01/18/22 14:35 Urine Opiates Screen NEGATIVE (NEGATIVE) 01/18/22 14:50 Ur Oxycodone Screen NEGATIVE (NEGATIVE) 01/18/22 14:50 Urine Methadone Screen NEGATIVE (NEGATIVE) 01/18/22 14:50 Ur Propoxyphene Screen NEGATIVE (NEGATIVE) 01/18/22 14:50 Ur Barbiturates Screen NEGATIVE (NEGATIVE) 01/18/22 14:50 Ur Tricyclics Screen POSITIVE (NEGATIVE) H 01/18/22 14:50 Ur Phencyclidine Scrn NEGATIVE (NEGATIVE) 01/18/22 14:50 Ur Amphetamine Screen POSITIVE (NEGATIVE) H 01/18/22 14:50 U Methamphetamines Scrn POSITIVE (NEGATIVE) H 01/18/22 14:50 U Benzodiazepines Scrn NEGATIVE (NEGATIVE) 01/18/22 14:50 Urine Cocaine Screen NEGATIVE (NEGATIVE) 01/18/22 14:50 U Cannabinoids Screen POSITIVE (NEGATIVE) H 01/18/22 14:50 Ethyl Alcohol < 5.0 mg/dL 01/18/22 14:35 - Procedures Procedures: Procedures INSERTION OF ENDOTRACHEAL AIRWAY INTO TRACHEA, VIA OPENING (07/31/21) RESPIRATORY VENTILATION, 24-96 CONSECUTIVE HOURS (07/31/21)
[2022-01-27] MEDS: CYANOCOBALAMIN 500 MCG TABLET PO SCH (10:49)
[2022-01-27] MEDS: ASPIRIN EC 81 MG TABLET PO SCH (10:50)
[2022-01-27] MEDS: FUROSEMIDE 20 MG/2 ML VIAL IVP SCH ×2 (10:53→21:13)
[2022-01-27] MEDS: PANTOPRAZOLE 40 MG VIAL IV SCH (10:54)
[2022-01-27] MEDS: ENOXAPARIN 80 MG/0.8 ML SYRINGE SUBQ SCH ×2 (10:57→21:14)
[2022-01-27] MEDS: rifAXIMin 550 MG TABLET PO SCH ×2 (11:02→21:14)
[2022-01-27] MEDS: carvediloL 3.125 MG TABLET PO SCH ×2 (11:05→21:13)
[2022-01-27] MEDS: SPIRONOLACTONE 25 MG TABLET PO SCH (11:05)
[2022-01-27] MEDS: polyethylene glycoL 3350 17 GM PACKET PO SCH (11:08)
[2022-01-27] MEDS: LOSARTAN 50 MG TABLET PO SCH (11:14)
[2022-01-27] MEDS: MULTIVITAMIN W/MINERALS TABLET PO SCH (11:14)
[2022-01-27] MEDS ORDERED: ACETAMINOPHEN 160 MG/5 ML SUSP UDC NG PRN (11:24)
--- NOTE | 2022-01-27 15:53 | XRAY Report ---
PROCEDURE: Chest for Line Placement INDICATIONS: NG TUBE PLACEMENT TECHNIQUE: One view of the chest was acquired. COMPARISON: None FINDINGS: Surgical changes and devices: NG tube projects across the GE junction with distal tip and side-port p rojecting over the stomach. Lungs and pleura: Moderate sized right-sided pleural fluid collection. Consolidation right lung base. Mediastinum: Mediastinal contours appear normal. Heart size is normal. Bones and chest wall: No suspicious bony lesions. Overlying soft tissues appear unremarkable. IMPRESSION: NG tube projects across the GE junction with distal tip and side-port projecting over the stomach. Reviewed by: Iveth Byers MD, PhD on 01/27/2022 3:52 PM PDT Approved by: Iveth Byers MD, PhD on 01/27/2022 3:52 PM PDT Station ID: [id number]
[2022-01-27] MEDS: ATORVASTATIN 10 MG TABLET PO SCH (21:14)
[2022-01-27] MEDS: SODIUM CHLORIDE FLUSH 0.9% 10 ML SYRINGE IVP PRN (21:15)
[2022-01-28] MEDS: SODIUM CHLORIDE FLUSH 0.9% 10 ML SYRINGE IVP SCH ×5 (01:21→23:58)
[2022-01-28] MEDS ORDERED: DEXMEDETOMIDINE 400 MCG/100 ML 100 ML IV SCH (02:00)
[2022-01-28 05:43] LABS: CALCIUM, IONIZED 1.17 mmol/L (1.15-1.33); VBG PH 7.242 (7.31-7.41)
[2022-01-28 05:45] LABS: EOSINOPHILS # (AUTO) 0.1 10^3/uL (0.0-0.7); EOSINOPHILS % (AUTO) 2.4 %; HCT - HEMATOCRIT 47.9 % (42.0-52.0); HGB - HEMOGLOBIN 14.7 g/dL (14.0-18.0); LYMPHOCYTES # (AUTO) 0.7 10^3/uL (1.5-3.5); LYMPHOCYTES % (AUTO) 11.4 %; MEAN CORPUSCULAR HEMOGLOBIN 29.6 pg (27.0-31.0); MEAN CORPUSCULAR HGB CONC 30.7 g/dL (32.0-36.0); MEAN CORPUSCULAR VOLUME 96.4 fL (80.0-94.0); MEAN PLATELET VOLUME 11.4 fL (7.4-11.4); MONOCYTES % (AUTO) 17.4 %; NEUTROPHILS % (AUTO) 68.3 %; PLT - PLATELET COUNT 145 10^3/uL (130-450); RED BLOOD COUNT 4.97 10^6/uL (4.70-6.10); RED CELL DISTRIBUTION WIDTH 13.9 % (12.0-15.0); WHITE BLOOD COUNT 5.8 x10^3/uL (4.8-10.8)
[2022-01-28] MEDS: LACTULOSE 10 GM /15 ML UDC NG SCH (05:55)
[2022-01-28 05:59] LABS: PHOSPHORUS 3.4 mg/dL (2.5-4.6)
[2022-01-28] MEDS: FORMOTEROL FUMARATE NEB 20 MCG/2 ML INH SCH ×2 (07:43→23:31)
[2022-01-28] MEDS: BUDESONIDE 0.5 MG/2 ML NEB INH SCH ×2 (07:43→23:32)
--- NOTE | 2022-01-28 08:17 | PROVIDER PROGRESS NOTE ---
Assessment/Plan - Problem List (1) Acute respiratory failure with hypoxia and hypercapnia Assessment/Plan: Likely multifactorial. Secondary to CHF exacerbation with reduced EF, COPD exacerbation with CO2 ret ention and possibly pneumonia. Currently on high flow nasal canula with BiPAP intermittently O2Sat 99% Doxycycline and Unasyn discontinued today 01/26/22. On Lasix 20 mg IV twice daily. (2) CHF exacerbation Qualifiers: Heart failure type: unspecified Qualified Code(s): I50.9 - Heart failure, unspecified Assessment/Plan: Lasix 20 mg IV twice daily Losartan 50 mg p.o. daily Carvedilol 3.125 mg p.o. twice daily Acetazolamide 500 mg p.o. 3 times daily. Spironolactone 12.5 mg p.o. daily. Echocardiogram shows an EF of approximately 20%. There is a small RV thrombus without evidence of LV thrombus. Lovenox 70 mg subcu twice daily. (3) COPD (chronic obstructive pulmonary disease) Assessment/Plan: ABG done on 01/26/2022 showed pH 7.37, PCO2 61, PO2 73.9, HCO3 34.6. He is a chronic retainer with appropriate compensation. Currently on high flow nasal canula with BiPAP intermittently O2Sat 99% Budesonide 0.5 mg inhalation twice daily. Perforomist 20 mcg inhalation twice daily (4) Elevated troponin I level Assessment/Plan: Likely related to type II demand ischemia with troponin now down trended to 152.8. 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 Is on guideline directed medical therapy with Coreg, aspirin, losartan, Lipitor, along with diamox and Aldactone. Due to patient's noncompliance he is not a candidate for an AICD and will continue with medical management at this point. (5) Methamphetamine abuse Assessment/Plan: Urine drug screen during this admission was positive for methamphetamine/amphetamine. (8) Lethargy Assessment/Plan: Suspected to be secondary to medication use. Patient received several doses of Ativan for agitation which was interfering with bipap. Ativan, Zyprexa have been discontinued. Valproic acid discontinued. He is more active/ interactive but still somnolent He is fully awake and alert today 01/28/2022. He is very insistent on being discharged home despite weakness and low blood pressures with systolic blood pressure as low as 80s. (9) Malnourished Assessment/Plan: Patient is very frail/cachectic appearing. He was more awake alert and oriented today. He was insistent on having the NG tube removed. NG tube removed 01/28/22. Nutrition following. Patient ate all of his food for lunch. - Current Meds Current Meds: Current Medications Generic Name Dose Route Start Last Admin Trade Name Freq PRN Reason Stop Dose Admin Acetazolamide 500 mg 01/24/22 14:00 01/28/22 05:55 Acetazolamide Er 500 Mg Capsule PO 500 mg TID ABENA Administration Albuterol/Ipratropium 3 ml 01/18/22 19:31 01/22/22 10:45 Ipratropium/Albuterol 3 Ml Neb INH 3 ml Q4HR PRN Administration Wheezing Atorvastatin Calcium 10 mg 01/18/22 21:00 01/27/22 21:14 Atorvastatin 10 Mg Tablet PO 10 mg QPM ABENA Administration Budesonide 0.5 mg 01/19/22 07:00 01/28/22 07:43 Budesonide 0.5 Mg/2 Ml Neb INH 0.5 mg RTBID ABENA Administration Carvedilol 3.125 mg 01/24/22 08:27 01/27/22 21:13 Carvedilol 3.125 Mg Tablet PO 3.125 mg BID ABENA Administration Enoxaparin Sodium 70 mg 01/24/22 21:00 01/27/22 21:14 Enoxaparin 80 Mg/0.8 Ml Syringe SUBQ 70 mg BID ABENA Administration Formoterol Fumarate 20 mcg 01/19/22 07:00 01/28/22 07:43 Formoterol Fumarate Neb 20 Mcg/2 Ml INH 20 mcg RTBID ABENA Administration Furosemide 20 mg 01/24/22 21:00 01/27/22 21:13 Furosemide 20 Mg/2 Ml Vial IVP 20 mg BID ABENA Administration Losartan Potassium 50 mg 01/24/22 09:00 01/27/22 11:14 Losartan 50 Mg Tablet PO 50 mg DAILY ABENA Administration Multivitamins/Minerals 1 tab 01/24/22 12:00 01/27/22 11:14 Multivitamin W/Minerals Tablet PO 1 tab QDLUNCH ABENA Administration Pantoprazole Sodium 40 mg 01/25/22 09:00 01/27/22 10:54 Pantoprazole 40 Mg Vial IV 40 mg DAILY ABENA Administration Rifaximin 550 mg 01/25/22 21:00 01/27/22 21:14 Rifaximin 550 Mg Tablet PO 550 mg BID ABENA Administration Sodium Chloride 10 ml 01/19/22 01:00 01/28/22 01:21 Sodium Chloride Flush 0.9% 10 Ml Syringe IVP Not Given 0100,0900,1700 ABENA Sodium Chloride 10 ml 01/18/22 19:20 01/27/22 21:15 Sodium Chloride Flush 0.9% 10 Ml Syringe IVP 10 ml PRN PRN Administration NEEDED PER PROVIDER ORDERS Spironolactone 12.5 mg 01/19/22 09:00 01/27/22 11:05 Spironolactone 25 Mg Tablet PO 12.5 mg DAILY ABENA Administration - Lab Result Fish Bone Diagrams: 01/28/22 08:25 01/28/22 08:25 - Additional Planning My Orders: My Active Orders 01/27/22 11:24 Acetaminophen [Tylenol] 640 mg NG Q4HR PRN 01/27/22 11:36 polyethylene glycoL 3350 [Miralax] 17 gm NG DAILY 01/28/22 08:13 BMP - BASIC METABOLIC PANEL [CHEM] Stat CBC - COMP BLD CT W/AUTO DIFF [HEME] Stat 01/28/22 08:16 AMMONIA [CHEM] Stat 01/28/22 09:00 Aspirin Chewable [[facility] Aspirin] 81 mg NG DAILY 01/29/22 05:00 BMP - BASIC METABOLIC PANEL [CHEM] DAILYLAB CBC - COMP BLD CT W/AUTO DIFF [HEME] DAILYLAB COMPREHENSIVE METABOLIC PANEL [CHEM] Timed MAGNESIUM [CHEM] Timed PHOSPHORUS [CHEM] Timed PREALBUMIN [CHEM] Timed 01/30/22 05:00 BMP - BASIC METABOLIC PANEL [CHEM] DAILYLAB CBC - COMP BLD CT W/AUTO DIFF [HEME] DAILYLAB 01/31/22 05:00 BMP - BASIC METABOLIC PANEL [CHEM] DAILYLAB CBC - COMP BLD CT W/AUTO DIFF [HEME] DAILYLAB 02/01/22 05:00 BMP - BASIC METABOLIC PANEL [CHEM] DAILYLAB CBC - COMP BLD CT W/AUTO DIFF [HEME] DAILYLAB COMPREHENSIVE METABOLIC PANEL [CHEM] Timed MAGNESIUM [CHEM] Timed PHOSPHORUS [CHEM] Timed PREALBUMIN [CHEM] Timed 02/02/22 05:00 BMP - BASIC METABOLIC PANEL [CHEM] DAILYLAB CBC - COMP BLD CT W/AUTO DIFF [HEME] DAILYLAB Subjective - Subjective Patient Reports: Other (Patient is very awake alert and oriented today. He is very insistent on being discharged home. Overnight he needed Precedex for a few hours. It was discontinued due to low blood pressures. NG tube removed today.) Objective Vital Signs: Vital Signs - 24 hr 01/27/22 01/27/22 01/27/22 09:00 10:00 11:00 Temperature 37.1 C Heart Rate Heart Rate [ 89 90 83 Monitoring electrodes] Respiratory 26 H 26 H 29 H Rate Blood Pressure Blood Pressure 143/63 H 132/67 H 136/94 H [Left Femoral artery] Blood Pressure [Right Brachial artery] O2 Saturation 98 98 100 01/27/22 01/27/22 01/27/22 12:00 13:00 15:00 Temperature Heart Rate Heart Rate [ 75 82 74 Monitoring electrodes] Respiratory 15 21 19 Rate Blood Pressure Blood Pressure 100/57 L 115/91 H 122/77 [Left Femoral artery] Blood Pressure [Right Brachial artery] O2 Saturation 98 100 97 01/27/22 01/27/22 01/27/22 16:00 17:00 18:00 Temperature Heart Rate Heart Rate [ 82 82 77 Monitoring electrodes] Respiratory 22 15 12 Rate Blood Pressure Blood Pressure 119/71 136/56 H 90/73 [Left Femoral artery] Blood Pressure [Right Brachial artery] O2 Saturation 99 99 96 01/27/22 01/27/22 01/27/22 19:00 19:08 20:00 Temperature 36.4 C L Heart Rate 81 Heart Rate [ 81 85 Monitoring electrodes] Respiratory 29 H 19 16 Rate Blood Pressure Blood Pressure 102/90 H 102/90 H [Left Femoral artery] Blood Pressure [Right Brachial artery] O2 Saturation 94 96 01/27/22 01/27/22 01/27/22 21:00 22:00 23:00 Temperature Heart Rate Heart Rate [ 80 77 72 Monitoring electrodes] Respiratory 26 H 16 12 Rate Blood Pressure Blood Pressure 109/64 109/86 H 112/52 L [Left Femoral artery] Blood Pressure [Right Brachial artery] O2 Saturation 100 96 94 01/28/22 01/28/22 01/28/22 00:00 01:00 02:00 Temperature Heart Rate Heart Rate [ 73 75 72 Monitoring electrodes] Respiratory 20 20 14 Rate Blood Pressure Blood Pressure 101/62 114/66 99/52 L [Left Femoral artery] Blood Pressure [Right Brachial artery] O2 Saturation 100 100 100 01/28/22 01/28/22 01/28/22 03:00 04:00 05:00 Temperature 36.4 C L Heart Rate Heart Rate [ 70 64 52 L Monitoring electrodes] Respiratory 14 19 11 L Rate Blood Pressure Blood Pressure 94/58 L 97/66 99/52 L [Left Femoral artery] Blood Pressure [Right Brachial artery] O2 Saturation 100 94 98 01/28/22 01/28/22 01/28/22 06:00 07:00 07:49 Temperature Heart Rate 59 L 80 Heart Rate [ 58 L 62 Monitoring electrodes] Respiratory 11 L 20 20 Rate Blood Pressure 79/57 L Blood Pressure [Left Femoral artery] Blood Pressure 82/55 L 86/62 L [Right Brachial artery] O2 Saturation 98 100 01/28/22 01/28/22 07:55 08:00 Temperature 36.6 C Heart Rate 64 Heart Rate [ 66 Monitoring electrodes] Respiratory 19 19 Rate Blood Pressure 83/59 L Blood Pressure [Left Femoral artery] Blood Pressure 83/59 L [Right Brachial artery] O2 Saturation 98 98 Oxygen O2 Source Nasal cannula Oxygen Flow Rate 10 I&O (Last 24 Hrs): Intake and Output Totals x24h 01/26/22 01/27/22 01/28/22 23:59 23:59 23:59 Intake Total 2625 3844.667 1112.867 Output Total 2155 4395 610 Balance 470 -550.333 502.867 Comments/Notes: General: No acute distress, Other (Somnolent, frail.) HEENT: Atraumatic, PERRLA, EOMI Neck: Supple, No JVD Neuro: Alert, Non Focal, Oriented Times 3 Cardiovascular: Regular rate, No murmurs Respiratory: Chest non-tender, No respiratory distress, Other (Coarse breath sounds) Abdomen: Normal bowel sounds, Soft, No tenderness, No masses Extremities: No clubbing, No cyanosis, No edema, No tenderness/swelling - Results Results: Laboratory Results WBC 5.8 x10^3/uL (4.8-10.8) 01/28/22 04:07 RBC 4.97 10^6/uL (4.70-6.10) 01/28/22 04:07 Hgb 14.7 g/dL (14.0-18.0) 01/28/22 04:07 Hct 47.9 % (42.0-52.0) 01/28/22 04:07 MCV 96.4 fL (80.0-94.0) H 01/28/22 04:07 MCH 29.6 pg (27.0-31.0) 01/28/22 04:07 MCHC 30.7 g/dL (32.0-36.0) L 01/28/22 04:07 RDW 13.9 % (12.0-15.0) 01/28/22 04:07 Plt Count 145 10^3/uL (130-450) 01/28/22 04:07 MPV 11.4 fL (7.4-11.4) 01/28/22 04:07 Neut # (Auto) 4.0 10^3/uL (1.5-6.6) 01/28/22 04:07 Lymph # (Auto) 0.7 10^3/uL (1.5-3.5) L 01/28/22 04:07 Hart # (Auto) 1.0 10^3/uL (0.0-1.0) 01/28/22 04:07 Eos # (Auto) 0.1 10^3/uL (0.0-0.7) 01/28/22 04:07 Baso # (Auto) 0.0 10^3/uL (0.0-0.1) 01/28/22 04:07 Absolute Nucleated RBC 0.00 x10^3/uL 01/28/22 04:07 Nucleated RBC % 0.0 /100WBC 01/28/22 04:07 PT 11.7 secs (9.9-12.6) 01/22/22 05:35 INR 1.0 (0.8-1.2) 01/22/22 05:35 Bld Gas Analysis Time 81401/26/22 08:15 Sample Site RIGHT RADIAL 01/26/22 08:15 ABG pH 7.37 (7.35-7.45) 01/26/22 08:15 ABG pCO2 61 mmHg (34-45) H* 01/26/22 08:15 ABG pO2 74 mmHg (80-100) L 01/26/22 08:15 ABG HCO3 34.6 mmol/L (22.0-26.0) H 01/26/22 08:15 ABG Total CO2 36.4 MMOL/L (21.0-29.0) H 01/26/22 08:15 ABG O2 Saturation 95 % (94-98) 01/26/22 08:15 ABG Base Excess 6.9 mmol/L (-2.0-3.0) H 01/26/22 08:15 Conner Test POSITIVE 01/26/22 08:15 VBG pH 7.242 (7.31-7.41) L 01/28/22 04:07 VBG pCO2 61.2 mmHg (41-51) H 01/26/22 04:30 VBG pO2 62.0 mmHg (25-47) H 01/26/22 04:30 VBG HCO3 32.0 mmol/L (23-28) H 01/26/22 04:30 VBG Total CO2 33.9 mmol/L (24-29) H 01/26/22 04:30 VBG O2 Saturation 91.7 % (60-80) H 01/26/22 04:30 VBG Base Excess 4.0 mmol/L (-2 - +2) H 01/26/22 04:30 Ionized Calcium 1.17 mmol/L (1.15-1.33) 01/28/22 04:07 Respiration Rate 20 b/min 01/24/22 12:45 O2 Delivery Device NASAL CANNULA 01/26/22 08:15 O2 Liters/Min 3.00 LPM 01/18/22 16:40 FiO2 35.00 01/26/22 08:15 EPAP 6 cmH2O 01/25/22 07:05 IPAP 16 cmH2O 01/25/22 07:05 Sodium 140 mmol/L (135-145) 01/27/22 04:04 Potassium 3.7 mmol/L (3.5-5.0) 01/27/22 04:04 Chloride 98 mmol/L (101-111) L 01/27/22 04:04 Carbon Dioxide 35 mmol/L (21-32) H 01/27/22 04:04 Anion Gap 7.0 (6-13) 01/27/22 04:04 BUN 17 mg/dL (6-20) 01/27/22 04:04 Creatinine 0.5 mg/dL (0.6-1.2) L 01/27/22 04:04 Estimated GFR (MDRD) 167 (>89) 01/27/22 04:04 Glucose 143 mg/dL (70-100) H 01/27/22 04:04 POC Whole Bld Glucose 87 mg/dL (70 - 100) 01/28/22 05:26 Lactic Acid 1.5 mmol/L (0.5-2.2) 01/20/22 16:58 Calcium 8.2 mg/dL (8.5-10.3) L 01/27/22 04:04 Phosphorus 3.4 mg/dL (2.5-4.6) 01/28/22 04:07 Magnesium 2.0 mg/dL (1.7-2.8) 01/28/22 04:07 Total Bilirubin 1.0 mg/dL (0.2-1.0) 01/27/22 04:04 Direct Bilirubin 0.1 mg/dL (0.1-0.5) 01/24/22 04:54 AST 52 IU/L (10-42) H 01/27/22 04:04 ALT 41 IU/L (10-60) 01/27/22 04:04 Alkaline Phosphatase 42 IU/L (42-121) 01/27/22 04:04 Ammonia 37.8 umol/L (7-35) H 01/24/22 13:19 Lactate Dehydrogenase 134 IU/L (91-225) 01/21/22 04:16 Troponin I High Sens 152.8 ng/L (2.3-19.7) H* 01/19/22 04:26 B-Natriuretic Peptide 877 pg/mL (5-100) H 01/20/22 04:34 Total Protein 5.5 g/dL (6.7-8.2) L 01/27/22 04:04 Albumin 2.9 g/dL (3.2-5.5) L 01/27/22 04:04 Globulin 2.6 g/dL (2.1-4.2) 01/27/22 04:04 Albumin/Globulin Ratio 1.1 (1.0-2.2) 01/27/22 04:04 Prealbumin 16 mg/dL (18-45) L 01/27/22 04:04 Vitamin B12 275 pg/mL (180-914) 01/21/22 04:16 Folate 12.29 ng/mL (5.90 - >24.8) 01/21/22 04:16 Procalcitonin < 0.05 ng/mL (<0.5) 01/24/22 04:54 Urine Color YELLOW 01/22/22 15:53 Urine Clarity CLEAR (CLEAR) 01/22/22 15:53 Urine pH 8.0 PH (5.0-7.5) H 01/22/22 15:53 Ur Specific Abell 1.015 (1.002-1.030) 01/22/22 15:53 Urine Protein NEGATIVE mg/dL (NEGATIVE) 01/22/22 15:53 Urine Glucose (UA) NEGATIVE mg/dL (NEGATIVE) 01/22/22 15:53 Urine Ketones NEGATIVE mg/dL (NEGATIVE) 01/22/22 15:53 Urine Occult Blood TRACE-INTA (NEGATIVE) 01/22/22 15:53 Urine Nitrite NEGATIVE (NEGATIVE) 01/22/22 15:53 Urine Bilirubin NEGATIVE (NEGATIVE) 01/22/22 15:53 Urine Urobilinogen 4 E.U./dL (NORMAL) H 01/22/22 15:53 Ur Leukocyte Esterase NEGATIVE (NEGATIVE) 01/22/22 15:53 Urine RBC None Seen /HPF (0-5) 01/22/22 15:53 Urine WBC 4-5 /HPF (0-3) 01/22/22 15:53 Ur Squamous Epith Cells RARE Squamous (<= Few) 01/22/22 15:53 Urine Bacteria Few /HPF (None Seen) 01/22/22 15:53 Ur Microscopic Review INDICATED 01/18/22 14:50 Urine Culture Comments NOT INDICATED 01/22/22 15:53 Nasal Adenovirus (PCR) NOT DETECTED 01/18/22 14:35 Nasal B. parapertussis DNA (PCR) NOT DETECTED 01/18/22 14:35 Nasal Coronavir 229E PCR NOT DETECTED 01/18/22 14:35 Nasal Coronavir HKU1 PCR NOT DETECTED 01/18/22 14:35 Nasal Coronavir NL63 PCR NOT DETECTED 01/18/22 14:35 Nasal Coronavir OC43 PCR NOT DETECTED 01/18/22 14:35 Nasal Enterovir/Rhinovir PCR NOT DETECTED 01/18/22 14:35 Nasal Influenza B PCR NOT DETECTED 01/18/22 14:35 Nasal Influenza A PCR NOT DETECTED 01/18/22 14:35 Nasal Parainfluen 1 PCR NOT DETECTED 01/18/22 14:35 Nasal Parainfluen 2 PCR NOT DETECTED 01/18/22 14:35 Nasal Parainfluen 3 PCR NOT DETECTED 01/18/22 14:35 Nasal Parainfluen 4 PCR NOT DETECTED 01/18/22 14:35 Nasal RSV (PCR) NOT DETECTED 01/18/22 14:35 Nasal Screen MRSA (PCR) NEGATIVE (NEGATIVE) 01/18/22 20:15 Nasal B.pertussis DNA PCR NOT DETECTED 01/18/22 14:35 Nasal C.pneumoniae (PCR) NOT DETECTED 01/18/22 14:35 Fredy Human Metapneumo PCR NOT DETECTED 01/18/22 14:35 Nasal M.pneumoniae (PCR) NOT DETECTED 01/18/22 14:35 Nasal SARS-CoV-2 (PCR) NOT DETECTED 01/18/22 14:35 Urine Opiates Screen NEGATIVE (NEGATIVE) 01/18/22 14:50 Ur Oxycodone Screen NEGATIVE (NEGATIVE) 01/18/22 14:50 Urine Methadone Screen NEGATIVE (NEGATIVE) 01/18/22 14:50 Ur Propoxyphene Screen NEGATIVE (NEGATIVE) 01/18/22 14:50 Ur Barbiturates Screen NEGATIVE (NEGATIVE) 01/18/22 14:50 Ur Tricyclics Screen POSITIVE (NEGATIVE) H 01/18/22 14:50 Ur Phencyclidine Scrn NEGATIVE (NEGATIVE) 01/18/22 14:50 Ur Amphetamine Screen POSITIVE (NEGATIVE) H 01/18/22 14:50 U Methamphetamines Scrn POSITIVE (NEGATIVE) H 01/18/22 14:50 U Benzodiazepines Scrn NEGATIVE (NEGATIVE) 01/18/22 14:50 Urine Cocaine Screen NEGATIVE (NEGATIVE) 01/18/22 14:50 U Cannabinoids Screen POSITIVE (NEGATIVE) H 01/18/22 14:50 Ethyl Alcohol < 5.0 mg/dL 01/18/22 14:35 - Procedures Procedures: Procedures INSERTION OF ENDOTRACHEAL AIRWAY INTO TRACHEA, VIA OPENING (07/31/21) RESPIRATORY VENTILATION, 24-96 CONSECUTIVE HOURS (07/31/21) ABX Reporting Has patient been on IV antibiotics over the past 48 hours?: No
[2022-01-28 08:49] LABS: BASOPHILS % (AUTO) 0.2 %; EOSINOPHILS # (AUTO) 0.1 10^3/uL (0.0-0.7); EOSINOPHILS % (AUTO) 2.3 %; HCT - HEMATOCRIT 48.9 % (42.0-52.0); HGB - HEMOGLOBIN 15.2 g/dL (14.0-18.0); LYMPHOCYTES # (AUTO) 0.7 10^3/uL (1.5-3.5); LYMPHOCYTES % (AUTO) 10.5 %; MEAN CORPUSCULAR HEMOGLOBIN 30.2 pg (27.0-31.0); MEAN CORPUSCULAR HGB CONC 31.1 g/dL (32.0-36.0); MEAN PLATELET VOLUME 11.3 fL (7.4-11.4); MONOCYTES # (AUTO) 1.1 10^3/uL (0.0-1.0); MONOCYTES % (AUTO) 18.4 %; NEUTROPHILS # (AUTO) 4.2 10^3/uL (1.5-6.6); NEUTROPHILS % (AUTO) 68.4 %; PLT - PLATELET COUNT 133 10^3/uL (130-450); RED BLOOD COUNT 5.04 10^6/uL (4.70-6.10); RED CELL DISTRIBUTION WIDTH 13.9 % (12.0-15.0); WHITE BLOOD COUNT 6.2 x10^3/uL (4.8-10.8)
[2022-01-28 08:57] LABS: CALCIUM 8.5 mg/dL (8.5-10.3); CREATININE 0.7 mg/dL (0.6-1.2); POTASSIUM 3.9 mmol/L (3.5-5.0)
[2022-01-28] MEDS: PANTOPRAZOLE 40 MG VIAL IV SCH (09:02)
[2022-01-28] MEDS: FUROSEMIDE 20 MG/2 ML VIAL IVP SCH ×2 (09:04→21:10)
[2022-01-28] MEDS: rifAXIMin 550 MG TABLET PO SCH ×2 (09:29→21:10)
[2022-01-28] MEDS: ASPIRIN CHEW 81 MG TABLET NG SCH (09:30)
[2022-01-28] MEDS: CYANOCOBALAMIN 500 MCG TABLET NG SCH (09:32)
[2022-01-28] MEDS: ENOXAPARIN 80 MG/0.8 ML SYRINGE SUBQ SCH ×2 (09:43→22:58)
[2022-01-28] MEDS: polyethylene glycoL 3350 17 GM PACKET NG SCH (12:08)
[2022-01-28] MEDS: MULTIVITAMIN W/MINERALS TABLET PO SCH (13:07)
[2022-01-28] MEDS: LOSARTAN 50 MG TABLET PO SCH (15:20)
[2022-01-28] MEDS: carvediloL 3.125 MG TABLET PO SCH ×2 (15:20→21:10)
[2022-01-28] MEDS: SPIRONOLACTONE 25 MG TABLET PO SCH (15:20)
[2022-01-28] MEDS: ATORVASTATIN 10 MG TABLET PO SCH (21:10)
[2022-01-28] MEDS ORDERED: LORazepam 2 MG/ML VIAL IVP ONE (23:33)
[2022-01-29 04:41] LABS: VBG PH 7.291 (7.31-7.41)
[2022-01-29 04:42] LABS: CALCIUM, IONIZED 1.15 mmol/L (1.15-1.33)
[2022-01-29 04:45] LABS: BASOPHILS % (AUTO) 0.1 %; EOSINOPHILS # (AUTO) 0.2 10^3/uL (0.0-0.7); EOSINOPHILS % (AUTO) 2.1 %; HCT - HEMATOCRIT 48.9 % (42.0-52.0); HGB - HEMOGLOBIN 15.1 g/dL (14.0-18.0); LYMPHOCYTES # (AUTO) 0.6 10^3/uL (1.5-3.5); LYMPHOCYTES % (AUTO) 7.9 %; MEAN CORPUSCULAR HEMOGLOBIN 30.3 pg (27.0-31.0); MEAN CORPUSCULAR HGB CONC 30.9 g/dL (32.0-36.0); MEAN CORPUSCULAR VOLUME 98.2 fL (80.0-94.0); MEAN PLATELET VOLUME 11.4 fL (7.4-11.4); MONOCYTES # (AUTO) 1.4 10^3/uL (0.0-1.0); MONOCYTES % (AUTO) 17.6 %; NEUTROPHILS # (AUTO) 5.8 10^3/uL (1.5-6.6); NEUTROPHILS % (AUTO) 71.9 %; PLT - PLATELET COUNT 136 10^3/uL (130-450); RED BLOOD COUNT 4.98 10^6/uL (4.70-6.10); RED CELL DISTRIBUTION WIDTH 13.6 % (12.0-15.0); WHITE BLOOD COUNT 8.1 x10^3/uL (4.8-10.8)
[2022-01-29 04:58] LABS: ALBUMIN 3.3 g/dL (3.2-5.5); ALBUMIN/GLOBULIN RATIO 1.2 (1.0-2.2); BILIRUBIN,TOTAL 0.6 mg/dL (0.2-1.0); CALCIUM 8.7 mg/dL (8.5-10.3); CREATININE 0.7 mg/dL (0.6-1.2); MAGNESIUM 1.9 mg/dL (1.7-2.8); PHOSPHORUS 3.3 mg/dL (2.5-4.6); POTASSIUM 3.9 mmol/L (3.5-5.0); TOTAL PROTEIN 6.1 g/dL (6.7-8.2)
[2022-01-29] MEDS ORDERED: POTASSIUM CHLORIDE 20 MEQ TABLET PO ONE (08:00)
[2022-01-29] MEDS: FORMOTEROL FUMARATE NEB 20 MCG/2 ML INH SCH ×2 (08:03→19:30)
[2022-01-29] MEDS: BUDESONIDE 0.5 MG/2 ML NEB INH SCH ×2 (08:03→19:30)
[2022-01-29] MEDS: SPIRONOLACTONE 25 MG TABLET PO SCH (08:15)
[2022-01-29] MEDS: ASPIRIN CHEW 81 MG TABLET NG SCH (08:15)
[2022-01-29] MEDS: carvediloL 3.125 MG TABLET PO SCH ×2 (08:17→21:44)
[2022-01-29] MEDS: LOSARTAN 50 MG TABLET PO SCH (08:19)
[2022-01-29] MEDS: CYANOCOBALAMIN 500 MCG TABLET NG SCH (08:19)
[2022-01-29] MEDS: PANTOPRAZOLE 40 MG VIAL IV SCH (08:23)
[2022-01-29] MEDS: FUROSEMIDE 20 MG/2 ML VIAL IVP SCH ×2 (08:24→21:44)
[2022-01-29] MEDS: ENOXAPARIN 80 MG/0.8 ML SYRINGE SUBQ SCH ×2 (08:24→21:44)
[2022-01-29] MEDS ORDERED: APIXABAN 2.5 MG TABLET PO SCH (09:00)
[2022-01-29] MEDS: rifAXIMin 550 MG TABLET PO SCH (09:34)
--- NOTE | 2022-01-29 11:18 | PROVIDER PROGRESS NOTE ---
Assessment/Plan - Problem List (1) Acute respiratory failure with hypoxia and hypercapnia Assessment/Plan: Likely multifactorial. Secondary to CHF exacerbation with reduced EF, COPD exacerbation with CO2 ret ention and possibly pneumonia. Improved. On room air O2Sat is 89%. On 2L 96%. (2) CHF exacerbation Qualifiers: Heart failure type: unspecified Qualified Code(s): I50.9 - Heart failure, unspecified Assessment/Plan: Lasix 20 mg po twice daily Losartan 50 mg p.o. daily Carvedilol 3.125 mg p.o. twice daily Acetazolamide 500 mg p.o. 3 times daily. Spironolactone 12.5 mg p.o. daily. Echocardiogram shows an EF of approximately 20%. There is a small RV thrombus without evidence of LV thrombus. Lovenox 70 mg subcu twice daily. (3) COPD (chronic obstructive pulmonary disease) Assessment/Plan: He is a chronic retainer with appropriate compensation. Currently on room air. Patient constantly removes supplemental Oxygen Budesonide 0.5 mg inhalation twice daily. Perforomist 20 mcg inhalation twice daily (4) Elevated troponin I level Assessment/Plan: Likely related to type II demand ischemia with troponin now down trended to 152.8. 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 Is on guideline directed medical therapy with Coreg, aspirin, losartan, Lipitor, along with diamox and Aldactone. Due to patient's noncompliance he is not a candidate for an AICD and will continue with medical management at this point. (5) Methamphetamine abuse Assessment/Plan: Urine drug screen during this admission was positive for methamphetamine/amphetamine. (8) Lethargy Assessment/Plan: Suspected to be secondary to medication use and or elevated CO2. Will recheck ABG if patient become more lethargic. (9) Malnourished Assessment/Plan: Nutrition following - Current Meds Current Meds: Current Medications Generic Name Dose Route Start Last Admin Trade Name Freq PRN Reason Stop Dose Admin Acetazolamide 500 mg 01/24/22 14:00 01/29/22 05:55 Acetazolamide Er 500 Mg Capsule PO 500 mg TID ABENA Administration Albuterol/Ipratropium 3 ml 01/18/22 19:31 01/22/22 10:45 Ipratropium/Albuterol 3 Ml Neb INH 3 ml Q4HR PRN Administration Wheezing Aspirin 81 mg 01/28/22 09:00 01/29/22 08:15 Aspirin Chew 81 Mg Tablet NG 81 mg DAILY ABENA Administration Atorvastatin Calcium 10 mg 01/18/22 21:00 01/28/22 21:10 Atorvastatin 10 Mg Tablet PO 10 mg QPM ABENA Administration Budesonide 0.5 mg 01/19/22 07:00 01/29/22 08:03 Budesonide 0.5 Mg/2 Ml Neb INH Not Given RTBID ABENA Carvedilol 3.125 mg 01/24/22 08:27 01/29/22 08:17 Carvedilol 3.125 Mg Tablet PO 3.125 mg BID ABENA Administration Cyanocobalamin 500 mcg 01/27/22 11:34 01/29/22 08:19 Cyanocobalamin 500 Mcg Tablet NG 500 mcg DAILY ABENA Administration Enoxaparin Sodium 70 mg 01/24/22 21:00 01/29/22 08:24 Enoxaparin 80 Mg/0.8 Ml Syringe SUBQ 70 mg BID ABENA Administration Formoterol Fumarate 20 mcg 01/19/22 07:00 01/29/22 08:03 Formoterol Fumarate Neb 20 Mcg/2 Ml INH Not Given RTBID ABENA Furosemide 20 mg 01/24/22 21:00 01/29/22 08:24 Furosemide 20 Mg/2 Ml Vial IVP 20 mg BID ABENA Administration Losartan Potassium 50 mg 01/24/22 09:00 01/29/22 08:19 Losartan 50 Mg Tablet PO 50 mg DAILY ABENA Administration Multivitamins/Minerals 1 tab 01/24/22 12:00 01/28/22 13:07 Multivitamin W/Minerals Tablet PO 1 tab QDLUNCH ABENA Administration Pantoprazole Sodium 40 mg 01/25/22 09:00 01/29/22 08:23 Pantoprazole 40 Mg Vial IV 40 mg DAILY ABENA Administration Polyethylene Glycol 17 gm 01/27/22 11:36 01/28/22 12:08 Polyethylene Glycol 3350 17 Gm Packet NG Not Given DAILY ABENA Rifaximin 550 mg 01/25/22 21:00 01/29/22 09:34 Rifaximin 550 Mg Tablet PO 550 mg BID ABENA Administration Sodium Chloride 10 ml 01/19/22 01:00 01/28/22 23:58 Sodium Chloride Flush 0.9% 10 Ml Syringe IVP 10 ml 0100,0900,1700 ABENA Administration Sodium Chloride 10 ml 01/18/22 19:20 01/27/22 21:15 Sodium Chloride Flush 0.9% 10 Ml Syringe IVP 10 ml PRN PRN Administration NEEDED PER PROVIDER ORDERS Spironolactone 12.5 mg 01/19/22 09:00 01/29/22 08:15 Spironolactone 25 Mg Tablet PO 12.5 mg DAILY ABENA Administration - Lab Result Fish Bone Diagrams: 01/29/22 04:36 01/29/22 04:36 - Additional Planning My Orders: My Active Orders 01/29/22 09:29 Oxygen Desat. Study w/Exercise [RC] .ONCE 01/29/22 11:15 Admit \ Transfer \ Status [RC] .ONCE 01/30/22 05:00 BMP - BASIC METABOLIC PANEL [CHEM] DAILYLAB CBC - COMP BLD CT W/AUTO DIFF [HEME] DAILYLAB 01/31/22 05:00 BMP - BASIC METABOLIC PANEL [CHEM] DAILYLAB CBC - COMP BLD CT W/AUTO DIFF [HEME] DAILYLAB 02/01/22 05:00 BMP - BASIC METABOLIC PANEL [CHEM] DAILYLAB CBC - COMP BLD CT W/AUTO DIFF [HEME] DAILYLAB COMPREHENSIVE METABOLIC PANEL [CHEM] Timed MAGNESIUM [CHEM] Timed PHOSPHORUS [CHEM] Timed PREALBUMIN [CHEM] Timed 02/02/22 05:00 BMP - BASIC METABOLIC PANEL [CHEM] DAILYLAB CBC - COMP BLD CT W/AUTO DIFF [HEME] DAILYLAB Subjective - Subjective Patient Reports: Other (Patient was very lethargic and restless today. He ate most of his meals) Objective Vital Signs: Vital Signs - 24 hr 01/28/22 01/28/22 01/28/22 12:00 13:00 14:00 Temperature Heart Rate [ 85 86 Monitoring electrodes] Respiratory 18 24 22 Rate Blood Pressure 93/58 L 108/59 L 97/63 [Left Brachial artery] Blood Pressure 93/58 L [Left Femoral artery] Blood Pressure [Right Brachial artery] O2 Saturation 98 96 95 01/28/22 01/28/22 01/28/22 15:00 16:00 17:00 Temperature Heart Rate [ 97 102 H 91 Monitoring electrodes] Respiratory 25 H 23 35 H Rate Blood Pressure 95/74 152/113 H [Left Brachial artery] Blood Pressure 113/53 L [Left Femoral artery] Blood Pressure [Right Brachial artery] O2 Saturation 97 95 96 01/28/22 01/28/22 01/28/22 19:00 20:00 21:00 Temperature 36.6 C Heart Rate [ 103 H 104 H 108 H Monitoring electrodes] Respiratory 23 27 H 27 H Rate Blood Pressure [Left Brachial artery] Blood Pressure [Left Femoral artery] Blood Pressure 178/72 H 134/81 H 125/63 [Right Brachial artery] O2 Saturation 93 100 100 01/28/22 01/29/22 01/29/22 22:00 00:00 03:00 Temperature Heart Rate [ 94 80 Monitoring electrodes] Respiratory 27 H 24 15 Rate Blood Pressure [Left Brachial artery] Blood Pressure [Left Femoral artery] Blood Pressure 120/70 100/61 [Right Brachial artery] O2 Saturation 100 98 01/29/22 01/29/22 01/29/22 04:00 06:00 07:00 Temperature 94 C H Heart Rate [ 88 88 Monitoring electrodes] Respiratory 15 15 Rate Blood Pressure 114/61 130/81 H [Left Brachial artery] Blood Pressure [Left Femoral artery] Blood Pressure [Right Brachial artery] O2 Saturation 97 01/29/22 01/29/22 01/29/22 08:39 10:06 11:00 Temperature 37.1 C Heart Rate [ 89 83 Monitoring electrodes] Respiratory 21 25 H 22 Rate Blood Pressure 122/77 [Left Brachial artery] Blood Pressure [Left Femoral artery] Blood Pressure 107/57 L 104/67 [Right Brachial artery] O2 Saturation 98 96 96 Oxygen O2 Source Nasal cannula Oxygen Flow Rate 10 I&O (Last 24 Hrs): Intake and Output Totals x24h 01/27/22 01/28/22 01/29/22 23:59 23:59 23:59 Intake Total 3844.667 2227.867 1255 Output Total 4395 2535 650 Balance -550.333 -307.133 605 General: Other (lethargic, frail, cachexic, oriented X2) HEENT: PERRLA, EOMI Neck: Supple, No JVD Neuro: Non Focal, Other (lethargic, oriented X2) Cardiovascular: Regular rate, Normal S1, Normal S2 Respiratory: Chest non-tender, No respiratory distress, Other (diminished breath sound) Abdomen: Normal bowel sounds, Soft, No tenderness Extremities: No clubbing, No edema - Results Results: Laboratory Results WBC 8.1 x10^3/uL (4.8-10.8) 01/29/22 04:36 RBC 4.98 10^6/uL (4.70-6.10) 01/29/22 04:36 Hgb 15.1 g/dL (14.0-18.0) 01/29/22 04:36 Hct 48.9 % (42.0-52.0) 01/29/22 04:36 MCV 98.2 fL (80.0-94.0) H 01/29/22 04:36 MCH 30.3 pg (27.0-31.0) 01/29/22 04:36 MCHC 30.9 g/dL (32.0-36.0) L 01/29/22 04:36 RDW 13.6 % (12.0-15.0) 01/29/22 04:36 Plt Count 136 10^3/uL (130-450) 01/29/22 04:36 MPV 11.4 fL (7.4-11.4) 01/29/22 04:36 Neut # (Auto) 5.8 10^3/uL (1.5-6.6) 01/29/22 04:36 Lymph # (Auto) 0.6 10^3/uL (1.5-3.5) L 01/29/22 04:36 Reagan # (Auto) 1.4 10^3/uL (0.0-1.0) H 01/29/22 04:36 Eos # (Auto) 0.2 10^3/uL (0.0-0.7) 01/29/22 04:36 Baso # (Auto) 0.0 10^3/uL (0.0-0.1) 01/29/22 04:36 Absolute Nucleated RBC 0.00 x10^3/uL 01/29/22 04:36 Nucleated RBC % 0.0 /100WBC 01/29/22 04:36 PT 11.7 secs (9.9-12.6) 01/22/22 05:35 INR 1.0 (0.8-1.2) 01/22/22 05:35 Bld Gas Analysis Time 0815 01/26/22 08:15 Sample Site RIGHT RADIAL 01/26/22 08:15 ABG pH 7.37 (7.35-7.45) 01/26/22 08:15 ABG pCO2 61 mmHg (34-45) H* 01/26/22 08:15 ABG pO2 74 mmHg (80-100) L 01/26/22 08:15 ABG HCO3 34.6 mmol/L (22.0-26.0) H 01/26/22 08:15 ABG Total CO2 36.4 MMOL/L (21.0-29.0) H 01/26/22 08:15 ABG O2 Saturation 95 % (94-98) 01/26/22 08:15 ABG Base Excess 6.9 mmol/L (-2.0-3.0) H 01/26/22 08:15 Conner Test POSITIVE 01/26/22 08:15 VBG pH 7.291 (7.31-7.41) L 01/29/22 04:36 VBG pCO2 61.2 mmHg (41-51) H 01/26/22 04:30 VBG pO2 62.0 mmHg (25-47) H 01/26/22 04:30 VBG HCO3 32.0 mmol/L (23-28) H 01/26/22 04:30 VBG Total CO2 33.9 mmol/L (24-29) H 01/26/22 04:30 VBG O2 Saturation 91.7 % (60-80) H 01/26/22 04:30 VBG Base Excess 4.0 mmol/L (-2 - +2) H 01/26/22 04:30 Ionized Calcium 1.15 mmol/L (1.15-1.33) 01/29/22 04:36 Respiration Rate 20 b/min 01/24/22 12:45 O2 Delivery Device NASAL CANNULA 01/26/22 08:15 O2 Liters/Min 3.00 LPM 01/18/22 16:40 FiO2 35.00 01/26/22 08:15 EPAP 6 cmH2O 01/25/22 07:05 IPAP 16 cmH2O 01/25/22 07:05 Sodium 143 mmol/L (135-145) 01/29/22 04:36 Potassium 3.9 mmol/L (3.5-5.0) 01/29/22 04:36 Chloride 99 mmol/L (101-111) L 01/29/22 04:36 Carbon Dioxide 37 mmol/L (21-32) H 01/29/22 04:36 Anion Gap 7.0 (6-13) 01/29/22 04:36 BUN 24 mg/dL (6-20) H 01/29/22 04:36 Creatinine 0.7 mg/dL (0.6-1.2) 01/29/22 04:36 Estimated GFR (MDRD) 114 (>89) 01/29/22 04:36 Glucose 104 mg/dL (70-100) H 01/29/22 04:36 POC Whole Bld Glucose 164 mg/dL (70 - 100) H 01/28/22 11:52 Lactic Acid 1.5 mmol/L (0.5-2.2) 01/20/22 16:58 Calcium 8.7 mg/dL (8.5-10.3) 01/29/22 04:36 Phosphorus 3.3 mg/dL (2.5-4.6) 01/29/22 04:36 Magnesium 1.9 mg/dL (1.7-2.8) 01/29/22 04:36 Total Bilirubin 0.6 mg/dL (0.2-1.0) 01/29/22 04:36 Direct Bilirubin 0.1 mg/dL (0.1-0.5) 01/24/22 04:54 AST 38 IU/L (10-42) 01/29/22 04:36 ALT 45 IU/L (10-60) 01/29/22 04:36 Alkaline Phosphatase 54 IU/L (42-121) 01/29/22 04:36 Ammonia 23.7 umol/L (7-35) 01/28/22 08:25 Lactate Dehydrogenase 134 IU/L (91-225) 01/21/22 04:16 Troponin I High Sens 152.8 ng/L (2.3-19.7) H* 01/19/22 04:26 B-Natriuretic Peptide 877 pg/mL (5-100) H 01/20/22 04:34 Total Protein 6.1 g/dL (6.7-8.2) L 01/29/22 04:36 Albumin 3.3 g/dL (3.2-5.5) 01/29/22 04:36 Globulin 2.8 g/dL (2.1-4.2) 01/29/22 04:36 Albumin/Globulin Ratio 1.2 (1.0-2.2) 01/29/22 04:36 Prealbumin 15 mg/dL (18-45) L 01/29/22 04:36 Vitamin B12 275 pg/mL (180-914) 01/21/22 04:16 Folate 12.29 ng/mL (5.90 - >24.8) 01/21/22 04:16 Procalcitonin < 0.05 ng/mL (<0.5) 01/24/22 04:54 Urine Color YELLOW 01/22/22 15:53 Urine Clarity CLEAR (CLEAR) 01/22/22 15:53 Urine pH 8.0 PH (5.0-7.5) H 01/22/22 15:53 Ur Specific [place] 1.015 (1.002-1.030) 01/22/22 15:53 Urine Protein NEGATIVE mg/dL (NEGATIVE) 01/22/22 15:53 Urine Glucose (UA) NEGATIVE mg/dL (NEGATIVE) 01/22/22 15:53 Urine Ketones NEGATIVE mg/dL (NEGATIVE) 01/22/22 15:53 Urine Occult Blood TRACE-INTA (NEGATIVE) 01/22/22 15:53 Urine Nitrite NEGATIVE (NEGATIVE) 01/22/22 15:53 Urine Bilirubin NEGATIVE (NEGATIVE) 01/22/22 15:53 Urine Urobilinogen 4 E.U./dL (NORMAL) H 01/22/22 15:53 Ur Leukocyte Esterase NEGATIVE (NEGATIVE) 01/22/22 15:53 Urine RBC None Seen /HPF (0-5) 01/22/22 15:53 Urine WBC 4-5 /HPF (0-3) 01/22/22 15:53 Ur Squamous Epith Cells RARE Squamous (<= Few) 01/22/22 15:53 Urine Bacteria Few /HPF (None Seen) 01/22/22 15:53 Ur Microscopic Review INDICATED 01/18/22 14:50 Urine Culture Comments NOT INDICATED 01/22/22 15:53 Nasal Adenovirus (PCR) NOT DETECTED 01/18/22 14:35 Nasal B. parapertussis DNA (PCR) NOT DETECTED 01/18/22 14:35 Nasal Coronavir 229E PCR NOT DETECTED 01/18/22 14:35 Nasal Coronavir HKU1 PCR NOT DETECTED 01/18/22 14:35 Nasal Coronavir NL63 PCR NOT DETECTED 01/18/22 14:35 Nasal Coronavir OC43 PCR NOT DETECTED 01/18/22 14:35 Nasal Enterovir/Rhinovir PCR NOT DETECTED 01/18/22 14:35 Nasal Influenza B PCR NOT DETECTED 01/18/22 14:35 Nasal Influenza A PCR NOT DETECTED 01/18/22 14:35 Nasal Parainfluen 1 PCR NOT DETECTED 01/18/22 14:35 Nasal Parainfluen 2 PCR NOT DETECTED 01/18/22 14:35 Nasal Parainfluen 3 PCR NOT DETECTED 01/18/22 14:35 Nasal Parainfluen 4 PCR NOT DETECTED 01/18/22 14:35 Nasal RSV (PCR) NOT DETECTED 01/18/22 14:35 Nasal Screen MRSA (PCR) NEGATIVE (NEGATIVE) 01/18/22 20:15 Nasal B.pertussis DNA PCR NOT DETECTED 01/18/22 14:35 Nasal C.pneumoniae (PCR) NOT DETECTED 01/18/22 14:35 Fredy Human Metapneumo PCR NOT DETECTED 01/18/22 14:35 Nasal M.pneumoniae (PCR) NOT DETECTED 01/18/22 14:35 Nasal SARS-CoV-2 (PCR) NOT DETECTED 01/18/22 14:35 Urine Opiates Screen NEGATIVE (NEGATIVE) 01/18/22 14:50 Ur Oxycodone Screen NEGATIVE (NEGATIVE) 01/18/22 14:50 Urine Methadone Screen NEGATIVE (NEGATIVE) 01/18/22 14:50 Ur Propoxyphene Screen NEGATIVE (NEGATIVE) 01/18/22 14:50 Ur Barbiturates Screen NEGATIVE (NEGATIVE) 01/18/22 14:50 Ur Tricyclics Screen POSITIVE (NEGATIVE) H 01/18/22 14:50 Ur Phencyclidine Scrn NEGATIVE (NEGATIVE) 01/18/22 14:50 Ur Amphetamine Screen POSITIVE (NEGATIVE) H 01/18/22 14:50 U Methamphetamines Scrn POSITIVE (NEGATIVE) H 01/18/22 14:50 U Benzodiazepines Scrn NEGATIVE (NEGATIVE) 01/18/22 14:50 Urine Cocaine Screen NEGATIVE (NEGATIVE) 01/18/22 14:50 U Cannabinoids Screen POSITIVE (NEGATIVE) H 01/18/22 14:50 Ethyl Alcohol < 5.0 mg/dL 01/18/22 14:35 - Procedures Procedures: Procedures INSERTION OF ENDOTRACHEAL AIRWAY INTO TRACHEA, VIA OPENING (07/31/21) RESPIRATORY VENTILATION, 24-96 CONSECUTIVE HOURS (07/31/21) ABX Reporting Has patient been on IV antibiotics over the past 48 hours?: No
[2022-01-29] MEDS: MULTIVITAMIN W/MINERALS TABLET PO SCH (11:30)
[2022-01-29] MEDS: polyethylene glycoL 3350 17 GM PACKET NG SCH (12:06)
[2022-01-29] MEDS: SODIUM CHLORIDE FLUSH 0.9% 10 ML SYRINGE IVP SCH ×3 (14:16→23:56)
[2022-01-29] MEDS: OLANZapine ODT 5 MG TABLET TL SCH (19:02)
[2022-01-29] MEDS: FUROSEMIDE 20 MG TABLET PO SCH (19:02)
[2022-01-29] MEDS: IPRATROPIUM/ALBUTEROL 3 ML NEB INH PRN (19:30)
[2022-01-29] MEDS: ATORVASTATIN 10 MG TABLET PO SCH (21:44)
[2022-01-30] MEDS ORDERED: HALOPERIDOL 5 MG/ML VIAL IM ONE (02:24)
--- NOTE | 2022-01-30 02:30 | PROVIDER PROGRESS NOTE ---
Face to Face for Restraints - Immediate Situation Face to Face Evaluation Date: 01/30/22 Face to Face Evaluation Time: :29 Restraint Situation: Physical Hold Patient's Reactions to the Intervention: Fighting restraints, Swearing, Spitting, Screaming/Yelling - Behavioral Condition Attitude: Open Behavior: Uncooperative, Agitated Orientation: Person, Place, Time, Situation Mood: Angry - Evaluation Review of Systems: Wants to leave Pertinent History/Illicit Drugs/Medications/Results: Dementia and poor judgement, Unsafe to discharge to home where he lived alone, Hx of Meth use - Plan Need to Continue or Terminate Violent or Chemical Restraint: Patient was held down by Security, RNs applied two-point soft restraints to upper extremities secured to side of bed. IM Haldol ordered when patient was secured 1:1 monitoring ordered At re-eval, after Halddol was given, he was becoming somnolent, was not agitated, starting to lay head on pillow or on bed siderail
[2022-01-30] MEDS: FUROSEMIDE 20 MG TABLET PO SCH (05:15)
[2022-01-30 05:19] LABS: BASOPHILS % (AUTO) 0.1 %; EOSINOPHILS % (AUTO) 1.5 %; HCT - HEMATOCRIT 48.7 % (42.0-52.0); HGB - HEMOGLOBIN 15.2 g/dL (14.0-18.0); MEAN CORPUSCULAR HEMOGLOBIN 29.9 pg (27.0-31.0); MEAN CORPUSCULAR HGB CONC 31.2 g/dL (32.0-36.0); MEAN CORPUSCULAR VOLUME 95.9 fL (80.0-94.0); MEAN PLATELET VOLUME 11.4 fL (7.4-11.4); MONOCYTES % (AUTO) 18.8 %; NEUTROPHILS % (AUTO) 69.1 %; PLT - PLATELET COUNT 153 10^3/uL (130-450); RED BLOOD COUNT 5.08 10^6/uL (4.70-6.10); RED CELL DISTRIBUTION WIDTH 13.4 % (12.0-15.0); WHITE BLOOD COUNT 11.3 x10^3/uL (4.8-10.8)
[2022-01-30 05:31] LABS: CREATININE 0.6 mg/dL (0.6-1.2); POTASSIUM 4.1 mmol/L (3.5-5.0)
[2022-01-30 05:36] LABS: ABNORMAL LYMPHS % (MANUAL) 0 %
[2022-01-30 05:58] LABS: BAND NEUTROPHILS % (MANUAL) 4 %; DIFFERENTIAL COMMENT MANUAL DIFFERENTIAL; LYMPHOCYTES # (MANUAL) 0.6 10^3/uL (1.5-3.5); LYMPHOCYTES % (MANUAL) 5 %; MONOCYTES # (MANUAL) 2.4 10^3/uL (0.0-1.0); NEUTROPHILS # (MANUAL) 8.4 10^3/uL (1.5-6.6); PLATELET ESTIMATE, MANUAL NORMAL (130-450,000) (NORMAL); RBC MORPHOLOGY (MULTIPLE) NORMAL APPEARANCE (NORMAL)
[2022-01-30] MEDS ORDERED: PANTOPRAZOLE 40 MG TABLET PO SCH (07:00)
[2022-01-30] MEDS: FORMOTEROL FUMARATE NEB 20 MCG/2 ML INH SCH (07:20)
[2022-01-30] MEDS: BUDESONIDE 0.5 MG/2 ML NEB INH SCH (07:21)
[2022-01-30] MEDS ORDERED: APIXABAN 5 MG TABLET PO SCH (09:00)
[2022-01-30] MEDS: polyethylene glycoL 3350 17 GM PACKET NG SCH (09:53)
[2022-01-30] MEDS: CYANOCOBALAMIN 500 MCG TABLET NG SCH (09:54)
[2022-01-30] MEDS: carvediloL 3.125 MG TABLET PO SCH (09:54)
[2022-01-30] MEDS: ASPIRIN CHEW 81 MG TABLET NG SCH (09:54)
[2022-01-30] MEDS: OLANZapine ODT 5 MG TABLET TL SCH (09:54)
[2022-01-30] MEDS: SPIRONOLACTONE 25 MG TABLET PO SCH (09:54)
[2022-01-30] MEDS: LOSARTAN 50 MG TABLET PO SCH (09:59)
[2022-01-30] MEDS: ENOXAPARIN 80 MG/0.8 ML SYRINGE SUBQ SCH (09:59)
[2022-01-30] MEDS: SODIUM CHLORIDE FLUSH 0.9% 10 ML SYRINGE IVP SCH (10:00)
--- NOTE | 2022-01-30 11:07 | DISCHARGE SUMMARY ---
Discharge Summary Admit Date: 01/18/22 Discharge Date: 01/30/22 Discharging Provider: Shamar Maxwelltu Code Status: Attempt Resuscitation Condition at Discharge: Fair Discharge Disposition: 01 Home, Self Care - DIAGNOSES Admission Diagnoses: CHF exacerbation COPD Acute respiratory failure with hypoxia and hypercapnia Elevated troponin I level Methamphetamine abuse Hypertension Discharge Diagnoses with Status of Each Condition: CHF exacerbation: Improved. EF 20%. Diuresed Discharged with medications to continue treatment at home COPD: Stable. Continue home pulmonary regiment Acute respiratory failure with hypoxia and hypercapnia: Improved. Breathing comfortably on room air. Mentation improved Elevated troponin I level: Resolved Methamphetamine abuse Hypertension: Stable. Controlled - HPI History of Present Illness: Patient is a 61-year-old male with medical history significant for COPD, CHF, amphetamine use, medical noncompliance who was brought to the ED via EMS with shortness of breath. The history is mostly obtained from the ED providers note because the patient is currently very somnolent likely due to elevated CO2 levels and is not able to provide a very reliable history. It is reported that he has not taken his medications for 2 weeks. When EMS arrived his oxygen saturation was in the 70s on room air. He was placed on a nonrebreather which improved his oxygen saturation to the 90s. The patient has lower extremity edema 3+ on the left and +1 on the right. Further work-up in the ED included an ABG which showed a pH of 7.26 and PCO2 of 91. He also had a BNP of 2294. Chest x-ray showed cardiomegaly with effusion increased vascularity suggestive of edema. He sounds mildly rhonchorous on auscultation. He is a very frail/cachectic appearing man. 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 His lower extremities appear somewhat mottled. Though very somnolent he is is arousable but readily drifts back to sleep. As a result of his presentation and laboratory findings he was presented for admission for further treatment. - HOSPITAL COURSE Hospital Course: Patient was admitted on 01/18/2022 with dyspnea, lower extremity edema and c onfusion. He was in CHF exacerbation with a BNP as high as 2294. He also had COPD. He was in respiratory failure with hypoxia and hypercapnia. He was admitted to the ICU and placed on the BiPAP. He was also on steroids with Solu- Medrol. He was administered breathing treatments. For his cardiac problems he was treated with Lasix, Coreg, losartan, spironolactone and metolazone. Echocardiogram shows an EF of approximately 20%. There is a small RV thrombus without evidence of LV thrombus. He was on Lovenox 70 mcg subcu twice daily. Patient's risk of falling is significant given his history of IV drug use. As a result an anticoagulant was not prescribed upon discharge due to concern for p ossible bleed with possible falls. By the day of discharge he was breathing on room air with oxygen saturation at 96%. Respiratory rate 20. Patient had significant behavioral issues during his hospital stay which were particularly worse the last 2 to 3 days of his hospital stay. He required restraints for continued care and for safety of staff. He was very insistent on being discharged home. He was discharged home on 01/30/2022. Noncompliance has been a significant problem with regards to the patient's medical care. His significant methamphetamine use is a primary contributing factor to his noncompliance. He may follow-up with his primary care physician as needed. - ALLERGIES Allergies/Adverse Reactions: Allergies Allergy/AdvReac Type Severity Reaction Status Date / Time No Known Drug Allergies Allergy Verified 07/31/21 18:48 - PHYSICAL EXAM AT DISCHARGE General Appearance: positive: No acute distress, Alert (belligerent, confrotational), Other (frail, cachexic) Eyes Bilateral: positive: PERRL, EOMI ENT: positive: No signs of dehydration Neck: positive: No JVD, Trachea midline Respiratory: positive: Chest non-tender, No respiratory distress, Other (coarse breath sounds) Cardiovascular: positive: Regular rate & rhythm Abdomen: positive: Non-tender, No organomegaly, Nml bowel sounds, No distention. negative: Guarding, Rebound Skin: positive: Color nml, Warm, Dry Extremities: positive: Full ROM, No pedal edema Neurologic/Psychiatric: positive: Oriented x3, Other (Belligerent, confrontational) - LABS Result Diagrams: 01/30/22 05:12 01/30/22 05:12 - TIME SPENT Time Spent in Discharge (Minutes): 20
--- NOTE | 2022-01-30 11:17 | Discharge Plan ---
Discharge Plan Problem Reviewed?: Yes Disposition: Home, Self Care Condition: Fair Prescriptions: Ipratropium/Albuterol [Duoneb] 3 ml INH Q4HR PRN #1 neb PRN Reason: Wheezing Spironolactone [Aldactone] 12.5 mg PO DAILY #30 tablet carvediloL [Coreg] 3.125 mg PO BID #60 tablet Losartan [Cozaar] 25 mg PO DAILY #30 tablet Furosemide [Lasix] 20 mg PO BIDDIURETIC #60 tablet Atorvastatin [Lipitor] 10 mg PO QPM #30 tablet Formoterol Fumarate [Perforomist] 20 mcg INH RTBID #1 neb Budesonide [Pulmicort] 0.5 mg INH RTBID #1 neb Diet: Regular Activity Restrictions: Activity as Tolerated Health Concerns: Patient was admitted on 01/18/2022 with dyspnea, lower extremity edema and confusion. He was in CHF exacerbation with a BNP as high as 2294. He also had COPD. He was in respiratory failure with hypoxia and hypercapnia. He was admitted to the ICU and placed on the BiPAP. He was also on steroids with Solu- Medrol. He was administered breathing treatments. For his cardiac problems he was treated with Lasix, Coreg, losartan, spironolactone and metolazone. Echocardiogram shows an EF of approximately 20%. There is a small RV thrombus without evidence of LV thrombus. He was on Lovenox 70 mcg subcu twice daily. Patient's risk of falling is significant given his history of IV drug use. As a result an anticoagulant was not prescribed upon discharge due to concern for possible bleed with possible falls. By the day of discharge he was breathing on room air with oxygen saturation at 96%. Respiratory rate 20. Patient had significant behavioral issues during his hospital stay which were particularly worse the last 2 to 3 days of his hospital stay. He required restraints for continued care and for safety of staff. He was very insistent on being discharged home. He was discharged home on 01/30/2022. Noncompliance has been a significant problem with regards to the patient's medical care. His significant methamphetamine use is a primary contributing factor to his noncompliance. He may follow-up with his primary care physician as needed. No Smoking: If you smoke, Please STOP! Call for help. Follow-up with: Indu Reid ARNP [Primary Care Provider] -
[2022-01-30 12:13] VITALS: BP 116/51
== END 2022-01-30 12:30 | disposition home or self-care (01) | DRG 291 ==
LOC: EDUNIT# → ED 14:11 → ICU 19:21 → MS2 01-23 14:31 → ICU 01-24 11:12 → MS2 01-29 11:46
PROVIDERS: ADMIT Internal Medicine; ATTEND Internal Medicine
PROC: 0DH67UZ Insertion of Feeding Device into Stomach, Via Natural or Artificial Opening (ICD-10-PCS; principal; 2022-01-25)
DX: I11.0 Hypertensive heart disease with heart failure (principal); I50.23 Acute on chronic systolic (congestive) heart failure; G92.8 Other toxic encephalopathy; J96.22 Acute and chronic respiratory failure with hypercapnia; J96.21 Acute and chronic respiratory failure with hypoxia; A41.9 Sepsis, unspecified organism; R64 Cachexia; E87.4 Mixed disorder of acid-base balance; I24.0 Acute coronary thrombosis not resulting in myocardial infarction; I47.1 Supraventricular tachycardia; E46 Unspecified protein-calorie malnutrition; J44.9 Chronic obstructive pulmonary disease, unspecified; R77.8 Other specified abnormalities of plasma proteins; F15.10 Other stimulant abuse, uncomplicated; L40.0 Psoriasis vulgaris; F32.A Depression, unspecified; F41.9 Anxiety disorder, unspecified; F43.10 Post-traumatic stress disorder, unspecified; F17.210 Nicotine dependence, cigarettes, uncomplicated; M62.84 Sarcopenia; I49.3 Ventricular premature depolarization; I42.7 Cardiomyopathy due to drug and external agent; I95.9 Hypotension, unspecified; T38.0X5A Adverse effect of glucocorticoids and synthetic analogues, initial encounter; Y92.239 Unspecified place in hospital as the place of occurrence of the external cause; D72.829 Elevated white blood cell count, unspecified; R41.9 Unspecified symptoms and signs involving cognitive functions and awareness; R45.1 Restlessness and agitation; R20.2 Paresthesia of skin; J98.09 Other diseases of bronchus, not elsewhere classified; Z20.822 Contact with and (suspected) exposure to COVID-19; Z71.3 Dietary counseling and surveillance; Z78.1 Physical restraint status; Z79.82 Long term (current) use of aspirin; Z79.899 Other long term (current) drug therapy; Z91.14 Patient's other noncompliance with medication regimen; Z91.19 Patient's noncompliance with other medical treatment and regimen
CPT/HCPCS: 36415; 36600; 71045; 71250; 80048; 80053; 80069; 80076; 80306; 80320; 81001; 82140; 82330; 82607; 82746; 82803; 83605; 83615; 83735; 83880; 84100; 84134; 84145; 84484; 85025; 85610; 87040; 87150; 87633; 93005; 93306; 93922; 94640; 94660; 96365; 96375; 97162; 97166; 97530; 97535; 99285; 99291; A6250; A9270; J1650; J2060; J3370; J7512; J7626; J8499; Q9957; 80202; 81003; 84157; 87086; 89051